=== PATIENT | male | born 1945 | race African-American/Black ===

== ENCOUNTER 2017-07-05 21:00 | Emergency (ER) | payer OTHER ==
[2017-07-05 22:07] LABS: Hematocrit 39.9 % (39.6-49.0); MCH 27.8 pg (27.0-35.0); MCV 87.6 fL (80-100); MPV 11.1 fL (7.6-11.3); RBC Red Blood Cell Count 4.56 M/uL (4.33-5.43)
[2017-07-05 22:11] LABS: Potassium 5.4 mEq/L (3.6-5.0)
[2017-07-05 22:14] LABS: Albumin 3.5 g/dL (3.2-5.5); Bilirubin Total 0.3 mg/dL (0.3-1.2); Protein, Total 7.6 g/dL (6.0-8.3)
--- NOTE | 2017-07-05 22:58 | ER ---
Nurse's Notes [facility] Name: Flex Morel Age: 71 yrs Sex: Male : 1945 Arrival Date: 07/05/2017 Time: 21:05 Bed 6 Private MD: Timur Murillo C Diagnosis: Hyperkalemia Presentation: 07/05 21:12 Presenting complaint: Patient states: I am a pt of Dr Murillo and he has been watching my la1 kidney function over the last few months, we had labs here today and he told us to come in because my potassium was very high. Transition of care: patient was not received from another setting of care. Onset of symptoms was July 05, 2017. Care prior to arrival: None. 21:12 Method Of Arrival: Wheelchair la1 21:12 Acuity: MIKAL 3 la1 Historical: - Allergies: 21:13 No Known Allergies; la1 - PMHx: 21:13 CHF; CVA; Diabetes - NIDDM; Gout; Hyperlipidemia; Hypertension; la1 - Immunization history:: Adult Immunizations up to date. - Social history:: Smoking status: Patient/guardian denies using tobacco. - Family history:: not pertinent. Screenin:18 Abuse screen: Denies threats or abuse. Denies injuries from another. Nutritional bp screening: No deficits noted. Tuberculosis screening: No symptoms or risk factors identified. Fall Risk None identified. Assessment: 21:19 General: Appears in no apparent distress. comfortable, Behavior is calm, cooperative, bp appropriate for age. Pain: Denies pain. Neuro: Level of Consciousness is awake, alert, obeys commands, Oriented to person, place, time, situation, Appropriate for age. Cardiovascular: No deficits noted. Respiratory: Airway is patent Respiratory effort is even, unlabored, Respiratory pattern is regular, symmetrical. GI: No signs and/or symptoms were reported involving the gastrointestinal system. : No signs and/or symptoms were reported regarding the genitourinary system. EENT: No deficits noted. Derm: No deficits noted. Musculoskeletal: Circulation, motion, and sensation intact. Range of motion: intact in all extremities. 23:32 Reassessment: PT D/C HOME WITH FAMILY, DX WITH HYPERKALEMIA. bp Vital Signs: 21:13 BP 136 / 81; Pulse 81; Resp 16; Temp 97.4; Pulse Ox 100% on R/A; Weight 91.63 kg; la1 Height 5 ft. 8 in. (172.72 cm); 22:00 BP 120 / 79; Pulse 73; Resp 14; Pulse Ox 99% ; bp 23:00 BP 123 / 78; Pulse 75; Resp 16; Pulse Ox 100% ; bp 21:13 Body Mass Index 30.71 (91.63 kg, 172.72 cm) la1 ED Course: 21:05 Patient arrived in ED. do 21:05 Timur Murillo MD is Private Physician. do 21:13 Triage completed. la1 21:13 Arm band placed on right wrist. la1 21:18 Vipul Monroe, RN is Primary Nurse. bp 21:18 Patient has correct armband on for positive identification. Bed in low position. Call bp light in reach. Side rails up X2. 21:32 Juan Zarco MD is Attending Physician. ma2 21:45 Inserted saline lock: 22 gauge in right forearm, using aseptic technique. Blood bp collected. 23:32 No provider procedures requiring assistance completed. IV discontinued, intact, bp bleeding controlled, No redness/swelling at site. Pressure dressing applied. Administered Medications: No medications were administered Outcome: 22:57 Discharge ordered by . ma2 23:33 Discharged to home via wheelchair, with family. bp 23:33 Condition: stable 23:33 Discharge instructions given to patient, family, Instructed on discharge instructions, follow up and referral plans. medication usage, Demonstrated understanding of instructions, follow-up care, medications, Prescriptions given X 1. 23:34 Patient left the ED. bp Signatures: Agus Chakraborty RN RN la1 Mignon Crawford Brian, RN RN bp Juan Zarco MD MD ma2
--- NOTE | 2017-07-05 22:58 | EDPHYS ---
Physician Documentation [facility] Name: Flex Morel Age: 71 yrs Sex: Male : 1945 Arrival Date: 07/05/2017 Time: 21:05 Bed 6 Private MD: Timur Tamez C ED Physician Juan Zarco HPI: 07/05 21:38 This 71 yrs old Black Male presents to ER via Wheelchair with complaints of Tested High ma2 Potassium Level. 21:38 sent from his PCP Dr. Tamez for K = 6.3 ESRD on schedule HD has no symptoms. Onset: The ma2 symptoms/episode began/occurred gradually, 1 day(s) ago. Severity of symptoms: At their worst the symptoms were severe. The patient has experienced similar episodes in the past. The patient has been recently seen by a physician:. Historical: - Allergies: 21:13 No Known Allergies; la1 - PMHx: 21:13 CHF; CVA; Diabetes - NIDDM; Gout; Hyperlipidemia; Hypertension; la1 - Immunization history:: Adult Immunizations up to date. - Social history:: Smoking status: Patient/guardian denies using tobacco. - Family history:: not pertinent. ROS: 21:38 ENT: Negative for injury, pain, and discharge, Neck: Negative for injury, pain, and ma2 swelling, Respiratory: Negative for shortness of breath, cough, wheezing, and pleuritic chest pain, Abdomen/GI: Negative for abdominal pain, nausea, diarrhea, and constipation. 21:38 All other systems are negative. Exam: 21:38 Constitutional: This is a well developed, well nourished patient who is awake, alert, ma2 and in no acute distress. Eyes: Pupils equal round and reactive to light, extra-ocular motions intact. Lids and lashes normal. Conjunctiva and sclera are non-icteric and not injected. Cornea within normal limits. Periorbital areas with no swelling, redness, or edema. ENT: Nares patent. No nasal discharge, no septal abnormalities noted. Tympanic membranes are normal and external auditory canals are clear. Oropharynx with no redness, swelling, or masses, exudates, or evidence of obstruction, uvula midline. Mucous membranes moist. Neck: Trachea midline, no thyromegaly or masses palpated, and no cervical lymphadenopathy. Supple, full range of motion without nuchal rigidity, or vertebral point tenderness. No Meningismus. Chest/axilla: Normal chest wall appearance and motion. Nontender with no deformity. No lesions are appreciated. Back: No spinal tenderness. No costovertebral tenderness. Full range of motion. Vital Signs: 21:13 BP 136 / 81; Pulse 81; Resp 16; Temp 97.4; Pulse Ox 100% on R/A; Weight 91.63 kg; la1 Height 5 ft. 8 in. (172.72 cm); 22:00 BP 120 / 79; Pulse 73; Resp 14; Pulse Ox 99% ; bp 23:00 BP 123 / 78; Pulse 75; Resp 16; Pulse Ox 100% ; bp 21:13 Body Mass Index 30.71 (91.63 kg, 172.72 cm) la1 MDM: 21:34 Patient medically screened. ma2 21:38 Differential Diagnosis elevated K, ESRD, renal failure . ma2 22:56 Data reviewed: vital signs, nurses notes, lab test result(s). Counseling: I had a ma2 detailed discussion with the patient and/or guardian regarding: the historical points, exam findings, and any diagnostic results supporting the discharge/admit diagnosis, the need for outpatient follow up. ED course: K = 5.[address] elkins who recommend to start kayexalate and d/c home and he will discuss with Dr. tamez tomorrow and call the patient, patient is stable normal VS no ekg changes no symptoms. 07/05 21:33 Order name: CMP; Complete Time: 22:31 vt2 07/05 21:33 Order name: CBC w/o diff [facility] 07/05 21:33 Order name: Lactic Dehydrogenase; Complete Time: 22:31 ma2 07/05 21:33 Order name: Lactate; Complete Time: 22:31 ma2 Administered Medications: No medications were administered Disposition: 07/05/17 22:57 Discharged to Home. Impression: Hyperkalemia. - Condition is Stable. - Discharge Instructions: Hyperkalemia, [id number]. - Prescriptions for Kayexalate Oral powder - take 20 milliliter by ORAL route once daily; 17757 milliliter. - Medication Reconciliation Form, Thank You Letter, Antibiotic Education, Prescription Opioid Use form. - Follow up: Private Physician; When: Today; Reason: Continuance of care. - Problem is new. - Symptoms have improved. Signatures: Dispatcher [employer] Agus Virk RN RN la1 Vipul Monroe RN RN bp Alzahri, Mohammad, MD MD ma2 Corrections: (The following items were deleted from the chart) 22:35 22:32 Abnormal. elisa pérez
[2017-07-05 23:46] VITALS: TEMP 97.4
[2017-07-05 23:48] VITALS: BP 123/78; O2SAT 100
--- NOTE | 2017-07-07 22:39 | EKG ---
Test Date: 2017-07-05 Test Time: 21:25:43 [employer] Manager: OMAR MEASUREMENT RESULTS: Intervals: Rate: 74 ID: [id number] QRSD: 122 QT: 398 QTc: 441 Neche: P: 65 ID: [id number] QRS: -15 T: 179 INTERPRETIVE STATEMENTS: Sinus rhythm with 1st degree AV block Nonspecific intraventricular conduction delay T wave abnormality, consider lateral ischemia Abnormal ECG Compared to ECG 06/01/2017 13:23:55 Ventricular premature complex(es) no longer present T-wave abnormality still present Possible ischemia still present Electronically Signed On 07-07-17 22:38:37 CDT by Deniz Gonzales
== END 2017-07-05 23:34 | disposition home or self-care (01) ==
LOC: ER 21:00
DX: E87.5 Hyperkalemia (principal)
CPT/HCPCS: 36415; 80053; 83605; 83615; 85027; 93005; 99283

== ENCOUNTER 2017-08-17 23:26 | Inpatient (IN) | payer OTHER ==
[2017-08-18 00:10] LABS: Absolute Lymphocytes (CBC) 1.9 K/uL (0.7-4.9); Absolute Monocytes 0.7 K/uL (0.1-1.3); Absolute Neutrophil 4.9 K/uL (1.8-8.0); Basophils % 0.2 % (0-1.3); Eosinophils % 2.3 % (0-4.4); Hematocrit 34.5 % (39.6-49.0); Lymphocytes % 24.2 % (15.3-44.8); MCH 28.1 pg (27.0-35.0); MCV 89.7 fL (80-100); MPV 9.7 fL (7.6-11.3); Monocytes % 9.4 % (3.3-12.3); RBC Red Blood Cell Count 3.85 M/uL (4.33-5.43)
[2017-08-18 00:13] LABS: Protime INR 1.34
[2017-08-18 00:20] LABS: Potassium 3.2 mEq/L (3.6-5.0)
[2017-08-18 00:26] LABS: Albumin 3.1 g/dL (3.2-5.5); Bilirubin Direct 0.2 mg/dL (0-0.2); Bilirubin Total 0.7 mg/dL (0.3-1.2); Magnesium 1.9 mg/dL (1.8-2.5)
[2017-08-18 00:30] LABS: CKMB Creatine Kinase MB 7.4 ng/ml (0.3-4.0)
[2017-08-18] MEDS ORDERED: FUROSEMIDE 40 MG/4 ML VIAL ONE ×2 (00:37→02:29)
--- NOTE | 2017-08-18 02:33 | ER ---
Nurse's Notes [facility] Name: Flex Morel Age: 71 yrs Sex: Male : 1945 Arrival Date: 08/17/2017 Time: 23:27 Bed 14 Private MD: Diagnosis: Acute on chronic combined systolic (congestive) and diastolic (congestive) heart failure Presentation: 08/17 23:39 Presenting complaint: Patient states: short of breath since yesterday morning, mb3 gradually getting worse and worse. 84% on room air, on 3 liters nasal cannula now. Transition of care: patient was not received from another setting of care. Onset of symptoms was August 16, 2017. Risk Assessment: Do you want to hurt yourself or someone else? Patient reports no desire to harm self or others. Initial Sepsis Screen: Does the patient meet any 2 criteria? No. Patient's initial sepsis screen is negative. Does the patient have a suspected source of infection? No. Patient's initial sepsis screen is negative. Care prior to arrival: None. 23:39 Method Of Arrival: Wheelchair mb3 23:39 Acuity: MIKAL 3 mb3 Triage Assessment: 23:43 General: Appears uncomfortable, ill, obese, Behavior is calm, cooperative, appropriate mb3 for age. Pain: Denies pain. Neuro: No deficits noted. Level of Consciousness is awake, alert, obeys commands, Oriented to person, place, time, situation, Appropriate for age. Cardiovascular: Heart tones present Capillary refill < 3 seconds Patient's skin is warm and dry. Respiratory: Reports shortness of breath at rest labored breathing since yesterday Airway is patent Respiratory effort is labored, Respiratory pattern is tachypnea Breath sounds are diminished bilaterally. Onset: The symptoms/episode began/occurred gradually, the patient has severe shortness of breath. GI: Abdomen is round distended, Bowel sounds hypoactive in right upper quadrant, left upper quadrant and abdomen diffusely. : No signs and/or symptoms were reported regarding the genitourinary system. Historical: - Allergies: 23:42 No Known Allergies; mb3 - PMHx: 23:42 CHF; CVA; Diabetes - NIDDM; Gout; Hyperlipidemia; Hypertension; Seizures; mb3 - Immunization history:: Adult Immunizations not up to date. - Social history:: Smoking status: Patient/guardian denies using tobacco, never smoked. - Ebola Screening: : Patient denies travel to an Ebola-affected area in the 21 days before illness onset No symptoms or risks identified at this time. Screenin:57 Abuse screen: Denies threats or abuse. Nutritional screening: No deficits noted. mb3 Tuberculosis screening: No symptoms or risk factors identified. Fall Risk None identified. Assessment: 08/18 00:05 Reassessment: see triage assessment. Cardiovascular: Reports shortness of breath, mb3 Denies chest pain, Rhythm is irregular. 01:30 Reassessment: Patient and/or family updated on plan of care and expected duration. Pain ea level reassessed. Patient is alert, oriented x 3, equal unlabored respirations, skin warm/dry/pink. 02:55 Reassessment: Patient and/or family updated on plan of care and expected duration. Pain ea level reassessed. Patient is alert, oriented x 3, equal unlabored respirations, skin warm/dry/pink. 03:15 Reassessment: Patient and/or family updated on plan of care and expected duration. Pain ea level reassessed. Patient is alert, oriented x 3, equal unlabored respirations, skin warm/dry/pink. Patient states feeling better. 04:33 Reassessment: Patient and/or family updated on plan of care and expected duration. Pain ea level reassessed. Patient is alert, oriented x 3, equal unlabored respirations, skin warm/dry/pink. Patient states feeling better. 05:00 Reassessment: Patient and/or family updated on plan of care and expected duration. Pain ea level reassessed. Patient is alert, oriented x 3, equal unlabored respirations, skin warm/dry/pink. Family at bedside. Vital Signs: 08/17 23:45 BP 138 / 89; Pulse 81; Resp 26; Temp 98.8; Pulse Ox 94% on 3 lpm NC; Weight 99.79 kg; mb3 Height 5 ft. 7 in. (170.18 cm); Pain 0/10; 08/18 00:45 BP 138 / 95; Pulse 74; Resp 24; Pulse Ox 93% ; Pain 0/10; ea 01:15 BP 151 / 78; Pulse 79; Resp 24; Pulse Ox 94% on 3 lpm NC; ea 02:30 BP 152 / 99; Pulse 77; Resp 22; Pulse Ox 94% ; Pain 0/10; ea 03:30 BP 168 / 95; Pulse 80; Resp 20; Pulse Ox 97% ; Pain 0/10; ea 04:34 BP 168 / 71; Pulse 82; Resp 20; Temp 98(O); Pulse Ox 97% on 3 lpm NC; Pain 0/10; ea 08/17 23:45 Body Mass Index 34.46 (99.79 kg, 170.18 cm) mb3 ED Course: 08/17 23:27 Patient arrived in ED. ds1 23:31 Awais Maria, EDIE is Primary Nurse. mb3 23:41 Triage completed. mb3 23:47 Elbert Mcnally, ADEEL is PHCP. pm1 23:48 Eder Wilson MD is Attending Physician. pm1 23:57 Inserted saline lock: 20 gauge in right forearm, using aseptic technique. Blood mb3 collected. 08/18 00:05 Arm band placed on right wrist. ea 00:05 Patient has correct armband on for positive identification. Placed in gown. Bed in low ea position. Call light in reach. Side rails up X2. 00:12 X-ray completed. Portable x-ray completed in exam room. Patient tolerated procedure jw2 well. 00:14 XRAY Chest (1 view) In Process Unspecified. EDMS 00:45 Freire cath inserted, using sterile technique, 18 Fr., by ny, balloon inflated, to ea gravity drainage. 02:31 Timur Murillo MD is Hospitalizing Provider. pm1 03:12 CT Chest Wo Con In Process Unspecified. EDMS 03:15 CT completed. Patient tolerated procedure well. Patient moved to CT via stretcher. Patient moved back from CT. 04:33 No provider procedures requiring assistance completed. Patient admitted, IV remains in ea place. Administered Medications: 00:40 Drug: Lasix 40 mg Route: IVP; Site: right forearm; ea 05:05 Follow up: Response: No adverse reaction; Marked relief of symptoms ea 02:41 Drug: Lasix 40 mg Route: IVP; Site: right antecubital; ea 03:00 Follow up: Response: No adverse reaction; Marked relief of symptoms ea 03:30 Drug: Lovenox 60 mg Route: Sub-Q; Site: right lower abdomen; ea 05:00 Follow up: Response: No adverse reaction ea Outcome: 02:32 Decision to Hospitalize by Provider. pm1 03:00 Instructed on the need for admit. ea 04:59 Admitted to Med/surg accompanied by tech, room 421, Report called to Sherri IRIZARRY ea 04:59 Condition: stable 05:06 Patient left the ED. ea Signatures: Dispatcher [employer] ED Chris, Yamilanthony valencia TenaZaida otero ds1 Elbert Mcnally, ADEEL METAL FURNACE OPERATOR pm1 Krystina See jw2 Josee Aldridge RN RN Awais Faye RN RN mb3 Corrections: (The following items were deleted from the chart) 08/17 23:43 23:39 Presenting complaint: Patient states: short of breath since yesterday morning, mb3 gradually getting worse and worse mb3 08/18 04:38 04:34 BP 168 / 71; Pulse 82bpm; Resp 18bpm; Pulse Ox 97% 3 lpm Nasal Cannula; Temp 98F ea Oral; Pain 0/10; ea
--- NOTE | 2017-08-18 02:33 | EDPHYS ---
Physician Documentation [facility] Name: Flex Morel Age: 71 yrs Sex: Male : 1945 Arrival Date: 08/17/2017 Time: 23:27 Bed 14 Private MD: ED Physician Eder Wilson HPI: 08/18 00:00 This 71 yrs old Black Male presents to ER via Wheelchair with complaints of Shortness pm1 Of Breath. 00:00 The patient has shortness of breath at rest. Onset: The symptoms/episode began/occurred pm1 1 week(s) ago. Duration: The symptoms are continuous, but are steadily getting better. The patient's shortness of breath is aggravated by nothing, is alleviated by nothing. Associated signs and symptoms: Pertinent negatives: chest pain, non-productive cough, dizziness, fever, nausea, vomiting. Severity of symptoms: in the emergency department the symptoms are worse Pain is currently a 0 / 10. The patient has experienced similar episodes in the past, multiple times. The patient has been recently seen by a physician: the patient's primary care provider, 3 week(s) ago, check up. Patient reports at least 10 pound weight gain in the past week. Edema present to lower extremities and abdominal area. Patient without any chest pain, just progressively worsening shortness of breath over the past week. Historical: - Allergies: 08/17 23:42 No Known Allergies; mb3 - PMHx: 23:42 CHF; CVA; Diabetes - NIDDM; Gout; Hyperlipidemia; Hypertension; Seizures; mb3 - Immunization history:: Adult Immunizations not up to date. - Social history:: Smoking status: Patient/guardian denies using tobacco, never smoked. - Ebola Screening: : Patient denies travel to an Ebola-affected area in the 21 days before illness onset No symptoms or risks identified at this time. ROS: 08/18 00:00 Constitutional: Negative for fever, chills, and weight loss, Eyes: Negative for injury, pm1 pain, redness, and discharge, ENT: Negative for injury, pain, and discharge, Neck: Negative for injury, pain, and swelling, Abdomen/GI: Negative for abdominal pain, nausea, vomiting, diarrhea, and constipation. Back: Negative for injury and pain, : Negative for injury, bleeding, discharge, and swelling, MS/Extremity: Negative for injury and deformity, Skin: Negative for injury, rash, and discoloration, Neuro: Negative for headache, weakness, numbness, tingling, and seizure. Cardiovascular: Positive for edema, orthopnea, Negative for chest pain, palpitations. Respiratory: Positive for shortness of breath, Negative for cough, sputum production, wheezing. Exam: 00:00 Constitutional: This is a well developed, well nourished patient who is awake, alert, pm1 and in no acute distress. Head/Face: Normocephalic, atraumatic. Eyes: Pupils equal round and reactive to light, extra-ocular motions intact. Lids and lashes normal. Conjunctiva and sclera are non-icteric and not injected. Cornea within normal limits. Periorbital areas with no swelling, redness, or edema. ENT: Nares patent. No nasal discharge, no septal abnormalities noted. Tympanic membranes are normal and external auditory canals are clear. Oropharynx with no redness, swelling, or masses, exudates, or evidence of obstruction, uvula midline. Mucous membranes moist. Neck: Trachea midline, no thyromegaly or masses palpated, and no cervical lymphadenopathy. Supple, full range of motion without nuchal rigidity, or vertebral point tenderness. No Meningismus. Chest/axilla: Normal chest wall appearance and motion. Nontender with no deformity. No lesions are appreciated. Cardiovascular: Regular rate and rhythm with a normal S1 and S2. No gallops, murmurs, or rubs. Normal PMI, no JVD. No pulse deficits. 00:00 Abdomen/GI: Soft, non-tender, with normal bowel sounds. No distension or tympany. No guarding or rebound. No evidence of tenderness throughout. Back: No spinal tenderness. No costovertebral tenderness. Full range of motion. Skin: Warm, dry with normal turgor. Normal color with no rashes, no lesions, and no evidence of cellulitis. MS/ Extremity: Pulses equal, no cyanosis. Neurovascular intact. Full, normal range of motion. 00:00 Respiratory: the patient does not display signs of respiratory distress, Respirations: normal, Breath sounds: decreased breath sounds, are located in both bases. 00:00 Neuro: Orientation: is normal, Motor: is normal, no acute changes, moves all fours. Vital Signs: 08/17 23:45 BP 138 / 89; Pulse 81; Resp 26; Temp 98.8; Pulse Ox 94% on 3 lpm NC; Weight 99.79 kg; mb3 Height 5 ft. 7 in. (170.18 cm); Pain 0/10; 08/18 00:45 BP 138 / 95; Pulse 74; Resp 24; Pulse Ox 93% ; Pain 0/10; ea 01:15 BP 151 / 78; Pulse 79; Resp 24; Pulse Ox 94% on 3 lpm NC; ea 02:30 BP 152 / 99; Pulse 77; Resp 22; Pulse Ox 94% ; Pain 0/10; ea 03:30 BP 168 / 95; Pulse 80; Resp 20; Pulse Ox 97% ; Pain 0/10; ea 04:34 BP 168 / 71; Pulse 82; Resp 20; Temp 98(O); Pulse Ox 97% on 3 lpm NC; Pain 0/10; ea 08/17 23:45 Body Mass Index 34.46 (99.79 kg, 170.18 cm) mb3 MDM: 08/17 23:48 Patient medically screened. pm1 08/18 02:31 Data reviewed: vital signs. Counseling: I had a detailed discussion with the patient pm1 and/or guardian regarding: the historical points, exam findings, and any diagnostic results supporting the discharge/admit diagnosis, lab results, radiology results, the need for further work-up and treatment in the hospital. 02:35 ED course: Discussed case with attending, recommends decreased dose of Lovenox. Patient pm1 with elevated troponin. 08/17 23:55 Order name: Basic Metabolic Panel; Complete Time: 00:41 pm08/17 23:55 Order name: BNP; Complete Time: 00:41 pm08/17 23:55 Order name: CBC with Diff; Complete Time: 00:41 pm08/17 23:55 Order name: Ckmb; Complete Time: 00:41 pm08/17 23:55 Order name: CPK; Complete Time: 00:41 pm08/17 23:55 Order name: LFT's; Complete Time: 00:41 pm08/17 23:55 Order name: Magnesium; Complete Time: 00:41 pm08/17 23:55 Order name: PT-INR; Complete Time: 00:41 pm08/17 23:55 Order name: Ptt, Activated; Complete Time: 00:41 pm1 08/17 23:55 Order name: Troponin (emerg Dept Use Only); Complete Time: 00:41 pm1 08/17 23:55 Order name: XRAY Chest (1 view) pm1 08/18 02:36 Order name: CT Chest Wo Con pm08/18 04:33 Order name: Urine Dipstick--Ancillary (enter results) 2 08/18 04:53 Order name: Urine Dipstick-Ancillary EDND 08/17 23:55 Order name: EKG; Complete Time: 23:56 pm08/17 23:55 Order name: Cardiac monitoring; Complete Time: 23:58 pm08/17 23:55 Order name: EKG - Nurse/Tech; Complete Time: 23:58 pm1 08/17 23:55 Order name: IV Saline Lock; Complete Time: 23:58 pm1 08/17 23:55 Order name: Labs collected and sent; Complete Time: 23:58 pm1 08/17 23:55 Order name: O2 Per Protocol; Complete Time: 23:58 pm08/17 23:55 Order name: O2 Sat Monitoring; Complete Time: 23:58 pm1 08/17 23:55 Order name: Urine Dipstick-Ancillary (obtain specimen); Complete Time: 04:32 pm08/17 23:58 Order name: Freire; Complete Time: 00:54 pm1 Administered Medications: 00:40 Drug: Lasix 40 mg Route: IVP; Site: right forearm; ea 05:05 Follow up: Response: No adverse reaction; Marked relief of symptoms ea 02:41 Drug: Lasix 40 mg Route: IVP; Site: right antecubital; ea 03:00 Follow up: Response: No adverse reaction; Marked relief of symptoms ea 03:30 Drug: Lovenox 60 mg Route: Sub-Q; Site: right lower abdomen; ea 05:00 Follow up: Response: No adverse reaction ea Disposition: 08/18/17 02:32 Hospitalization ordered by Timur Murillo for Inpatient Admission. Preliminary diagnosis is Acute on chronic combined systolic (congestive) and diastolic (congestive) heart failure. - Bed requested for Telemetry/MedSurg (Inpatient). - Status is Inpatient Admission. ea - Condition is Stable. - Problem is new. - Symptoms have improved. UTI on Admission? No Addendum: 08/20/2017 09:29 Co-signature as Attending Physician, Eder Wilson MD I agree with the assessment and c jhaveri plan of care. Signatures: Dispatcher [employer] EDEder Boswell MD MD cha Chretien, Felicia, RN RN fc Elbert Mcnally, RECREATIONAL AIDE RECREATIONAL AIDE pm1 Josee Aldridge, RN Awais Emery ea, RN RN mb3 Corrections: (The following items were deleted from the chart) 08/18 02:44 02:32 Hospitalization Ordered by A Lidia PATE for Inpatient Admission. Preliminary fc diagnosis is Acute on chronic combined systolic (congestive) and diastolic (congestive) heart failure. Bed requested for Telemetry/MedSurg (Inpatient). Status is Inpatient Admission. Condition is Stable. Problem is new. Symptoms have improved. UTI on Admission? No. pm1 05:06 02:44 08/18/2017 02:32 Hospitalization Ordered by A Lidia PATE for Inpatient Admission. ea Preliminary diagnosis is Acute on chronic combined systolic (congestive) and diastolic (congestive) heart failure. Bed requested for Telemetry/MedSurg (Inpatient). Status is Inpatient Admission. Condition is Stable. Problem is new. Symptoms have improved. UTI on Admission? No. fc
[2017-08-18] MEDS ORDERED: ENOXAPARIN 60 MG/0.6 ML SQ ONE (02:57)
[2017-08-18] MEDS ORDERED: ALBUTEROL 2.5 MG/3 ML NEB SOL NEB PRN (04:37)
[2017-08-18 04:53] LABS: Urine Blood 3+ (NEG); Urine Glucose NEGATIVE (NEG); Urine Protein 2+ (NEG); Urine Specific Gravity 1.015 (1.005-1.030)
[2017-08-18] MEDS ORDERED: PNEUMOCOCCAL VACCINE 0.5 ML IMVAC ONE (08:00)
--- NOTE | 2017-08-18 08:07 | RAD REPORT ---
EXAM DESCRIPTION: CT - Thorax Wo Con - 08/18/2017 7:10 am CLINICAL HISTORY: Chest pain, shortness of breath A preliminary written report was provided at the time of the study, and the report was reviewed prio r to final dictation. COMPARISON: Portable chest August 18, CT chest November 2015 TECHNIQUE: Axial 5 mm thick images of the chest were obtained without IV contrast. All CT scans are performed using dose optimization technique as appropriate and may include automated exposure control or mA/KV adjustment according to patient size. FINDINGS: No focal mass or consolidation of the lung parenchyma. In the inferior aspect of each uppe r lobe, the right middle lobe and both lower lobes there are prominent ground-glass alveolar opacitie s present. Patient has small to moderate bilateral pleural effusions. No lung parenchymal mass lesion s seen. There are no endobronchial focal lesions identifiable. No pleural based mass and no pneumotho rax. Patient has numerous small nonspecific mediastinal lymph nodes. These are noncalcified. Size and numb er of lymph nodes not substantially different from November 2015. Vascular assessment is limited in the absence of contrast. Cardiomegaly is present without pericardial effusion. No chest wall mass or abnormal axillary lymphadenopathy. Bony degenerative changes are present. No pathologic bone process suspected. Bilateral gynecomastia i s present similar to comparison. IMPRESSION: CHF/volume overload pattern is present mild to moderate in degree. No focal consolidation, mass or suspicious lymphadenopathy.
[2017-08-18] MEDS ORDERED: FUROSEMIDE 20 MG/ 2ML VIAL IV SCH (09:00)
[2017-08-18] MEDS ORDERED: GLUCAGON 1 MG/VIAL IM PRN (09:02)
[2017-08-18] MEDS ORDERED: D50W 25 GM/50 ML SYRINGE IV PRN (09:02)
[2017-08-18] MEDS: VITAMIN D 1000 UNIT TAB PO SCH (10:00)
[2017-08-18] MEDS: HYDRALAZINE HCL 25 MG TABLET PO SCH ×2 (10:00→21:27)
[2017-08-18] MEDS: ASPIRIN EC 81 MG TAB PO SCH (10:00)
[2017-08-18] MEDS: levETIRAcetam 500 MG TAB PO SCH ×2 (10:02→21:27)
[2017-08-18] MEDS: CARVEDILOL 12.5 MG TAB PO SCH ×2 (10:02→21:27)
[2017-08-18] MEDS: ALLOPURINOL 300 MG TAB PO SCH (10:02)
[2017-08-18] MEDS: ISOSORBIDE MONO SR 60 MG TAB PO SCH (10:02)
[2017-08-18] MEDS: APIXABAN 2.5 MG TABLET PO SCH ×2 (10:05→21:27)
--- NOTE | 2017-08-18 10:36 | RAD REPORT ---
EXAM DESCRIPTION: RAD - Chest Single View - 08/18/2017 12:13 am CLINICAL HISTORY: Chest pain, shortness of breath COMPARISON: June 01 TECHNIQUE: AP portable chest image was obtained 0010 hours . FINDINGS: Lung volumes are low. Interstitial and alveolar opacification is present worse in each blanca g base. Trachea is midline. Mild cardiomegaly and vascular engorgement noted. No pneumothorax seen. N o large pleural effusion. Small pleural effusions are still possible. No gross bony abnormality seen. No acute aortic findings suspected. IMPRESSION: CHF/volume overload pattern. Pneumonia is unlikely but not excluded.
--- NOTE | 2017-08-18 11:20 | EKG ---
Test Date: 2017-08-17 Test Time: 23:48:22 Implement Mechanic: ELYSE MEASUREMENT RESULTS: Intervals: Rate: 76 RI: 208 QRSD: 122 QT: 450 QTc: 506 [place]: P: 72 RI: 208 QRS: -1 T: 157 INTERPRETIVE STATEMENTS: Sinus rhythm with frequent premature ventricular complexes Possible Anterior infarct, age undetermined Abnormal ECG Compared to ECG 07/05/2017 21:25:43 Ventricular premature complex(es) now present Myocardial infarct finding now present First degree AV block no longer present Intraventricular conduction delay no longer present T-wave abnormality no longer present Possible ischemia no longer present Electronically Signed On 08-18-17 11:19:07 CDT by Daniel Boucher
--- NOTE | 2017-08-18 11:58 | HP ---
Date of Admission: 08/18/2017 Chief Complaint: Shortness of breath, leg swelling. History Of Present Illness: This is a 71-year-old male patient, comes into the hospital emergency ro om with complaints of shortness of breath getting worse over a period of last 2-3 days as reported by family and also having increasing leg swelling. The patient was evaluated in the emergency room. Bandar tovar was admitted to the hospital with congestive heart failure exacerbation. The patient has chronic s ystolic congestive heart failure and says he does take his medications regularly. He has had some pr oblem with gout off and on, takes allopurinol on a regular basis he says. Allergies: NO KNOWN ALLERGIES. Medications: List reviewed. Review of Systems: Cardiovascular: As mentioned above. Musculoskeletal: As mentioned above. All other systems reviewed and negative. Past Surgical History: Significant for surgery to right eye. Social History: Negative for smoking and alcohol use. Family History: Significant for coronary artery disease, diabetes, osteoarthritis, and hypertension. Past Medical History: Significant for hypertension, hyperlipidemia, gout, anemia due to chronic kidn ey disease, chronic systolic congestive heart failure, hypertension, chronic kidney disease due to di abetes mellitus, gastroesophageal reflux disease, chronic anticoagulation therapy due to stroke and a trial fibrillation, coronary artery disease, and diabetes mellitus. Physical Examination: Vital Signs: Temperature 97.2, pulse 86, respiratory rate 21, blood pressure 189/99, oxygen saturati on 93%. Height 5 feet 7 inches. Weight 215 pounds. General: Awake, alert, oriented, not in distress. HEENT: Head atraumatic, normocephalic. Conjunctivae nonerythematous. Sclerae white. Mouth, no thr ush or edema noted. Ears/Nose, no mass, lesion, discharge noted. Neck: Supple. No JVD, lymph nodes, bruit, thyromegaly noted. Lungs: Rales present in both lung garcia, not in any respiratory distress. Heart: Normal heart sounds, no murmur or gallop. Abdomen: Soft, bowel sounds normal. No guarding, rigidity, tenderness, mass, hepatosplenomegaly, dis tention, or bruit noted. Extremities: Bilateral leg edema grade 2. No calf tenderness. Skin: No rash, ulcer, cellulitis. Lymphatics: No lymph node enlargement in neck, supraclavicular, infraclavicular region. Neuro: No focal neurological deficit. Chest: Unremarkable. External Genitalia: Deferred. Rectal: Deferred. Laboratory Data: White count 7.7, hemoglobin 10.8, platelets 145. INR 1.34. Sodium 142, potassium 3.2, chloride 109, bicarb 26, BUN 71, creatinine 2.3, and glucose 188. Liver function tests unremark able. Troponin 0.06 on the first set, second set 0.05. BNP 1504. Urinalysis, 2+ protein. CAT scan of the chest without contrast showing CHF/volume overload pattern [id number] indicating no con solidation, mass, or suspicious lymphadenopathy. Chest x-ray shows changes of congestive heart failu re. Last echocardiogram March 05, 2017, ejection fraction 39%. Impression: 1.Congestive heart failure, chronic, systolic, with acute exacerbation. 2.Chronic kidney disease, stage 4. 3.Anemia due to chronic kidney disease. 4.Coronary artery disease. 5.Paroxysmal atrial fibrillation. 6.Hypertension. 7.Diabetes mellitus with kidney disease. 8.Hyperlipidemia. 9.Gout. 10.Stroke. 11.Gastroesophageal reflux disease. Plan: We will go ahead and admit the patient to hospital for further evaluation and management of th is problem. The patient is appropriate for inpatient and [facility] Consult Cardiology, get echo with Doppler tomorrow. Home medications will be continued. Monitor intake and output. The patient has a Freire catheter in place. We will probably plan to remove it, maybe tomorrow. Give Lasix 40 mg IV every 12 hours. Monitor electrolytes, replace it as it becomes necessary. Monitor fingerstick blood sugar with sliding scale insulin. Details and plan of treatmen t discussed with the patient and his , who was at bedside. KARISHMA/MODL Voice ID: [id number]
[2017-08-18] MEDS: INSULIN -REGULAR HUMAN 50 UNIT/0.5 ML ML SQ SCH ×3 (12:31→21:28)
[2017-08-18] MEDS: MAGNESIUM HYDROXIDE 8% 30 ML PO PRN (15:47)
[2017-08-18] MEDS: FUROSEMIDE 40 MG/4 ML VIAL IV SCH (17:27)
[2017-08-18] MEDS: AMITRIPTYLINE 25 MG TAB PO SCH (21:28)
[2017-08-18] MEDS: ATORVASTATIN 40 MG TAB PO SCH (21:39)
[2017-08-19 04:36] LABS: Absolute Lymphocytes (CBC) 1.5 K/uL (0.7-4.9); Absolute Neutrophil 6.1 K/uL (1.8-8.0); Basophils % 0.7 % (0-1.3); Eosinophils % 1.1 % (0-4.4); Hematocrit 33.7 % (39.6-49.0); Lymphocytes % 17.2 % (15.3-44.8); MCH 28.7 pg (27.0-35.0); MCV 89.1 fL (80-100); MPV 9.7 fL (7.6-11.3); Monocytes % 11.2 % (3.3-12.3); RBC Red Blood Cell Count 3.78 M/uL (4.33-5.43)
[2017-08-19 04:41] LABS: Potassium 3.4 mEq/L (3.6-5.0)
--- NOTE | 2017-08-19 06:11 | CON ---
Date of Consultation: 08/18/[address] Murillo's service on 08/18/2017. I saw the patient on 08/18/2017. Reason For Consultation: Congestive heart failure. History Of Present Illness: Mr. Morel is a 71-year-old black male, who is a long-term patient of mine. He has a history of chronic systolic congestive heart failure. I have not seen him in the off ice for quite sometimes, although he usually comes for regular checkups. He came in with shortness o f breath and was noted to be in congestive heart failure, was admitted for further evaluation and ashwin atment. Apparently, has had approximately 10 pounds of weight gain. Has had pedal edema, PND, ortho pnea, but no palpitations and no syncope. Long ago he had a stroke and recently had a seizure. Went to [facility] for evaluation and went up on seizure medication. He also has a history of diabetes, gou t, hypertension, and hyperlipidemia. Past Medical History: Otherwise negative. Allergies: NONE. Review of Systems: Negative. Social History: Negative. Home Medications: Are supposed to be allopurinol, amitriptyline, Eliquis, aspirin, Lipitor, Coreg, L asix, hydralazine, insulin, and Imdur. Physical Examination: Vital Signs: When I saw him, he weighed 215 pounds, blood pressure is 123/73. He was in a sinus rhy thm with PVCs. He was afebrile. Breathing rate was 16 times a minute. His glucose was 199. I's an d O's were adequate. O2 saturation was 93% on 3 L of nasal cannula. HEENT: Negative. Neck: Supple without any bruit, lymphadenopathy, JVD, or thyromegaly. Chest: Revealed some rales at both bases and some expiratory wheezing as well. Cardiac: Revealed a regular rhythm and rate with an aortic sclerosis murmur. No gallops or rubs. Abdomen: Benign. Extremities: Revealed trace edema. Diagnostic Data: His creatinine is 2.37. Hemoglobin is 10.8. His potassium was 3.4. His glucose w as 199. His troponin was 0.05. His BNP was 2805. His EKG revealed sinus rhythm with frequent PVCs. His chest x-ray revealed congestive heart failure. Impression And Plan: Acute on chronic exacerbation of systolic congestive heart failure. Last echoc ardiogram in February of 2017 showed an ejection fraction of 39%. He is on appropriate therapy inclu ding Lasix and carvedilol. He is on Eliquis for previous history of atrial fibrillation. He is not a candidate for Entresto or RYAN inhibitors because of his kidney dysfunction. We will continue prese nt regimen. Discharge him when Dr. Murillo is comfortable and I will see him in the office in the near future. We can certainly go up on the carvedilol does. His other problems including gout, depressio n, and diabetes as well as coronary artery disease seem to be stable at this point. I will check my office records to see what ischemic workup he has had in the past. I will discuss the case further w ana Murillo. MODESTO/ZULAY Voice ID: [id number] Report ID: [id number]
[2017-08-19] MEDS: INSULIN -REGULAR HUMAN 50 UNIT/0.5 ML ML SQ SCH ×4 (08:25→21:46)
[2017-08-19] MEDS: ASPIRIN EC 81 MG TAB PO SCH (08:26)
[2017-08-19] MEDS: ISOSORBIDE MONO SR 60 MG TAB PO SCH (08:26)
[2017-08-19] MEDS: CARVEDILOL 12.5 MG TAB PO SCH ×2 (08:26→21:45)
[2017-08-19] MEDS: ALLOPURINOL 300 MG TAB PO SCH (08:26)
[2017-08-19] MEDS: VITAMIN D 1000 UNIT TAB PO SCH (08:26)
[2017-08-19] MEDS: FUROSEMIDE 40 MG/4 ML VIAL IV SCH ×2 (08:28→17:00)
[2017-08-19] MEDS: APIXABAN 2.5 MG TABLET PO SCH ×2 (08:28→21:45)
[2017-08-19] MEDS: HYDRALAZINE HCL 25 MG TABLET PO SCH ×2 (08:28→21:44)
[2017-08-19] MEDS ORDERED: D50W 25 GM/50 ML SYRINGE IV PRN (09:05)
[2017-08-19] MEDS ORDERED: GLUCAGON 1 MG/VIAL IM PRN (09:05)
[2017-08-19] MEDS: levETIRAcetam 500 MG TAB PO SCH ×2 (10:54→21:45)
--- NOTE | 2017-08-19 13:35 | PN ---
Date of Progress Note: 08/19/2017 Subjective: The patient was seen this morning for a followup. No new complaints or problems were re ported by the patient. Lying in bed, not in distress. Gets short of breath. When he gets up and go es to the bathroom and comes back, he gets short of breath. Overall, his breathing is better compare d to what it was when he came into the hospital. Leg swelling is present, but better than before. Objective: Vital Signs: Reviewed. Intake and output records are reviewed. HEENT: Unremarkable. Lungs: Bilateral good equal air entry. Presence of rales noted in lower lung garcia. Heart: Sounds normal. Abdomen: Soft. Bowel sounds normal. No guarding, rigidity, tenderness or distention. Extremity: Bilateral grade 1 pedal edema. Labs: Reviewed. Impression: 1.Congestive heart failure, chronic, systolic, with acute exacerbation. 2.Paroxysmal atrial fibrillation. 3.Stroke. 4.Hypertension. 5.Diabetes mellitus. 6.Coronary artery disease. 7.Chronic kidney disease, stage IV. Plan: We will continue current medications. We will continue current IV Lasix. Remove Freire cathet er. Start the patient on Levemir 15 units subcutaneous injection at bedtime. At home, he takes anyw here between 40-50 units of Levemir insulin two times a day. Fingerstick blood sugar readings were r eviewed. We will consider to increase the dose of insulin on a day-to-day basis depending on his blo od sugar. Continue sliding scale insulin. Plan of treatment was discussed with the patient and his was at bedside. Echocardiogram will be done and we will follow up on the re desi. KARISHMA/MODL Voice ID: [id number] Report ID: [id number]
[2017-08-19] MEDS ORDERED: INSULIN -REGULAR HUMAN 50 UNIT/0.5 ML ML SQ ONE (16:17)
[2017-08-19] MEDS ORDERED: INSULIN DETEMIR 100 UNIT/1 ML INSULIN SQ SCH (21:00)
[2017-08-19] MEDS: AMITRIPTYLINE 25 MG TAB PO SCH (21:45)
[2017-08-19] MEDS: ATORVASTATIN 40 MG TAB PO SCH (21:45)
[2017-08-19] MEDS: INSULIN DETEMIR 100 UNIT/1 ML INSULIN SQ SCH (21:46)
[2017-08-19] MEDS: IPRATROPIUM BROM 0.5MG/2.5ML NEB PRN (23:45)
[2017-08-20] MEDS ORDERED: FUROSEMIDE 40 MG/4 ML VIAL ONE ×2 (00:03→00:40)
[2017-08-20] MEDS ORDERED: FUROSEMIDE 40 MG/4 ML VIAL IV ONE ×2 (00:17→00:40)
[2017-08-20] MEDS ORDERED: NITROGLYCERIN 1 GM PKT TD ONE (00:47)
[2017-08-20] MEDS: NITROGLYCERIN 1 GM PKT TD SCH ×4 (00:49→17:19)
[2017-08-20 02:22] LABS: Blood Gas Oxyhemoglobin 94.3 % (94-97); Blood O2 Saturation 96.9 % (92-98.5)
[2017-08-20] MEDS: ALBUTEROL 2.5 MG/3 ML NEB SOL NEB SCH ×4 (03:03→20:15)
[2017-08-20 05:04] LABS: Absolute Lymphocytes (CBC) 1.8 K/uL (0.7-4.9); Absolute Monocytes 1.1 K/uL (0.1-1.3); Absolute Neutrophil 6.9 K/uL (1.8-8.0); Basophils % 0.7 % (0-1.3); Eosinophils % 1.1 % (0-4.4); Hematocrit 34.8 % (39.6-49.0); Lymphocytes % 17.9 % (15.3-44.8); MCH 28.5 pg (27.0-35.0); MCV 90.6 fL (80-100); MPV 10.1 fL (7.6-11.3); Monocytes % 10.7 % (3.3-12.3); RBC Red Blood Cell Count 3.85 M/uL (4.33-5.43)
[2017-08-20 05:17] LABS: Potassium 3.9 mEq/L (3.6-5.0)
[2017-08-20] MEDS ORDERED: NITROGLYCERIN 1 GM PKT TD SCH (06:00)
[2017-08-20] MEDS: MAGNESIUM HYDROXIDE 8% 30 ML PO PRN (06:40)
[2017-08-20] MEDS ORDERED: GLUCAGON 1 MG/VIAL IM PRN (07:17)
[2017-08-20] MEDS ORDERED: D50W 25 GM/50 ML SYRINGE IV PRN (07:17)
[2017-08-20] MEDS: INSULIN -REGULAR HUMAN 50 UNIT/0.5 ML ML SQ SCH ×4 (07:30→21:25)
[2017-08-20] MEDS: INSULIN DETEMIR 100 UNIT/1 ML INSULIN SQ SCH ×2 (08:39→21:25)
[2017-08-20] MEDS: FUROSEMIDE 40 MG/4 ML VIAL IV SCH ×2 (08:39→17:18)
[2017-08-20] MEDS: VITAMIN D 1000 UNIT TAB PO SCH (09:00)
[2017-08-20] MEDS: ISOSORBIDE MONO SR 60 MG TAB PO SCH (09:00)
[2017-08-20] MEDS: levETIRAcetam 500 MG TAB PO SCH ×2 (09:00→21:24)
[2017-08-20] MEDS: HYDRALAZINE HCL 25 MG TABLET PO SCH ×2 (09:00→21:23)
[2017-08-20] MEDS: CARVEDILOL 12.5 MG TAB PO SCH ×2 (09:00→21:24)
[2017-08-20] MEDS: ASPIRIN EC 81 MG TAB PO SCH (09:00)
--- NOTE | 2017-08-20 09:08 | RAD REPORT ---
EXAM DESCRIPTION: [place] Single View08/20/2017 7:31 am CLINICAL HISTORY: Chest pain COMPARISON: Aug 18 2017 FINDINGS: The bilateral pulmonary opacities have partially resolved. The heart remains enlarged. Sm all pleural effusions are present IMPRESSION: Mild improvement in CHF
[2017-08-20] MEDS: ALLOPURINOL 300 MG TAB PO SCH (09:17)
[2017-08-20] MEDS: APIXABAN 2.5 MG TABLET PO SCH ×2 (09:17→21:24)
[2017-08-20] MEDS: ACETAMINOPHEN 500 MG TAB PO PRN (15:24)
--- NOTE | 2017-08-20 15:39 | ECHO ---
HEIGHT: 5 ft 7 in WEIGHT: 219 lb 9.6 oz DATE OF STUDY: 08/20/[address]: Elbert Mcnally NP 2-DIMENSIONAL: YES M.MODE: YES DOPPLER: YES COLOR FLOW: YES TDS: PORTABLE: DEFINITY: BUBBLE STUDY: DIAGNOSIS: CONGESTIVE HEART FAILURE CARDIAC HISTORY: CATHERIZATION: NO SURGERY: NO PROSTHETIC VALVE: NO PACEMAKER: NO MEASUREMENTS (cm) DIASTOLIC (NORMALS) SYSTOLIC (NORMALS) IVSd 1.1 (0.6-1.2) LA Diam 4.4 (1.9-4.0) LVEF 27% LVIDd 6.4 (3.5-5.7) LVIDs 5.6 (2.0-3.5) %FS 13% LVPWd 1.1 (0.6-1.2) Ao Diam 3.5 (2.0-3.7) 2 DIMENSIONAL ASSESSMENT: RIGHT ATRIUM: NORMAL LEFT ATRIUM: DILATED RIGHT VENTRICLE: NORMAL LEFT VENTRICLE: DILATED TRICUSPID VALVE: NORMAL MITRAL VALVE: NORMAL PULMONIC VALVE: NORMAL AORTIC VALVE: SCLEROSIS PERICARDIAL EFFUSION: NONE AORTIC ROOT: NORMAL LEFT VENTRICULAR WALL MOTION: SEVERE GLOBAL HYPOKINESIS. DOPPLER/COLOR FLOW: COMMENTS: SEVERE GLOBAL HYPOKINESIS. EJECTION FRACTION 25-30%. MILD TRICUSPID REGURGITATION. LEFT VENTRICLE DILATATION, LEFT ATRIAL ENLARGEMENT. AORTIC SCLEROSIS. NO STENOSIS. TECHNOLOGIST: ANNIE GAONA
[2017-08-20] MEDS: AMITRIPTYLINE 25 MG TAB PO SCH (21:23)
[2017-08-20] MEDS: ATORVASTATIN 40 MG TAB PO SCH (21:24)
--- NOTE | 2017-08-20 23:39 | PN ---
Date of Progress Note: 08/20/2017 Subjective: The patient was seen this morning for followup. He was in ICU, lying in bed, on BiPAP. His was present with him at bedside, feeling better than last night. Last night, nurse contact ed me and informed me that the patient was in respiratory distress, and the patient was started on al buterol nebulizer treatment. Lasix 80 mg IV was given. Freire catheter was replaced as patient had n ot urinated all day and was having some abdominal discomfort and he was moved to ICU. His condition then slowly started to improve and denied any other specific complaints. He is not coughing up any c olored mucus. Objective: Vital Signs: Reviewed. HEENT: Examination unremarkable. Lungs: Bilateral rales noted, scattered in both lung garcia, not in respiratory distress. Heart: Sounds normal. Abdomen: Soft. Bowel sounds normal. No guarding, rigidity, tenderness, or distention. Extremities: Bilateral trace leg edema. Laboratory Data: White count 10, hemoglobin 10.9, and platelets 150. Sodium 140, potassium 3.9, chl oride 106, bicarb 26, BUN 68, creatinine 2.49, glucose 212, and magnesium 2. Diagnostic Data: Echocardiogram shows ejection fraction 27%. Chest x-ray shows improvement in CHF p attern. Impression: 1.Congestive heart failure, chronic, systolic, with acute exacerbation. 2.Coronary artery disease. 3.Chronic kidney disease, stage IV. 4.Anemia due to chronic kidney disease. 5.Hypertension. 6.Diabetes mellitus. Plan: Fingerstick blood sugar readings reviewed. We will go ahead and continue Levemir insulin at n ighttime per order and start Levemir insulin in the morning as well per order. Continue sliding scal e insulin. We will continue IV Lasix. Leave the Freire catheter in for next day or 2 days. Monitor intake, output. Continue oxygen, BiPAP per order and I will see him tomorrow for followup. We will leave him in ICU today. I will evaluate him tomorrow to see if he is stable enough for transfer out of ICU to regular room or not. Details and plan of treatment discussed with patient and patient's wi fe who was at bedside, and the patient's daughter also called and wanted to talk to me and I did call her and discussed details with her as well. KARISHMA/MODL Voice ID: [id number] Report ID: [id number]
[2017-08-21] MEDS: ALBUTEROL 2.5 MG/3 ML NEB SOL NEB SCH ×4 (01:59→19:37)
[2017-08-21] MEDS: NITROGLYCERIN 1 GM PKT TD SCH ×4 (06:00→17:51)
[2017-08-21] MEDS: INSULIN -REGULAR HUMAN 50 UNIT/0.5 ML ML SQ SCH ×4 (07:30→21:07)
[2017-08-21] MEDS: INSULIN DETEMIR 100 UNIT/1 ML INSULIN SQ SCH ×2 (08:00→21:01)
[2017-08-21] MEDS: CARVEDILOL 12.5 MG TAB PO SCH ×2 (09:01→20:58)
[2017-08-21] MEDS: ACETAMINOPHEN 500 MG TAB PO PRN ×2 (09:01→21:08)
[2017-08-21] MEDS: levETIRAcetam 500 MG TAB PO SCH ×2 (09:01→21:08)
[2017-08-21] MEDS: ASPIRIN EC 81 MG TAB PO SCH (09:02)
[2017-08-21] MEDS: VITAMIN D 1000 UNIT TAB PO SCH (09:02)
[2017-08-21] MEDS: APIXABAN 2.5 MG TABLET PO SCH ×2 (09:03→20:59)
[2017-08-21] MEDS: ISOSORBIDE MONO SR 60 MG TAB PO SCH (09:03)
[2017-08-21] MEDS: HYDRALAZINE HCL 25 MG TABLET PO SCH ×2 (09:04→20:52)
[2017-08-21] MEDS: FUROSEMIDE 40 MG/4 ML VIAL IV SCH ×2 (09:06→17:50)
[2017-08-21] MEDS: ALLOPURINOL 300 MG TAB PO SCH (09:06)
[2017-08-21] MEDS: COLCHICINE 0.6 MG TAB PO SCH ×2 (10:05→20:53)
[2017-08-21] MEDS: MAGNESIUM HYDROXIDE 8% 30 ML PO PRN (10:39)
[2017-08-21] MEDS: AMITRIPTYLINE 25 MG TAB PO SCH (20:59)
[2017-08-21] MEDS: ATORVASTATIN 40 MG TAB PO SCH (21:06)
--- NOTE | 2017-08-21 21:13 | PN ---
Date of Progress Note: 08/21/2017 Subjective: The patient was seen this morning for followup. No new complaints or problems reported by him. Sitting in the chair. His was present with him at bedside and he was in ICU. He did not have any shortness of breath during the nighttime, but he was not comfortable in the bed last night and spend most of the night after that in the chair. This morning when I saw him, he was on nasal cannula oxygen. No nausea or vomiting. No chest pain. Objective: Vital Signs: Reviewed. Intake and output records reviewed HEENT: Unremarkable. Lungs: Bilateral good equal air entry. Not in any respiratory distress. Presence of rales noted in both lower lung garcia, better today than yesterday. Heart: Sounds normal. Abdomen: Soft, bowel sounds normal. No guarding, rigidity, tenderness, or distention. Extremities: Trace leg edema. Laboratory Data: Reviewed. Impression: 1. Congestive heart failure, chronic, systolic, with acute exacerbation. 2. Hypertension. 3. Coronary artery disease. 4. Diabetes mellitus. 5. Chronic kidney disease, stage 3 to stage 4. 6. Anemia due to chronic kidney disease. 7. Paroxysmal atrial fibrillation. Plan: We will continue current medication and I have increased dose of Lasix 40 mg IV every 8 hours instead of twice a day. Monitor intake output. Repeat blood work tomorrow morning. We will start the patient on colchicine 0.6 mg 2 times a day for his complaints of pain in his right knee likely due to gout that he has from time to time. Rest of the medications will be continued. His blood glucose this morning was in the range of 70 to 80. So, this was before breakfast and morning dose of Levemir insulin was requested to be kept on hold. We will see him tomorrow for followup. Depending on his condition, we will decide if we can move him out of ICU to regular room either later today or tomorrow. Echocardiogram findings were discussed with the patient and his . KARISHMA/MODL Voice ID: [id number] Report ID: [id number] OLIVIA
[2017-08-22] MEDS: NITROGLYCERIN 1 GM PKT TD SCH ×4 (00:53→17:35)
[2017-08-22] MEDS: FUROSEMIDE 40 MG/4 ML VIAL IV SCH ×3 (00:55→17:36)
[2017-08-22] MEDS: ALBUTEROL 2.5 MG/3 ML NEB SOL NEB SCH ×4 (02:04→20:07)
[2017-08-22] MEDS: CEFTRIAXONE/SWI 1gm 1 GM/10 ML SYR IV SCH ×2 (08:37→20:54)
[2017-08-22] MEDS: ASPIRIN EC 81 MG TAB PO SCH (08:37)
[2017-08-22] MEDS: HYDRALAZINE HCL 25 MG TABLET PO SCH ×2 (08:38→20:45)
[2017-08-22] MEDS: CARVEDILOL 12.5 MG TAB PO SCH ×2 (08:38→20:46)
[2017-08-22] MEDS: VITAMIN D 1000 UNIT TAB PO SCH (08:38)
[2017-08-22] MEDS: APIXABAN 2.5 MG TABLET PO SCH ×2 (08:39→20:46)
[2017-08-22] MEDS: ISOSORBIDE MONO SR 60 MG TAB PO SCH (08:39)
[2017-08-22] MEDS: ALLOPURINOL 300 MG TAB PO SCH (08:39)
[2017-08-22] MEDS: COLCHICINE 0.6 MG TAB PO SCH ×2 (08:39→20:45)
[2017-08-22 08:50] LABS: Absolute Monocytes 1.3 K/uL (0.1-1.3); Eosinophils % 1.9 % (0-4.4); Lymphocytes % 18.7 % (15.3-44.8); MCH 28.4 pg (27.0-35.0); MCV 90.5 fL (80-100); MPV 10.7 fL (7.6-11.3); Monocytes % 12.4 % (3.3-12.3); RBC Red Blood Cell Count 3.65 M/uL (4.33-5.43)
[2017-08-22 09:02] LABS: Potassium 4.5 mEq/L (3.6-5.0)
[2017-08-22 09:05] LABS: Bilirubin Total 0.9 mg/dL (0.3-1.2); Magnesium 2.5 mg/dL (1.8-2.5); Protein, Total 7.1 g/dL (6.0-8.3)
[2017-08-22] MEDS: INSULIN DETEMIR 100 UNIT/1 ML INSULIN SQ SCH ×2 (09:23→20:47)
[2017-08-22] MEDS: INSULIN -REGULAR HUMAN 50 UNIT/0.5 ML ML SQ SCH ×4 (09:24→20:51)
--- NOTE | 2017-08-22 09:25 | RAD REPORT ---
EXAM DESCRIPTION: RAD - Chest Pa And Lat (2 Views) - 08/22/2017 9:13 am CLINICAL HISTORY: CHF, possible pneumonia COMPARISON: August 20, August 18 chest films, CT chest August 18 TECHNIQUE: PA and lateral views of the chest were obtained. FINDINGS: The lungs are normal volume. Cardiomegaly and vascular engorgement are present. Vasculatur e is slightly improved. Interstitial and alveolar opacities are present not substantially different f rom comparison. Trachea is midline. Chest findings continue to favor CHF/ volume overload rather than pneumonia. Concurrent pneumonia cou ld be masked by the alveolar edema pattern ; however, there is no specific finding to elevate that pr obability. Trachea is midline. No pneumothorax. No acute bony finding noted. No aortic abnormality. IMPRESSION: CHF/volume overload pattern is still present not substantially different from prior day study. A lung base pneumonia could potentially be masked by the failure/ volume overload findings. However, there are no specific findings to elevate likelihood of superimposed pneumonia.
[2017-08-22] MEDS: levETIRAcetam 500 MG TAB PO SCH ×2 (09:27→20:50)
[2017-08-22] MEDS: AMITRIPTYLINE 25 MG TAB PO SCH (20:46)
[2017-08-22] MEDS: ATORVASTATIN 40 MG TAB PO SCH (20:48)
[2017-08-22] MEDS: ACETAMINOPHEN 500 MG TAB PO PRN (21:22)
--- NOTE | 2017-08-22 23:34 | PN ---
Date of Progress Note: 08/22/2017 Subjective: The patient was seen this morning for followup. He was lying in bed, not in distress. His was present with him at bedside. The patient is having lot of cough and chest congestion ty pe of feeling. No nausea or vomiting. Objective: Vital Signs: Reviewed. HEENT: Unremarkable. Lungs: Bilateral scattered rales present in all the lung garcia. Not using accessory muscles of res piration. Heart: Sounds normal. Abdomen: Soft. Bowel sounds normal. No guarding, rigidity, tenderness, or distention. Extremities : Trace leg edema. Laboratory Data: Labs reviewed. Impression: 1.Congestive heart failure, chronic, systolic, with acute exacerbation. 2.Diabetes mellitus. 3.Chronic kidney disease, stage 4. 4.Hypertension. 5.Coronary artery disease. 6.Paroxysmal atrial fibrillation. 7.Rule out pneumonia. Plan: We will go ahead and get a chest x-ray done. We will start the patient on empiric antibiotic. Continue oxygen nebulizer treatments. We will go ahead and continue current Lasix, monitor intake and output, and repeat blood work tomorrow morning. Details of plan of treatment discussed with the patient and his who was at bedside. Physical therapy was consulted to help ambulate the patient. KARISHMA/MODL Voice ID: [id number] Report ID: [id number]
[2017-08-23] MEDS: NITROGLYCERIN 1 GM PKT TD SCH ×4 (00:30→17:04)
[2017-08-23] MEDS: FUROSEMIDE 40 MG/4 ML VIAL IV SCH ×3 (01:00→16:32)
[2017-08-23] MEDS: ALBUTEROL 2.5 MG/3 ML NEB SOL NEB SCH ×4 (01:18→19:33)
[2017-08-23] MEDS: ACETAMINOPHEN 500 MG TAB PO PRN ×2 (06:02→21:32)
[2017-08-23] MEDS: INSULIN -REGULAR HUMAN 50 UNIT/0.5 ML ML SQ SCH ×4 (07:30→21:31)
[2017-08-23] MEDS: INSULIN DETEMIR 100 UNIT/1 ML INSULIN SQ SCH ×2 (08:00→21:30)
[2017-08-23] MEDS: HYDRALAZINE HCL 25 MG TABLET PO SCH ×2 (08:32→21:29)
[2017-08-23] MEDS: ISOSORBIDE MONO SR 60 MG TAB PO SCH (08:32)
[2017-08-23] MEDS: CARVEDILOL 12.5 MG TAB PO SCH ×2 (08:32→21:29)
[2017-08-23] MEDS: APIXABAN 2.5 MG TABLET PO SCH ×2 (08:32→21:30)
[2017-08-23] MEDS: ASPIRIN EC 81 MG TAB PO SCH (08:32)
[2017-08-23] MEDS: COLCHICINE 0.6 MG TAB PO SCH ×2 (08:32→21:28)
[2017-08-23] MEDS: VITAMIN D 1000 UNIT TAB PO SCH (08:32)
[2017-08-23] MEDS: levETIRAcetam 500 MG TAB PO SCH ×2 (08:32→21:29)
[2017-08-23] MEDS: ALLOPURINOL 300 MG TAB PO SCH (08:32)
[2017-08-23] MEDS: CEFTRIAXONE/SWI 1gm 1 GM/10 ML SYR IV SCH ×2 (08:37→21:30)
--- NOTE | 2017-08-23 19:17 | PN ---
Date of Progress Note: 08/23/2017 Subjective: The patient was seen this morning for followup. He was in ICU. No new complaints or pr oblems reported by patient. His was present with him at bedside. Overall, he feels better. St ill has some cough, congestion, but overall better yesterday he did ambulate with physical therapy. Objective: Vital Signs: Reviewed. HEENT: Examination unremarkable. Lungs: Bilateral good equal air entry. Presence of some rales and wheezing noted in lower lung fiel d, overall it is better today than yesterday. Heart: Sounds normal. Abdomen: Soft. Bowel sounds normal. No guarding, rigidity, tenderness, or distention. Extremities: Bilateral leg edema present. Laboratory Data: Fingerstick blood sugar readings reviewed. Yesterday's lab results reviewed today. There is no new labs today. Yesterday's chest x-ray results reviewed. Impression: 1.Congestive heart failure, chronic, systolic, with acute exacerbation. 2.Rule out pneumonia. 3.Atrial fibrillation. 4.Chronic kidney disease stage 4. 5.Anemia due to chronic kidney disease. 6.Hypertension. 7.Diabetes mellitus. Plan: We will go ahead and transfer the patient out of ICU to regular room. Remove Freire catheter a nd if the patient is not able to void, we may have to consider to reinsert Freire catheter. I talked to the patient regarding importance of taking catheter out as he refer to leave the catheter in but I informed him that since he is able to get out of bed, ambulating well, he needs to go ahead and get the catheter out to reduce chances of any infection or bleeding complication. We will go ahead and h ave Physical therapy continue to work with the patient. Continue current antibiotics, colchicine, an d current insulin as well as IV Lasix. Repeat blood work tomorrow morning. I will see him tomorrow for followup. KARISHMA/MODL Voice ID: [id number] Report ID: [id number]
[2017-08-23] MEDS: IPRATROPIUM BROM 0.5MG/2.5ML NEB PRN (19:33)
[2017-08-23] MEDS: ATORVASTATIN 40 MG TAB PO SCH (21:28)
[2017-08-23] MEDS: AMITRIPTYLINE 25 MG TAB PO SCH (21:29)
[2017-08-24] MEDS: FUROSEMIDE 40 MG/4 ML VIAL IV SCH ×3 (00:06→18:30)
[2017-08-24] MEDS: NITROGLYCERIN 1 GM PKT TD SCH ×4 (00:06→18:30)
[2017-08-24] MEDS: ALBUTEROL 2.5 MG/3 ML NEB SOL NEB SCH ×4 (01:08→19:22)
[2017-08-24 06:08] LABS: Absolute Lymphocytes (CBC) 1.6 K/uL (0.7-4.9); Absolute Monocytes 0.8 K/uL (0.1-1.3); Absolute Neutrophil 4.9 K/uL (1.8-8.0); Basophils % 0.3 % (0-1.3); Eosinophils % 5.1 % (0-4.4); Lymphocytes % 21.1 % (15.3-44.8); MCH 28.6 pg (27.0-35.0); MCV 90.5 fL (80-100); Monocytes % 10.6 % (3.3-12.3); RBC Red Blood Cell Count 3.65 M/uL (4.33-5.43)
[2017-08-24 06:20] LABS: Magnesium 2.5 mg/dL (1.8-2.5); Potassium 4.6 mEq/L (3.6-5.0)
[2017-08-24] MEDS: ACETAMINOPHEN 500 MG TAB PO PRN (07:05)
[2017-08-24] MEDS: INSULIN -REGULAR HUMAN 50 UNIT/0.5 ML ML SQ SCH ×4 (07:30→21:42)
[2017-08-24] MEDS: INSULIN DETEMIR 100 UNIT/1 ML INSULIN SQ SCH ×2 (08:58→21:43)
[2017-08-24] MEDS: ASPIRIN EC 81 MG TAB PO SCH (09:03)
[2017-08-24] MEDS: levETIRAcetam 500 MG TAB PO SCH ×2 (09:03→21:41)
[2017-08-24] MEDS: ALLOPURINOL 300 MG TAB PO SCH (09:03)
[2017-08-24] MEDS: HYDRALAZINE HCL 25 MG TABLET PO SCH ×2 (09:03→21:41)
[2017-08-24] MEDS: COLCHICINE 0.6 MG TAB PO SCH ×2 (09:03→21:41)
[2017-08-24] MEDS: ISOSORBIDE MONO SR 60 MG TAB PO SCH (09:03)
[2017-08-24] MEDS: VITAMIN D 1000 UNIT TAB PO SCH (09:03)
[2017-08-24] MEDS: APIXABAN 2.5 MG TABLET PO SCH ×2 (09:04→21:41)
[2017-08-24] MEDS: CARVEDILOL 12.5 MG TAB PO SCH ×2 (09:04→21:42)
[2017-08-24] MEDS: CEFTRIAXONE/SWI 1gm 1 GM/10 ML SYR IV SCH ×2 (09:05→21:41)
[2017-08-24] MEDS: MAGNESIUM HYDROXIDE 8% 30 ML PO PRN (10:41)
[2017-08-24] MEDS: IPRATROPIUM BROM 0.5MG/2.5ML NEB PRN (19:22)
[2017-08-24] MEDS: ATORVASTATIN 40 MG TAB PO SCH (21:42)
[2017-08-24] MEDS: AMITRIPTYLINE 25 MG TAB PO SCH (21:42)
[2017-08-25] MEDS: NITROGLYCERIN 1 GM PKT TD SCH ×4 (00:24→17:08)
[2017-08-25] MEDS: FUROSEMIDE 40 MG/4 ML VIAL IV SCH ×3 (00:25→17:08)
[2017-08-25] MEDS: ALBUTEROL 2.5 MG/3 ML NEB SOL NEB SCH ×4 (01:26→19:13)
[2017-08-25] MEDS: INSULIN -REGULAR HUMAN 50 UNIT/0.5 ML ML SQ SCH ×4 (07:30→21:07)
[2017-08-25] MEDS: INSULIN DETEMIR 100 UNIT/1 ML INSULIN SQ SCH ×2 (08:00→21:08)
[2017-08-25] MEDS: COLCHICINE 0.6 MG TAB PO SCH ×2 (09:31→21:03)
[2017-08-25] MEDS: VITAMIN D 1000 UNIT TAB PO SCH (09:31)
[2017-08-25] MEDS: HYDRALAZINE HCL 25 MG TABLET PO SCH ×2 (09:32→21:04)
[2017-08-25] MEDS: levETIRAcetam 500 MG TAB PO SCH ×2 (09:32→21:03)
[2017-08-25] MEDS: ALLOPURINOL 300 MG TAB PO SCH (09:32)
[2017-08-25] MEDS: APIXABAN 2.5 MG TABLET PO SCH ×2 (09:32→21:04)
[2017-08-25] MEDS: ASPIRIN EC 81 MG TAB PO SCH (09:32)
[2017-08-25] MEDS: CARVEDILOL 12.5 MG TAB PO SCH ×2 (09:32→21:04)
[2017-08-25] MEDS: ISOSORBIDE MONO SR 60 MG TAB PO SCH (09:33)
[2017-08-25] MEDS: CEFTRIAXONE/SWI 1gm 1 GM/10 ML SYR IV SCH ×2 (09:33→21:00)
[2017-08-25] MEDS: MAGNESIUM HYDROXIDE 8% 30 ML PO PRN (09:47)
--- NOTE | 2017-08-25 11:59 | PN ---
Date of Progress Note: 08/25/2017 Subjective: The patient was seen this morning for followup. No new complaints or problems reported by him. Sitting in chair. His was present with him. No new complaints or problems reported. Vital signs reviewed. He did not require any BiPAP use last night. He is maintaining adequate oxyge n saturation on 3 L nasal cannula oxygen. When I saw him, his oxygen saturation was around 97%. Objective: Vital Signs: Reviewed. HEENT: Unremarkable. Lungs: Bilateral good equal air entry. Presence of rales noted in lower lung garcia. Heart: Sounds normal. Abdomen: Soft, bowel sounds normal. No guarding, rigidity, tenderness, or distention. Extremities: Trace leg edema. Laboratory Data: Yesterday's labs reviewed. No new labs today. Impression: 1.Congestive heart failure, systolic, chronic, with acute exacerbation. 2.Rule out pneumonia. 3.Chronic kidney disease, stage 4. 4.Hypertension. 5.Diabetes mellitus. 6.Anemia due to chronic kidney disease. 7.Paroxysmal atrial fibrillation. Plan: We will go ahead and continue current medication and antibiotic. Repeat chest x-ray and blood work tomorrow morning. We will continue current insulin. This morning, Levemir insulin was on hold because of low blood sugar readings. Fingerstick blood sugar reading results reviewed. Yesterday, the patient ambulated well with physical therapy and today he will try to ambulate again with physical therapy if one is available. I will see him tomorrow for followup. KARISHMA/MODL Voice ID: [id number] Report ID: [id number]
[2017-08-25] MEDS: IPRATROPIUM BROM 0.5MG/2.5ML NEB PRN (19:13)
[2017-08-25] MEDS: ATORVASTATIN 40 MG TAB PO SCH (21:02)
[2017-08-25] MEDS: AMITRIPTYLINE 25 MG TAB PO SCH (21:04)
[2017-08-26] MEDS: NITROGLYCERIN 1 GM PKT TD SCH ×5 (00:31→23:47)
[2017-08-26] MEDS: FUROSEMIDE 40 MG/4 ML VIAL IV SCH ×3 (00:35→17:14)
[2017-08-26] MEDS: ALBUTEROL 2.5 MG/3 ML NEB SOL NEB SCH ×4 (02:00→20:26)
[2017-08-26] MEDS: IPRATROPIUM BROM 0.5MG/2.5ML NEB PRN (02:25)
[2017-08-26 05:58] LABS: Absolute Lymphocytes (CBC) 1.7 K/uL (0.7-4.9); Absolute Monocytes 0.9 K/uL (0.1-1.3); Absolute Neutrophil 3.2 K/uL (1.8-8.0); Basophils % 0.2 % (0-1.3); Eosinophils % 6.9 % (0-4.4); Hematocrit 32.3 % (39.6-49.0); Lymphocytes % 27.3 % (15.3-44.8); MCH 28.1 pg (27.0-35.0); MPV 10.2 fL (7.6-11.3); RBC Red Blood Cell Count 3.59 M/uL (4.33-5.43)
[2017-08-26 06:26] LABS: Magnesium 2.6 mg/dL (1.8-2.5); Potassium 4.7 mEq/L (3.6-5.0)
[2017-08-26] MEDS: INSULIN -REGULAR HUMAN 50 UNIT/0.5 ML ML SQ SCH ×4 (07:30→21:39)
--- NOTE | 2017-08-26 07:54 | PN ---
Date of Progress Note: 08/24/2017 Subjective: The patient was seen this morning for followup. His was present with him at bedside. He was out of ICU in regular room. Denied any complaints. No PND or orthopnea. He did use some BiPAP just for short time last night. After that he did not use it for rest of the night. Objective: Vital Signs: Reviewed. HEENT: Examination unremarkable. Lungs: Bilateral good equal air entry. Clear to auscultation except presence of some rales in the lower lung garcia and this is significantly better than before. Heart: Sounds normal. Abdomen: Soft, bowel sounds normal. No guarding, rigidity, tenderness, or distention. Extremities: Trace leg edema. Laboratory Data: White count 7.8, hemoglobin 10.4, and platelets 171. Sodium 142, potassium 4.6, chloride 107, bicarb 29, BUN 81, creatinine 2.53, glucose 139, and magnesium 2.5. Impression: 1. Congestive heart failure, chronic, systolic, with acute exacerbation. 2. Chronic kidney disease, stage 4. 3. Anemia due to chronic kidney disease. 4. Hypertension. 5. Paroxysmal atrial fibrillation. 6. Diabetes mellitus. 7. Rule out pneumonia. Plan: We will go ahead and continue current medications, which includes IV Lasix, antibiotic for possible pneumonia, insulin and current antihypertensive medication. Monitor intake and output weight. Ambulation was encouraged with help of Physical Therapy. We will see him tomorrow for followup. We will place patient on 1000 cc per day fluid restriction. KARISHMA/MODL Voice ID: [id number] Report ID: [id number] MTDDeb
--- NOTE | 2017-08-26 09:17 | RAD REPORT ---
EXAM DESCRIPTION: RAD - Chest Pa And Lat (2 Views) - 08/26/2017 9:10 am CLINICAL HISTORY: CHF and possible pneumonia COMPARISON: August 22, August 20 TECHNIQUE: PA and lateral views of the chest were obtained. FINDINGS: The lungs are slightly underinflated. Interstitial and alveolar opacification are present but have shown improvement from August 22. Heart size has decreased slightly. Vasculature is also de creased in prominence. Trachea is midline. Patient has baseline chronic interstitial lung disease. Swati ng markings are more pronounced on the left. No pneumothorax or large pleural effusion. Small posteri or gutter pleural effusions are likely present but no evidence for enlargement. No acute bony finding noted. No aortic abnormality. IMPRESSION: CHF/volume overload pattern is present but improved from June 22. Lung base findings continue to favor failure or volume overload rather than pneumonia. There are no p rogressive findings.
[2017-08-26] MEDS: ISOSORBIDE MONO SR 60 MG TAB PO SCH (10:00)
[2017-08-26] MEDS: INSULIN DETEMIR 100 UNIT/1 ML INSULIN SQ SCH ×2 (10:01→21:40)
[2017-08-26] MEDS: APIXABAN 2.5 MG TABLET PO SCH ×2 (10:03→21:39)
[2017-08-26] MEDS: COLCHICINE 0.6 MG TAB PO SCH ×2 (10:03→21:38)
[2017-08-26] MEDS: CARVEDILOL 12.5 MG TAB PO SCH ×2 (10:03→21:38)
[2017-08-26] MEDS: VITAMIN D 1000 UNIT TAB PO SCH (10:03)
[2017-08-26] MEDS: levETIRAcetam 500 MG TAB PO SCH ×2 (10:03→21:38)
[2017-08-26] MEDS: ALLOPURINOL 300 MG TAB PO SCH (10:04)
[2017-08-26] MEDS: ASPIRIN EC 81 MG TAB PO SCH (10:04)
[2017-08-26] MEDS: HYDRALAZINE HCL 25 MG TABLET PO SCH ×2 (10:04→21:38)
[2017-08-26] MEDS: CEFTRIAXONE/SWI 1gm 1 GM/10 ML SYR IV SCH ×2 (10:08→21:46)
[2017-08-26] MEDS: ATORVASTATIN 40 MG TAB PO SCH (21:38)
[2017-08-26] MEDS: AMITRIPTYLINE 25 MG TAB PO SCH (21:38)
--- NOTE | 2017-08-27 00:27 | PN ---
Date of Progress Note: 08/26/2017 Subjective: The patient was seen this morning for followup. No new complaints, problems reported by him except his oxygen that he was getting 3 L/minute, respiratory therapist increased it to 5 L/tori te sometime early this morning, and nursing staff did not know for what reason. Nursing staff was ad vised to go ahead and start working with respiratory therapist to bring oxygen delivery to try to wea n off, or at least try to get down to 2 to 3 L/minute if possible. The patient denies any new compla ints. Objective: Vital Signs: Reviewed. HEENT: Unremarkable. Lungs: Clear to auscultation. Heart: Sounds normal. Abdomen: Soft, bowel sounds normal. No guarding, rigidity, tenderness, distention. Extremities: Bilateral leg edema grade 1. Lungs: Bilateral rales present in lower two-third of bot h lungs. The patient not using any accessory muscles of respiration. Laboratory Data: Chest x-ray was pending this morning when I saw him. White count 6.2, hemoglobin 1 0.1, platelets 190. Sodium 140, potassium 4.7, chloride 104, bicarb 30, BUN 76, creatinine 2.43, glu cose 137, magnesium 2.6. Impression: 1.Congestive heart failure, chronic, systolic, with acute exacerbation. 2.Chronic kidney disease stage 4. 3.Anemia due to chronic kidney disease. 4.Paroxysmal atrial fibrillation. 5.Hypertension. 6.Diabetes mellitus. 7.Rule out pneumonia. Plan: We will continue current medications including antibiotics ceftriaxone. Physical Therapy to samantha degroot to work with the patient. We will increase dose of Lasix from 40 mg every 8 hours to 80 mg 2 times a day. Monitor intake, output. I will see him tomorrow for followup. KARISHMA/MODL Voice ID: [id number] Report ID: [id number]
[2017-08-27] MEDS: ALBUTEROL 2.5 MG/3 ML NEB SOL NEB SCH ×4 (01:23→19:27)
[2017-08-27 04:46] LABS: Magnesium 2.5 mg/dL (1.8-2.5); Potassium 4.7 mEq/L (3.6-5.0)
[2017-08-27] MEDS: NITROGLYCERIN 1 GM PKT TD SCH ×4 (05:55→23:28)
[2017-08-27] MEDS: INSULIN -REGULAR HUMAN 50 UNIT/0.5 ML ML SQ SCH ×4 (07:30→21:08)
[2017-08-27] MEDS: INSULIN DETEMIR 100 UNIT/1 ML INSULIN SQ SCH ×2 (08:00→21:08)
[2017-08-27] MEDS: ISOSORBIDE MONO SR 60 MG TAB PO SCH (09:32)
[2017-08-27] MEDS: ALLOPURINOL 300 MG TAB PO SCH (09:32)
[2017-08-27] MEDS: HYDRALAZINE HCL 25 MG TABLET PO SCH ×2 (09:32→21:07)
[2017-08-27] MEDS: ASPIRIN EC 81 MG TAB PO SCH (09:32)
[2017-08-27] MEDS: VITAMIN D 1000 UNIT TAB PO SCH (09:32)
[2017-08-27] MEDS: levETIRAcetam 500 MG TAB PO SCH ×2 (09:32→21:07)
[2017-08-27] MEDS: COLCHICINE 0.6 MG TAB PO SCH ×2 (09:33→21:07)
[2017-08-27] MEDS: APIXABAN 2.5 MG TABLET PO SCH ×2 (09:33→21:07)
[2017-08-27] MEDS: CARVEDILOL 12.5 MG TAB PO SCH ×2 (09:33→21:06)
[2017-08-27] MEDS: FUROSEMIDE 40 MG/4 ML VIAL IV SCH ×2 (09:34→17:37)
[2017-08-27 11:35] VITALS: BMI 33.3
[2017-08-27] MEDS: AMITRIPTYLINE 25 MG TAB PO SCH (21:07)
[2017-08-27] MEDS: ATORVASTATIN 40 MG TAB PO SCH (21:07)
--- NOTE | 2017-08-28 00:10 | PN ---
Date of Progress Note: 08/27/2017 Subjective: The patient was seen this morning for followup. No new complaints or problems reported. He did not use any BiPAP last night, ambulated 2 or 3 times yesterday and did not have any shortnes s of breath during nighttime. Objective: Vital Signs: Reviewed. HEENT: Examination unremarkable. Lungs: Bilateral good equal air entry. Presence of rales noted in lower lung garcia, overall better than yesterday. Heart: Sounds normal. Abdomen: Soft, bowel sounds normal. No guarding, rigidity, tenderness, or distention. Extremities: Leg edema unchanged from yesterday. Laboratory Data: Sodium 141, potassium 4.7, chloride 105, bicarb 29, BUN 78, creatinine 2.50, glucos e 141, and magnesium 2.5. Diagnostic Data: Chest x-ray from yesterday shows improvement in congestive heart failure pattern, n o evidence of pneumonia. Impression: 1.Congestive heart failure, chronic, systolic, with acute exacerbation. 2.Chronic kidney disease, stage 4. 3.Anemia due to chronic kidney disease. 4.Paroxysmal atrial fibrillation. 5.Hypertension. 6.Diabetes mellitus. Plan: We will go ahead and continue current Lasix. Discontinue ceftriaxone. We will continue other current medications including insulin and ambulation was encouraged. We will monitor blood work. I will see him tomorrow for followup. Possible discharge to go home sometime during later part of this week, provided the patient continues to show improvement. KARISHMA/MODL Voice ID: [id number] Report ID: [id number]
[2017-08-28] MEDS: ALBUTEROL 2.5 MG/3 ML NEB SOL NEB SCH ×4 (01:38→19:21)
[2017-08-28] MEDS: NITROGLYCERIN 1 GM PKT TD SCH ×4 (05:48→23:51)
[2017-08-28] MEDS: INSULIN -REGULAR HUMAN 50 UNIT/0.5 ML ML SQ SCH ×4 (07:30→21:34)
[2017-08-28] MEDS: INSULIN DETEMIR 100 UNIT/1 ML INSULIN SQ SCH ×2 (08:30→21:35)
[2017-08-28] MEDS: FUROSEMIDE 40 MG/4 ML VIAL IV SCH ×2 (09:25→16:59)
[2017-08-28] MEDS: HYDRALAZINE HCL 25 MG TABLET PO SCH ×2 (09:26→21:36)
[2017-08-28] MEDS: CARVEDILOL 12.5 MG TAB PO SCH ×2 (09:26→21:35)
[2017-08-28] MEDS: ALLOPURINOL 300 MG TAB PO SCH (09:26)
[2017-08-28] MEDS: VITAMIN D 1000 UNIT TAB PO SCH (09:26)
[2017-08-28] MEDS: COLCHICINE 0.6 MG TAB PO SCH ×2 (09:26→21:35)
[2017-08-28] MEDS: ISOSORBIDE MONO SR 60 MG TAB PO SCH (09:26)
[2017-08-28] MEDS: levETIRAcetam 500 MG TAB PO SCH ×2 (09:27→21:36)
[2017-08-28] MEDS: ASPIRIN EC 81 MG TAB PO SCH (09:27)
[2017-08-28] MEDS: APIXABAN 2.5 MG TABLET PO SCH ×2 (09:27→21:36)
--- NOTE | 2017-08-28 19:26 | PN ---
Date of Progress Note: 08/28/2017 Subjective: The patient was seen this morning for followup. Lying in bed, not in distress. He ambu lates very well, has not used BiPAP in last few days. Still on oxygen between 2-3 L/minute per nasal cannula. No nausea or vomiting. Overall he feels better. His intake output records reviewed. [facility] records reviewed, and he has lost a good amount of weight with diuretic therapy. Objective: Vital Signs: Reviewed. HEENT: Unremarkable. Lungs: Clear to auscultation except rales noted in lower lung garcia, overall much better than befor e. Not in respiratory distress. Heart: Heart sounds normal. Abdomen: Soft. Bowel sounds normal. No guarding, rigidity, tenderness, or distention. Extremities: Trace leg edema. Impression: 1.Congestive heart failure, chronic, systolic, with acute exacerbation. 2.Hypertension. 3.Diabetes mellitus. 4.Paroxysmal atrial fibrillation. 5.Chronic kidney disease, stage 4. 6.Anemia due to chronic disease. Plan: We will continue current medication Lasix. Repeat blood work and chest x-ray tomorrow. We wi ll get the respiratory therapist to evaluate to see if the patient needs home oxygen on basis of room air oxygen saturation and if he needs home oxygen, we will need to make arrangements for that. Poss ible discharge to go home on Saturday, which is day after tomorrow. Details and plan of treatment discussed with the patient and his . KARISHMA/MODL Voice ID: [id number] Report ID: [id number]
[2017-08-28] MEDS: AMITRIPTYLINE 25 MG TAB PO SCH (21:35)
[2017-08-28] MEDS: ATORVASTATIN 40 MG TAB PO SCH (21:36)
[2017-08-29] MEDS: ALBUTEROL 2.5 MG/3 ML NEB SOL NEB SCH ×4 (01:58→19:05)
[2017-08-29 04:24] LABS: Absolute Lymphocytes (CBC) 1.8 K/uL (0.7-4.9); Absolute Monocytes 0.9 K/uL (0.1-1.3); Absolute Neutrophil 4.2 K/uL (1.8-8.0); Basophils % 1.3 % (0-1.3); Eosinophils % 5.1 % (0-4.4); Hematocrit 32.4 % (39.6-49.0); Lymphocytes % 24.6 % (15.3-44.8); MCH 28.6 pg (27.0-35.0); MCV 89.1 fL (80-100); MPV 9.9 fL (7.6-11.3); Monocytes % 12.4 % (3.3-12.3); RBC Red Blood Cell Count 3.64 M/uL (4.33-5.43)
[2017-08-29 04:56] LABS: Magnesium 2.2 mg/dL (1.8-2.5); Potassium 4.7 mEq/L (3.6-5.0)
[2017-08-29] MEDS: NITROGLYCERIN 1 GM PKT TD SCH ×3 (05:49→17:31)
[2017-08-29] MEDS: INSULIN -REGULAR HUMAN 50 UNIT/0.5 ML ML SQ SCH ×4 (07:30→21:00)
[2017-08-29] MEDS: INSULIN DETEMIR 100 UNIT/1 ML INSULIN SQ SCH ×2 (08:17→21:41)
[2017-08-29] MEDS: FUROSEMIDE 40 MG/4 ML VIAL IV SCH ×2 (09:20→17:31)
[2017-08-29] MEDS: ALLOPURINOL 300 MG TAB PO SCH (09:21)
[2017-08-29] MEDS: ISOSORBIDE MONO SR 60 MG TAB PO SCH (09:21)
[2017-08-29] MEDS: HYDRALAZINE HCL 25 MG TABLET PO SCH ×2 (09:21→21:43)
[2017-08-29] MEDS: levETIRAcetam 500 MG TAB PO SCH ×2 (09:21→21:43)
[2017-08-29] MEDS: VITAMIN D 1000 UNIT TAB PO SCH (09:21)
[2017-08-29] MEDS: ASPIRIN EC 81 MG TAB PO SCH (09:21)
[2017-08-29] MEDS: COLCHICINE 0.6 MG TAB PO SCH ×2 (09:21→21:41)
[2017-08-29] MEDS: CARVEDILOL 12.5 MG TAB PO SCH ×2 (09:21→21:41)
[2017-08-29] MEDS: APIXABAN 2.5 MG TABLET PO SCH ×2 (09:22→21:43)
--- NOTE | 2017-08-29 09:54 | RAD REPORT ---
EXAM DESCRIPTION: RAD - Chest Pa And Lat (2 Views) - 08/29/2017 9:07 am CLINICAL HISTORY: CHF follow-up, shortness of breath COMPARISON: August 26 TECHNIQUE: PA and lateral views of the chest were obtained. FINDINGS: The lungs are normal volume. Interstitial and alveolar opacification in the lower right iliana ng field has minimally improved. Left base opacification shows more significant improvement. Trachea is midline. Upper lobe vasculature is mildly prominent but not substantially different. Heart size is prominent but stable. Heart size is normal and central vasculature is within normal limits. No pl eural effusion or pneumothorax seen. No acute bony finding noted. No aortic abnormality. IMPRESSION: Partial clearing, left greater than right, of bilateral interstitial and alveolar lung b ase opacification. Heart size remains prominent. Overall interstitial pattern remains prominent.
[2017-08-29] MEDS: IPRATROPIUM BROM 0.5MG/2.5ML NEB PRN (19:06)
[2017-08-29] MEDS: ATORVASTATIN 40 MG TAB PO SCH (21:42)
[2017-08-29] MEDS: AMITRIPTYLINE 25 MG TAB PO SCH (21:43)
[2017-08-30] MEDS: NITROGLYCERIN 1 GM PKT TD SCH ×3 (00:04→11:59)
[2017-08-30] MEDS: ALBUTEROL 2.5 MG/3 ML NEB SOL NEB SCH ×3 (01:05→14:01)
[2017-08-30] MEDS: IPRATROPIUM BROM 0.5MG/2.5ML NEB PRN (01:05)
[2017-08-30] MEDS: INSULIN -REGULAR HUMAN 50 UNIT/0.5 ML ML SQ SCH ×2 (07:30→11:58)
[2017-08-30] MEDS: INSULIN DETEMIR 100 UNIT/1 ML INSULIN SQ SCH (09:44)
[2017-08-30] MEDS: APIXABAN 2.5 MG TABLET PO SCH (09:45)
[2017-08-30] MEDS: ASPIRIN EC 81 MG TAB PO SCH (09:45)
[2017-08-30] MEDS: VITAMIN D 1000 UNIT TAB PO SCH (09:45)
[2017-08-30] MEDS: ALLOPURINOL 300 MG TAB PO SCH (09:45)
[2017-08-30] MEDS: COLCHICINE 0.6 MG TAB PO SCH (09:45)
[2017-08-30] MEDS: HYDRALAZINE HCL 25 MG TABLET PO SCH (09:46)
[2017-08-30] MEDS: levETIRAcetam 500 MG TAB PO SCH (09:46)
[2017-08-30] MEDS: CARVEDILOL 12.5 MG TAB PO SCH (09:46)
[2017-08-30] MEDS: ISOSORBIDE MONO SR 60 MG TAB PO SCH (09:47)
[2017-08-30] MEDS: FUROSEMIDE 40 MG/4 ML VIAL IV SCH (09:47)
[2017-08-30 12:00] VITALS: BP 116/61
[2017-08-30 13:29] VITALS: TEMP 97.1
[2017-08-30 14:03] VITALS: O2SAT 96
--- NOTE | 2017-09-01 16:15 | PN ---
Date of Progress Note: 08/29/2017 Subjective: The patient was seen in the morning for followup. No new complaints or problems reporte d. His was present with him at bedside. Denies any shortness of breath during nighttime. No c hest pain. Ambulating well. Objective: Vital Signs: Reviewed. HEENT: Unremarkable. Lungs: Clear to auscultation, except very minimum basal rales, overall much better than before. Not in respiratory distress. Heart: Sounds normal. Abdomen: Soft. Bowel sounds normal. No guarding, rigidity, tenderness, or distention. Extremities: Trace leg edema. Laboratory Data: White count 7.4, hemoglobin 10.4, platelets 239. Fingerstick blood sugar readings reviewed. Sodium 138, potassium 4.7, chloride 103, bicarb 29, BUN 72, creatinine 2.39, glucose 181. Impression: 1.Congestive heart failure, chronic, systolic, with acute exacerbation. 2.Hypertension. 3.Diabetes mellitus. 4.Paroxysmal atrial fibrillation. 5.Chronic kidney disease, stage 4. 6.Anemia due to chronic kidney disease. Plan: We will go ahead and continue current medications. We will continue Lasix. Ambulation was en couraged. Chest x-ray done today results reviewed and our plan is to discharge him to go home tomorr ow. We are making arrangements for home oxygen, and details and plan of treatment discussed with the vanda ent and the patient's . KARISHMA/MODL Voice ID: [id number] Report ID: [id number]
--- NOTE | 2017-09-01 16:30 | DS ---
Date of Discharge: 08/30/2017 Disposition: Discharged to go home. Physical Examination: HEENT: Unremarkable. Lungs: Clear to auscultation. Heart: Sounds normal. Abdomen: Soft. Bowel sounds normal. No guarding, rigidity, tenderness, or distention. Extremities: No leg edema. Discharge Medications: 1.Continue all prior home medications, except increase dose of furosemide 40 mg, the patient will ta ke 2 tablets by mouth 2 times a day. 2.Colchicine 0.6 mg 1 tablet by mouth 2 times a day as needed for gout. Follow up at my office in 2 weeks. Hospital Course: A 71-year-old male patient, who was admitted to the hospital with congestive heart failure. Please see dictated H and P for more information. After the patient came into the emergenc y room with shortness of breath and leg swelling, he was evaluated and admitted to the hospital with acute exacerbation of chronic systolic congestive heart failure problem. The patient initially was g iven IV Lasix 40 mg every 12 hours. Intake and output records monitored daily, weight was monitored. He was on the medical floor initially and his respiratory status deteriorated, so we did require hi m to transfer him to ICU. He was on BiPAP for a while after he was transferred out of ICU. IV Lasix dose was increased to 80 mg twice a day. Empiric antibiotics were started using Rocephin worrying a bout possibility of pneumonia and eventually we did rule out pneumonia possibility and at that time R ocephin was discontinued after few days of therapy. Serial chest x-ray was done to help monitor the congestive heart failure improvement, wait started going down and the patient's echocardiogram showed low ejection fraction of 27%. Cardiology consultation was obtained from Dr. Boucher. [employer]ovoltaic Installation Technician apy was consulted. The patient had some joint pain due to gout flare up that he has from time-to-benson e and he had similar problem during this hospitalization, and the patient was started on colchicine a nd he tolerated that very well. His joint pain improved. The patient has hypoxia on room air and he did qualify for home oxygen and once arrangements completed, he was discharged to go home with home oxygen. The patient's also requested for the patient to get wheelchair, but I was told that the patient did not qualify for a wheelchair as per Social Service, who communicated with her. The vanda ent's overall prognosis is poor. Final Diagnoses: 1.Congestive heart failure, chronic, systolic, with acute exacerbation. 2.Chronic kidney disease, stage 4. 3.Anemia due to chronic kidney disease. 4.Coronary artery disease. 5.Paroxysmal atrial fibrillation. 6.Hypertension. 7.Diabetes mellitus with kidney disease. 8.Hyperlipidemia. 9.Gout. 10.Stroke. 11.Gastroesophageal reflux disease. KARISHMA/MODL Voice ID: [id number] Report ID: [id number]
== END 2017-08-30 16:53 | disposition home or self-care (01) | DRG 291 ==
LOC: ER 23:26 → 4TH 08-18 04:18 → 3RD-ICU 08-20 01:00 → 4TH 08-23 17:15
PROVIDERS: ADMIT Internal Medicine; ATTEND Internal Medicine
PROC: 0T9B70Z Drainage of Bladder with Drainage Device, Via Natural or Artificial Opening (ICD-10-PCS; 2017-08-17)
PROC: 5A09357 Assistance with Respiratory Ventilation, Less than 24 Consecutive Hours, Continuous Positive Airway Pressure (ICD-10-PCS; principal; 2017-08-20)
DX: I13.0 Hypertensive heart and chronic kidney disease with heart failure and stage 1 through stage 4 chronic kidney disease, or unspecified chronic kidney disease (principal); I50.23 Acute on chronic systolic (congestive) heart failure; N18.4 Chronic kidney disease, stage 4 (severe); E11.22 Type 2 diabetes mellitus with diabetic chronic kidney disease; D63.1 Anemia in chronic kidney disease; I25.10 Atherosclerotic heart disease of native coronary artery without angina pectoris; I48.0 Paroxysmal atrial fibrillation; E78.5 Hyperlipidemia, unspecified; M10.9 Gout, unspecified; K21.9 Gastro-esophageal reflux disease without esophagitis; Z86.73 Personal history of transient ischemic attack (TIA), and cerebral infarction without residual deficits; Z28.21 Immunization not carried out because of patient refusal
CPT/HCPCS: 36415; 51702; 71045; 71046; 71250; 80048; 80053; 80076; 81003; 82550; 82553; 82805; 82962; 83735; 83880; 84484; 85025; 85610; 85730; 93005; 93306; 94640; 94660; 94760; 96372; 97163; 99285; J0696; J1650; J1940

== ENCOUNTER 2020-07-17 12:00 | Inpatient (IN) | payer OTHER ==
[2020-07-17] MEDS ORDERED: FUROSEMIDE 20 MG/ 2ML VIAL ONE (15:03)
[2020-07-17] MEDS ORDERED: ONDANSETRON 4 MG/2 ML VIAL ONE (15:04)
[2020-07-17] MEDS ORDERED: MORPHINE 2 MG/ML SYR ONE ×2 (15:04→18:16)
[2020-07-17] MEDS ORDERED: LEVALBUTEROL 1.25 MG/3 ML NEB ONE (15:48)
--- NOTE | 2020-07-17 15:59 | RAD REPORT ---
EXAM DESCRIPTION: Rico Single View07/17/2020 3:02 pm CLINICAL HISTORY: Shortness of breath COMPARISON: Two to technical issues the prior exams not for comparison FINDINGS: Mild bilateral pulmonary opacities. The heart is moderately enlarged. IMPRESSION: These findings probably indicate CHF
--- NOTE | 2020-07-17 17:57 | RAD REPORT ---
EXAM DESCRIPTION: USExtrem Venous W Compress Bil07/17/2020 5:43 pm CLINICAL HISTORY: Leg swelling COMPARISON: none FINDINGS: The common femoral, superficial femoral, popliteal and posterior tibial veins bilaterally are compressible and demonstrate augmentation. Doppler demonstrates good flow. IMPRESSION: No evidence of deep venous thrombosis involving either lower extremity.
--- NOTE | 2020-07-17 18:05 | RAD REPORT ---
EXAM DESCRIPTION: US - Lower Extremity Arterial Bilat - 07/17/2020 5:43 pm CLINICAL HISTORY: Leg swelling COMPARISON: None FINDINGS: The left common femoral arterial waveform is biphasic The left superficial femoral, left popliteal and left posterior tibial arterial waveforms are biphasi c. Left dorsalis pedis arterial waveform is monophasic The right common femoral, right superficial femoral and right popliteal arterial waveforms are bipha sic. The right dorsalis pedis arterial waveform is biphasic. The right posterior tibial arterial waveform is monophasic. IMPRESSION: No high-grade proximal/mid arterial lower extremity stenosis. No occlusion. Moderate disease involving distal arteries of the lower extremity
[2020-07-17 18:06] LABS: Absolute Lymphocytes (CBC) 8.2 K/uL (0.7-4.9); Basophils % 0.6 % (0-1.3); Hematocrit 41.3 % (39.6-49.0); Lymphocytes % 58.7 % (15.3-44.8); MPV 10.4 fL (7.6-11.3); RBC Red Blood Cell Count 4.51 M/uL (4.33-5.43)
[2020-07-17 18:14] LABS: Protime INR 1.27
[2020-07-17 18:44] LABS: Albumin 3.1 g/dL (3.4-5.0); Bilirubin Direct 0.2 mg/dL (0-0.2); Bilirubin Total 0.6 mg/dL (0.2-1.0); Magnesium 2.3 mg/dL (1.8-2.4); Protein, Total 7.9 g/dL (6.4-8.2); Troponin (Emerg Dept Use Only) 0.05 ng/mL (0.0-0.045)
[2020-07-17 18:45] LABS: Potassium 6.1 mmol/L (3.5-5.1)
[2020-07-17 19:28] LABS: Arterial Blood Carboxyhemoglob 1.5 % (0-1.5); Blood Gas Oxyhemoglobin 86.2 % (94-97); Blood O2 Saturation 88.4 % (92-98.5)
[2020-07-17] MEDS ORDERED: ALBUTEROL 2.5 MG/3 ML NEB SOL ONE ×2 (19:41→20:17)
[2020-07-17] MEDS ORDERED: MORPHINE 4 MG/ML SYR ONE ×2 (19:41→21:05)
[2020-07-17] MEDS ORDERED: INSULIN -REGULAR HUMAN 50 UNIT/0.5 ML ML ONE (19:42)
[2020-07-17] MEDS ORDERED: SOD POLYSTYREN SUL 15 GM/60 ML UCUP ONE (19:43)
[2020-07-17] MEDS ORDERED: D50W 25 GM/50 ML SYRINGE IV ONE (19:44)
--- NOTE | 2020-07-17 20:12 | ER ---
Nurse's Notes [facility] Name: Flex Morel Age: 74 yrs Sex: Male : 1945 Arrival Date: 07/17/2020 Time: 12:08 Bed 20 Private MD: Timur Murillo C Diagnosis: Hyperkalemia;Acute on chronic combined systolic (congestive) and diastolic (congestive) heart failure;Cellulitis of right lower limb Presentation: 07/17 12:18 Chief complaint: Patient states: Wound to RLE for 3 weeks, more painful for 2 weeks. ll1 Foul odor per . States L leg is slightly starting to get swollen and painful also. Abrasion noted to anterior chin area. No known fever. SOB for a few days. Coronavirus screen: Client denies travel out of the [place] in the last 14 days. At this time, the client does not indicate any symptoms associated with coronavirus-19. Ebola Screen: Patient denies travel to an Ebola-affected area in the 21 days before illness onset. Initial Sepsis Screen: Does the patient meet any 2 criteria? No. Patient's initial sepsis screen is negative. Does the patient have a suspected source of infection? Yes: Skin breakdown/wound. Risk Assessment: Do you want to hurt yourself or someone else? Patient reports no desire to harm self or others. Onset of symptoms was June 26, 2020. 12:18 Method Of Arrival: Wheelchair ll1 12:18 Acuity: MIKAL 3 ll1 Historical: - Allergies: 12:22 No Known Allergies; ll1 - PMHx: 12:22 CHF; CVA; Diabetes - NIDDM; Gout; Hyperlipidemia; Hypertension; Seizures; ll1 - PSHx: 12:22 None; ll1 - Immunization history:: Client reports receiving the 2nd dose of the Covid vaccine, Flu vaccine is not up to date. - Social history:: Smoking status: Patient denies any tobacco usage or history of. Screenin:30 Abuse screen: Denies threats or abuse. Nutritional screening: No deficits noted. kg Tuberculosis screening: No symptoms or risk factors identified. Fall Risk IV access (20 points). Ambulatory Aid- Crutches/Cane/Walker (15 pts). Gait- Weak (10 pts.). Assessment: 15:20 General: Appears in no apparent distress. Behavior is calm, cooperative, appropriate kg for age, quiet. Pain: Complains of pain in right leg and left leg Pain currently is 9 out of 10 on a pain scale. at worst was 10 out of 10 on a pain scale. level that patient reports is acceptable is 5 out of 10 on a pain scale. Quality of pain is described as aching, throbbing, Pain began gradually. Neuro: No deficits noted. Cardiovascular: Heart tones S1 S2 Generalized edema, BUE +3 Edema, BLE +3 Edema. Rhythm is regular. Respiratory: Airway is patent Respiratory effort is even, unlabored, Breath sounds are diminished bilaterally. 18:26 GI: No deficits noted. : Swelling noted on penis on scrotum. EENT: No deficits noted. kg Derm: Decubitus located on right Large open ulcer to right outer lombardi 5 cm x 5 cm. It has yellow slough with odor and drainage. Smaller ulcer bellow it 2 cm x 2cm with red beefy color no discharge noted to that ulcer. approximately 2.6 cm to 7.5 cm has macerated edges bed has granulation present bed has fibrin present is draining moderate amount malodorous, purulent. Musculoskeletal: RLE Weeping on lombardi. 19:50 General: Appears in no apparent distress. comfortable, Behavior is calm, cooperative. sf Pain: Complains of pain in right leg. Neuro: No deficits noted. Level of Consciousness is awake, alert, Oriented to person, place, time, situation. Cardiovascular: No deficits noted. Patient's skin is warm and dry. Edema is 2+ to waist, pubic area, left upper thigh, left lower thigh, left knee, left midcalf, left ankle, right upper thigh, right lower thigh, right knee, right midcalf and right ankle Rhythm is sinus rhythm. Respiratory: No deficits noted. Airway is patent Respiratory effort is even, unlabored, Respiratory pattern is regular, symmetrical. GI: Abdomen is round obese, Abd is non tender X 4 quads. : Swelling noted on penis on scrotum Reports incontinence, Denies burning with urination, urinary frequency, urgency. EENT: No deficits noted. No signs and/or symptoms were reported regarding the EENT system. Derm: Wound noted Decubitus located on right leg approximately 2.6 cm to 7.5 cm has macerated edges bed has granulation present bed has fibrin present is draining moderate amount malodorous, purulent. Musculoskeletal: No deficits noted. No signs and/or symptoms reported regarding the musculoskeletal system. Vital Signs: 12:18 BP 152 / 65; Pulse 77; Resp 17; Temp 97.3; Pulse Ox 96% ; Weight 90.72 kg; Height 5 ft. ll1 7 in. (170.18 cm); Pain 9/10; 15:00 BP 185 / 93; Pulse 79; Resp 20; Pulse Ox 97% on R/A; kg 16:00 BP 152 / 88; Pulse 80; Resp 18; Pulse Ox 96% on R/A; kg 17:00 BP 172 / 96; Pulse 81; Resp 20; Pulse Ox 95% on R/A; kg 18:00 BP 167 / 84; Pulse 78; Resp 18; Pulse Ox 96% ; kg 20:00 BP 151 / 74; Pulse 79; Resp 18; Pulse Ox 96% ; sf 12:18 Body Mass Index 31.32 (90.72 kg, 170.18 cm) ll1 ED Course: 12:08 Patient arrived in ED. mr 12:08 Timur Murillo MD is Private Physician. mr 12:21 Triage completed. ll1 12:22 Arm band placed on. ll1 14:20 Horacio Tello PA is PHCP. jmm 14:20 Hung Sosa MD is Attending Physician. jmm 14:41 Ania Freed is Primary Nurse. kg 15:02 XRAY Chest (1 view) In Process Unspecified. EDMS 15:15 Inserted saline lock: 20 gauge in right forearm, using aseptic technique. kg 15:37 Basic Metabolic Panel Sent. kg 15:37 CBC with Diff Sent. kg 17:44 US Extremity Venous W Compression Michael In Process Unspecified. EDMS 17:44 US LE Arterial Bilateral In Process Unspecified. EDMS 17:45 Inserted saline lock: 22 gauge in left hand, using aseptic technique. kg 18:14 Blood Culture Adult (2) Sent. kg 18:14 Lactate Sent. kg 19:55 Report given to Tres IRIZARRY. kg 20:10 ABG Sent. sf 20:11 Timur Murillo MD is Hospitalizing Provider. jmm 20:35 Patient has correct armband on for positive identification. Placed in gown. Bed in low sf position. Call light in reach. Side rails up X2. lead generation specialist on. Pulse ox on. NIBP on. Door closed. Noise minimized. Visitors limited. Lights dimmed. Warm blanket given. Verbal reassurance given. Repositioned patient. Cleaned of incontinence. Linen changed. 20:35 No provider procedures requiring assistance completed. Patient admitted, IV remains in sf place. Administered Medications: 15:26 Drug: Lasix (furosemide) 20 mg Route: IVP; Site: right forearm; kg 16:32 Follow up: Urine output 300 ml; Response: No adverse reaction kg 15:26 Drug: morphine 2 mg Route: IVP; Site: right forearm; kg 16:33 Follow up: Response: No adverse reaction; Pain is decreased kg 15:26 Drug: Zofran (Ondansetron) 4 mg Route: IVP; Site: right forearm; kg 16:33 Follow up: Response: No adverse reaction kg 15:37 Drug: Xopenex (levalbuterol) (3) 1.25 mg Route: Inhalation; kg 16:31 Follow up: Response: No adverse reaction kg 18:00 Drug: morphine 2 mg Route: IVP; Site: right forearm; kg 20:10 Follow up: Response: No adverse reaction sf 19:40 Drug: Albuterol 2.5 mg Route: Inhalation; kg 19:40 Drug: Insulin Regular Human 10 units {Co-Signature: ss (Ysabel Hylton RN).} Route: IVP; kg Site: right forearm; 20:10 Follow up: Response: No adverse reaction sf 19:40 Drug: morphine 4 mg Route: IVP; Site: right forearm; kg 20:10 Follow up: Response: No adverse reaction sf 19:40 Drug: D50W 50 ml Route: IVP; Site: right forearm; kg 20:11 Follow up: Response: No adverse reaction sf 19:40 Drug: Kayexalate (polystyrene) 60 grams Route: PO; kg 20:11 Follow up: Response: No adverse reaction sf 20:09 Drug: Albuterol 2.5 mg Route: Inhalation; sf 20:42 Follow up: Response: No adverse reaction sf 20:09 Drug: Albuterol 2.5 mg Route: Inhalation; sf 20:09 Drug: Zosyn (piperacillin-tazobactam) 2.25 grams Route: IVPB; Infused Over: 60 mins; sf Site: right forearm; 20:35 Follow up: Response: No adverse reaction; IV Status: Completed infusion; IV Intake: sf 100ml 20:49 Drug: morphine 4 mg Route: IVP; Site: right forearm; sf 20:54 Follow up: Response: No adverse reaction sf Intake: 20:35 IV: 100ml; Total: 100ml. sf Output: 16:32 Urine: 300ml; Total: 300ml. kg Outcome: 20:12 Decision to Hospitalize by Provider. [facility] 20:36 Condition: stable 20:36 Instructed on the need for admit. 21:00 Admitted to Tele accompanied by tech, via stretcher, room 230, Report called to tran Estrada RN 21:46 Patient left the ED. sf Signatures: Dispatcher [employer] EDMS Horacio Tello PA PA jmm Rivera, Mary mr Gaurav Dillard, RN RN ll1 Franky Vogel RN RN sf Ania Freed kg Ysabel Hylton RN ss Corrections: (The following items were deleted from the chart) 19:47 17:40 Kayexalate (polystyrene) 60 grams PO kg kg
--- NOTE | 2020-07-17 20:12 | EDPHYS ---
Physician Documentation [facility] Name: Flex Morel Age: 74 yrs Sex: Male : 1945 Arrival Date: 07/17/2020 Time: 12:08 Bed 20 Private MD: Timur Murillo C ED Physician Hung Sosa HPI: 07/17 14:26 This 74 yrs old Black Male presents to ER via Wheelchair with complaints of Wound jmm Infection, Breathing Difficulty. 14:26 The patient has shortness of breath at rest. Onset: The symptoms/episode began/occurred jmm gradually, 3 day(s) ago. Duration: The symptoms are continuous, and are steadily getting worse. The patient's shortness of breath is aggravated by nothing, is alleviated by nothing. Associated signs and symptoms: Pertinent negatives: fever. The patient has experienced similar episodes in the past. This is a 74 year old male with a history of DM, HLP, that presents to the ED with complaints of shortness of breath over the past 3 days. Patient states first noticing a wound to the right lower leg 3 weeks ago. patient complaints of increased pain over the past few days along with swelling to both legs. . Historical: - Allergies: 12:22 No Known Allergies; ll1 - PMHx: 12:22 CHF; CVA; Diabetes - NIDDM; Gout; Hyperlipidemia; Hypertension; Seizures; ll1 - PSHx: 12:22 None; ll1 - Immunization history:: Client reports receiving the 2nd dose of the Covid vaccine, Flu vaccine is not up to date. - Social history:: Smoking status: Patient denies any tobacco usage or history of. ROS: 14:26 Constitutional: Negative for fever, chills, and weight loss, Cardiovascular: Negative jmm for chest pain, palpitations, and edema. 14:26 Respiratory: Positive for shortness of breath. 14:26 All other systems are negative. Exam: 15:56 Constitutional: This is a well developed, well nourished patient who is awake, alert, jmm and in no acute distress. Head/Face: atraumatic. Eyes: EOMI, no conjunctival erythema appreciated ENT: Moist Mucus Membranes Neck: Trachea midline, Supple Chest/axilla: Normal chest wall appearance and motion. Cardiovascular: Regular rate and rhythm. No edema appreciated 15:56 Back: Normal ROM 15:56 Respiratory: mild respiratory distress is noted, Respirations: normal, Breath sounds: rales, are scattered. 15:56 Skin: a large ulcer is noted to the right lower leg with surrounding erythema. 15:56 Neuro: Orientation: is normal, Mentation: is normal, Memory: is normal. 15:56 Psych: Behavior/mood is pleasant, cooperative. Vital Signs: 12:18 BP 152 / 65; Pulse 77; Resp 17; Temp 97.3; Pulse Ox 96% ; Weight 90.72 kg; Height 5 ft. ll1 7 in. (170.18 cm); Pain 9/10; 15:00 BP 185 / 93; Pulse 79; Resp 20; Pulse Ox 97% on R/A; kg 16:00 BP 152 / 88; Pulse 80; Resp 18; Pulse Ox 96% on R/A; kg 17:00 BP 172 / 96; Pulse 81; Resp 20; Pulse Ox 95% on R/A; kg 18:00 BP 167 / 84; Pulse 78; Resp 18; Pulse Ox 96% ; kg 20:00 BP 151 / 74; Pulse 79; Resp 18; Pulse Ox 96% ; sf 12:18 Body Mass Index 31.32 (90.72 kg, 170.18 cm) ll1 MDM: 14:26 Patient medically screened. [facility] 20:09 Data reviewed: vital signs, nurses notes. Counseling: I had a detailed discussion with [facility] the patient and/or guardian regarding: the historical points, exam findings, and any diagnostic results supporting the discharge/admit diagnosis, lab results, radiology results, the need for further work-up and treatment in the hospital. ED course: I discussed the patient with Dr. Murillo whom accepted the patient for admission. . 07/17 14:28 Order name: Basic Metabolic Panel [facility] 07/17 14:28 Order name: CBC with Diff [facility] 07/17 14:28 Order name: LFT's; Complete Time: 18:46 [facility] 07/17 14:28 Order name: Magnesium; Complete Time: 18:46 [facility] 07/17 14:28 Order name: NT PRO-BNP; Complete Time: 18:46 [facility] 07/17 14:28 Order name: PT-INR; Complete Time: 18:49 [facility] 07/17 14:28 Order name: Troponin (emerg Dept Use Only); Complete Time: 18:46 [facility] 07/17 14:29 Order name: Basic Metabolic Panel; Complete Time: 18:46 [facility] 07/17 14:29 Order name: CBC with Automated Diff; Complete Time: 21:44 [facility] 07/17 16:16 Order name: Blood Culture Adult (2) [facility] 07/17 16:17 Order name: Lactate; Complete Time: 18:46 [facility] 07/17 14:28 Order name: XRAY Chest (1 view); Complete Time: 16:05 [facility] 07/17 14:28 Order name: US Extremity Venous W Compression Michael; Complete Time: 18:00 [facility] 07/17 16:17 Order name: Procalcitonin; Complete Time: 18:49 [facility] 07/17 16:30 Order name: US LE Arterial Bilateral; Complete Time: 18:12 [facility] 07/17 18:14 Order name: SARS-COV-2 RT PCR; Complete Time: 18:15 [facility] 07/17 18:50 Order name: ABG [facility] 07/17 18:50 Order name: ABG Arterial Blood Gas; Complete Time: 20:08 [facility] 07/17 20:23 Order name: Troponin I [facility] 07/17 21:41 Order name: Manual Differential; Complete Time: 21:44 [facility] 07/17 14:28 Order name: EKG; Complete Time: 14:29 [facility] 07/17 14:28 Order name: Cardiac monitoring; Complete Time: 14:41 [facility] 07/17 14:28 Order name: EKG - Nurse/Tech; Complete Time: 15:37 [facility] 07/17 14:28 Order name: IV Saline Lock; Complete Time: 15:27 [facility] 07/17 14:28 Order name: Labs collected and sent; Complete Time: 15:27 [facility] 07/17 14:28 Order name: O2 Per Protocol; Complete Time: 14:42 [facility] 07/17 14:28 Order name: O2 Sat Monitoring; Complete Time: 14:42 [facility] 07/17 15:54 Order name: Labs - recollect needed: specimens hemolyzed; Complete Time: 18:15 07/17 20:23 Order name: Consistent Carb (ADA) 1800 Christ EDMS Administered Medications: 15:26 Drug: Lasix (furosemide) 20 mg Route: IVP; Site: right forearm; kg 16:32 Follow up: Urine output 300 ml; Response: No adverse reaction kg 15:26 Drug: morphine 2 mg Route: IVP; Site: right forearm; kg 16:33 Follow up: Response: No adverse reaction; Pain is decreased kg 15:26 Drug: Zofran (Ondansetron) 4 mg Route: IVP; Site: right forearm; kg 16:33 Follow up: Response: No adverse reaction kg 15:37 Drug: Xopenex (levalbuterol) (3) 1.25 mg Route: Inhalation; kg 16:31 Follow up: Response: No adverse reaction kg 18:00 Drug: morphine 2 mg Route: IVP; Site: right forearm; kg 20:10 Follow up: Response: No adverse reaction sf 19:40 Drug: Albuterol 2.5 mg Route: Inhalation; kg 19:40 Drug: Insulin Regular Human 10 units {Co-Signature: ss (Ysabel Hylton RN).} Route: IVP; kg Site: right forearm; 20:10 Follow up: Response: No adverse reaction sf 19:40 Drug: morphine 4 mg Route: IVP; Site: right forearm; kg 20:10 Follow up: Response: No adverse reaction sf 19:40 Drug: D50W 50 ml Route: IVP; Site: right forearm; kg 20:11 Follow up: Response: No adverse reaction sf 19:40 Drug: Kayexalate (polystyrene) 60 grams Route: PO; kg 20:11 Follow up: Response: No adverse reaction sf 20:09 Drug: Albuterol 2.5 mg Route: Inhalation; sf 20:42 Follow up: Response: No adverse reaction sf 20:09 Drug: Albuterol 2.5 mg Route: Inhalation; sf 20:09 Drug: Zosyn (piperacillin-tazobactam) 2.25 grams Route: IVPB; Infused Over: 60 mins; sf Site: right forearm; 20:35 Follow up: Response: No adverse reaction; IV Status: Completed infusion; IV Intake: sf 100ml 20:49 Drug: morphine 4 mg Route: IVP; Site: right forearm; sf 20:54 Follow up: Response: No adverse reaction sf Disposition: 07/17/20 20:12 Hospitalization ordered by Timur Murillo for Inpatient Admission. Preliminary diagnosis are Hyperkalemia, Acute on chronic combined systolic (congestive) and diastolic (congestive) heart failure, Cellulitis of right lower limb. - Bed requested for Telemetry/MedSurg (Inpatient). - Status is Inpatient Admission. sf - Condition is Stable. - Problem is new. - Symptoms have improved. Addendum: 07/20/2020 17:32 Co-signature as Attending Physician, Hung alvarado Signatures: Dispatcher [employer] EDIN Hung Sosa MD MD pkl Mickail, Joel, PA PA [facility] Bree Ferreira RN RN bb Ysabel Hylton RN RN ss Gaurav Dillard RN RN ll1 Franky Vogel RN RN sf Ania Freed kg, RN ss Corrections: (The following items were deleted from the chart) 07/17 16:32 16:17 LACTATE+C.LAB.BRZ ordered. [facility] EDIN 16:32 16:17 Procalcitonin+C.LAB.BRZ ordered. [facility] EDIN 16:38 14:29 CORONAVIRUS+MR.LAB.BRZ ordered. [facility] EDIN 20:20 20:12 Hospitalization Ordered by A Lidia PATE for Inpatient Admission. Preliminary bb diagnosis is Hyperkalemia; Acute on chronic combined systolic (congestive) and diastolic (congestive) heart failure; Cellulitis of right lower limb. Bed requested for Telemetry/MedSurg (Inpatient). Status is Inpatient Admission. Condition is Stable. Problem is new. Symptoms have improved. [facility] 21:46 20:20 07/17/2020 20:12 Hospitalization Ordered by A Lidia PATE for Inpatient Admission. sf Preliminary diagnosis is Hyperkalemia; Acute on chronic combined systolic (congestive) and diastolic (congestive) heart failure; Cellulitis of right lower limb. Bed requested for Telemetry/MedSurg (Inpatient). Status is Inpatient Admission. Condition is Stable. Problem is new. Symptoms have improved. bb
[2020-07-17] MEDS ORDERED: PIPER/TAZO/NS 2.25gm 2.25 GM/50 ML BAG ONE (20:17)
[2020-07-17] MEDS ORDERED: ONDANSETRON 4 MG/2 ML VIAL IV PRN (20:18)
[2020-07-17] MEDS ORDERED: IPRATROPIUM BROM 0.5MG/2.5ML NEB PRN (20:18)
[2020-07-17] MEDS ORDERED: ALBUTEROL 2.5 MG/3 ML NEB SOL NEB PRN (20:18)
[2020-07-17] MEDS ORDERED: ACETAMINOPHEN 500 MG TAB PO PRN (20:18)
[2020-07-17] MEDS ORDERED: MORPHINE 4 MG/ML SYR IV PRN (20:18)
[2020-07-17 21:37] LABS: Anisocytosis 1+; Blood Morphology Comment NOTED (NOT SEEN); Platelet Estimate DECR; Poikilocytosis 1+
[2020-07-17 21:39] LABS: Ovalocytes SLIGHT; Teardrop Cell FEW
[2020-07-17 21:40] LABS: Burr Cells FEW
[2020-07-17] MEDS: FUROSEMIDE 40 MG/4 ML VIAL IV SCH (22:46)
[2020-07-18] MEDS: PIPER TAZO 2.25 GM in NA CHLORIDE 0.9% 50 ML IV SCH ×3 (00:51→18:15)
[2020-07-18] MEDS ORDERED: NA CHLORIDE 0.9% 100 ML ONE (00:58)
[2020-07-18] MEDS ORDERED: PIPERACIL/TAZO 2.25 GM VIAL IV ONE (00:58)
[2020-07-18] MEDS ORDERED: PIPER/TAZO/NS 2.25gm 2.25 GM/50 ML BAG IVPB SCH (01:00)
[2020-07-18] MEDS: FUROSEMIDE 40 MG/4 ML VIAL IV SCH ×3 (05:00→21:41)
[2020-07-18 06:07] LABS: Absolute Lymphocytes (CBC) 7.2 K/uL (0.7-4.9); Hematocrit 37.7 % (39.6-49.0); Lymphocytes % 54.8 % (15.3-44.8); MPV 10.7 fL (7.6-11.3); RBC Red Blood Cell Count 4.19 M/uL (4.33-5.43)
[2020-07-18] MEDS ORDERED: GLUCAGON 1 MG/VIAL IM PRN ×2 (07:26)
[2020-07-18] MEDS ORDERED: D50W 25 GM/50 ML SYRINGE IV PRN ×2 (07:26)
[2020-07-18] MEDS: INSULIN -REGULAR HUMAN 50 UNIT/0.5 ML ML SQ SCH ×4 (07:30→21:42)
[2020-07-18] MEDS: INSULIN GLARGINE 100 UNITS/ML SQ SCH ×2 (08:00→21:41)
[2020-07-18 08:25] VITALS: BMI 31.3
[2020-07-18] MEDS ORDERED: FUROSEMIDE 20 MG/ 2ML VIAL IV SCH (09:00)
[2020-07-18] MEDS: ASPIRIN EC 81 MG TAB PO SCH (09:12)
[2020-07-18] MEDS: ISOSORBIDE MONO SR 60 MG TAB PO SCH (09:12)
[2020-07-18] MEDS: HYDRALAZINE HCL 25 MG TABLET PO SCH ×2 (09:12→21:41)
[2020-07-18] MEDS: levETIRAcetam 500 MG TAB PO SCH ×2 (09:12→21:40)
[2020-07-18] MEDS: carvediloL 12.5 MG TAB PO SCH ×2 (09:12→21:40)
[2020-07-18] MEDS: APIXABAN 2.5 MG TABLET PO SCH ×2 (09:12→22:12)
[2020-07-18] MEDS: allopurinoL 300 MG TAB PO SCH (09:12)
[2020-07-18] MEDS ORDERED: PNEUMOCOCCAL VACCINE 0.5 ML IMVAC ONE (10:00)
[2020-07-18] MEDS: COLLAGENASE 30 GM OINTMENT TOP SCH (10:46)
--- NOTE | 2020-07-18 10:48 | EKG ---
Test Date: 2020-07-17 Test Time: 15:38:30 City Controller: IMELDA MEASUREMENT RESULTS: Intervals: Rate: 79 KS: 248 QRSD: 118 QT: 424 QTc: 486 [place]: P: 82 KS: 248 QRS: -6 T: 144 INTERPRETIVE STATEMENTS: Sinus rhythm with 1st degree AV block with premature atrial complexes Low voltage QRS Cannot rule out Anterior infarct, age undetermined Abnormal ECG Compared to ECG 08/17/2017 23:48:22 Atrial premature complex(es) now present First degree AV block now present Low QRS voltage now present Ventricular premature complex(es) no longer present Myocardial infarct finding still present Electronically Signed On 07-18-20 10:46:44 CDT by Daniel Boucher
--- NOTE | 2020-07-18 11:34 | CON ---
Date of Consultation: 07/18/2020 Reason For Consultation: Bilateral lower extremity wounds. History Of Present Illness: This is a 74-year-old gentleman, who presented to the emergency room yes terday with shortness of breath and infected wounds in the lower extremity. He states that his wound s have been present for about 3 weeks. It may have started after he bumped it, but then does not rec all the exact details. He has had no fever or chills. No purulent discharge. Initially, he thought the wounds were healing up, but however, they have gotten worse and there is increasing pain and swe lling recently and that is why he came to the emergency room. He denies any fever or chills. No sor e throat, runny nose, cough, headaches, or dizziness. No chest pain. Review of Systems: Otherwise unremarkable. Past Medical History: CHF, stroke, diabetes type 2, gout, hyperlipidemia, hypertension, seizures. Past Surgical History: Negative. Allergies: NO ALLERGIES. Social History: He does not smoke. Does not drink alcohol at this time. Family History: Noncontributory. Physical Examination: Vital Signs: His vitals are stable. He is afebrile. General: He is awake, alert, and oriented x3. Head and Neck: No masses. Chest: Clear. Heart: S1, S2. Abdomen: Soft. Extremities: Bilateral lower extremity edema with some warmth and redness, right greater than left. Open wound anterior left leg approximately 2 cm in diameter with fibrin. No purulence, tenderness. On the right lateral leg; there are 2 wounds, 1 is approximately 6 x 8 cm with necrotic fibrin prese nt on top and 1 that is approximately 3 cm in diameter with necrotic fibrin present with surrounding erythema and edema, warmth. Diminished dorsalis pedis and posterior tibial pulses. Laboratory Data: Doppler study shows moderate disease involving distal arteries of the lower extremi ty, no occlusion, no high-grade proximal to mid arterial lower extremity stenosis. Extremity venous study shows no evidence of DVT disease. He is acidotic. BUN is 82, creatinine is 2.79. INR is 1.27 . Hemoglobin this morning is 11.7, hematocrit is 37.7, his white count is 13.2 with a left shift. P latelets are 121. Assessment: A 74-year-old gentleman with multiple medical problems, congestive heart failure, diabet es with infected wound, bilateral lower extremity cellulitis. Recommendations: The patient is going to be seen by Cardiology and get an echo. When he is cleared from then, the patient will need surgical debridement of the wounds and then we will proceed accordin gly at that time. Plan of care discussed in detail with the patient and family and Dr. Murillo. CHRIS/ZULAY Voice ID: [id number] Report ID: [id number]
--- NOTE | 2020-07-18 15:25 | CON ---
Date of Consultation: 07/18/2020 Reason For Consultation: Possible peripheral arterial disease, the patient presenting with gangrene to the right foot. History Of Present Illness: This is a 74-year-old male with a history of congestive heart failure, d iabetes, dyslipidemia, hypertension, seizure disorder, comes to the emergency room with infected righ t foot wound. The patient follows with Dr. Boucher and has a stress test scheduled for next week. D enies having any chest pain. Minimal shortness of breath is present, mainly with activity. Past Medical History: As outlined above in the HPI. Medications: Refer to reconciliation sheet for detailed list. Allergies: NO KNOWN DRUG ALLERGIES. Social History: Does not smoke or drink. Does not use any drugs. Family History: No premature coronary artery disease or cancer. Review of Systems: All systems reviewed were negative except for mentioned in the HPI. Physical Examination: Vital Signs: Temperature is 97.3, pulse 76, breathing at 16, blood pressure 145/69, saturating 94%. General: Pleasant elderly male, in no distress. Head and Neck: Pupils are equal, reactive to light. Intact eye movements. No JVD. No cervical lym phadenopathy. Neck: Supple. Thyroid is not enlarged. Lungs: Clear to auscultation bilaterally. No rhonchi, rales, or crackles. No accessory muscle use. Heart: Irregular. No extra sounds. Abdomen: Soft, nontender. Bowel sounds positive. No organomegaly. No masses or hernia. No rigidi ty or rebound. Extremities: No clubbing or cyanosis. Decreased pulses. There is infected right foot with gangrene smell. Neurologic: Alert, awake, oriented x3. No acute focal deficits appreciated. Lymph Nodes: No cervical or axillary lymphadenopathy. Investigations: Hemoglobin A1c is 11.7. Creatinine is 2.79. Troponin is 0.05. NT-proBNP is 10,506 . Arterial Doppler of lower extremity showed no high-grade proximal mid stenosis. There is moderate disease involving distal arteries of the lower extremities. Assessment And Recommendations: 1.Gangrene of the right foot. Will require surgical debridement. Arterial ultrasound did not sugge st high-grade stenosis. There is moderate disease in the below the knee on the right and both lower extremities. The patient could potentially benefit from peripheral angiogram to further clarify the vasculature of the lower extremity and to proceed with surgical debridement as planned. The patient is at least a moderate cardiac risk; however, we would not delay surgery because of the significant i nfection involving his right foot that threatens his condition at the present time. 2.Congestive heart failure. Please obtain echocardiogram to further evaluate. 3.Advanced kidney disease. Nephrology is on board. /ZULAY Voice ID: [id number] Report ID: [id number]
--- NOTE | 2020-07-18 19:19 | P.CNS ---
Date of Consult: 07/18/20 Reason for Consult: ANGEL/ CKD Requesting Physician: Chito Murillo Chief Complaint: Dyspnea History of Present Illness: 74 yo BM CKD, DM presented to the ER with 3 days of moderate, progressive dyspnea complicated by a worsening wound of the RLE. Denies NSAIDs. Reports Tylenol for pain. Reports a slow stream with nocturia X3. States that he empties his bladder completely. 14:26 This 74 yrs old Black Male presents to ER via Wheelchair with complaints of Wound jmm Infection, Breathing Difficulty. 14:26 The patient has shortness of breath at rest. Onset: The symptoms/episode began/occurred jmm gradually, 3 day(s) ago. Duration: The symptoms are continuous, and are steadily getting worse. The patient's shortness of breath is aggravated by nothing, is alleviated by nothing. Associated signs and symptoms: Pertinent negatives: fever. The patient has experienced similar episodes in the past. This is a 74 year old male with a history of DM, HLP, that presents to the ED with complaints of shortness of breath over the past 3 days. Patient states first noticing a wound to the right lower leg 3 weeks ago. patient complaints of increased pain over the past few days along with swelling to both legs. Allergies No Known Allergies Allergy (Verified 08/18/17 05:10) Home medications list reviewed: Yes Home Medications: Aspirin [Adult Low Dose Aspirin EC] 81 mg PO DAILY 09/24/15 Cholecalciferol (Vitamin D3) [Vitamin D3] 1,000 unit PO DAILY 09/24/15 Isosorbide Mononitrate [Isosorbide Mononitrate ER] 60 mg PO DAILY 09/24/15 carvediloL [Coreg*] 12.5 mg PO BID 09/24/15 Insulin Detemir [Levemir Flextouch] 40 units SQ BID 12/17/15 Allopurinol 1 tab PO DAILY 03/06/17 Atorvastatin Calcium [Lipitor] 80 mg PO BEDTIME 03/06/17 Hydralazine [Apresoline*] 1 tab PO BID 03/06/17 Amitriptyline HCl 25 mg PO BEDTIME 08/18/17 Apixaban [Eliquis *] 2.5 mg PO BID 08/18/17 levETIRAcetam [Levetiracetam] 500 mg PO Q12H 08/18/17 Furosemide 2 tab PO BID #120 tablet 08/30/17 - Past Medical/Surgical History Diabetic: Yes -: HTN -: DM -: CHF -: Hyperkalemia -: Hyperlipidemia -: Gout -: heart cath - Family History Mother Medical History: Heart disease, Cancer Father Medical History: Heart disease Notes: CHF - Social History Smoking Status: Never smoker Alcohol use: No CD- Drugs: No Caffeine use: Yes Place of Residence: Home Review of Systems 10-point ROS is otherwise unremarkable General: Weakness, Malaise Respiratory: SOB with Excertion Cardiovascular: Edema Musculoskeletal: Leg Pain Neurological: Weakness Physical Examination Temp Pulse Resp BP Pulse Ox 97.5 F 70 16 160/95 H 94 07/18/20 16:00 07/18/20 16:00 07/18/20 16:00 07/18/20 16:00 07/18/20 16:00 General: In no apparent distress, Oriented x3, Cooperative HEENT: Atraumatic Neck: Supple Respiratory: Diminished Cardiovascular: Regular rate/rhythm, No rubs, Edema Gastrointestinal: Soft and benign, Distended Musculoskeletal: No clubbing, No contractures Integumentary: No cyanosis, Skin breakdown, Diabetic ulcer Neurological: Normal speech Laboratory Data (last 24 hrs) 07/17/20 17:35: WBC 14.00 H, Hgb 12.6 L, Hct 41.3, Plt Count 126 L Imagings Data: EXAM DESCRIPTION: Rico Single View07/17/2020 3:02 pm CLINICAL HISTORY: Shortness of breath COMPARISON: Two to technical issues the prior exams not for comparison FINDINGS: Mild bilateral pulmonary opacities. The heart is moderately enlarged. IMPRESSION: These findings probably indicate CHF EXAM DESCRIPTION: US - Lower Extremity Arterial Bilat - 07/17/2020 5:43 pm CLINICAL HISTORY: Leg swelling COMPARISON: None FINDINGS: The left common femoral arterial waveform is biphasic The left superficial femoral, left popliteal and left posterior tibial arterial waveforms are biphasic. Left dorsalis pedis arterial waveform is monophasic The right common femoral, right superficial femoral and right popliteal arterial waveforms are biphasic. The right dorsalis pedis arterial waveform is biphasic. The right posterior tibial arterial waveform is monophasic. IMPRESSION: No high-grade proximal/mid arterial lower extremity stenosis. No occlusion. Moderate disease involving distal arteries of the lower extremity Conclusions/Impression: A/P: Continue the current POC and Medications other than the changes listed. AM Labs PRN. Recommend daily weight. Please see the orders for complete details. ANGEL likely CRS CKD IV with proteinuria -No NSAIDs Hyperkalemia -Continue Lasix Acidosis -Start oral bicarb Hypercalcemia -Start Vitamin D HTN with CKD/ CHF -Continue Coreg and Hydralazine Diastolic CHF, A/C -2g Na diet -Continue IV Lasix DM II with CKD and Hyperglycemia DM II with PAD/ DM angiopathy DM II with RLE ulcer -Continue Lantus and RISS -Continue Zosyn -Wound care as ordered Anemia in chronic illness -Monitor H&H Gout -Continue allopurinol Thank you kindly for the consultation.
[2020-07-18] MEDS ORDERED: METOLAZONE 5 MG TABLET PO ONE (19:35)
[2020-07-18 21:25] LABS: Urine Appearance CLEAR (Clear); Urine Bilirubin NEGATIVE (Negative); Urine Blood TRACE (Negative); Urine Color YELLOW (Yellow); Urine Glucose NEGATIVE (Negative); Urine Protein 2+ (Negative); Urine Urobilinogen 0.2 mg/dL (0.2-1.0)
[2020-07-18 21:32] LABS: Urine Protein/Creatinine Ratio 4.22 ratio (<0.15)
[2020-07-18] MEDS: ATORVASTATIN 80 MG TAB PO SCH (21:39)
[2020-07-18] MEDS: TAMSULOSIN 0.4 MG SR CAP PO SCH (21:40)
[2020-07-18 21:41] LABS: Urine Bacteria NONE SEEN /HPF (NONE SEEN)
[2020-07-18] MEDS: DOCUSATE NA 100 MG CAP PO SCH (21:41)
[2020-07-19] MEDS: PIPER TAZO 2.25 GM in NA CHLORIDE 0.9% 50 ML IV SCH ×3 (01:39→16:13)
--- NOTE | 2020-07-19 02:40 | HP ---
Date of Admission: 07/18/2020 Chief Complaint: Shortness of breath. History Of Present Illness: This is a 74-year-old male patient with multiple comorbidities including congestive heart failure, diabetes, chronic kidney disease, hypertension, coronary artery disease, came into emergency room yesterday with complaints of shortness of breath that started last week and increasingly getting worse. The patient's contacted me last night and informed that the patient was having nasal congestion and he was having some dry cough. No fever. At that time, she denied any shortness of breath or chest pain. No abdominal pain. She was advised to go ahead and start using Flonase nasal spray and use Mucinex 600 mg 2 times a day as needed. The patient has appointment scheduled for this week at the office, but meanwhile yesterday, he started to have shortness of breath, so he came into emergency room. After he was evaluated in the ER, he was admitted to the hospital with congestive heart failure problem. The patient also has a wound, which is chronic wound on the right leg, and he has not seek any medical attention for that. When I saw him this morning, he has significant anasarca and his face and entire body has significant swelling. He was not in any respiratory distress when I saw him. was present with him at bedside. Allergies: NO KNOWN ALLERGIES. Review of Systems: Cardiovascular: As mentioned above. Dermatology: As mentioned above. All other systems reviewed and negative. Medications: Allopurinol 300 mg daily, Eliquis 2.5 mg 2 times a day, aspirin 81 mg daily, atorvastatin 80 mg daily, carvedilol 12.5 mg 2 times a day, colchicine 0.6 mg 2 times a day as needed for gout, furosemide 80 mg 2 times a day, Levemir insulin 50 units 2 times a day, NovoLog insulin for sliding scale, isosorbide mononitrate 60 mg daily, levetiracetam 500 mg 2 times a day, hydralazine 25 mg 2 times a day. Past Medical History: Significant for seizure disorder, allergic rhinitis, type 2 diabetes mellitus with chronic kidney disease, chronic kidney disease stage 4, gastroesophageal reflux disease, benign prostatic hypertrophy, gout anemia due to chronic kidney disease, hypertension, mixed hyperlipidemia, chronic systolic congestive heart failure, coronary artery disease. Past Surgical History: Right eye surgery. Family History: Father had diabetes. Mother with hypertension and arthritis. Brother had coronary artery disease. Social History: Negative for smoking or alcohol use. Physical Examination: Vital Signs: Temperature 97.9, pulse 76, respiratory rate 16, blood pressure 166/85, oxygen saturation 91%. Height 5 feet 7 inches, weight 200 pounds. General: The patient has swelling of his entire body involving his face, trunk, and all the 4 extremities and abdominal wall. HEENT: Head atraumatic, normocephalic. Conjunctivae nonerythematous. Sclerae white. Mouth, no thrush or edema noted. Ears/Nose, no mass, lesion, discharge noted. Neck: Supple. No JVD, lymph nodes, bruit, thyromegaly noted. Lungs: Bilateral good equal air entry. Not using any accessory muscles of respiration. Presence of rales noted in both lung garcia. Heart: Normal heart sounds. No murmur or gallop. Abdomen: Soft. Bowel sounds normal. No guarding, rigidity, tenderness, mass, hepatosplenomegaly, distention, or bruit noted. Extremities: Bilateral grade 2 to grade 3 pedal edema extending all the way up to upper thigh. Skin: Right lower lateral leg has 2 wounds, 1 is approximately 5 cm x 5 cm, other 1 is smaller 2 x 2 cm. There is no active discharge or bleeding. No tenderness in surrounding area. No redness. Lymphatics: No lymph node enlargement in neck, supraclavicular, infraclavicular region. Neuro: No focal neurological deficit. Chest: Unremarkable. External Genitalia: Deferred. Rectal: Deferred. Laboratory Data: Yesterday, white count 14, hemoglobin 12.6, platelets 126. Today, white count 13.2, hemoglobin 11.7, platelets 121. INR 1.27. Blood gas showed pH 7.25, pCO2 34.9, pO2 60.6, saturation 88% on 21% FiO2. Yesterday, sodium 144, potassium 6.1, chloride 121, bicarb 17, BUN 84, creatinine 2.70, glucose 169. Liver function tests unremarkable. ProBNP 10,506. Procalcitonin 0.09. This morning, ProBNP 11,627, sodium 145, potassium 5, chloride 119, bicarb 14, BUN 82, creatinine 2.79, glucose 221. COVID-19 test negative. Venous Doppler of both lower extremity negative for DVT. Chest x-ray shows changes of congestive heart failure. An arterial Doppler shows evidence of peripheral vascular disease involving distal part of both lower extremities. Impression: 1. Congestive heart failure, chronic, systolic, with acute exacerbation. 2. Hyperkalemia. 3. Chronic kidney disease stage 4. 4. Diabetes mellitus, type 2, uncontrolled. 5. Hypertension. 6. Hyperlipidemia. 7. Coronary artery disease. 8. Anemia due to chronic kidney disease. 9. Thrombocytopenia. 10. Seizure disorder. 11. Right leg wound. Plan: Admit the patient to hospital for further evaluation and management of this problem. The patient is appropriate for inpatient and is expected to spend 2 midnights in the hospital. The patient is not compliant with appointments and blood work. He has not gone for blood work as suggested in a long time and last time when he had his blood work done, his hemoglobin A1c was 11.2 and this was last year, and he was advised to see rcp, Dr. Mosqueda, but he has not done that either. He has gained weight lately and we will go ahead and diurese him with Lasix 40 mg IV every 8 hours. Monitor intake, output, daily weight. Monitor electrolytes and renal function. Continue home medications per order. Diabetes will be managed with sliding scale insulin and long-acting insulin Lantus, which will be given at a smaller dose with close monitoring of blood sugar. We will get hemoglobin A1c. Consult Cardiology. Get echo with Doppler. Consult biodiesel processing technician and also consult general surgeon, Dr. Recinos, and he will plan to do debridement as per my discussion with him one-to-one once his medical status is little more stable with congestive heart failure. Empiric antibiotic, Zosyn was started, which we will continue. Details and plan of treatment discussed with the patient and the patient's this morning. KARISHMA/MODL Voice ID: [id number] MTDDeb
[2020-07-19] MEDS: FUROSEMIDE 40 MG/4 ML VIAL IV SCH ×3 (04:46→21:20)
[2020-07-19 05:31] LABS: Phosphorus 4.8 mg/dL (2.5-4.9); Uric Acid 3.2 mg/dL (3.5-7.2)
[2020-07-19 05:36] LABS: Potassium 5.9 mmol/L (3.5-5.1)
[2020-07-19] MEDS ORDERED: SOD POLYSTYREN SUL 15 GM/60 ML UCUP PO ONE ×2 (07:04→19:51)
[2020-07-19] MEDS: INSULIN -REGULAR HUMAN 50 UNIT/0.5 ML ML SQ SCH ×4 (07:30→21:22)
[2020-07-19] MEDS: INSULIN GLARGINE 100 UNITS/ML SQ SCH ×2 (08:00→21:22)
[2020-07-19] MEDS: DOCUSATE NA 100 MG CAP PO SCH ×2 (08:35→21:21)
[2020-07-19] MEDS: SODIUM BICARB 325 MG TAB PO SCH ×3 (08:35→16:12)
[2020-07-19] MEDS: CALCITROL 0.25 MCG CAP PO SCH (08:35)
[2020-07-19] MEDS: HYDRALAZINE HCL 25 MG TABLET PO SCH ×2 (08:36→21:21)
[2020-07-19] MEDS: VITAMIN D 5,000 UNIT CAP PO SCH (08:36)
[2020-07-19] MEDS: levETIRAcetam 500 MG TAB PO SCH ×2 (08:36→21:21)
[2020-07-19] MEDS: allopurinoL 300 MG TAB PO SCH (08:36)
[2020-07-19] MEDS: ASPIRIN EC 81 MG TAB PO SCH (08:36)
[2020-07-19] MEDS: ISOSORBIDE MONO SR 60 MG TAB PO SCH (08:36)
[2020-07-19] MEDS: carvediloL 12.5 MG TAB PO SCH ×2 (08:37→21:21)
[2020-07-19] MEDS: COLLAGENASE 30 GM OINTMENT TOP SCH (08:38)
--- NOTE | 2020-07-19 09:13 | ECHO ---
HEIGHT: 5 ft 7 in WEIGHT: 225 lb 0 oz DATE OF STUDY: 07/18/[address]: Chito Murillo MD 2-DIMENSIONAL: YES M.MODE: YES DOPPLER: YES COLOR FLOW: YES TDS: NO PORTABLE: NO DEFINITY: NO BUBBLE STUDY: NO DIAGNOSIS: CONGESTIVE HEART FAILURE CARDIAC HISTORY: CATHERIZATION: NO SURGERY: NO PROSTHETIC VALVE: NO PACEMAKER: NO MEASUREMENTS (cm) DIASTOLIC (NORMALS) SYSTOLIC (NORMALS) IVSd 1.1 (0.6-1.2) LA Diam 3.9 (1.9-4.0) LVEF 29% LVIDd 5.7 (3.5-5.7) LVIDs 4.9 (2.0-3.5) %FS 14% LVPWd 1.2 (0.6-1.2) Ao Diam 2.9 (2.0-3.7) 2 DIMENSIONAL ASSESSMENT: RIGHT ATRIUM: NORMAL LEFT ATRIUM: NORMAL RIGHT VENTRICLE: NORMAL LEFT VENTRICLE: DEPRESSED TRICUSPID VALVE: MITRAL VALVE: PULMONIC VALVE: NORMAL AORTIC VALVE: CALCIFIED PERICARDIAL EFFUSION: NONE AORTIC ROOT: NORMAL LEFT VENTRICULAR WALL MOTION: SEVERE GLOBAL HYPOKINESIS. DOPPLER/COLOR FLOW: SEE BELOW. COMMENTS: SEVERELY DEPRESSED LEFT VENTRICULAR EJECTION FRACTION 25-30%. SEVERE GLOBAL HYPOKINESIS. MILD MITRAL AND TRICUSPID REGURGITATION. TECHNOLOGIST: Arsalan HARTMAN
[2020-07-19] MEDS ORDERED: ALBUTEROL 2.5 MG/3 ML NEB SOL NEB ONE (10:11)
[2020-07-19] MEDS ORDERED: D50W 25 GM/50 ML SYRINGE IV ONE (10:13)
[2020-07-19] MEDS ORDERED: INSULIN -REGULAR HUMAN 50 UNIT/0.5 ML ML IV ONE (10:14)
[2020-07-19] MEDS ORDERED: D50W 25 GM/50 ML SYRINGE IV PRN (10:14)
[2020-07-19] MEDS ORDERED: GLUCAGON 1 MG/VIAL IM PRN (10:14)
--- NOTE | 2020-07-19 16:56 | PN ---
Date of Progress Note: 07/19/2020 Subjective: The patient is awake, alert. No complaints. Objective: Vital Signs: Stable, afebrile. Extremities: Examination of the wounds reveals fibrin present and some necrosis in the fibrin. No e vidence of gangrene. No significant change from yesterday. Decreased erythema and warmth, however. Assessment: Infected wounds, bilateral lower extremities with cellulitis, and peripheral vascular di sease, congestive heart failure, diabetes, and hypertension. Recommendations: I discussed the case with Dr. Murillo. We will proceed with debridement tomorrow and try to do it under MAC anesthesia with local with IV sedation. We will hold Eliquis today. The vanda ent and understand risks, benefits and alternatives, and agreed. /MODL Voice ID: [id number] Report ID: [id number]
[2020-07-19] MEDS ORDERED: D50W 25 GM/50 ML VIAL IV PRN (19:00)
--- NOTE | 2020-07-19 19:41 | P.PN ---
Date of Service: 07/19/20 Vital Signs Temp Pulse Resp BP Pulse Ox 97.2 F 73 17 153/73 H 94 07/19/20 16:00 07/19/20 16:00 07/19/20 16:00 07/19/20 16:00 07/19/20 16:00 Medications Acetaminophen (Acetaminophen 500 Mg Tab) 500 mg PO Q6H PRN PRN Reason: Pain scale 2-4 (Mild) Last Admin: 07/18/20 21:58 Dose: 500 mg Documented by: Albuterol Sulfate (Albuterol 2.5 Mg/3 Ml Neb Monica) 2.5 mg NEB Q4H PRN PRN Reason: WHEEZING Allopurinol (Allopurinol 300 Mg Tab) 300 mg PO DAILY [facility] Last Admin: 07/19/20 08:36 Dose: 300 mg Documented by: Apixaban (Apixaban 2.5 Mg Tablet) 2.5 mg PO BID [facility] Last Admin: 07/18/20 22:12 Dose: 2.5 mg Documented by: Aspirin (Aspirin Ec 81 Mg Tab) 81 mg PO DAILY [facility] Last Admin: 07/19/20 08:36 Dose: 81 mg Documented by: Atorvastatin Calcium (Atorvastatin 80 Mg Tab) 80 mg PO BEDTIME [facility] Last Admin: 07/18/20 21:39 Dose: 80 mg Documented by: Calcitriol (Calcitrol 0.25 Mcg Cap) 0.5 mcg PO DAILY [facility] Last Admin: 07/19/20 08:35 Dose: 0.5 mcg Documented by: Carvedilol (Carvedilol 12.5 Mg Tab) 12.5 mg PO BID [facility] Last Admin: 07/19/20 08:37 Dose: 12.5 mg Documented by: Cholecalciferol (Vitamin D 5,000 Unit Cap) 5,000 unit PO DAILY [facility] Last Admin: 07/19/20 08:36 Dose: 5,000 unit Documented by: Collagenase (Collagenase 30 Gm Ointment) 0 appl TOP DAILY [facility] Last Admin: 07/19/20 08:38 Dose: 1 olivier Documented by: Dextrose (D50w 25 Gm/50 Ml Vial) 12.5 gm IV PRN PRN; Protocol PRN Reason: HYPOGLYCEMIA Docusate Sodium (Docusate Na 100 Mg Cap) 100 mg PO BID [facility] Last Admin: 07/19/20 08:35 Dose: 100 mg Documented by: Furosemide (Furosemide 40 Mg/4 Ml Vial) 40 mg IV Q8H [facility] Last Admin: 07/19/20 13:30 Dose: 40 mg Documented by: Glucagon (Glucagon 1 Mg/Vial) 1 mg IM 1X PRN; Protocol PRN Reason: HYPOGLYCEMIA Hydralazine HCl (Hydralazine Hcl 25 Mg Tablet) 25 mg PO BID [facility] Last Admin: 07/19/20 08:36 Dose: 25 mg Documented by: Piperacillin Sod/Tazobactam (Sod 2.25 gm/ Sodium Chloride) 50 mls @ 100 mls/hr IV Q8HR [facility]; Protocol Last Admin: 07/19/20 16:13 Dose: 50 mls Documented by: Insulin Glargine (Insulin Glargine 100 Units/Ml) 10 units SQ BEDTIME [facility] Last Admin: 07/18/20 21:41 Dose: 10 units Documented by: Insulin Glargine (Insulin Glargine 100 Units/Ml) 10 units SQ DAILY WITH BREAKFAST [facility] Last Admin: 07/19/20 08:00 Dose: Not Given Documented by: Insulin Human Regular (Insulin -Regular Human 50 Unit/0.5 Ml Ml) 0 unit SQ ACHS [facility]; Protocol Last Admin: 07/19/20 16:12 Dose: 3 unit Documented by: Ipratropium [place] (Ipratropium Brom 0.5mg/2.5ml) 0.5 mg NEB Q4H PRN PRN Reason: WHEEZING Isosorbide Mononitrate (Isosorbide [place] Sr 60 Mg Tab) 60 mg PO DAILY [facility] Last Admin: 07/19/20 08:36 Dose: 60 mg Documented by: Levetiracetam (Levetiracetam 500 Mg Tab) 500 mg PO BID [facility] Last Admin: 07/19/20 08:36 Dose: 500 mg Documented by: Morphine Sulfate (Morphine 4 Mg/Ml Syr) 4 mg IV Q4H PRN PRN Reason: Pain scale 8-10 (Severe) Last Admin: 07/19/20 08:35 Dose: 4 mg Documented by: Ondansetron HCl (Ondansetron 4 Mg/2 Ml Vial) 4 mg IV Q4H PRN PRN Reason: NAUSEA / VOMITING Last Admin: 07/17/20 22:44 Dose: 4 mg Documented by: Sodium Bicarbonate (Sodium Bicarb 325 Mg Tab) 650 mg PO TIDWM [facility] Last Admin: 07/19/20 16:12 Dose: 650 mg Documented by: Sodium Chloride (Flush Normal Saline 10 Ml) 10 ml IV BID [facility] Last Admin: 07/19/20 09:00 Dose: 10 ml Documented by: Tamsulosin HCl (Tamsulosin 0.4 Mg Sr Cap) 0.4 mg PO BEDTIME [facility] Last Admin: 07/18/20 21:40 Dose: 0.4 mg Documented by: Microbiology Results 07/17/20 17:50 Blood - Blood Aerobic Blood Culture - Preliminary No growth in 24 hours. 07/17/20 17:50 Blood - Blood Anaerobic Blood Culture - Preliminary No growth in 24 hours. 07/17/20 17:35 Blood - Blood Aerobic Blood Culture - Preliminary No growth in 24 hours. 07/17/20 17:35 Blood - Blood Anaerobic Blood Culture - Preliminary No growth in 24 hours. Assessment/ Plan: Nephrology No acute cardiac or pulmonary complaints. No CP or SOB. +PAULA No acute events overnight. Vitals, medications, blood work and imaging reviewed in the chart. General: In no apparent distress, Oriented x3, Cooperative HEENT: Atraumatic Neck: Supple Respiratory: Diminished Cardiovascular: Regular rate/rhythm, No rubs, Edema Gastrointestinal: Soft and benign, Distended Musculoskeletal: No clubbing, No contractures Integumentary: No cyanosis, Skin breakdown, RLE diabetic ulcer Neurological: Normal speech Laboratory Data (last 24 hrs) 07/17/20 17:35: WBC 14.00 H, Hgb 12.6 L, Hct 41.3, Plt Count 126 L Imagings Data: EXAM DESCRIPTION: Ruizt Single View07/17/2020 3:02 pm CLINICAL HISTORY: Shortness of breath COMPARISON: Two to technical issues the prior exams not for comparison FINDINGS: Mild bilateral pulmonary opacities. The heart is moderately enlarged. IMPRESSION: These findings probably indicate CHF EXAM DESCRIPTION: US - Lower Extremity Arterial Bilat - 07/17/2020 5:43 pm CLINICAL HISTORY: Leg swelling COMPARISON: None FINDINGS: The left common femoral arterial waveform is biphasic The left superficial femoral, left popliteal and left posterior tibial arterial waveforms are biphasic. Left dorsalis pedis arterial waveform is monophasic The right common femoral, right superficial femoral and right popliteal arterial waveforms are biphasic. The right dorsalis pedis arterial waveform is biphasic. The right posterior tibial arterial waveform is monophasic. IMPRESSION: No high-grade proximal/mid arterial lower extremity stenosis. No occlusion. Moderate disease involving distal arteries of the lower extremity Conclusions/Impression: A/P: Continue the current POC and Medications other than the changes listed. AM Labs PRN. Recommend daily weight. Please see the orders for complete details. ANGEL likely CRS CKD IV with proteinuria -No NSAIDs -Continue Lasix Hyperkalemia -Continue Lasix -Agree with kayexalate; give a second dose in the evening. -Low potassium diet Acidosis -Continue oral bicarb Hypocalcemia -Continue Vitamin D HTN with CKD/ CHF -Continue Coreg and Hydralazine Diastolic CHF, A/C -2g Na diet -Continue IV Lasix -Give another dose of metolazone DM II with CKD and Hyperglycemia DM II with PAD/ DM angiopathy DM II with RLE ulcer -Continue Lantus and RISS -Continue Zosyn -Wound care as ordered Anemia in chronic illness -Monitor H&H Gout -Continue allopurinol Suspected BPH with LUTS -Continue Flomax
[2020-07-19] MEDS ORDERED: METOLAZONE 5 MG TABLET PO SCH (20:00)
--- NOTE | 2020-07-19 20:38 | PN ---
Date of Progress Note: 07/19/2020 Subjective: The patient was seen this morning for followup. No new complaints or problems reported by the patient. Denies any shortness of breath at nighttime. Overall, his swelling from the face jhaveri s improved. Objective: Vital Signs: Reviewed. HEENT: Unremarkable. Lungs: Bilateral good equal entry. Presence of some rales noted in lower lung field. Not in any re spiratory distress. Heart: Sounds normal. Abdomen: Soft. Bowel sounds normal. No guarding, rigidity, tenderness, or distention. Extremities: Leg edema present, but better than yesterday. Foot examination, there is no evidence o f any gangrene on his feet or no evidence of pain. Right leg wound remains unchanged from yesterday. Laboratory Data: Sodium 146, potassium 5.9, chloride 123, bicarb 19, BUN 80, creatinine 2.92, glucos e 114. Impression: 1.Congestive heart failure, chronic, systolic, acute exacerbation. 2.Chronic kidney disease, stage 4. 3.Hyperkalemia. 4.Metabolic acidosis secondary to chronic kidney disease. 5.Hypertension. 6.Type 2 diabetes mellitus, uncontrolled. 7.Peripheral vascular disease. Plan: We will go ahead and continue to follow up with career center advisor, continue current antibiotics, co ntinue to follow with Dr. Recinos and details were discussed with Dr. Recinos. He will plan to do debrid ement tomorrow for the right leg wound. Dr. Torres has noted in his consultation that the patient jhavrei s gangrene of the foot and I have examined the patient yesterday and today, and the patient does not have any gangrene, and Dr. Recinos also has examined the patient and he also agrees with my assessment. The patient has peripheral vascular disease, but it is distal and not amenable to any intervention and there is no need for any angiogram considering his severe chronic kidney disease problem. Doing any angiogram will definitely result in renal failure requiring hemodialysis. His echocardiogram has shown very low ejection fraction 29% and we will continue current medications and other medical hadley gemсергей. His Eliquis will be on hold today until after the procedure for wound debridement gets done tomorrow and we will restart Eliquis tomorrow evening. KARISHMA/MODL Voice ID: [id number] Report ID: [id number]
[2020-07-19] MEDS: ATORVASTATIN 80 MG TAB PO SCH (21:21)
[2020-07-19] MEDS: TAMSULOSIN 0.4 MG SR CAP PO SCH (21:21)
[2020-07-19] MEDS ORDERED: FUROSEMIDE 40 MG/4 ML VIAL IV ONE (23:30)
[2020-07-20] MEDS: PIPER TAZO 2.25 GM in NA CHLORIDE 0.9% 50 ML IV SCH ×3 (00:25→18:29)
--- NOTE | 2020-07-20 02:33 | PN ---
Date of Progress Note: 07/19/2020 Subjective: The patient was admitted with anasarca, hypertension, and hyperkalemia with acute kidney injury on chronic kidney disease. The patient was started on aggressive diuresis. The patient still complains of pain in the leg. Physical Examination: Vital Signs: Blood pressure 168/87, pulse of 81, afebrile. The patient had good urine output of 1100, but is still positive of 260. CHEST: Decreased entry at bilateral base. Heart: S1-S2, regular. Abdomen: Soft. Nontender. Extremities: +2 edema. Dressing on both legs. Neurologic: Alert. No focality. Laboratory Data: WBC 13.2, H and H 11.7/37.7. Sodium 146, potassium 5.1, bicarb 19, chloride 123, BUN 80, creatinine 2.9, GFR 26. Uric acid 3.2, calcium 8.4, phosphorus 4.8, magnesium of 2. Current Medications: The patient on include, the patient received Kayexalate in the morning, Zosyn, aspirin, breathing treatment, Eliquis, carvedilol 12.5. Hydralazine 25 b.i.d., isosorbide, Tylenol, Keppra. Sodium bicarb 650 t.i.d. Assessment And Plan: 1. Acute kidney injury on advanced chronic kidney disease, slightly above his base line, possible secondary to the cardiorenal. We will try to establish better volume control. I am going to go ahead and increase his Lasix to 80 mg and we will follow up with that. We will keep monitoring the patient's I's and O's. 2. Hypertension, not controlled. We will go ahead and increase hydralazine to 50 t.i.d. and we will monitor the patient. 3. Anasarca secondary to cardiorenal. TSH within normal range. 4. Nephrotic range proteinuria. We are going to go ahead and increase diuresis and we will monitor the patient closely. 5. Hyperkalemia status post treatment. Time spent discussing with the patient, examining the patient, [id number] with the patient, placing orders, discussing the case with our steam box operator including nursing, discussing the case with the other subspecialty including Cardiology and hospitalist 35 minutes. JEYSON Voice ID: [id number] Report ID: [id number] MTDD
[2020-07-20 06:16] LABS: Albumin 2.6 g/dL (3.4-5.0); Magnesium 1.8 mg/dL (1.8-2.4); Phosphorus 4.6 mg/dL (2.5-4.9); Potassium 5.4 mmol/L (3.5-5.1); Uric Acid 3.3 mg/dL (3.5-7.2)
[2020-07-20] MEDS ORDERED: SOD POLYSTYREN SUL 15 GM/60 ML UCUP PO ONE ×2 (06:45→19:00)
[2020-07-20] MEDS: INSULIN -REGULAR HUMAN 50 UNIT/0.5 ML ML SQ SCH ×4 (07:30→21:49)
[2020-07-20] MEDS: INSULIN GLARGINE 100 UNITS/ML SQ SCH ×2 (08:00→21:50)
[2020-07-20] MEDS: FUROSEMIDE 40 MG/4 ML VIAL IV SCH ×2 (08:35→18:38)
[2020-07-20] MEDS: levETIRAcetam 500 MG TAB PO SCH ×2 (08:35→20:40)
[2020-07-20] MEDS: COLLAGENASE 30 GM OINTMENT TOP SCH (09:00)
[2020-07-20] MEDS ORDERED: NA CHLORIDE 0.9% 500 ML ONE (09:15)
[2020-07-20] MEDS ORDERED: COLLAGENASE 30 GM OINTMENT TOP ONE (11:19)
[2020-07-20] MEDS ORDERED: LIDOCAINE 2% MPF 5 ML VIAL ONE (11:28)
[2020-07-20] MEDS ORDERED: propofoL 200 MG/20 ML VIAL IV ONE (11:28)
--- NOTE | 2020-07-20 11:37 | P.OP ---
Radiation Physicist: NONE,NONE Preoperative diagnosis: Infected wounds BLE Postoperative diagnosis: same Primary procedure: Debridement L leg wound 2x1 cm to sq Secondary procedure: Deridement R leg wound 6x8 cm to sq Other procedure(s): Debridement R leg wound 2x2 cm to sq Anesthesia: MAC Estimated blood loss: min Specimen: Infected tissue, C&S Findings: as above Complications: None Transferred to: Recovery Room Condition: Good
[2020-07-20] MEDS: MORPHINE 4 MG/ML SYR ONE ×2 (11:57→12:10)
--- NOTE | 2020-07-20 12:15 | PN ---
Date of Progress Note: 07/20/2020 Subjective: The patient was admitted with anasarca, wound in the leg, altered mental status. The patient was started on aggressive diuresis with Lasix and metolazone. His kidney function is stable, marginal decline, but acceptable to achieve better volume control. The patient to undergo debridement of his leg wound today by Dr. Recinos. Physical Examination: Vital Signs: Blood pressure 142/97, pulse of 78, afebrile. The patient had good urine output of 1100, negative of 200. Chest: Clear to auscultation. The patient is on room air. Heart: S1, S2. Regular. Abdomen: Soft, nontender. Extremities: +1 edema. Dressing on both legs. Laboratory Data: WBC 13.2, H and H 11.7/37.7. Sodium 145, potassium 5.4, bicarb 21, BUN 80, creatinine 2.9, GFR 26, uric acid 3.3, calcium 8.3, phosphorus 4.6, magnesium 1.8. BNP 9160, trending down. TSH 3.1. Current Medications: The patient on include; 1. Aspirin. 2. Zosyn. 3. Flomax. 4. Carvedilol 12.5. 5. Hydralazine 25 b.i.d. 6. Isosorbide. 7. Keppra. 8. Lasix 80 t.i.d. 9. Metolazone 10 mg daily. 10. Sodium bicarb 650 t.i.d. Assessment And Plan: 1. Acute kidney injury on chronic kidney disease, marginal, decline in the kidney function. I will accept it in favor of establishing better volume control for the patient. 2. Cardiorenal syndrome. Continue diuresis. 3. Hypertension. We will utilize blood pressure for more diuresis. We will continue. 4. Anasarca secondary to cardiorenal. Responding very well to current diuresis. We will monitor the patient. The patient lost 7 pounds from yesterday. Hypothyroidism has been ruled out. The patient has been nephrotic, which is chronic, mostly secondary to his diabetes. 5. Hyperkalemia, status post treatment. Currently, trending down. We will continue to monitor. No need for further treatment today. 6. Acidosis secondary to renal failure. Continue oral bicarb. Given the presence of hyperkalemia to rule out RTA, I am going to go ahead and send for urine electrolytes for the patient and we will follow up. 7. Wound infection. Continue current antibiotic. Time spent discussing with the patient, examining the patient, [id number] with the patient, placing orders, discussing the case with our support team assoc including nursing, discussing the case with the other subspecialty including Cardiology and hospitalist 35 minutes. JEYSON Voice ID: [id number] Report ID: [id number] OLIVIA
[2020-07-20] MEDS ORDERED: HYDROMORPHONE HCL 1 MG/ML INJ ONE (12:56)
[2020-07-20] MEDS ORDERED: LABETALOL 20 MG/4ML SYRINGE IV ONE (12:56)
--- NOTE | 2020-07-20 13:36 | OP ---
Date of Procedure: 07/19/2020 Surgeon: Tono Recinos MD Office Machine Installer: None. Preoperative Diagnosis: Infected wound of bilateral lower extremities. Postoperative Diagnosis: Infected wound of bilateral lower extremities. Procedures: 1.Debridement of left leg wound 2 x 1 cm to subcutaneous tissue. 2.Debridement of right lateral leg wound 6 x 8 cm to subcutaneous tissues. 3.Debridement of right lateral leg wound 2 x 2 cm to subcutaneous tissue. Estimated Blood Loss: Minimal. Specimens: Infected tissue for culture and sensitivity. Finding: As above. Anesthesia: MAC. Complications: None. Disposition: The patient tolerated the procedure in stable condition and taken to Recovery in good g eneral condition. Procedure In Detail: The patient was brought to the OR and placed in supine position. MAC anesthesi a was begun. The patient was prepped and draped in the usual sterile fashion. Then, sharp dissectio n utilizing scissors, curette and cautery as needed were used to debride the all 3 wounds on the left anterior leg. There was a 2 x 1 cm wound with hard fibrin, which was debrided down through the subc utaneous tissues. Bleeding was controlled with cautery. On the right superior lateral leg, there wa s 6 x 8 cm wound with large amount of necrotic fibrin, which was debrided sharply with the scissors. Bleeding was controlled with cautery. Then, a curette was used to debride the fibrinous exudate as well and cultures were sent, and then below that was a 2 x 2 cm wound that was debrided to the subcut aneous tissue with curette and scissors. Wound was irrigated. Bleeding was controlled with cautery. Collagenase dressing applied on all 3 wounds. Sterile dressing was applied. The patient was awake aiden and taken to Recovery in good general condition. /MODL Voice ID: [id number] Report ID: [id number]
[2020-07-20] MEDS: carvediloL 12.5 MG TAB PO SCH ×2 (14:01→20:41)
[2020-07-20] MEDS: ISOSORBIDE MONO SR 60 MG TAB PO SCH (14:01)
[2020-07-20] MEDS: allopurinoL 300 MG TAB PO SCH (14:03)
[2020-07-20] MEDS: VITAMIN D 5,000 UNIT CAP PO SCH (14:03)
[2020-07-20] MEDS: SODIUM BICARB 325 MG TAB PO SCH ×3 (14:03→18:39)
[2020-07-20] MEDS: ASPIRIN EC 81 MG TAB PO SCH (14:04)
[2020-07-20] MEDS: DOCUSATE NA 100 MG CAP PO SCH ×2 (14:04→20:40)
[2020-07-20] MEDS: HYDRALAZINE HCL 25 MG TABLET PO SCH ×2 (14:04→20:41)
[2020-07-20] MEDS: CALCITROL 0.25 MCG CAP PO SCH (14:06)
[2020-07-20] MEDS ORDERED: METOLAZONE 5 MG TABLET PO SCH (18:00)
[2020-07-20] MEDS: TAMSULOSIN 0.4 MG SR CAP PO SCH (20:40)
[2020-07-20] MEDS: ATORVASTATIN 80 MG TAB PO SCH (20:40)
[2020-07-20] MEDS: APIXABAN 2.5 MG TABLET PO SCH (21:50)
--- NOTE | 2020-07-20 22:21 | P.PN ---
Date of Service: 07/20/20 Vital Signs Temp Pulse Resp BP Pulse Ox 97.0 F 81 20 159/84 H 94 07/20/20 16:00 07/20/20 20:41 07/20/20 16:00 07/20/20 20:41 07/20/20 16:00 Medications Acetaminophen (Acetaminophen 500 Mg Tab) 500 mg PO Q6H PRN PRN Reason: Pain scale 2-4 (Mild) Last Admin: 07/18/20 21:58 Dose: 500 mg Documented by: Albuterol Sulfate (Albuterol 2.5 Mg/3 Ml Neb Monica) 2.5 mg NEB Q4H PRN PRN Reason: WHEEZING Allopurinol (Allopurinol 300 Mg Tab) 300 mg PO DAILY [facility] Last Admin: 07/20/20 14:03 Dose: 300 mg Documented by: Apixaban (Apixaban 2.5 Mg Tablet) 2.5 mg PO BID [facility] Last Admin: 07/20/20 21:50 Dose: 2.5 mg Documented by: Aspirin (Aspirin Ec 81 Mg Tab) 81 mg PO DAILY [facility] Last Admin: 07/20/20 14:04 Dose: 81 mg Documented by: Atorvastatin Calcium (Atorvastatin 80 Mg Tab) 80 mg PO BEDTIME [facility] Last Admin: 07/20/20 20:40 Dose: 80 mg Documented by: Calcitriol (Calcitrol 0.25 Mcg Cap) 0.5 mcg PO DAILY [facility] Last Admin: 07/20/20 14:06 Dose: 0.5 mcg Documented by: Carvedilol (Carvedilol 12.5 Mg Tab) 12.5 mg PO BID [facility] Last Admin: 07/20/20 20:41 Dose: 12.5 mg Documented by: Cholecalciferol (Vitamin D 5,000 Unit Cap) 5,000 unit PO DAILY [facility] Last Admin: 07/20/20 14:03 Dose: 5,000 unit Documented by: Collagenase (Collagenase 30 Gm Ointment) 0 appl TOP DAILY [facility] Last Admin: 07/20/20 09:00 Dose: Not Given Documented by: Dextrose (D50w 25 Gm/50 Ml Vial) 12.5 gm IV PRN PRN; Protocol PRN Reason: HYPOGLYCEMIA Docusate Sodium (Docusate Na 100 Mg Cap) 100 mg PO BID [facility] Last Admin: 07/20/20 20:40 Dose: 100 mg Documented by: Furosemide (Furosemide 40 Mg/4 Ml Vial) 80 mg IV Q8HR [facility] Last Admin: 07/20/20 18:38 Dose: 80 mg Documented by: Glucagon (Glucagon 1 Mg/Vial) 1 mg IM 1X PRN; Protocol PRN Reason: HYPOGLYCEMIA Hydralazine HCl (Hydralazine Hcl 25 Mg Tablet) 25 mg PO BID [facility] Last Admin: 07/20/20 20:41 Dose: 25 mg Documented by: Piperacillin Sod/Tazobactam (Sod 2.25 gm/ Sodium Chloride) 50 mls @ 100 mls/hr IV Q8HR [facility]; Protocol Last Admin: 07/20/20 18:29 Dose: 50 mls Documented by: Insulin Glargine (Insulin Glargine 100 Units/Ml) 10 units SQ BEDTIME [facility] Last Admin: 07/20/20 21:50 Dose: 10 units Documented by: Insulin Glargine (Insulin Glargine 100 Units/Ml) 10 units SQ DAILY WITH BREAKFAST [facility] Last Admin: 07/20/20 08:00 Dose: Not Given Documented by: Insulin Human Regular (Insulin -Regular Human 50 Unit/0.5 Ml Ml) 0 unit SQ ACHS [facility]; Protocol Last Admin: 07/20/20 21:49 Dose: 9 unit Documented by: Ipratropium [place] (Ipratropium Brom 0.5mg/2.5ml) 0.5 mg NEB Q4H PRN PRN Reason: WHEEZING Isosorbide Mononitrate (Isosorbide [place] Sr 60 Mg Tab) 60 mg PO DAILY [facility] Last Admin: 07/20/20 14:01 Dose: 60 mg Documented by: Levetiracetam (Levetiracetam 500 Mg Tab) 500 mg PO BID [facility] Last Admin: 07/20/20 20:40 Dose: 500 mg Documented by: Morphine Sulfate (Morphine 4 Mg/Ml Syr) 4 mg IV Q4H PRN PRN Reason: Pain scale 8-10 (Severe) Last Admin: 07/19/20 08:35 Dose: 4 mg Documented by: Ondansetron HCl (Ondansetron 4 Mg/2 Ml Vial) 4 mg IV Q4H PRN PRN Reason: NAUSEA / VOMITING Last Admin: 07/17/20 22:44 Dose: 4 mg Documented by: Sodium Bicarbonate (Sodium Bicarb 325 Mg Tab) 650 mg PO TIDWM [facility] Last Admin: 07/20/20 18:39 Dose: 650 mg Documented by: Sodium Chloride (Flush Normal Saline 10 Ml) 10 ml IV BID [facility] Last Admin: 07/20/20 20:42 Dose: 10 ml Documented by: Tamsulosin HCl (Tamsulosin 0.4 Mg Sr Cap) 0.4 mg PO BEDTIME [facility] Last Admin: 07/20/20 20:40 Dose: 0.4 mg Documented by: Microbiology Results 07/17/20 17:50 Blood - Blood Aerobic Blood Culture - Preliminary No growth in 24 hours. 07/17/20 17:50 Blood - Blood Anaerobic Blood Culture - Preliminary No growth in 24 hours. 07/17/20 17:35 Blood - Blood Aerobic Blood Culture - Preliminary No growth in 24 hours. 07/17/20 17:35 Blood - Blood Anaerobic Blood Culture - Preliminary No growth in 24 hours. Assessment/ Plan: Nephrology No acute cardiac or pulmonary complaints. No CP or SOB. +PAULA Feeling better with good urine output. Debridement earlier today. No acute events overnight. Vitals, medications, blood work and imaging reviewed in the chart. General: In no apparent distress, Oriented x3, Cooperative HEENT: Atraumatic Neck: Supple Respiratory: Diminished Cardiovascular: Regular rate/rhythm, No rubs, Edema Gastrointestinal: Soft and benign, Distended Musculoskeletal: No clubbing, No contractures Integumentary: No cyanosis, Skin breakdown, RLE diabetic ulcer Neurological: Normal speech Laboratory Data (last 24 hrs) 07/17/20 17:35: WBC 14.00 H, Hgb 12.6 L, Hct 41.3, Plt Count 126 L Imagings Data: EXAM DESCRIPTION: [place] Single View07/17/2020 3:02 pm CLINICAL HISTORY: Shortness of breath COMPARISON: Two to technical issues the prior exams not for comparison FINDINGS: Mild bilateral pulmonary opacities. The heart is moderately enlarged. IMPRESSION: These findings probably indicate CHF EXAM DESCRIPTION: US - Lower Extremity Arterial Bilat - 07/17/2020 5:43 pm CLINICAL HISTORY: Leg swelling COMPARISON: None FINDINGS: The left common femoral arterial waveform is biphasic The left superficial femoral, left popliteal and left posterior tibial arterial waveforms are biphasic. Left dorsalis pedis arterial waveform is monophasic The right common femoral, right superficial femoral and right popliteal arterial waveforms are biphasic. The right dorsalis pedis arterial waveform is biphasic. The right posterior tibial arterial waveform is monophasic. IMPRESSION: No high-grade proximal/mid arterial lower extremity stenosis. No occlusion. Moderate disease involving distal arteries of the lower extremity Conclusions/Impression: A/P: Continue the current POC and Medications other than the changes listed. AM Labs PRN. Recommend daily weight. Please see the orders for complete details. ANGEL likely CRS CKD IV with proteinuria -No NSAIDs -Continue Lasix Hyperkalemia -Continue Lasix -Continue kayexalate as ordered -Low potassium diet Acidosis -Continue oral bicarb Hypocalcemia -Continue Vitamin D HTN with CKD/ CHF -Continue Hydralazine -Increase Coreg 25mg BID Diastolic CHF, A/C -2g Na diet -Continue IV Lasix -Give another dose of metolazone today DM II with CKD and Hyperglycemia DM II with PAD/ DM angiopathy DM II with RLE ulcer -Continue Lantus and RISS -Continue Zosyn -Wound care as ordered -Follow up with surgery Anemia in chronic illness -Monitor H&H Gout -Continue allopurinol Suspected BPH with LUTS -Increase Flomax BID Case reviewed with Dr. Murillo yesterday evening. Dr. Murillo advised me to continue my care of the patient. Today, the patient and the family requested that I continue to take care of Mr. Morel during the hospital admission.
--- NOTE | 2020-07-20 22:32 | PN ---
Date of Progress Note: 07/20/2020 Subjective: The patient was seen this morning for followup. No new complaints or problems reported by him. Lying in bed, not in distress. Denies any shortness of breath overnight. He is diuresing very well with his diuretic therapy. Objective: Vital Signs: Reviewed. HEENT: Unremarkable. Lungs: Clear to auscultation except diminished air entry in the lung bases. Not using any accessory muscles of respiration. Heart: Sounds normal. Abdomen: Soft. Bowel sounds normal. No guarding, rigidity, tenderness, or distention. Extremities: Bilateral leg edema present, but better than before. Laboratory Data: Sodium 145, potassium 5.4, chloride 117, bicarb 21, BUN 80, creatinine 2.95, glucose 218. ProBNP 9161. Impression: 1. Congestive heart failure, chronic, systolic, with acute exacerbation. 2. Hyperkalemia. 3. Chronic kidney disease stage 4. 4. Hypertension. 5. Type 2 diabetes mellitus, uncontrolled. 6. Right leg wound. 7. Paroxysmal atrial fibrillation. 8. Chronic anticoagulation therapy. Plan: The patient will have right leg wound debridement today by Dr. Recinos. His Eliquis is on hold for this procedure and as of this evening, we will restart Eliquis after the procedure. We will continue current diuretic therapy. Potassium is elevated. It is somewhat better today than yesterday. He did receive 1 dose of Kayexalate yesterday and we will give another dose this morning. We will continue to follow with county historian. Monitor intake, output, daily weight, and we will monitor electrolytes and renal function tomorrow. I will see him tomorrow for followup. The patient was made aware of his echocardiogram findings. KARISHMA/MODL Voice ID: [id number] Report ID: [id number] OLIVIA
[2020-07-21] MEDS: PIPER TAZO 2.25 GM in NA CHLORIDE 0.9% 50 ML IV SCH ×2 (01:10→09:39)
[2020-07-21] MEDS: FUROSEMIDE 40 MG/4 ML VIAL IV SCH ×2 (01:11→09:32)
[2020-07-21 05:04] LABS: Absolute Lymphocytes (CBC) 6.8 K/uL (0.7-4.9); Basophils % 0.3 % (0-1.3); Hematocrit 33.6 % (39.6-49.0); Lymphocytes % 55.2 % (15.3-44.8); MPV 10.7 fL (7.6-11.3); RBC Red Blood Cell Count 3.79 M/uL (4.33-5.43)
[2020-07-21 05:21] LABS: Magnesium 1.7 mg/dL (1.8-2.4); Potassium 4.3 mmol/L (3.5-5.1)
[2020-07-21 05:28] LABS: Urine Appearance CLEAR (Clear); Urine Bilirubin NEGATIVE (Negative); Urine Blood NEGATIVE (Negative); Urine Color YELLOW (Yellow); Urine Glucose NEGATIVE (Negative); Urine Protein 1+ (Negative); Urine Urobilinogen 0.2 mg/dL (0.2-1.0)
[2020-07-21 05:34] LABS: Urine Microscopic Reflex ORDER UMIC
[2020-07-21 06:07] LABS: Urine Bacteria <20 /HPF (NONE SEEN); Urine RBC NONE SEEN /HPF (NONE SEEN)
[2020-07-21 07:21] LABS: Urine Protein/Creatinine Ratio 2.71 ratio (<0.15)
[2020-07-21] MEDS: INSULIN -REGULAR HUMAN 50 UNIT/0.5 ML ML SQ SCH ×2 (07:30→12:34)
--- NOTE | 2020-07-21 08:05 | P.PN ---
Subjective Date of Service: 07/21/20 Chief Complaint: Dyspnea Subjective: No new changes Physical Examination - Vital Signs Temperature: 97.8 F Blood Pressure: 136/88 Pulse: 88 Respirations: 18 Pulse Ox (%): 94 - Physical Exam General: In no apparent distress HEENT: Atraumatic, Normocephalic Neck: Supple Respiratory: Crackles/rales Cardiovascular: No rubs, No murmurs Gastrointestinal: Soft and benign, Non-distended Assessment And Plan - Plan 1. Acute kidney injury on chronic kidney disease. ANGEL improving. Monitor renal panel. 2. Cardiorenal syndrome. Continue diuretics. May switch lasix to po bid dosing. 3. Hypertension. BP ok. Cont current regimen. 4. Anasarca secondary to cardiorenal. Hypothyroidism has been ruled out. The patient has been nephrotic, which is chronic, mostly secondary to his diabetes. Continue diuretics. 5. Hypernatremia. Advised on increasing po fluid intake. 6. HypoMg. Mild. Monitor. 7. Acidosis. Cont oral bicarb. 8. L leg wound infection. Mngt per other services.
[2020-07-21 08:18] LABS: Blood Morphology Comment NOTED (NOT SEEN); Platelet Estimate DECR
[2020-07-21 08:19] LABS: Poikilocytosis SLIGHT
[2020-07-21] MEDS ORDERED: carvediloL 25 MG TAB PO SCH (09:00)
[2020-07-21] MEDS ORDERED: TAMSULOSIN 0.4 MG SR CAP PO SCH (09:00)
[2020-07-21] MEDS: INSULIN GLARGINE 100 UNITS/ML SQ SCH (09:28)
[2020-07-21] MEDS: HYDRALAZINE HCL 25 MG TABLET PO SCH (09:29)
[2020-07-21] MEDS: SODIUM BICARB 325 MG TAB PO SCH ×2 (09:29→12:34)
[2020-07-21] MEDS: DOCUSATE NA 100 MG CAP PO SCH (09:30)
[2020-07-21] MEDS: ASPIRIN EC 81 MG TAB PO SCH (09:30)
[2020-07-21] MEDS: ISOSORBIDE MONO SR 60 MG TAB PO SCH (09:31)
[2020-07-21] MEDS: APIXABAN 2.5 MG TABLET PO SCH (09:31)
[2020-07-21] MEDS: levETIRAcetam 500 MG TAB PO SCH (09:32)
[2020-07-21] MEDS: VITAMIN D 5,000 UNIT CAP PO SCH (09:33)
[2020-07-21] MEDS: allopurinoL 300 MG TAB PO SCH (09:33)
[2020-07-21] MEDS: CALCITROL 0.25 MCG CAP PO SCH (09:33)
[2020-07-21] MEDS: COLLAGENASE 30 GM OINTMENT TOP SCH (10:30)
[2020-07-21 11:03] VITALS: O2SAT 93
[2020-07-21 20:10] VITALS: BP 136/88; TEMP 97.8
--- NOTE | 2020-07-21 21:08 | P.PN ---
Date of Service: 07/21/20 Vital Signs Temp Pulse Resp BP Pulse Ox 97.8 F 88 18 136/88 94 07/21/20 20:10 07/21/20 20:10 07/21/20 20:10 07/21/20 20:10 07/21/20 20:10 Microbiology Results 07/17/20 17:50 Blood - Blood Aerobic Blood Culture - Preliminary No growth in 24 hours. 07/17/20 17:50 Blood - Blood Anaerobic Blood Culture - Preliminary No growth in 24 hours. 07/17/20 17:35 Blood - Blood Aerobic Blood Culture - Preliminary No growth in 24 hours. 07/17/20 17:35 Blood - Blood Anaerobic Blood Culture - Preliminary No growth in 24 hours. Assessment/ Plan: Nephrology No acute cardiac or pulmonary complaints. No CP or SOB. +PAULA Feeling better No acute events overnight. Vitals, medications, blood work and imaging reviewed in the chart. General: In no apparent distress, Oriented x3, Cooperative HEENT: Atraumatic Neck: Supple Respiratory: Diminished Cardiovascular: Regular rate/rhythm, No rubs, Edema Gastrointestinal: Soft and benign, Distended Musculoskeletal: No clubbing, No contractures Integumentary: No cyanosis, Skin breakdown, RLE diabetic ulcer Neurological: Normal speech Laboratory Data (last 24 hrs) 07/17/20 17:35: WBC 14.00 H, Hgb 12.6 L, Hct 41.3, Plt Count 126 L Imagings Data: EXAM DESCRIPTION: [place] Single View07/17/2020 3:02 pm CLINICAL HISTORY: Shortness of breath COMPARISON: Two to technical issues the prior exams not for comparison FINDINGS: Mild bilateral pulmonary opacities. The heart is moderately enlarged. IMPRESSION: These findings probably indicate CHF EXAM DESCRIPTION: US - Lower Extremity Arterial Bilat - 07/17/2020 5:43 pm CLINICAL HISTORY: Leg swelling COMPARISON: None FINDINGS: The left common femoral arterial waveform is biphasic The left superficial femoral, left popliteal and left posterior tibial arterial waveforms are biphasic. Left dorsalis pedis arterial waveform is monophasic The right common femoral, right superficial femoral and right popliteal arterial waveforms are biphasic. The right dorsalis pedis arterial waveform is biphasic. The right posterior tibial arterial waveform is monophasic. IMPRESSION: No high-grade proximal/mid arterial lower extremity stenosis. No occlusion. Moderate disease involving distal arteries of the lower extremity Conclusions/Impression: A/P: Continue the current POC and Medications other than the changes listed. AM Labs PRN. Recommend daily weight. Please see the orders for complete details. ANGEL likely CRS CKD IV with proteinuria -No NSAIDs -Continue Lasix Hyperkalemia -Continue Lasix -Continue kayexalate as ordered -Low potassium diet Acidosis -Continue oral bicarb Hypocalcemia -Continue Vitamin D HTN with CKD/ CHF -Continue Hydralazine -Continue Coreg 25mg BID Diastolic CHF, A/C -2g Na diet -Continue IV Lasix -Continue intermittent metolazone DM II with CKD and Hyperglycemia DM II with PAD/ DM angiopathy DM II with RLE ulcer -Continue Lantus and RISS -Continue Zosyn -Wound care as ordered -Follow up with surgery Anemia in chronic illness -Monitor H&H Gout -Continue allopurinol Suspected BPH with LUTS -Continue Flomax BID Case reviewed with Dr. Murillo this morning. Plan for discharge today.
--- NOTE | 2020-07-21 23:54 | DS ---
Date of Discharge: 07/21/2020 Disposition: Discharged to go home. Physical Examination: HEENT: Unremarkable. Lungs: Clear to auscultation. Heart: Sounds normal. Abdomen: Soft. Bowel sounds normal. No guarding, rigidity, tenderness, or distention. Extremities: Grade 1 pedal edema. Discharge Medications And Instructions: 1.Continue all prior home medication except following changes: a.Stop carvedilol 12.5 mg dose. b.Start carvedilol 25 mg, take 1 tablet by mouth 2 times a day. c.Start metolazone 5 mg, take 1 tablet by mouth once a week on Saturday and take it 30 minutes before your morning dose of furosemide. d.Start Augmentin 500 mg 2 times a day with food for 1 week. e.Prescription for all those new medications was sent to [facility] from our office. 2.Follow up at my office next week on 07/26/2020 at 10 a.m. and bring all you medication bottles to the office at the time of appointment. 3.Follow up with Dr. Boucher and Dr. Carrera week after next. 4.[facility] Recinos next week and call [facility] for appoi ntment. 5.Daily dressing changes to leg as per instruction from Dr. Recinos. Labs Done During This Hospitalization: When he first came in, white count was 14, hemoglobin 12.6, p latelets 126. This morning, white count 12.3, hemoglobin 10.6, platelets 117. Last chemistry today, sodium 146, potassium 4.3, chloride 115, bicarb 24, BUN 80, creatinine 2.68, glucose 163, magnesium 1.7. Last proBNP yesterday was 9161. When he first came in, sodium 144, potassium 6.1, chloride 121 , bicarb 17, BUN 84, creatinine 2.70, glucose 169. Hemoglobin A1c 11.7. His proBNP was 10,506. Ech ocardiogram from 07/18/2020 has shown ejection fraction of 29% and mild mitral and tricuspid regurgit ation. Final Diagnoses: 1.Congestive heart failure, chronic, systolic, with acute exacerbation. 2.Paroxysmal ventricular tachycardia. 3.Hyperkalemia. 4.Hypomagnesemia. 5.Chronic kidney disease stage 4. 6.Diabetes mellitus, type 2, uncontrolled. 7.Hypertension. 8.Hyperlipidemia. 9.Coronary artery disease. 10.Anemia due to chronic kidney disease. 11.Thrombocytopenia. 12.Seizure disorder. 13.Peripheral vascular disease. 14.Right leg wound. 15.Metabolic acidosis. Hospital Course: A 74-year-old pleasant male patient, admitted to the hospital with shortness of mika ath problem. Please see dictated H and P for more information. The patient has right leg wound and shortness of breath. After he came into emergency room, he was evaluated, admitted to the hospital. He was seen in consultation by pharmaceutical detailer, general surgeon, and braille and talking books clerk. The patient has beatriz y significant chronic kidney disease. Initially, he had hyperkalemia. He also had some metabolic ac idosis. His metabolic acidosis was corrected. He did receive some sodium bicarbonate tablet as orde red by braille and talking books clerk and braille and talking books clerk did not recommend continuation of this treatment upon discharge. I did talk to braille and talking books clerk, Dr. Carrera, today prior to discharge and he has not advised to continu e sodium bicarbonate tablet upon discharge. I also communicated with pharmaceutical detailer this morning rosamaria hendricks the patient had nonsustained ventricular tachycardia. Hemodynamically, he was stable, asymptomati c, and this was recorded this morning and once I was notified, I did communicate with Dr. Boucher and right now while in the hospital and he also has suggested that the patient should be able to go home today without any concerns and he will follow up with the patient on an outpatient diseas e and he will communicate with the patient and family regarding defibrillator placement. Because of his hyperkalemia, he is not a candidate for medications like spironolactone or Entresto. He was give n IV diuretic therapy with Lasix and he did receive dose of metolazone during this hospitalization. We monitored his intake, output, and daily weight, and I am concerned that his daily weight recording s were not accurate, but symptomatically he has improved significantly and clinically he has improved also. Dr. Recinos performed debridement of his right leg wound yesterday. All the details and plan o f treatment were discussed with the patient this morning and the patient's who was in the room a t that time, she was sleeping, but when I was there visiting patient, she woke up and acknowledge as I was talking to her about the instructions and subsequently nurse contacted me this afternoon and in formed me that the patient's said that she did not get any instructions from me and that is why she did not want to leave the hospital, and I did communicate with the nursing staff to inform about my discussion with the patient and the patient's this morning and when nurse went back into the room and discussed with the patient's , she did inform her that yes she acknowledge my discussion with her this morning. I also called the patient's daughter this evening and discussed all these de tails including the patient's severely low ejection fraction, ventricular tachycardia problem, import ance of the patient seeing pharmaceutical detailer as suggested as he may need defibrillator placement, and impo rtance of the patient to follow up with braille and talking books clerk, my office, Dr. Recinos [facility], and to see cheesemaker as suggested during this hospital stay as well as on outpatient basis, which apparently the patient has not done so. Importance of all these care that he needs on ongoing basis was explained to the patient's daughter. The patient's overall prognosis is poor. Discharge m edications and instructions were explained to the patient's daughter this evening on the phone as aric marx ACA/ZULAY Voice ID: [id number] Report ID: [id number]
--- NOTE | 2020-07-23 10:24 | PN ---
Date of Progress Note: 07/19/2020 The patient was admitted to Dr. Murillo for cellulitis. I am seeing the patient in followup on 07/20/19. Dr. Torres had seen the patient the day before. Echocardiogram which was ordered showed an ejec tion fraction of 25% to 30% with mitral regurgitation, tricuspid regurgitation. His creatinine is 2. 92. The patient has had an arterial Doppler showing diffuse peripheral arterial disease below the kn ee. There is definitely no need for intervention at this point. Certainly, he is not a candidate fo r angiography with his creatinine the way he is. Debridement of his wound is being planned. The kath e was discussed with Dr. Murillo. Mr. Morel is a patient of mine. I think we should strongly consid er a biventricular pacemaker and/or defibrillator on him in the near future. I will deal with that a s an outpatient. He can go home whenever Dr. Murillo is comfortable with him. From a cardiac standpoin t, he is actually feeling pretty well. MODESTO/ZULAY Voice ID: [id number] Report ID: [id number]
== END 2020-07-21 14:12 | disposition home health service (06) | DRG 570 ==
LOC: ER 12:00 → ERHOLD 20:23 → 2ND 21:17
PROVIDERS: ADMIT Internal Medicine; ATTEND Internal Medicine
PROC: 0JBP0ZZ Excision of Left Lower Leg Subcutaneous Tissue and Fascia, Open Approach (ICD-10-PCS; principal; 2020-07-19)
PROC: 0JBN0ZZ Excision of Right Lower Leg Subcutaneous Tissue and Fascia, Open Approach (ICD-10-PCS; 2020-07-19)
DX: L03.116 Cellulitis of left lower limb (principal); I50.23 Acute on chronic systolic (congestive) heart failure; I13.0 Hypertensive heart and chronic kidney disease with heart failure and stage 1 through stage 4 chronic kidney disease, or unspecified chronic kidney disease; N18.4 Chronic kidney disease, stage 4 (severe); E11.52 Type 2 diabetes mellitus with diabetic peripheral angiopathy with gangrene; I96 Gangrene, not elsewhere classified; N17.9 Acute kidney failure, unspecified; E87.2 Acidosis; I47.2 Ventricular tachycardia; L03.115 Cellulitis of right lower limb; E11.22 Type 2 diabetes mellitus with diabetic chronic kidney disease; E11.65 Type 2 diabetes mellitus with hyperglycemia; E11.621 Type 2 diabetes mellitus with foot ulcer; L97.519 Non-pressure chronic ulcer of other part of right foot with unspecified severity; E78.5 Hyperlipidemia, unspecified; D63.8 Anemia in other chronic diseases classified elsewhere; E83.52 Hypercalcemia; E87.5 Hyperkalemia; M10.9 Gout, unspecified; E83.51 Hypocalcemia; Z79.82 Long term (current) use of aspirin; Z79.4 Long term (current) use of insulin; Z86.73 Personal history of transient ischemic attack (TIA), and cerebral infarction without residual deficits; Z79.01 Long term (current) use of anticoagulants; Z79.899 Other long term (current) drug therapy; Z20.822 Contact with and (suspected) exposure to COVID-19; I25.10 Atherosclerotic heart disease of native coronary artery without angina pectoris; K21.9 Gastro-esophageal reflux disease without esophagitis; D63.1 Anemia in chronic kidney disease; D69.6 Thrombocytopenia, unspecified; G40.909 Epilepsy, unspecified, not intractable, without status epilepticus; Z91.19 Patient's noncompliance with other medical treatment and regimen; I48.0 Paroxysmal atrial fibrillation
CPT/HCPCS: 36415; 71045; 80048; 80069; 80076; 81001; 81003; 81015; 82550; 82570; 82805; 82947; 83036; 83605; 83735; 83880; 84100; 84132; 84145; 84156; 84300; 84443; 84484; 84550; 85025; 85610; 87040; 87070; 87077; 87176; 87186; 87205; 88304; 93005; 93306; 93925; 93970; 94640; 96365; 96375; 97110; 97112; 97116; 97161; 97530; 99285; J1170; J1815; J1940; J2270; J2405; J2543; J2704; J3590; J7040; U0003

== ENCOUNTER 2020-10-22 15:01 | Emergency (ER) | payer OTHER ==
[2020-10-22] MEDS ORDERED: FUROSEMIDE 40 MG/4 ML VIAL ONE (17:32)
--- NOTE | 2020-10-22 17:53 | RAD REPORT ---
EXAM DESCRIPTION: RAD - Chest Single View - 10/22/2020 5:31 pm CLINICAL HISTORY: SOB COMPARISON: Chest Single View dated 07/17/2020; Chest Pa And Lat (2 Views) dated 08/29/2017; Chest Pa A nd Lat (2 Views) dated 08/26/2017; Chest Pa And Lat (2 Views) dated 08/22/2017 FINDINGS: Bilateral hazy airspace disease. Likely enlargement of the main pulmonary arteries. Cardio megaly. Small left pleural effusion. Suspect a layering right pleural effusion is present as well. IMPRESSION: Pulmonary edema.
[2020-10-22 18:18] LABS: Absolute Lymphocytes (CBC) 6.9 K/uL (0.7-4.9); Basophils % 1.1 % (0-1.3); Hematocrit 36.4 % (39.6-49.0); Lymphocytes % 60.9 % (15.3-44.8); MPV 10.3 fL (7.6-11.3); RBC Red Blood Cell Count 4.02 M/uL (4.33-5.43)
[2020-10-22 18:19] LABS: Protime INR 1.19
--- NOTE | 2020-10-22 18:26 | RAD REPORT ---
EXAM DESCRIPTION: US - Extrem Venous W Compress Michael - 10/22/2020 6:05 pm CLINICAL HISTORY: Leg swelling COMPARISON: None. TECHNIQUE: Real-time sonographic evaluation of the bilateral lower extremity deep venous systems was performed. FINDINGS: Normal compressibility, flow augmentation, phasic flow and spontaneous flow is identified in both the left and right lower extremity deep venous systems. No intraluminal filling defects seen. IMPRESSION: No DVT in either lower extremity.
[2020-10-22 18:35] LABS: Albumin 3.3 g/dL (3.4-5.0); Bilirubin Direct 0.2 mg/dL (0-0.2); Bilirubin Total 0.4 mg/dL (0.2-1.0); Magnesium 2.2 mg/dL (1.8-2.4); Potassium 5.3 mmol/L (3.5-5.1); Protein, Total 7.6 g/dL (6.4-8.2); Troponin (Emerg Dept Use Only) 0.04 ng/mL (0.0-0.045)
[2020-10-22 19:57] LABS: Anisocytosis 1+; Blood Morphology Comment NOTED (NOT SEEN); Platelet Estimate DECR; Polychromasia SLIGHT; Smudge Cells P
--- NOTE | 2020-10-22 20:12 | ER ---
Nurse's Notes [facility] Name: Flex Morel Age: 74 yrs Sex: Male : 1945 Arrival Date: 10/22/2020 Time: 15:04 Bed 25 Private MD: Timur Murillo C Diagnosis: Hyperkalemia;Acute on chronic combined systolic (congestive) and diastolic (congestive) heart failure Presentation: 10/22 15:46 Chief complaint: Spouse and/or significant other states: we think he has dementia and iw we've been having tests done, he's supposed to have an MRI and EEG, but right now he has a lot of fluid and he's not taking his medication and isn't eating , he's also having a lot pain in his groin. Coronavirus screen: At this time, the client does not indicate any symptoms associated with coronavirus-19. Ebola Screen: Patient negative for fever greater than or equal to 101.5 degrees Fahrenheit, and additional compatible Ebola Virus Disease symptoms Patient denies exposure to infectious person. Patient denies travel to an Ebola-affected area in the 21 days before illness onset. No symptoms or risks identified at this time. Initial Sepsis Screen: Does the patient meet any 2 criteria? No. Patient's initial sepsis screen is negative. Does the patient have a suspected source of infection? No. Patient's initial sepsis screen is negative. Risk Assessment: Do you want to hurt yourself or someone else? Patient reports no desire to harm self or others. Onset of symptoms was October 15, 2020. 15:46 Method Of Arrival: Wheelchair iw 15:46 Acuity: MIKAL 3 iw Historical: - Allergies: 15:48 No Known Allergies; iw - PMHx: 15:48 CHF; CVA; Diabetes - NIDDM; Gout; Hyperlipidemia; Hypertension; Seizures; iw - Immunization history:: Client reports receiving the 2nd dose of the Covid vaccine. - Social history:: Smoking status: Patient denies any tobacco usage or history of. Screenin:02 Abuse screen: Denies threats or abuse. Denies injuries from another. Nutritional zb screening: No deficits noted. Tuberculosis screening: No symptoms or risk factors identified. Fall Risk Fall in past 12 months (25 points). Secondary diagnosis (15 points) dementia, impaired mobility, IV access (20 points). Ambulatory Aid- Crutches/Cane/Walker (15 pts). Gait- Weak (10 pts.). Mental Status- Oriented to own ability (0 pts). Total Lafleur Fall Scale indicates High Risk Score (45 or more points). Fall prevention measures have been instituted. Side Rails Up X 2 Placed Close to Nursing Station Frequent Obs/Assessments Occuring Family Present and informed to notify staff if the need to leave the bedside As available patient and family educated on Fall Prevention Program and Strategies. Assessment: 17:03 General: Appears in no apparent distress. uncomfortable, Behavior is quiet. Pain: zb Unable to use pain scale. non-verbal at this time. states patient is in pain. Neuro: Level of Consciousness is awake, alert, obeys commands, Oriented to n/a . Hand Thermal Cutter are. Cardiovascular: Patient's skin is warm and dry. Cardiovascular: Edema pitting to waist, left lower thigh, left midcalf, left ankle, left foot, right lower thigh, right midcalf, right ankle and right foot. Respiratory: Airway is patent Respiratory effort is even, unlabored, Respiratory pattern is regular, symmetrical, Breath sounds with wheezes the patient has mild shortness of breath. GI: Derm: Skin is intact, is healthy with good turgor. Musculoskeletal: Range of motion: intact in all extremities, Swelling present in right leg and left leg. 17:30 Cardiovascular: Rhythm is atrial fibrillation. zb 18:30 Reassessment: Patient appears in no apparent distress at this time. Patient and/or zb family updated on plan of care and expected duration. Pain level reassessed. Patient is alert, oriented x 3, equal unlabored respirations, skin warm/dry/pink. 19:30 Reassessment: Patient appears in no apparent distress at this time. Patient and/or zb family updated on plan of care and expected duration. Pain level reassessed. Patient is alert, oriented x 3, equal unlabored respirations, skin warm/dry/pink. 20:30 Reassessment: Patient appears in no apparent distress at this time. Patient and/or zb family updated on plan of care and expected duration. Pain level reassessed. Patient is alert, oriented x 3, equal unlabored respirations, skin warm/dry/pink. 21:00 Reassessment: patient stated that he wanted to go AMA notified ECP. Patient also stated zb he needed some pain medication. Medication ordered and given. Vital Signs: 15:46 BP 121 / 74; Pulse 66; Resp 16; Temp 97.7(TE); Pulse Ox 99% on R/A; iw 17:06 BP 152 / 92; Pulse 73; Resp 18; Pulse Ox 99% on R/A; zb 18:30 BP 148 / 93; Pulse 64; Resp 19; Pulse Ox 97% on R/A; zb 20:30 BP 155 / 94; Pulse 70; Resp 16; Pulse Ox 99% on R/A; zb ED Course: 15:04 Patient arrived in ED. mr 15:04 Timur Murillo MD is Private Physician. mr 15:48 Triage completed. iw 15:49 Arm band placed on. iw 16:33 Horacio Tello PA is PHCP. jmm 16:33 James Abdalla MD is Attending Physician. m 16:37 Susannah Willams, EDIE is Primary Nurse. zb 17:06 No provider procedures requiring assistance completed. Inserted saline lock: 20 gauge zb in left hand, using aseptic technique. Blood collected. 17:07 Patient has correct armband on for positive identification. Fall risk band placed. zb Placed in gown. Bed in low position. Call light in reach. personnel monitor on. Pulse ox on. NIBP on. Door closed. Noise minimized. 17:30 XRAY Chest (1 view) In Process Unspecified. EDMS 18:05 US Extremity Venous W Compression Michael In Process Unspecified. EDMS 18:43 Basic Metabolic Panel Sent. sv 20:11 Timur Murillo MD is Referral Physician. m Administered Medications: 17:21 Drug: Lasix (furosemide) 40 mg Route: IVP; Site: left hand; zb 18:44 Follow up: Response: No adverse reaction; Marked relief of symptoms zb 21:06 Drug: [place] (HYDROcodone-acetaminophen) (7.5 mg-325 mg) 1 tabs {Note: RASS +0.} Route: zb PO; 21:07 Follow up: Response: No adverse reaction; Marked relief of symptoms zb 21:07 Drug: Kayexalate (polystyrene) 60 grams Route: PO; zb 21:07 Follow up: Response: No adverse reaction zb Output: 18:44 Urine: 350ml (Voided); Total: 350ml. zb Outcome: 21:00 AMA AMA form signed zb 21:00 Condition: stable 21:00 Discharge instructions given to patient. 21:06 Patient left the ED. mw2 Signatures: Dispatcher [employer] Marysol Bone RN RN sv Mickail, Joel, PA PA [facility] Hernandez, Dilia mr Jessica Marshall RN RN Faustina Horton mw2 Susannah Willams RN RN zb Corrections: (The following items were deleted from the chart) 15:50 15:46 Pulse 66bpm; Resp 16bpm; Pulse Ox 99% RA; Temp 97.7F Temporal; iw iw 23:27 17:30 Cardiovascular: Rhythm is regular zb zb
--- NOTE | 2020-10-22 20:12 | EDPHYS ---
Physician Documentation [facility] Name: Flex Morel Age: 74 yrs Sex: Male : 1945 Arrival Date: 10/22/2020 Time: 15:04 Bed 25 Private MD: Timur Murillo C ED Physician James Abdalla HPI: 10/22 16:57 This 74 yrs old Black Male presents to ER via Wheelchair with complaints of Leg jmm Swelling, Shortness Of Breath. 16:57 The patient has shortness of breath at rest. Onset: The symptoms/episode began/occurred jmm gradually. Duration: The symptoms are continuous. The patient's shortness of breath is aggravated by nothing, is alleviated by nothing. This is a 74 year old male with a history of cva, gout, hyperlipidemia the presents to the ED with family complaints of dementia, shortness of breath, leg swelling, generalized swelling. states that the patient was advised by Dr. Murillo to go to the hospital approximately 1 week ago.. Historical: - Allergies: 15:48 No Known Allergies; iw - PMHx: 15:48 CHF; CVA; Diabetes - NIDDM; Gout; Hyperlipidemia; Hypertension; Seizures; iw - Immunization history:: Client reports receiving the 2nd dose of the Covid vaccine. - Social history:: Smoking status: Patient denies any tobacco usage or history of. ROS: 16:57 MS/extremity: Positive for swelling. jmm 16:57 Unable to obtain ROS due to baseline dementia. Exam: 16:57 Head/Face: atraumatic. Eyes: EOMI, no conjunctival erythema appreciated ENT: Moist jmm Mucus Membranes Neck: Trachea midline, Supple Chest/axilla: Normal chest wall appearance and motion. Cardiovascular: Regular rate and rhythm. No edema appreciated Respiratory: Normal respirations, no respiratory distress appreciated Abdomen/GI: Non distended, soft Back: Normal ROM Skin: General appearance color normal 16:57 Constitutional: The patient appears in no acute distress, alert, awake. 16:57 Musculoskeletal/extremity: swelling noted bilaterally, compartments are soft, NVI. 16:57 Skin: Appearance: Color: normal in color. 16:57 Neuro: Motor: is normal. 16:57 Psych: Behavior/mood is pleasant, cooperative. Vital Signs: 15:46 BP 121 / 74; Pulse 66; Resp 16; Temp 97.7(TE); Pulse Ox 99% on R/A; iw 17:06 BP 152 / 92; Pulse 73; Resp 18; Pulse Ox 99% on R/A; zb 18:30 BP 148 / 93; Pulse 64; Resp 19; Pulse Ox 97% on R/A; zb 20:30 BP 155 / 94; Pulse 70; Resp 16; Pulse Ox 99% on R/A; zb MDM: 16:50 Patient medically screened. [facility] 20:09 Data reviewed: vital signs, nurses notes. Counseling: I had a detailed discussion with [facility] the patient and/or guardian regarding: the historical points, exam findings, and any diagnostic results supporting the discharge/admit diagnosis, lab results, radiology results, the need for further work-up and treatment in the hospital. ED course: The patient with Dr. Murillo whom accepted the patient for admission and recommends a cardiology nephrology consult.. 10/22 16:33 Order name: Basic Metabolic Panel [facility] 10/22 16:33 Order name: CBC with Diff; Complete Time: 20:00 [facility] 10/22 16:33 Order name: LFT's; Complete Time: 18:48 [facility] 10/22 16:33 Order name: Magnesium; Complete Time: 18:48 [facility] 10/22 16:33 Order name: NT PRO-BNP; Complete Time: 18:48 [facility] 10/22 16:33 Order name: PT-INR; Complete Time: 18:30 [facility] 10/22 16:33 Order name: Troponin (emerg Dept Use Only); Complete Time: 18:48 [facility] 10/22 16:33 Order name: XRAY Chest (1 view); Complete Time: 17:55 [facility] 10/22 16:34 Order name: Basic Metabolic Panel; Complete Time: 18:48 [facility] 10/22 16:57 Order name: US Extremity Venous W Compression Michael; Complete Time: 18:30 [facility] 10/22 19:57 Order name: Manual Differential; Complete Time: 20:00 [facility] 10/22 16:33 Order name: EKG; Complete Time: 16:34 [facility] 10/22 16:33 Order name: Cardiac monitoring; Complete Time: 18:45 [facility] 10/22 16:33 Order name: EKG - Nurse/Tech; Complete Time: 18:45 [facility] 10/22 16:33 Order name: IV Saline Lock; Complete Time: 17:02 [facility] 10/22 16:33 Order name: Labs collected and sent; Complete Time: 17:02 [facility] 10/22 16:33 Order name: O2 Per Protocol; Complete Time: 17:00 [facility] 10/22 16:33 Order name: O2 Sat Monitoring; Complete Time: 17:00 [facility] Administered Medications: 17:21 Drug: Lasix (furosemide) 40 mg Route: IVP; Site: left hand; zb 18:44 Follow up: Response: No adverse reaction; Marked relief of symptoms zb 21:06 Drug: [place] (HYDROcodone-acetaminophen) (7.5 mg-325 mg) 1 tabs {Note: RASS +0.} Route: zb PO; 21:07 Follow up: Response: No adverse reaction; Marked relief of symptoms zb 21:07 Drug: Kayexalate (polystyrene) 60 grams Route: PO; zb 21:07 Follow up: Response: No adverse reaction zb Disposition: 10/23 07:00 Co-signature as Attending Physician, James Abdalla MD. rn Disposition Summary: 10/22/20 20:11 Left Against Medical Advice Location: Home jmm Problem: an acute exacerbation jmm Symptoms: are unchanged jmm Condition: Stable jmm Diagnosis - Hyperkalemia jmm - Acute on chronic combined systolic (congestive) and diastolic (congestive) heart jmm failure Followup: [facility] - With: Timur Murillo MD - When: 2 - 3 days - Reason: Recheck today's complaints, Continuance of care, Re-evaluation by your physician Signatures: Dispatcher [employer] EDMS Horacio Tello PA PA jmm Williams, Irene, RN RN iw Nieto, Roman, MD MD rn Brown, Zipporah, RN RN zgino Corrections: (The following items were deleted from the chart) 10/22 20:40 18:46 CORONAVIRUS+MR.LAB.BRZ ordered. EDMS EDMS
[2020-10-22 21:14] VITALS: TEMP 97.7
[2020-10-22 21:17] VITALS: BP 148/93; O2SAT 97
== END 2020-10-22 21:06 | disposition left against medical advice (07) ==
LOC: ER 15:01
DX: I50.43 Acute on chronic combined systolic (congestive) and diastolic (congestive) heart failure (principal); E87.5 Hyperkalemia; I10 Essential (primary) hypertension; F03.90 Unspecified dementia, unspecified severity, without behavioral disturbance, psychotic disturbance, mood disturbance, and anxiety; Z86.73 Personal history of transient ischemic attack (TIA), and cerebral infarction without residual deficits; Z20.822 Contact with and (suspected) exposure to COVID-19
CPT/HCPCS: 93005; 85025; 80048; 36415; 83735; 85610; 80076; 84484; 83880; 71045; 93970; 96374; 99284; U0003; J1940

== ENCOUNTER 2020-11-08 09:46 | Inpatient (IN) | payer OTHER ==
--- NOTE | 2020-11-08 10:21 | RAD REPORT ---
EXAM DESCRIPTION: CT - Head Brain Wo Cont - 11/08/2020 10:15 am CLINICAL HISTORY: Confused;Mental status change Headache, drowsiness COMPARISON: Ct Stroke Brain Wo Cont dated 06/01/2017; Head Brain Wo Cont dated 09/05/2016 TECHNIQUE: All CT scans are performed using dose optimization technique as appropriate and may inclu de automated exposure control or mA/KV adjustment according to patient size. FINDINGS: No intracranial hemorrhage, hydrocephalus or extra-axial fluid collection.Mild brain atrop hy is present.Gliosis is noted in the distribution of the left posterior cerebral artery compatible w ith old/remote infarction. The paranasal sinuses and mastoids are clear. The calvarium is intact. IMPRESSION: No acute intracranial abnormality. 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
[2020-11-08 10:33] LABS: Absolute Lymphocytes (CBC) 6.4 K/uL (0.7-4.9); Basophils % 1.1 % (0-1.3); Hematocrit 30.3 % (39.6-49.0); Lymphocytes % 56.2 % (15.3-44.8); MPV 9.4 fL (7.6-11.3); RBC Red Blood Cell Count 3.33 M/uL (4.33-5.43)
--- NOTE | 2020-11-08 10:33 | RAD REPORT ---
EXAM DESCRIPTION: RAD - Chest Single View - 11/08/2020 10:22 am CLINICAL HISTORY: DYSPNEA Chest pain. COMPARISON: Chest Single View dated 10/22/2020; Chest Single View dated 07/17/2020; Chest Pa And Lat ( 2 Views) dated 08/29/2017; Chest Pa And Lat (2 Views) dated 08/26/2017 FINDINGS: Portable technique limits examination quality. Bilateral pulmonary opacities are present probably representing pulmonary edema. The heart is moderat stephane enlarged in size. Trace pleural effusions suspected. IMPRESSION: Mild to moderate CHF versus volume overload pattern.
[2020-11-08 10:34] LABS: Protime INR 1.38
[2020-11-08 10:58] LABS: Albumin 2.8 g/dL (3.4-5.0); Bilirubin Direct 0.2 mg/dL (0-0.2); Bilirubin Total 0.6 mg/dL (0.2-1.0); Protein, Total 6.9 g/dL (6.4-8.2); Troponin (Emerg Dept Use Only) 0.03 ng/mL (0.0-0.045)
[2020-11-08 10:59] LABS: Potassium 5.7 mmol/L (3.5-5.1)
[2020-11-08 11:28] LABS: Blood Morphology Comment NOT SEEN (NOT SEEN); White Blood Cell Scan OK (OK)
[2020-11-08 11:29] LABS: Platelet Estimate DECR
[2020-11-08 12:13] LABS: Arterial Blood Carboxyhemoglob 2.1 % (0-1.5); Blood Gas Oxyhemoglobin 90.8 % (94-97); Blood O2 Saturation 93.7 % (92-98.5)
--- NOTE | 2020-11-08 12:30 | EDPHYS ---
Physician Documentation [facility] Name: Flex Morel Age: 74 yrs Sex: Male : 1945 Arrival Date: 11/08/2020 Time: 09:55 Bed 10 Private MD: ED Physician Cindy Baptiste HPI: 11/08 11:00 This 74 yrs old Black Male presents to ER via EMS with complaints of Altered mental jr8 status. 11:00 The patient presents with decreased mental status, decreased responsiveness. Onset: The jr8 symptoms/episode began/occurred acutely, today. Possible causes: unknown. Associated signs and symptoms: The patient has no apparent associated signs or symptoms. Current symptoms: In the emergency department the patient's symptoms are unchanged from the initial presentation. Patient's baseline: Neuro: alert and fully oriented, Motor: left-sided weakness, Ambulation: walks with assist only, Speech: normal. It is unknown whether or not the patient has had similar symptoms in the past. The patient has not recently seen a physician. of patient stated that last known normal was last night prior to going to bed. Stated that patient normally can converse well and without any confusion. Does have previous left-sided weakness from stroke and is hearing impaired. Stated that when they woke up this morning she went to talk to him and noticed that he was very sleepy and would not respond appropriately patient upon arrival was alert to person only. Historical: - PMHx: 10:09 CHF; CVA; Hyperlipidemia; Seizures; Diabetes - NIDDM; Gout; Hypertension; tr6 - Immunization history:: Adult Immunizations unknown, Vaccine Information Sheet provided. - Social history:: Smoking status: unknown. ROS: 11:00 Unable to obtain ROS due to altered mental status. jr8 Exam: 11:00 Eyes: Pupils equal round and reactive to light, extra-ocular motions intact. Lids and jr8 lashes normal. Conjunctiva and sclera are non-icteric and not injected. Cornea within normal limits. Periorbital areas with no swelling, redness, or edema. ENT: Nares patent. No nasal discharge, no septal abnormalities noted. Oropharynx with no redness, swelling, or masses, exudates, or evidence of obstruction, uvula midline. Mucous membranes moist. Neck: Trachea midline, no thyromegaly or masses palpated, and no cervical lymphadenopathy. Supple, full range of motion without nuchal rigidity, or vertebral point tenderness. No Meningismus. Cardiovascular: Regular rate and rhythm with a normal S1 and S2. No gallops, murmurs, or rubs. Normal PMI, no JVD. No pulse deficits. Respiratory: Lungs have equal breath sounds bilaterally, clear to auscultation and percussion. No rales, rhonchi or wheezes noted. No increased work of breathing, no retractions or nasal flaring. Abdomen/GI: Soft, non-tender, with normal bowel sounds. No distension or tympany. No guarding or rebound. No evidence of tenderness throughout. Skin: Warm, dry with normal turgor. Normal color with no rashes, no lesions, and no evidence of cellulitis. MS/ Extremity: Pulses equal, no cyanosis. Neurovascular intact. Full, normal range of motion. 11:00 Neuro: Orientation: to person, Mentation: able to follow commands, slow to respond, confused, Memory: immediate memory is intact, remote memory is impaired, recent memory is impaired, Cranial nerves: CN I not tested, CN II- XII are normal as tested, extraocular movements are intact, Facial palsy and sensory deficits are absent. Speech is clear and appropriate. Tongue strength is normal, Cerebellar function: normal finger to nose testing, Motor: moves all fours, Sensation: no obvious gross deficits, seizure activity, is not displayed by the patient. Vital Signs: 10:07 BP 150 / 118; Pulse 71; Resp 18; Temp 98.4(O); Pulse Ox 98% on R/A; tr6 13:57 BP 151 / 82; Pulse 68; Resp 18; Pulse Ox 100% on R/A; ld1 NIH Stroke Scale Scores: 11:00 NIHSS Score: 2 jr8 Francisco J Coma Score: 11:00 Eye Response: to voice(3). Verbal Response: confused(4). Motor Response: obeys jr8 commands(6). Total: 13. MDM: 10:05 Patient medically screened. jr8 12:24 Data reviewed: vital signs, nurses notes, lab test result(s), EKG, radiologic studies, jr8 CT scan, plain films. Data interpreted: Pulse oximetry: on room air is 98 %. Interpretation: normal. Counseling: I had a detailed discussion with the patient and/or guardian regarding: the historical points, exam findings, and any diagnostic results supporting the discharge/admit diagnosis, lab results, radiology results, the need for further work-up and treatment in the hospital. 13:42 ED course: Patient with mild improvement of mental status. Now alert to person and 8 place along with event. Cannot remember what happened earlier today. Seizure is likely but unknown at this time. Discussed this with family and that we need to fine-tune his electrolytes along with his renal function and congestive heart failure. We will still admit to Dr. Murillo at this time. Family good with this.. 11/08 10:05 Order name: Basic Metabolic Panel; Complete Time: 11:06 [facility] 11/08 10:05 Order name: CBC with Diff; Complete Time: 12:12 [facility] 11/08 10:05 Order name: LFT's; Complete Time: 11: [facility] 11/08 10:05 Order name: Magnesium; Complete Time: 11:06 [facility] 11/08 10:05 Order name: NT PRO-BNP; Complete Time: 11: [facility] 11/08 10:05 Order name: PT-INR; Complete Time: 11:06 [facility] 11/08 10:05 Order name: Troponin (emerg Dept Use Only); Complete Time: 11:06 [facility] 11/08 10:05 Order name: Urine Microscopic Only [facility] 11/08 10:35 Order name: CBC Smear Scan; Complete Time: 12:12 [facility] 11/08 10:37 Order name: Glucose, Ancillary Testing; Complete Time: 10:39 [facility] 11/08 10:40 Order name: UDS; Complete Time: 14:36 [facility] 11/08 10:40 Order name: Blood Culture Adult (2) 11/08 10:40 Order name: Procal; Complete Time: 12:25 8 11/08 10:40 Order name: ABG; Complete Time: 13:34 8 11/08 12:43 Order name: SARS-COV-2 RT PCR; Complete Time: 12:43 [facility] 11/08 14:04 Order name: Urine Dipstick-Ancillary; Complete Time: 14:29 EDMS 11/09 03:50 Order name: CBC with Automated Diff; Complete Time: 06:10 EDMS 11/09 04:14 Order name: Basic Metabolic Panel; Complete Time: 06:10 EDMS 11/09 08:24 Order name: Glucose, Ancillary Testing; Complete Time: 08:51 EDMS 11/09 13:27 Order name: Glucose, Ancillary Testing; Complete Time: 13:39 EDMS 11/09 17:11 Order name: Glucose, Ancillary Testing; Complete Time: 17:16 EDMS 11/09 21:06 Order name: Gram Stain--Anaerobic Bottle EDMS 11/09 21:24 Order name: Glucose, Ancillary Testing EDMS 11/10 04:46 Order name: CBC with Automated Diff EDMS 11/10 05:12 Order name: Comprehensive Metabolic Panel EDMS 11/10 05:12 Order name: Uric Acid EDMS 11/10 05:12 Order name: Phosphorus EDMS 11/10 05:12 Order name: NT PRO-BNP EDMS 11/10 05:12 Order name: Magnesium EDMS 11/08 10:05 Order name: XRAY Chest (1 view); Complete Time: 10:39 [facility] 11/08 10:05 Order name: EKG; Complete Time: 10:06 [facility] 11/08 10:05 Order name: Cardiac monitoring; Complete Time: 10:15 [facility] 11/08 10:05 Order name: EKG - Nurse/Tech; Complete Time: 10:15 [facility] 11/08 10:05 Order name: IV Saline Lock; Complete Time: 10:15 [facility] 11/08 10:05 Order name: Labs collected and sent; Complete Time: 10:15 [facility] 11/08 10:05 Order name: O2 Per Protocol; Complete Time: 10:15 [facility] 11/08 10:05 Order name: O2 Sat Monitoring; Complete Time: 10:15 [facility] 11/08 10:05 Order name: CT Head Brain wo Cont; Complete Time: 10:39 [facility] 11/08 10:05 Order name: Glucose Level; Complete Time: 10:26 [facility] 11/08 10:05 Order name: Urine Dipstick-Ancillary (obtain specimen); Complete Time: 14:01 [facility] 11/08 13:48 Order name: CONS Physician Consult EDMS 11/10 08:20 Order name: Glucose, Ancillary Testing EDMS 11/10 11:29 Order name: Glucose, Ancillary Testing EDMS 11/10 16:30 Order name: Glucose, Ancillary Testing EDMS 11/10 20:59 Order name: Glucose, Ancillary Testing EDMS Administered Medications: 13:00 Drug: Albuterol 2.5 mg Route: Inhalation; ld1 13:49 Drug: Lasix (furosemide) 60 mg Route: IVP; Site: left forearm; ld1 13:56 Follow up: Response: No adverse reaction ld1 13:49 Drug: Albuterol 2.5 mg Route: Inhalation; ld1 13:55 Drug: Rocephin (cefTRIAXone) 1 grams Route: IV; Rate: calculated rate; Site: right ld1 forearm; 13:57 Follow up: Response: No adverse reaction ld1 14:01 Drug: Albuterol 2.5 mg Route: Inhalation; ld1 16:18 Follow up: Response: No adverse reaction ld1 16:18 Drug: Kayexalate (polystyrene) 45 grams Route: PO; ld1 16:18 Follow up: Response: No adverse reaction ld1 Disposition: 11/11 07:32 Co-signature as Attending Physician, Cindy Baptiste I agree with the assessment and plan sp3 of care. Disposition Summary: 11/08/20 12:29 Hospitalization Ordered Hospitalization Status: Inpatient Admission jr8 Provider: Timur Murillo Condition: Stable jr8 Problem: new jr8 Symptoms: are unchanged jr8 Bed/Room Type: Standard 8 Location: Telemetry/MedSurg (Inpatient)(11/10/20 21:14) cg Room Assignment: [facility](11/10/20 21:14) cg Diagnosis - Acute on chronic combined systolic (congestive) and diastolic (congestive) heart jr8 failure - Acute kidney failure, unspecified jr8 - Altered mental status, unspecified jr8 Forms: - Medication Reconciliation Form jr8 - SBAR form jr8 NIH Stroke Scale - NIH Stroke Score Date: 11/08/2020 Time: 11:00 Total Score = 2 1a. Level of Consciousness (LOC) - 0(Alert) 1b. Level of Consciousness (LOC) (Month \T\ Age) - 2(Neither) 1c. LOC Commands (Open \T\ Closes Eyes/Relationship Assoc) - 0(Both) 2. Best Gaze (Lateral Gaze Paresis) - 0(Normal) 3. Visual Field Loss - 0(No visual loss) 4. Facial Palsy - 0(Normal) 5a. Left Arm: Motor (10-second hold) - 0(No drift) 5b. Right Arm: Motor (10-second hold) - 0(No drift) 6a. Left Leg: Motor (5-second hold - always test supine) - 0(No drift) 6b. Right Leg: Motor (5-second hold - always test supine) - 0(No drift) 7. Limb Ataxia (finger/nose \T\ heel/lombardi - test with eyes open) - 0(Absent) 8. Sensory Loss (pinprick arms/legs/face) - 0(Normal) 9. Best Language: Aphasia (description/naming/reading) - 0(No aphasia) 10. Dysarthria (speech clarity - read or repeat words) - 0(Normal) 11. Extinction and Inattention (visual/tactile/auditory/spatial/personal) - 0(No abnormality) Initials: stephanie Signatures: Dispatcher [employer] EDMS Mar Calle Josh, PA PA jr8 Yanely Comer, RN RN cg Isabel Link RN RN ld1 Mary Mueller RN RN tr6 Cindy Baptiste sp3 Corrections: (The following items were deleted from the chart) 11/08 11:40 11:15 CORONAVIRUS+MR.LAB.BRZ ordered. EDMS EDMS 13:55 10:05 Straight Cath ordered. jr8 ld1 15:03 12:29 Telemetry/MedSurg (Inpatient) [facility] bd 15:03 12:29 jr8 bd 11/10 21:14 11/08 15:[address] [facility] ER HOLD bd cg 11/10 21:14 11/08 15:03 ERHOLD- [facility]
--- NOTE | 2020-11-08 12:30 | ER ---
Nurse's Notes [facility] Name: Flex Morel Age: 74 yrs Sex: Male : 1945 Arrival Date: 11/08/2020 Time: 09:55 Bed 10 Private MD: Diagnosis: Acute on chronic combined systolic (congestive) and diastolic (congestive) heart failure;Acute kidney failure, unspecified;Altered mental status, unspecified Presentation: 11/08 10:07 Chief complaint: EMS states: last known normal last night bedtime. this morning pt was tr6 staring off with left sided weakness and nonverbal. on arrival pt can move all extremities but does have weakness on left side. Coronavirus screen: At this time, unable to obtain information related to travel outside the [place] Ebola Screen: No symptoms or risks identified at this time. Initial Sepsis Screen: Does the patient meet any 2 criteria? Altered Mental Status. No. Patient's initial sepsis screen is negative. Does the patient have a suspected source of infection? No. Patient's initial sepsis screen is negative. Risk Assessment: Do you want to hurt yourself or someone else? Unable to obtain. Onset of symptoms is unknown. 10:07 Method Of Arrival: EMS: [facility] tr6 10:07 Acuity: MIKAL 2 tr6 Triage Assessment: 10:09 General: Appears in no apparent distress. comfortable, Behavior is calm, cooperative. tr6 Pain: Unable to use pain scale. EENT: No deficits noted. Neuro: Level of Consciousness is awake, Oriented to person, unsure if pt is unable to answer questions or if pt is unable to hear questions. questions written down on paper and asked to pt, but pt still does not answer. Cardiovascular: Rhythm is regular. Respiratory: Respiratory effort is even, unlabored. GI: Abdomen is round distended, obese. :. Derm: No deficits noted. Musculoskeletal: Range of motion: limited in left arm and left leg. Historical: - PMHx: 10:09 CHF; CVA; Hyperlipidemia; Seizures; Diabetes - NIDDM; Gout; Hypertension; tr6 - Immunization history:: Adult Immunizations unknown, Vaccine Information Sheet provided. - Social history:: Smoking status: unknown. Screenin:59 Abuse screen: Denies threats or abuse. Denies injuries from another. Nutritional ld1 screening: No deficits noted. Tuberculosis screening: No symptoms or risk factors identified. Fall Risk Ambulatory Aid- Crutches/Cane/Walker (15 pts). Gait- Impaired (20 pts.). Mental Status- Overestimates/Forgets Limitations (15 pts.). Total Lafleur Fall Scale indicates High Risk Score (45 or more points). Assessment: 10:17 Reassessment: see triage assessment. tr6 13:57 Reassessment: Patient appears in no apparent distress at this time. No changes from ld1 previously documented assessment. Pt displaying agitation and confusion, yelling "I don't want to be here.". Vital Signs: 10:07 BP 150 / 118; Pulse 71; Resp 18; Temp 98.4(O); Pulse Ox 98% on R/A; tr6 13:57 BP 151 / 82; Pulse 68; Resp 18; Pulse Ox 100% on R/A; ld1 Francisco J Coma Score: 11:00 Eye Response: to voice(3). Verbal Response: confused(4). Motor Response: obeys jr commands(6). Total: 13. NIH Stroke Scale Scores: 11:00 NIHSS Score: 2 jr ED Course: 09:55 Patient arrived in ED. bd 10:00 pt daughter...[phone]. sv 10:05 Andrew Lazo PA is PHCP. jr8 10:05 Cindy Baptiste is Attending Physician. jr8 10:07 Mary Mueller, EDIE is Primary Nurse. tr6 10:09 Triage completed. tr6 10:13 Arm band placed on right wrist. tr6 10:14 CT Head Brain wo Cont In Process Unspecified. EDMS 10:22 XRAY Chest (1 view) In Process Unspecified. EDMS 12:28 Timur Murillo MD is Hospitalizing Provider. jr8 13:59 Patient has correct armband on for positive identification. Placed in gown. Bed in low ld1 position. Call light in reach. Side rails up X2. telemetry monitor on. Pulse ox on. NIBP on. Door closed. Noise minimized. Warm blanket given. 13:59 No provider procedures requiring assistance completed. Inserted saline lock: 20 gauge ld1 in right forearm, using aseptic technique. Blood collected. 14:01 Urine Microscopic Only Sent. ld1 16:10 Isabel Link, EDIE is Primary Nurse. ld1 Administered Medications: 13:00 Drug: Albuterol 2.5 mg Route: Inhalation; ld1 13:49 Drug: Lasix (furosemide) 60 mg Route: IVP; Site: left forearm; ld1 13:56 Follow up: Response: No adverse reaction ld1 13:49 Drug: Albuterol 2.5 mg Route: Inhalation; ld1 13:55 Drug: Rocephin (cefTRIAXone) 1 grams Route: IV; Rate: calculated rate; Site: right ld1 forearm; 13:57 Follow up: Response: No adverse reaction ld1 14:01 Drug: Albuterol 2.5 mg Route: Inhalation; ld1 16:18 Follow up: Response: No adverse reaction ld1 16:18 Drug: Kayexalate (polystyrene) 45 grams Route: PO; ld1 16:18 Follow up: Response: No adverse reaction ld1 Outcome: 12:29 Decision to Hospitalize by Provider. jr8 11/10 23:01 Patient left the ED. NIH Stroke Scale - NIH Stroke Score Date: 11/08/2020 Time: 11:00 Total Score = 2 1a. Level of Consciousness (LOC) - 0(Alert) 1b. Level of Consciousness (LOC) (Month \\T\\ Age) - 2(Neither) 1c. LOC Commands (Open \\T\\ Closes Eyes/Gray Tender) - 0(Both) 2. Best Gaze (Lateral Gaze Paresis) - 0(Normal) 3. Visual Field Loss - 0(No visual loss) 4. Facial Palsy - 0(Normal) 5a. Left Arm: Motor (10-second hold) - 0(No drift) 5b. Right Arm: Motor (10-second hold) - 0(No drift) 6a. Left Leg: Motor (5-second hold - always test supine) - 0(No drift) 6b. Right Leg: Motor (5-second hold - always test supine) - 0(No drift) 7. Limb Ataxia (finger/nose \\T\\ heel/lombardi - test with eyes open) - 0(Absent) 8. Sensory Loss (pinprick arms/legs/face) - 0(Normal) 9. Best Language: Aphasia (description/naming/reading) - 0(No aphasia) 10. Dysarthria (speech clarity - read or repeat words) - 0(Normal) 11. Extinction and Inattention (visual/tactile/auditory/spatial/personal) - 0(No abnormality) Initials: jr8 Signatures: Dispatcher [employer] Mar Rolon Stephanie, RN RN Jatinder Soto RN RN Andrew Lagunas PA PA jr8 Isabel Link RN RN ld1 Mary Mueller RN RN tr6 Corrections: (The following items were deleted from the chart) 09:12 11/08 10:00 pt daughter...[phone]. ivania rasmussen
[2020-11-08 14:04] LABS: Urine Blood Negative (Negative); Urine Glucose Negative (Negative); Urine Protein 2+ (Negative); Urine pH 5.5 (5.0-7.0)
[2020-11-08] MEDS ORDERED: FUROSEMIDE 40 MG/4 ML VIAL ONE (14:05)
[2020-11-08] MEDS ORDERED: ALBUTEROL 2.5 MG/3 ML NEB SOL ONE (14:05)
[2020-11-08] MEDS ORDERED: FUROSEMIDE 20 MG/ 2ML VIAL ONE ×2 (14:05→17:14)
[2020-11-08] MEDS ORDERED: SOD POLYSTYREN SUL 15 GM/60 ML UCUP ONE (14:14)
[2020-11-08] MEDS ORDERED: CEFTRIAXONE/SWI 1gm 1 GM/10 ML SYR ONE (14:14)
[2020-11-08 14:30] LABS: Barbiturates NEGATIVE (NEGATIVE); Benzodiazepines NEGATIVE (NEGATIVE); Cocaine NEGATIVE (NEGATIVE); METHAMPHETAM NEGATIVE (NEGATIVE); Methadone NEGATIVE (NEGATIVE); Opiates NEGATIVE (NEGATIVE); Phencyclidine NEGATIVE (NEGATIVE); THC Cannibis NEGATIVE (NEGATIVE)
[2020-11-08] MEDS ORDERED: ONDANSETRON 4 MG/2 ML VIAL IV PRN (15:08)
[2020-11-08] MEDS ORDERED: ACETAMINOPHEN 500 MG TAB PO PRN (15:08)
[2020-11-08] MEDS ORDERED: ALBUTEROL 2.5 MG/3 ML NEB SOL NEB PRN (15:08)
[2020-11-08] MEDS: FUROSEMIDE 40 MG/4 ML VIAL IV SCH (16:53)
[2020-11-08] MEDS ORDERED: LORazepam 2 MG/ML VIAL ONE (17:58)
[2020-11-08] MEDS: LORAZEPAM 0.5 MG TABLET PO PRN (19:06)
[2020-11-08] MEDS ORDERED: D50W 25 GM/50 ML SYRINGE IV PRN (22:48)
[2020-11-08] MEDS ORDERED: GLUCAGON 1 MG/VIAL IM PRN (22:48)
[2020-11-09 03:48] LABS: Absolute Lymphocytes (CBC) 6.5 K/uL (0.7-4.9); Basophils % 0.5 % (0-1.3); Hematocrit 32.2 % (39.6-49.0); MPV 9.4 fL (7.6-11.3); RBC Red Blood Cell Count 3.49 M/uL (4.33-5.43)
[2020-11-09 03:50] LABS: Lymphocytes % 57.1 % (15.3-44.8)
[2020-11-09 04:13] LABS: Potassium 5.5 mmol/L (3.5-5.1)
[2020-11-09] MEDS: LORAZEPAM 0.5 MG TABLET PO PRN ×2 (04:58→17:13)
[2020-11-09] MEDS ORDERED: LORAZEPAM 0.5 MG TABLET ONE (05:01)
[2020-11-09] MEDS ORDERED: carvediloL 6.25 MG TAB ONE ×2 (09:43→21:40)
[2020-11-09] MEDS ORDERED: HYDRALAZINE HCL 10 MG TABLET ONE ×2 (09:43→21:40)
[2020-11-09] MEDS ORDERED: ASPIRIN EC 81 MG TAB PO ONE (09:44)
[2020-11-09] MEDS ORDERED: FUROSEMIDE 40 MG/4 ML VIAL ONE (09:44)
[2020-11-09] MEDS ORDERED: INSULIN -REGULAR HUMAN 50 UNIT/0.5 ML ML ONE ×3 (09:46→21:41)
[2020-11-09] MEDS: ISOSORBIDE MONO SR 60 MG TAB PO SCH (10:00)
[2020-11-09] MEDS: carvediloL 6.25 MG TAB PO SCH ×2 (10:00→21:20)
[2020-11-09] MEDS: HYDRALAZINE HCL 10 MG TABLET PO SCH ×2 (10:00→21:20)
[2020-11-09] MEDS: allopurinoL 300 MG TAB PO SCH (10:00)
[2020-11-09] MEDS: INSULIN -REGULAR HUMAN 50 UNIT/0.5 ML ML SQ SCH ×4 (10:00→21:20)
[2020-11-09] MEDS: FUROSEMIDE 40 MG/4 ML VIAL IV SCH ×2 (10:00→17:00)
[2020-11-09] MEDS: ASPIRIN EC 81 MG TAB PO SCH (10:00)
[2020-11-09 13:07] VITALS: BMI 31.8
--- NOTE | 2020-11-09 14:52 | HP ---
Date of Admission: 11/08/2020 Chief Complaint: Altered mental status. History Of Present Illness: This is a 74-year-old male patient, lives at home with multiple comorbid ities, was brought into emergency room with altered mental status. The patient is undergoing outpati ent evaluation with Dr. Metzger. This evaluation is for possible underlying dementia problem. In a ny case, he is extremely sleepy and in altered mental status, so he was brought into the emergency ro om. DICTATION ENDS HERE. KARISHMA/ZULAY Voice ID: [id number]
--- NOTE | 2020-11-09 14:57 | HP ---
Date of Admission: 11/08/2020 Addendum: Review of Systems: CANDY DECORATOR: As mentioned above. All other systems reviewed and negative. Medications: List reviewed. Allergies: NO KNOWN ALLERGIES. Past Medical History: Significant for seizure disorder, allergic rhinitis, hypertension, mixed hyper lipidemia, diabetes mellitus, coronary artery disease, chronic systolic congestive heart failure, gas troesophageal reflux disease, chronic kidney disease, benign prostatic hypertrophy, gout, anemia due to chronic kidney disease. Past Surgical History: Significant for eye surgery. Family History: Father had diabetes. Mother had arthritis and hypertension. Brother, coronary karlene ry disease. Social History: Negative for smoking, alcohol use. Physical Examination: Vital Signs: Temperature 98.4, pulse 65, respiratory rate 18, blood pressure 121/89, oxygen saturati on 99%. Height 6 feet, weight 230 pounds. General: Awake, alert, oriented, not in distress. HEENT: Head atraumatic, normocephalic. Conjunctivae nonerythematous. Sclerae white. Mouth, no thr ush or edema noted. Ears/Nose, no mass, lesion, discharge noted. Neck: Supple. No JVD, lymph nodes, bruit, thyromegaly noted. Lungs: Diminished air entry in lower lung garcia with some scattered rales. Not in any respiratory distress. Heart: Normal heart sounds, no murmur or gallop. Abdomen: Soft, bowel sounds normal. No guarding, rigidity, tenderness, mass, hepatosplenomegaly, dis tention, or bruit noted. Extremities: Bilateral grade 1 pedal edema and the patient has dressing present over both lower extr emities extending from knee all the way down to his foot. Skin: No rash, ulcer, cellulitis. Lymphatics: No lymph node enlargement in neck, supraclavicular, infraclavicular region. Neuro: No focal neurological deficit. Chest: Unremarkable. External Genitalia: Deferred. Rectal: Deferred. CANDY DECORATOR: The patient is awake, alert, not in any distress. Unable to answer questions with any details. Laboratory Data: CAT scan of the head negative for any acute changes, shows evidence of old left cer ebral infarct. Chest x-ray shows [id number] versus volume overload pattern. Urinalysis; 2+ pr otein, otherwise negative. COVID-19 test negative. Urine toxicology screen negative. Procalcitonin 0.15. Troponin 0.03. Sodium 142, potassium 5.7, chloride 116, bicarb 22, BUN 121, creatinine 2.97, glucose 286. ProBNP 17,090. White count 11.3, hemoglobin 9.5, platelets 147. Blood gas; pH 7.35, pCO2 36, pO2 71.2, oxygen saturation 93% on room air. Impression: 1.Congestive heart failure, chronic, systolic, with acute exacerbation. 2.Altered mental status. 3.Metabolic encephalopathy. 4.Chronic kidney disease, stage 4. 5.Hyperkalemia. 6.Anemia due to chronic kidney disease. 7.Hypertension. 8.Hyperlipidemia. 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 10.Uncontrolled diabetes. 11.Coronary artery disease. 12.Seizure disorder. 13.Gout. Plan: Admit the patient to hospital for further evaluation and management of this problem. The vanda ent is appropriate for inpatient and is expected to spend 2 midnights in hospital. We will continue his home medications per order. We will consult generator worker. I will also consult ticket agent. Th e patient's BUN is higher than his baseline. His baseline BUN was around 80-90 on last blood work. Creatinine has remained more or less same. I am afraid that the patient has metabolic encephalopathy on top of maybe some underlying dementia that he may have. Chances are likely that in near future h e may end up requiring hemodialysis support for his kidney failure problem. Home medications will be continued per order and I will see him tomorrow for followup. We may need to consider wound care chantelle funk and make decision regarding consultation with one of our general surgeon for that. Overall, prognosis is poor with multiple comorbidities. KARISHMA/MODL Voice ID: [id number]
--- NOTE | 2020-11-09 16:30 | EKG ---
Test Date: 2020-11-08 Test Time: 10:04:13 Trolley Operator: TTR MEASUREMENT RESULTS: Intervals: Rate: 72 PA: QRSD: 122 QT: 448 QTc: 490 Bernard: P: PA: QRS: 82 T: -51 INTERPRETIVE STATEMENTS: Undetermined rhythm Cannot rule out Anterior infarct, age undetermined Abnormal ECG Compared to ECG 10/22/2020 18:41:29 Atrial fibrillation no longer present Right-axis deviation no longer present Myocardial infarct finding still present Electronically Signed On 11-09-20 16:24:29 CDT by Daniel Boucher
[2020-11-09] MEDS ORDERED: FUROSEMIDE 20 MG/ 2ML VIAL ONE (17:31)
[2020-11-09] MEDS ORDERED: LORazepam 2 MG/ML VIAL ONE (17:31)
--- NOTE | 2020-11-09 22:59 | P.CNS ---
Date of Consult: 11/09/20 Reason for Consult: ANGEL/ CKD Requesting Physician: Chito Murillo Chief Complaint: AMS History of Present Illness: 74 yo BM CKD, CHF presented to the ER with AMS for less than 24 hours. Limited HPI/ ROS due to AMS. 11:00 This 74 yrs old Black Male presents to ER via EMS with complaints of Altered mental jr8 status. 11:00 The patient presents with decreased mental status, decreased responsiveness. Onset: The jr8 symptoms/episode began/occurred acutely, today. Possible causes: unknown. Associated signs and symptoms: The patient has no apparent associated signs or symptoms. Current symptoms: In the emergency department the patient's symptoms are unchanged from the initial presentation. Patient's baseline: Neuro: alert and fully oriented, Motor: left-sided weakness, Ambulation: walks with assist only, Speech: normal. It is unknown whether or not the patient has had similar symptoms in the past. The patient has not recently seen a physician. of patient stated that last known normal was last night prior to going to bed. Stated that patient normally can converse well and without any confusion. Does have previous left-sided weakness from stroke and is hearing impaired. Stated that when they woke up this morning she went to talk to him and noticed that he was very sleepy and would not respond appropriately patient upon arrival was alert to person only. Allergies No Known Allergies Allergy (Verified 08/18/17 05:10) Home medications list reviewed: Yes Home Medications: carvediloL [Coreg*] 12.5 mg PO BID 09/24/15 Allopurinol 1 tab PO DAILY 03/06/17 Atorvastatin Calcium [Lipitor] 80 mg PO BEDTIME 03/06/17 Hydralazine [Apresoline*] 1 tab PO BID 03/06/17 Amitriptyline HCl 25 mg PO BEDTIME 08/18/17 Apixaban [Eliquis *] 2.5 mg PO BID 08/18/17 levETIRAcetam [Levetiracetam] 500 mg PO BID 08/18/17 Codeine/APAP [Tylenol #3*] 1 tab PO Q6H PRN 11/08/20 Divalproex Sodium [Depakote ER] 250 mg PO DAILY 11/08/20 Furosemide 80 mg PO BID 11/08/20 LORazepam [Lorazepam] 1 tab PO BID PRN 11/08/20 - Past Medical/Surgical History Diabetic: Yes -: HTN -: DM -: CHF -: Hyperkalemia -: Hyperlipidemia -: Gout -: CVA -: thrombocytopenia -: heart cath - Family History Mother Medical History: Heart disease, Cancer Father Medical History: Heart disease Notes: CHF - Social History Smoking Status: Never smoker Alcohol use: No CD- Drugs: No Caffeine use: Yes Review of Systems is unable to be obtained (AMS) Physical Examination Temp Pulse Resp BP Pulse Ox 98.3 F 76 16 149/91 H 96 11/09/20 19:41 11/09/20 21:20 11/09/20 19:41 11/09/20 21:20 11/09/20 19:41 General: In no apparent distress, Delirious HEENT: Atraumatic Neck: Supple Respiratory: Diminished Cardiovascular: Regular rate/rhythm, Edema Gastrointestinal: Soft and benign, Non-distended Musculoskeletal: No clubbing, No contractures Integumentary: No rashes, No cyanosis Neurological: Abnormal affect Blood work reviewed in the chart. Imagings Data: EXAM DESCRIPTION: CT - Head Brain Wo Cont - 11/08/2020 10:15 am CLINICAL HISTORY: Confused;Mental status change Headache, drowsiness COMPARISON: Ct Stroke Brain Wo Cont dated 06/01/2017; Head Brain Wo Cont dated 09/05/2016 TECHNIQUE: All CT scans are performed using dose optimization technique as appropriate and may include automated exposure control or mA/KV adjustment according to patient size. FINDINGS: No intracranial hemorrhage, hydrocephalus or extra-axial fluid collection.Mild brain atrophy is present.Gliosis is noted in the distribution of the left posterior cerebral artery compatible with old/remote infarction. The paranasal sinuses and mastoids are clear. The calvarium is intact. IMPRESSION: No acute intracranial abnormality. 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 EXAM DESCRIPTION: RAD - Chest Single View - 11/08/2020 10:22 am CLINICAL HISTORY: DYSPNEA Chest pain. COMPARISON: Chest Single View dated 10/22/2020; Chest Single View dated 07/17/2020; Chest Pa And Lat (2 Views) dated 08/29/2017; Chest Pa And Lat (2 Views) dated 08/26/2017 FINDINGS: Portable technique limits examination quality. Bilateral pulmonary opacities are present probably representing pulmonary edema. The heart is moderately enlarged in size. Trace pleural effusions suspected. IMPRESSION: Mild to moderate CHF versus volume overload pattern. LEFT VENTRICULAR WALL MOTION: SEVERE GLOBAL HYPOKINESIS. DOPPLER/COLOR FLOW: SEE BELOW. COMMENTS: SEVERELY DEPRESSED LEFT VENTRICULAR EJECTION FRACTION 25-30%. SEVERE GLOBAL HYPOKINESIS. MILD MITRAL AND TRICUSPID REGURGITATION. Conclusions/Impression: ANGEL may be CRS CKD IV with proteinuria -No NSAIDs -Continue IV Lasix -Check HBV panel Hyperkalemia -Continue Lasix HTN with CKD/ CHF -Continue Coreg Systolic CHF, A/C -Low sodium diet -Continue IV Lasix DM II with CKD -No sugar diet -Consider RISS Moderate malnutrition -Encourage nutrition Anemia in chronic illness -Monitor H&H Toxic metabolic encephalopathy -Continue Lasix Case reviewed with the ER provider. Greater than 30min patient care.
[2020-11-09] MEDS ORDERED: METOLAZONE 5 MG TABLET PO ONE (23:15)
[2020-11-10] MEDS ORDERED: METOLAZONE 5 MG TABLET ONE (00:09)
[2020-11-10 04:44] LABS: Absolute Lymphocytes (CBC) 6.1 K/uL (0.7-4.9); MPV 9.1 fL (7.6-11.3); RBC Red Blood Cell Count 3.52 M/uL (4.33-5.43)
[2020-11-10 04:45] LABS: Lymphocytes % 52.9 % (15.3-44.8)
[2020-11-10 04:53] LABS: Albumin 2.9 g/dL (3.4-5.0); Bilirubin Total 0.5 mg/dL (0.2-1.0); Phosphorus 3.8 mg/dL (2.5-4.9); Potassium 5.4 mmol/L (3.5-5.1); Protein, Total 7.2 g/dL (6.4-8.2); Uric Acid 4.1 mg/dL (3.5-7.2)
[2020-11-10] MEDS: LORAZEPAM 0.5 MG TABLET PO PRN (06:24)
[2020-11-10] MEDS ORDERED: LORAZEPAM 0.5 MG TABLET ONE (06:29)
[2020-11-10] MEDS: LORazepam 2 MG/ML VIAL IV PRN ×2 (07:15→17:19)
[2020-11-10] MEDS ORDERED: LORazepam 2 MG/ML VIAL ONE ×2 (07:24→17:33)
[2020-11-10] MEDS: INSULIN -REGULAR HUMAN 50 UNIT/0.5 ML ML SQ SCH ×4 (07:30→23:28)
[2020-11-10] MEDS: HYDRALAZINE HCL 10 MG TABLET PO SCH ×2 (09:00→23:26)
[2020-11-10] MEDS: ISOSORBIDE MONO SR 60 MG TAB PO SCH (09:00)
[2020-11-10] MEDS: allopurinoL 300 MG TAB PO SCH (09:00)
[2020-11-10] MEDS ORDERED: SOD POLYSTYREN SUL 15 GM/60 ML UCUP PO ONE (09:00)
[2020-11-10] MEDS: ASPIRIN EC 81 MG TAB PO SCH (09:00)
[2020-11-10] MEDS: FUROSEMIDE 40 MG/4 ML VIAL IV SCH ×2 (09:00→16:46)
[2020-11-10] MEDS: levETIRAcetam 500 MG TAB PO SCH ×2 (09:00→23:27)
[2020-11-10] MEDS: carvediloL 6.25 MG TAB PO SCH ×2 (09:00→23:27)
[2020-11-10] MEDS ORDERED: INSULIN -REGULAR HUMAN 50 UNIT/0.5 ML ML ONE ×2 (09:29→11:52)
[2020-11-10] MEDS ORDERED: METOLAZONE 5 MG TABLET PO ONE ×3 (09:53→20:45)
[2020-11-10] MEDS ORDERED: ASPIRIN EC 81 MG TAB PO ONE (10:00)
[2020-11-10] MEDS ORDERED: carvediloL 6.25 MG TAB ONE (10:00)
[2020-11-10] MEDS ORDERED: HYDRALAZINE HCL 10 MG TABLET ONE (10:00)
[2020-11-10] MEDS ORDERED: SOD POLYSTYREN SUL 15 GM/60 ML UCUP ONE (10:01)
[2020-11-10] MEDS ORDERED: levETIRAcetam 500 MG TAB ONE (10:01)
[2020-11-10] MEDS ORDERED: SILVER SULFADIAZINE 1% 25 GM TOP ONE (11:51)
--- NOTE | 2020-11-10 11:55 | CON ---
Date of Consultation: 11/10/2020 Reason For Consultation: Bilateral lower extremity wounds. History Of Present Illness: The patient is a 74-year-old gentleman, who was admitted to the emergenc y room with altered mental status. Workup is in progress. He has multiple comorbidities. He was un dergoing an outpatient evaluation by Dr. Metzger and he was [facility] bilateral partial thickness lower extremity wounds and also lymphedema. I was asked to evaluate th e patient and manage the wounds. The patient is awake, confused. No sore throat, runny nose, cough, headaches, or dizziness. No chest pain. No fever or chills. Review of Systems: Otherwise unremarkable. Past Medical History: Significant for seizure disorder, hypertension, hyperlipidemia, diabetes type 2, coronary artery disease, congestive heart failure, GERD, chronic kidney disease, BPH, anemia. Past Surgical History: Eye surgery. Allergies: NO ALLERGIES. Social History: The patient does not smoke or drink. Family History: Strong for diabetes, arthritis, hypertension, and coronary artery disease. Physical Examination: Vital Signs: Stable. He is afebrile. General: He is awake, alert, confused. Head and Neck: No masses. Chest: Clear. Heart: S1 and S2. Abdomen: Soft. Extremities: He does have lymphedema present. He has 2 wounds on the left leg and 2 on the right. Both have almost completely healed. There is pinpoint opening where there is slight drainage, but th ere is new epithelialization in both areas. The wounds themselves are measured in the [facility] at the last visit and there was partial thickness. On the right anterior leg, there were 2.4 x 3 x 0.1 cm. On the right posterior leg, there were 3.4 x 8 x 0.1 cm and on the left anterior, ther e were 9.1 x 10.3 x 0.1 cm and the left medial lower leg was 1.9 x 2.5 and 0.1 cm. Now, all those ar eas are essentially the same; however, there is new epithelialization and there is almost 99% bridgin g, very few small . Laboratory Data: Reviewed. He has slight leukocytosis, but there is no left shift. INR is 1.38. C hemistry reviewed. He has chronic kidney disease. Assessment: A 74-year-old gentleman with multiple medical problems, bilateral lower extremity wounds with lymphedema. Recommendations: As far as his medical issues, he is being worked up by the medical team and Neurolo gy team. As far as the wounds are concerned, I would recommend continue Silvadene with gauze, Kerlix and Jerry. The patient can follow up with me in the [facility] upon discharge in 1-2 weeks. CHRIS/ZULAY Voice ID: [id number] Report ID: [id number]
[2020-11-10] MEDS ORDERED: FUROSEMIDE 40 MG/4 ML VIAL ONE (17:12)
--- NOTE | 2020-11-10 20:44 | P.PN ---
Date of Service: 11/10/20 Vital Signs Temp Pulse Resp BP Pulse Ox 97.9 F 76 22 H 141/97 H 94 11/10/20 19:00 11/10/20 19:00 11/10/20 19:00 11/10/20 19:00 11/10/20 19:00 Medications Acetaminophen (Acetaminophen 500 Mg Tab) 500 mg PO Q6H PRN PRN Reason: Pain scale 2-4 (Mild) Albuterol Sulfate (Albuterol 2.5 Mg/3 Ml Neb Monica) 2.5 mg NEB [id number] PRN PRN Reason: SHORTNESS OF BREATH Allopurinol (Allopurinol 300 Mg Tab) 300 mg PO DAILY [facility] Last Admin: 11/10/20 09:00 Dose: 300 mg Documented by: Aspirin (Aspirin Ec 81 Mg Tab) 81 mg PO DAILY [facility] Last Admin: 11/10/20 09:00 Dose: 81 mg Documented by: Carvedilol (Carvedilol 6.25 Mg Tab) 6.25 mg PO BID [facility] Last Admin: 11/10/20 09:00 Dose: 6.25 mg Documented by: Dextrose (D50w 25 Gm/50 Ml Syringe) 12.5 gm IV PRN PRN; Protocol PRN Reason: HYPOGLYCEMIA Divalproex Sodium (Divalproex Dr 250 Mg Tab) 250 mg PO BID [facility] Furosemide (Furosemide 40 Mg/4 Ml Vial) 40 mg IV BIDL [facility] Last Admin: 11/10/20 16:46 Dose: 40 mg Documented by: Glucagon (Glucagon 1 Mg/Vial) 1 mg IM 1X PRN; Protocol PRN Reason: HYPOGLYCEMIA Hydralazine HCl (Hydralazine Hcl 10 Mg Tablet) 10 mg PO BID [facility] Last Admin: 11/10/20 09:00 Dose: 10 mg Documented by: Insulin Human Regular (Insulin -Regular Human 50 Unit/0.5 Ml Ml) 0 unit SQ ACHS [facility]; Protocol Last Admin: 11/10/20 16:20 Dose: 5 unit Documented by: Isosorbide Mononitrate (Isosorbide [place] Sr 60 Mg Tab) 60 mg PO DAILY [facility] Last Admin: 11/10/20 09:00 Dose: 60 mg Documented by: Levetiracetam (Levetiracetam 500 Mg Tab) 500 mg PO BID [facility] Last Admin: 11/10/20 09:00 Dose: 500 mg Documented by: Lorazepam (Lorazepam 2 Mg/Ml Vial) 0.5 mg IV Q6H PRN PRN Reason: AGITATION Last Admin: 11/10/20 17:19 Dose: 0.5 mg Documented by: Ondansetron HCl (Ondansetron 4 Mg/2 Ml Vial) 4 mg IV Q4H PRN PRN Reason: NAUSEA / VOMITING Quetiapine Fumarate (Quetiapine 25 Mg Tab) 25 mg PO BEDTIME MARIA E Sodium Chloride (Flush Normal Saline 10 Ml) 10 ml IV BID MARIA E Last Admin: 11/10/20 09:00 Dose: 10 ml Documented by: Microbiology Results 11/08/20 11:00 Blood - Blood Aerobic Blood Culture - Preliminary No growth in 24 hours. 11/08/20 11:00 Blood - Blood Anaerobic Blood Culture - Preliminary 11/08/20 11:00 Blood - Blood Gram Stain - Preliminary 11/08/20 11:15 Blood - Blood Aerobic Blood Culture - Preliminary No growth in 24 hours. 11/08/20 11:15 Blood - Blood Anaerobic Blood Culture - Preliminary No growth in 24 hours. Assessment/ Plan: Nephrology Progress Note Limited IH/ROS due to AMS No chest pain or dyspnea No acute events overnight Vitals, medications blood work and imaging reviewed in the chart General: In no apparent distress, Delirious HEENT: Atraumatic Neck: Supple Respiratory: Diminished Cardiovascular: Regular rate/rhythm, Edema Gastrointestinal: Soft and benign, Non-distended Musculoskeletal: No clubbing, No contractures Integumentary: No rashes, No cyanosis Neurological: Abnormal affect Blood work reviewed in the chart. Imagings Data: EXAM DESCRIPTION: CT - Head Brain Wo Cont - 11/08/2020 10:15 am CLINICAL HISTORY: Confused;Mental status change Headache, drowsiness COMPARISON: Ct Stroke Brain Wo Cont dated 06/01/2017; Head Brain Wo Cont dated 09/05/2016 TECHNIQUE: All CT scans are performed using dose optimization technique as appropriate and may include automated exposure control or mA/KV adjustment according to patient size. FINDINGS: No intracranial hemorrhage, hydrocephalus or extra-axial fluid collection.Mild brain atrophy is present.Gliosis is noted in the distribution of the left posterior cerebral artery compatible with old/remote infarction. The paranasal sinuses and mastoids are clear. The calvarium is intact. IMPRESSION: No acute intracranial abnormality. 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 EXAM DESCRIPTION: RAD - Chest Single View - 11/08/2020 10:22 am CLINICAL HISTORY: DYSPNEA Chest pain. COMPARISON: Chest Single View dated 10/22/2020; Chest Single View dated 07/17/2020; Chest Pa And Lat (2 Views) dated 08/29/2017; Chest Pa And Lat (2 Views) dated 08/26/2017 FINDINGS: Portable technique limits examination quality. Bilateral pulmonary opacities are present probably representing pulmonary edema. The heart is moderately enlarged in size. Trace pleural effusions suspected. IMPRESSION: Mild to moderate CHF versus volume overload pattern. LEFT VENTRICULAR WALL MOTION: SEVERE GLOBAL HYPOKINESIS. DOPPLER/COLOR FLOW: SEE BELOW. COMMENTS: SEVERELY DEPRESSED LEFT VENTRICULAR EJECTION FRACTION 25-30%. SEVERE GLOBAL HYPOKINESIS. MILD MITRAL AND TRICUSPID REGURGITATION. Conclusions/Impression: ANGEL may be CRS CKD IV with proteinuria -No NSAIDs -Continue IV Lasix -HBV panel pending Hyperkalemia -Continue Lasix HTN with CKD/ CHF -Continue Coreg Systolic CHF, A/C -Low sodium diet -Continue IV Lasix -Metolozone X1 DM II with CKD -No sugar diet -Consider RISS Moderate malnutrition -Encourage nutrition Anemia in chronic illness -Monitor H&H Toxic metabolic encephalopathy -Continue Lasix -May need to consider dialysis if uremic encephalopathy Case reviewed with the nurse Greater than 30min patient care.
[2020-11-10] MEDS: DIVALPROEX DR 250 MG TAB PO SCH (21:00)
[2020-11-10] MEDS: QUETIAPINE 25 MG TAB PO SCH (23:28)
[2020-11-11 06:13] LABS: Potassium 4.8 mmol/L (3.5-5.1)
--- NOTE | 2020-11-11 06:26 | PN ---
Date of Progress Note: 11/09/2020 Subjective: The patient was seen for followup in the morning. No new complaints or problems reporte d by him. Lying in bed, not in any distress. Objective: Vital Signs: Reviewed. HEENT: Examination unremarkable. Lungs: Bilateral good equal air entry with minimal basal rales. No t in any respiratory distress. Heart: Sounds normal. Abdomen: Soft, bowel sounds normal. No guarding, rigidity, tenderness, distention. Extremities: Bilateral leg dressing present with some bilateral edema of the thigh noted, unchanged from yesterday. Laboratory Data: White count 11.4, hemoglobin 10, platelets 142. Sodium 143, potassium 5.5, chlorid e 117, bicarb 22, BUN 112, creatinine 2.85, glucose 271. Impression: 1.Congestive heart failure, chronic, systolic, with acute exacerbation. 2.Hyperkalemia. 3.Acute kidney injury. 4.Chronic kidney disease stage 4. 5.Diabetes mellitus. 6.Hypertension. 7.Hyperkalemia. 8.Anemia, due to chronic kidney disease. Plan: We will go ahead and continue to follow with belting inspector. Kayexalate was ordered for hyperka lemia treatment. We will continue current diabetes management and antihypertensive medications. We will continue Lasix and we will follow up with neurologist, Dr. Metzger who was consulted. I will see him tomorrow for followup. We will monitor his electrolytes and renal function. KARISHMA/MODL Voice ID: [id number] Report ID: [id number]
--- NOTE | 2020-11-11 06:35 | PN ---
Date of Progress Note: 11/10/2020 Subjective: The patient was seen this morning for followup. No new complaints or problems reported by the patient except he was noted to be confused. Nurse told me that he got very agitated when she was in the room with him and he threw his glass of water on nurse. After I saw him, the patient anila me extremely agitated requiring some medication to help to calm him down for his agitation. When I s aw him, he was lying in bed, not in distress. Objective: HEENT: Examination unremarkable. Lungs: Bilateral good equal shallow air entry. Not usi ng accessory muscles of respiration. Heart: Sounds normal. Abdomen: Soft, bowel sounds normal. No guarding, rigidity, tenderness, or distention. Extremities: Bilateral edema of thigh, grade 1, unchanged. Dressing present in bilateral lower legs [id number]. Laboratory Data: Sodium 145, potassium 5.4, chloride 117, bicarb 23, BUN 103, creatinine 2.47, gluco se 249. Liver function tests unremarkable. ProBNP 19,408. White count 11.5, hemoglobin 10.1, plate lets 162. Impression: 1.Acute kidney injury. 2.Chronic kidney disease stage 4. 3.Diabetes mellitus, uncontrolled. 4.Hypertension. 5.Hyperkalemia. 6.Anemia due to chronic kidney disease. 7.Congestive heart failure, chronic, systolic, with acute exacerbation. 8.Dementia. Plan: Patient is having increasing memory problem, confusion as reported by the patient's for l ast few months and lately, it has gotten worse. He has seen Dr. Metzger once on outpatient basis an d he has started workup on him and we have requested consultation from Dr. Metzger while he is in [facility] as well. I did call and discuss all the details with the patient's this morning. Be cause of his agitation, I did order some Ativan and we will start him on Seroquel. We will see how guy responds to that. We will continue to follow with manager gift. Other concern is that the patient may require hemodialysis in near future and obviously that decision will depend on manager gift. I am not sure how family will be able to take care of him at home, given his current condition and the patient's also has same concerns and we did briefly discuss about possibility of fpc pl acement. Obviously as time goes on, we will assist family if any such arrangements need to be made. KARISHMA/MODL Voice ID: [id number] Report ID: [id number]
[2020-11-11] MEDS: INSULIN -REGULAR HUMAN 50 UNIT/0.5 ML ML SQ SCH ×4 (08:06→21:00)
[2020-11-11] MEDS: FUROSEMIDE 40 MG/4 ML VIAL IV SCH ×2 (08:07→16:56)
[2020-11-11] MEDS: carvediloL 6.25 MG TAB PO SCH ×2 (08:08→21:00)
[2020-11-11] MEDS: HYDRALAZINE HCL 10 MG TABLET PO SCH ×2 (08:08→21:00)
[2020-11-11] MEDS: ASPIRIN EC 81 MG TAB PO SCH (08:08)
[2020-11-11] MEDS: APIXABAN 2.5 MG TABLET PO SCH ×2 (08:08→21:00)
[2020-11-11] MEDS: ISOSORBIDE MONO SR 60 MG TAB PO SCH (08:08)
[2020-11-11] MEDS: levETIRAcetam 500 MG TAB PO SCH ×2 (08:08→21:00)
[2020-11-11] MEDS: allopurinoL 300 MG TAB PO SCH (08:09)
[2020-11-11] MEDS: DIVALPROEX DR 250 MG TAB PO SCH ×2 (10:45→21:00)
--- NOTE | 2020-11-11 14:35 | CON ---
Consultation called because of altered mental status. History Of Present Illness: Mr. Morel is a 74-year-old patient whom I have just seen in clinic fo r dementia. At the time of his visit, which was on September 21, he was accompanied by his and son . Memory loss began about 2 years prior to that visit with difficulty recalling words, soft conversa tions, directions, personal items and familiar people. His also noted that he would hide "hide stuff in the house." He would accuse folks around him of stealing things. And she thought at 1 poin t he was about to hit her. In terms of risk factors for dementia, he does have a stroke in the left brain with residual right-sided weakness and has a sister with dementia. The patient's direct reason for admission on November 08 at the hospital was, he was found staring off unresponsively with more le ft-sided weakness and could not answer appropriately. At [facility], his evaluation include d a head CT scan which identified gliosis in the left posterior cerebral artery distribution consiste nt with the remote infarct. There was also brain atrophy. Prior to him coming into the hospital, he did have a brain MRI on November 03 that was part of a workup for dementia. That study identified r emote left frontal and occipital lobe infarcts which were multiple on the left and they were advanced plus he was also found to have advanced severe cerebral atrophy due to small vessel ischemic disease . This was involving entire brain. At the time of his visit in my office, he was unable to complete a mini-mental status test. His clock draw test score was 2/4. He was scheduled for an outpatient E EG, but did not complete this study and is now hospitalized. I saw him yesterday and today while in the emergency room, the patient's son was in the room with him and at times he appeared not to answer and at other times seemed appropriate and responsive. Today, he is much more alert, interactive, an d responds appropriately and on yesterday, he did begin Depakote 250 mg twice daily. Blood work revealed a chronically, but mildly elevated white blood cell count around 11.3 to 11.5 ove r the last 3 weeks. His neutrophil count has remained low throughout. Hemoglobin has been stable. His arterial blood gas showed a low pO2 of 71.2, and chemistries showed chronic renal insufficiency a nd looking back since 2018, his creatinine has run between 2.5 and 2.9. He otherwise has elevated gl ucose with A1c of 9.8, slightly elevated sodium currently. His urine toxicity was negative. There was an attempt made to evaluate him, but the therapist was not able to actually assess the vanda ent at that time and he will re-attempt an evaluation. Past Medical History: As noted including hypertension, prior stroke, reported history of seizures, n oninsulin dependent diabetes mellitus, hypertension, dyslipidemia. Social History: No alcohol, tobacco, or IV drug use. Family History: Positive for dementia in sister. Allergies: NO KNOWN DRUG ALLERGIES. Current Medications: Depakote 250 mg twice daily, aspirin 81 mg daily, Coreg 6.25 mg twice daily, La six 40 mg twice daily, Imdur 600 mg daily, Keppra 500 mg twice daily. Review of Systems: As noted, he has progressive memory loss, difficulty with focusing, concentration, recall for recent events and staring unresponsively. Otherwise, no obvious fevers or chills, myalgias, arthralgias, ra sh, headache or weight change. Physical Examination: Vital Signs: Blood pressure 142/86, pulse 73, respiratory rate of 18, temperature 97.3, oxygen satur ation 97%. General: Mr. Morel is resting in bed. He is eating lunch. He is in no acute distress. HEENT: He appears normocephalic, atraumatic. Sclerae anicteric. Oropharynx is pink and moist. Neck: Supple. Chest: Clear. Heart: Regular. EXTREMITIES: Show no edema, cyanosis. NEUROLOGIC: He is alert and oriented to person. He does have poor vision and poor hearing, but with loud voice. He is able to comprehend well. He again does have poor vision, so his cranial nerve 1 has significant decrease and his hearing is also decreased. Otherwise, his cranial nerves are intact . Motor examination, he has some residual weakness in the right upper and lower extremity compared t o the left side. Mild decreased light touch, temperature in right upper and lower extremity compared to left side. Reflexes are more brisk on the right upper and lower extremity compared to the left, 2 on the right and 1 on the left. He does have a stocking-glove loss, light touch, temperature. Installer Helper rdination is slow, but intact in upper and lower extremities. He will be ambulated with the physical therapist. Assessment: 1.Mr. 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 He possibly had a seizure despite Keppra and he is now on Depakote along with the Keppra that should be continued as adjunct therapy. 2.He does appear to have the low-grade elevated white blood cell count for at least 3 weeks. No amaury ar source for an infection. His chest x-ray on did show a pulmonary edema pattern, but no pneum onia. He is not currently on antibiotics. Plan: 1.Aspirin is indicated. He is also on Eliquis 2.5 twice daily. Continue with Keppra 500 mg twice d aily. Continue with Depakote 250 mg twice daily. 2.The patient should be evaluated by physical therapy to determine if he is a candidate for home hea lth versus inpatient rehabilitation. 3.This will be discussed with Dr. Murillo. JUAN/ZULAY Voice ID: [id number] Report ID: [id number]
[2020-11-11] MEDS: QUETIAPINE 25 MG TAB PO SCH (21:00)
--- NOTE | 2020-11-11 21:18 | P.PN ---
Date of Service: 11/11/20 Vital Signs Temp Pulse Resp BP Pulse Ox 97.0 F 65 18 126/59 L 98 11/11/20 16:03 11/11/20 16:56 11/11/20 16:03 11/11/20 16:56 11/11/20 16:03 Medications Acetaminophen (Acetaminophen 500 Mg Tab) 500 mg PO Q6H PRN PRN Reason: Pain scale 2-4 (Mild) Albuterol Sulfate (Albuterol 2.5 Mg/3 Ml Neb Monica) 2.5 mg NEB [id number] PRN PRN Reason: SHORTNESS OF BREATH Allopurinol (Allopurinol 300 Mg Tab) 300 mg PO DAILY [facility] Last Admin: 11/11/20 08:09 Dose: 300 mg Documented by: Apixaban (Apixaban 2.5 Mg Tablet) 2.5 mg PO BID [facility] Last Admin: 11/11/20 08:08 Dose: 2.5 mg Documented by: Aspirin (Aspirin Ec 81 Mg Tab) 81 mg PO DAILY [facility] Last Admin: 11/11/20 08:08 Dose: 81 mg Documented by: Carvedilol (Carvedilol 6.25 Mg Tab) 6.25 mg PO BID [facility] Last Admin: 11/11/20 08:08 Dose: 6.25 mg Documented by: Dextrose (D50w 25 Gm/50 Ml Syringe) 12.5 gm IV PRN PRN; Protocol PRN Reason: HYPOGLYCEMIA Divalproex Sodium (Divalproex Dr 250 Mg Tab) 250 mg PO BID [facility] Last Admin: 11/11/20 10:45 Dose: 250 mg Documented by: Furosemide (Furosemide 40 Mg/4 Ml Vial) 40 mg IV BIDL [facility] Last Admin: 11/11/20 16:56 Dose: 40 mg Documented by: Glucagon (Glucagon 1 Mg/Vial) 1 mg IM 1X PRN; Protocol PRN Reason: HYPOGLYCEMIA Hydralazine HCl (Hydralazine Hcl 10 Mg Tablet) 10 mg PO BID [facility] Last Admin: 11/11/20 08:08 Dose: 10 mg Documented by: Insulin Human Regular (Insulin -Regular Human 50 Unit/0.5 Ml Ml) 0 unit SQ ACHS [facility]; Protocol Last Admin: 11/11/20 16:57 Dose: 7 unit Documented by: Isosorbide Mononitrate (Isosorbide [place] Sr 60 Mg Tab) 30 mg PO BID [facility] Levetiracetam (Levetiracetam 500 Mg Tab) 500 mg PO BID [facility] Last Admin: 11/11/20 08:08 Dose: 500 mg Documented by: Lorazepam (Lorazepam 2 Mg/Ml Vial) 0.5 mg IV Q6H PRN PRN Reason: AGITATION Last Admin: 11/10/20 17:19 Dose: 0.5 mg Documented by: Ondansetron HCl (Ondansetron 4 Mg/2 Ml Vial) 4 mg IV Q4H PRN PRN Reason: NAUSEA / VOMITING Quetiapine Fumarate (Quetiapine 25 Mg Tab) 25 mg PO BEDTIME [facility] Last Admin: 11/10/20 23:28 Dose: 25 mg Documented by: Sodium Chloride (Flush Normal Saline 10 Ml) 10 ml IV BID [facility] Last Admin: 11/11/20 08:09 Dose: 10 ml Documented by: Microbiology Results 11/08/20 11:00 Blood - Blood Aerobic Blood Culture - Preliminary No growth in 24 hours. 11/08/20 11:00 Blood - Blood Anaerobic Blood Culture - Preliminary 11/08/20 11:00 Blood - Blood Gram Stain - Final 11/08/20 11:15 Blood - Blood Aerobic Blood Culture - Preliminary No growth in 24 hours. 11/08/20 11:15 Blood - Blood Anaerobic Blood Culture - Preliminary No growth in 24 hours. Assessment/ Plan: Nephrology Progress Note Limited IH/ROS due to AMS No chest pain or dyspnea No acute events overnight Vitals, medications blood work and imaging reviewed in the chart General: In no apparent distress HEENT: Atraumatic Neck: Supple Respiratory: CTA Cardiovascular: Regular rate/rhythm, Edema Gastrointestinal: Soft and benign, Non-distended Musculoskeletal: No clubbing, No contractures Integumentary: No rashes, No cyanosis Neurological: Awake Blood work reviewed in the chart. Imagings Data: EXAM DESCRIPTION: CT - Head Brain Wo Cont - 11/08/2020 10:15 am CLINICAL HISTORY: Confused;Mental status change Headache, drowsiness COMPARISON: Ct Stroke Brain Wo Cont dated 06/01/2017; Head Brain Wo Cont dated 09/05/2016 TECHNIQUE: All CT scans are performed using dose optimization technique as appropriate and may include automated exposure control or mA/KV adjustment according to patient size. FINDINGS: No intracranial hemorrhage, hydrocephalus or extra-axial fluid collection.Mild brain atrophy is present.Gliosis is noted in the distribution of the left posterior cerebral artery compatible with old/remote infarction. The paranasal sinuses and mastoids are clear. The calvarium is intact. IMPRESSION: No acute intracranial abnormality. 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 EXAM DESCRIPTION: RAD - Chest Single View - 11/08/2020 10:22 am CLINICAL HISTORY: DYSPNEA Chest pain. COMPARISON: Chest Single View dated 10/22/2020; Chest Single View dated 07/17/2020; Chest Pa And Lat (2 Views) dated 08/29/2017; Chest Pa And Lat (2 Views) dated 08/26/2017 FINDINGS: Portable technique limits examination quality. Bilateral pulmonary opacities are present probably representing pulmonary edema. The heart is moderately enlarged in size. Trace pleural effusions suspected. IMPRESSION: Mild to moderate CHF versus volume overload pattern. LEFT VENTRICULAR WALL MOTION: SEVERE GLOBAL HYPOKINESIS. DOPPLER/COLOR FLOW: SEE BELOW. COMMENTS: SEVERELY DEPRESSED LEFT VENTRICULAR EJECTION FRACTION 25-30%. SEVERE GLOBAL HYPOKINESIS. MILD MITRAL AND TRICUSPID REGURGITATION. Conclusions/Impression: ANGEL may be CRS CKD IV with proteinuria -No NSAIDs -Continue IV Lasix -HBV panel pending Hyperkalemia -Continue Lasix HTN with CKD/ CHF -Continue Coreg -Change Imdur 30mg BID Systolic CHF, A/C -Low sodium diet -Continue IV Lasix -Metolozone prn DM II with CKD -No sugar diet -Consider RISS Moderate malnutrition -Encourage nutrition Anemia in chronic illness -Monitor H&H -Check iron studies Toxic metabolic encephalopathy -Continue Lasix -May need to consider dialysis if uremic encephalopathy Case reviewed with the nurse
--- NOTE | 2020-11-11 22:47 | PN ---
Date of Progress Note: 11/11/2020 Subjective: The patient was seen for followup this morning. He was lying in bed not in any distress . As per my discussion with the nursing staff, he did sleep very well last night. Objective: Vital Signs: Reviewed. HEENT: Examination unremarkable. Lungs: Bilateral good equal entry. Clear to auscultation. Heart: Sounds normal. Abdomen: Soft, bowel sounds normal. No guarding, rigidity, tenderness, or distention. Extremities: Bilateral leg edema unchanged involving thigh. Dressing present over both lower extrem ity. Laboratory Data: Labs sodium 146, potassium 4.8, chloride 118, bicarb 22, BUN 97, creatinine 2.51, g lucose 212. Hemoglobin A1c 9.8. Blood culture remains negative except one bottle shows skin contami nant. Impression: 1.Partial complex seizure. 2.Vascular dementia. 3.Chronic kidney disease, stage 4. 4.Coronary artery disease. 5.Congestive heart failure, chronic, systolic. 6.Acute kidney injury, improved. 7.Anemia due to chronic kidney disease. 8.Hypertension. 9.Diabetes mellitus. 10.Diabetes mellitus, uncontrolled. Plan: We will go ahead and continue current medication. We will continue to follow with nephrologis t and neurologist. Details were discussed with Dr. Metzger who has informed me that the patient has vascular dementia and he believes that the patient had episode of partial complex seizure during thi s hospital admission and he is recommending for the patient to slowly wean off Keppra and he has star fantasma the patient on Depakote. We will continue his other current medications. Continue to follow [facility] and renal function is almost back to his baseline. He did receive first dose of Seroq uel last night, responded well and we will continue that at bedtime. I did call the patient's daught er per request and details were discussed with her. Yesterday, details were discussed with the patie nt's and the patient's daughter, wanted to make sure that she is the spokesperson for the family as per decision made by family. So, we will continue to communicate with the patient's daughter and give her update. I did discuss with her regarding discharge planning. Possible discharge to go [facility] over the weekend. If he does not need or does not qualify for rehab, and Dr. Metzger is going to look into it. Family does not want him to go to snf. He had home health and home physical therapy prior to this admission and we will continue that upon discharge. Dr. Recinos evaluated him an d he informed me that his bilateral leg wound has almost completely healed and upon discharge, he wou ld like for patient to [facility] after next. I have communicat ed all this information to the patient's daughter and informed her that upon discharge, they should h ave followup with Dr. Metzger as well as Dr. Recinos a week after next at the [facility]. KARISHMA/MODL Voice ID: [id number] Report ID: [id number]
[2020-11-12] MEDS: INSULIN -REGULAR HUMAN 50 UNIT/0.5 ML ML SQ SCH ×4 (07:30→21:00)
[2020-11-12 08:43] LABS: Albumin 2.6 g/dL (3.4-5.0); Bilirubin Total 0.4 mg/dL (0.2-1.0); Ferritin 71.3 ng/mL (26-388); Folic Acid, (Folate) 9.3 ng/mL (3.1-17.5); Potassium 4.8 mmol/L (3.5-5.1); Protein, Total 6.6 g/dL (6.4-8.2); Uric Acid 4.2 mg/dL (3.5-7.2)
[2020-11-12] MEDS: ASPIRIN EC 81 MG TAB PO SCH (09:00)
[2020-11-12] MEDS: allopurinoL 300 MG TAB PO SCH (09:00)
[2020-11-12] MEDS: COENZYME Q10- 200 MG CAP PO SCH (09:00)
[2020-11-12] MEDS: ISOSORBIDE MONO SR 60 MG TAB PO SCH ×2 (09:00→21:02)
[2020-11-12] MEDS ORDERED: ISOSORBIDE MONO SR 60 MG TAB PO SCH (09:00)
[2020-11-12] MEDS: carvediloL 6.25 MG TAB PO SCH ×2 (09:00→21:02)
[2020-11-12] MEDS: FUROSEMIDE 40 MG/4 ML VIAL IV SCH ×2 (09:00→17:13)
[2020-11-12] MEDS: DIVALPROEX DR 250 MG TAB PO SCH ×2 (09:00→21:00)
[2020-11-12] MEDS: levETIRAcetam 500 MG TAB PO SCH ×2 (09:00→21:01)
[2020-11-12] MEDS: APIXABAN 2.5 MG TABLET PO SCH ×2 (09:00→21:02)
[2020-11-12] MEDS: HYDRALAZINE HCL 10 MG TABLET PO SCH ×2 (09:00→21:01)
[2020-11-12] MEDS ORDERED: METOLAZONE 5 MG TABLET PO ONE (19:06)
[2020-11-12] MEDS: QUETIAPINE 25 MG TAB PO SCH (21:02)
--- NOTE | 2020-11-12 21:52 | PN ---
Date of Progress Note: 11/12/2020 Subjective: The patient was seen this morning for followup. No new complaints or problems reported by the patient. Lying in bed, not in distress. Objective: Vital Signs: Reviewed. HEENT: Unremarkable. Lungs: Clear to auscultation. Heart: Sounds normal. Abdomen: Soft. Bowel sounds normal. No guarding, rigidity, tenderness, or distention. Extremities: Bilateral leg edema present, appears little more today compared to yesterday. Laboratory Data: Sodium 146, potassium 4.8, chloride 117, bicarb 23, BUN 97, creatinine 2.48, glucos e 184. ProBNP 16,744. Impression: 1.Congestive heart failure, chronic, systolic, with acute exacerbation. 2.Coronary artery disease. 3.Generalized weakness. 4.Debility. 5.Vascular dementia. 6.Anemia due to chronic kidney disease. 7.Hypertension. 8.Type 2 diabetes mellitus, uncontrolled. 9.Diabetes mellitus with chronic kidney disease. Plan: We will go ahead and continue current medications. Continue current diuretic therapy. I did discuss details with Dr. Metzger and he has suggested for the patient to continue current dose of De pakote and he has suggested to reduce dose of Keppra. He was taking 500 mg 2 times a day at home [place] or to this admission, so he has advised us to lower the dose of Keppra down to 250 mg 2 times a day, and he has asked for the patient to see him at his office in about 2 weeks after discharge and at arya t time, he will give further instruction about how to increase dose of Depakote and wean off Keppra. I have also communicated details with Dr. Carrera and he has informed me that the patient will need to start hemodialysis in near future and if family agrees, then he would like to go ahead and get sta rted on dialysis during this admission and he was going to reach out to the patient's family to discu ss this and find out what they are going to decide about the dialysis. I called the patient's daught er this evening and all these details were discussed with her regarding my discussion with Dr. William virk as well as Dr. Metzger, and she informed me that Dr. Carrera did try to contact her, but she was n ot able to answer as she was sleeping, so I have advised her that she needs to go ahead and contact D r. Aglieco to have this discussion and make a decision because if the decision is made by family to s tart dialysis, then obviously we will have Dr. Carrera start making that arrangements. If not, then we need to start thinking about discharge planning as the patient is not able to go to inpatient reha b because he is not a candidate for 3 hours of physical therapy on a day-to-day basis, so family will have to get home health and home physical therapy upon discharge. Family does not want him to go to [facility]. He had home health services prior to this admission, so we can restart home health se rvices upon discharge. Daughter was made aware that depending on their decision if they decide not t o do hemodialysis, then discharge can happen as early as tomorrow. KARISHMA/MODL Voice ID: [id number] Report ID: [id number]
--- NOTE | 2020-11-12 22:13 | P.PN ---
Date of Service: 11/12/20 Vital Signs Temp Pulse Resp BP Pulse Ox 98.8 F 78 22 H 157/100 H 98 11/12/20 20:00 11/12/20 21:02 11/12/20 20:00 11/12/20 21:02 11/12/20 20:00 Medications Acetaminophen (Acetaminophen 500 Mg Tab) 500 mg PO Q6H PRN PRN Reason: Pain scale 2-4 (Mild) Albuterol Sulfate (Albuterol 2.5 Mg/3 Ml Neb Monica) 2.5 mg NEB [id number] PRN PRN Reason: SHORTNESS OF BREATH Allopurinol (Allopurinol 300 Mg Tab) 300 mg PO DAILY [facility] Last Admin: 11/12/20 09:00 Dose: Not Given Documented by: Apixaban (Apixaban 2.5 Mg Tablet) 2.5 mg PO BID [facility] Last Admin: 11/12/20 21:02 Dose: 2.5 mg Documented by: Aspirin (Aspirin Ec 81 Mg Tab) 81 mg PO DAILY [facility] Last Admin: 11/12/20 09:00 Dose: Not Given Documented by: Carvedilol (Carvedilol 6.25 Mg Tab) 6.25 mg PO BID [facility] Last Admin: 11/12/20 21:02 Dose: 6.25 mg Documented by: Coenzyme Q10 (Coenzyme Q10- 200 Mg Cap) 200 mg PO DAILY [facility] Last Admin: 11/12/20 09:00 Dose: Not Given Documented by: Dextrose (D50w 25 Gm/50 Ml Syringe) 12.5 gm IV PRN PRN; Protocol PRN Reason: HYPOGLYCEMIA Divalproex Sodium (Divalproex Dr 250 Mg Tab) 250 mg PO BID [facility] Last Admin: 11/12/20 21:00 Dose: 250 mg Documented by: Furosemide (Furosemide 40 Mg/4 Ml Vial) 40 mg IV BIDL [facility] Last Admin: 11/12/20 17:13 Dose: 40 mg Documented by: Glucagon (Glucagon 1 Mg/Vial) 1 mg IM 1X PRN; Protocol PRN Reason: HYPOGLYCEMIA Hydralazine HCl (Hydralazine Hcl 10 Mg Tablet) 10 mg PO BID [facility] Last Admin: 11/12/20 21:01 Dose: 10 mg Documented by: Insulin Human Regular (Insulin -Regular Human 50 Unit/0.5 Ml Ml) 0 unit SQ ACHS [facility]; Protocol Last Admin: 11/12/20 21:00 Dose: Not Given Documented by: Isosorbide Mononitrate (Isosorbide [place] Sr 60 Mg Tab) 30 mg PO BID [facility] Last Admin: 11/12/20 21:02 Dose: 30 mg Documented by: Levetiracetam (Levetiracetam 500 Mg Tab) 250 mg PO BID [facility] Last Admin: 11/12/20 21:01 Dose: 250 mg Documented by: Lorazepam (Lorazepam 2 Mg/Ml Vial) 0.5 mg IV Q6H PRN PRN Reason: AGITATION Last Admin: 11/10/20 17:19 Dose: 0.5 mg Documented by: Ondansetron HCl (Ondansetron 4 Mg/2 Ml Vial) 4 mg IV Q4H PRN PRN Reason: NAUSEA / VOMITING Quetiapine Fumarate (Quetiapine 25 Mg Tab) 25 mg PO BEDTIME [facility] Last Admin: 11/12/20 21:02 Dose: 25 mg Documented by: Sodium Chloride (Flush Normal Saline 10 Ml) 10 ml IV BID [facility] Last Admin: 11/12/20 21:08 Dose: 10 ml Documented by: Microbiology Results 11/08/20 11:00 Blood - Blood Aerobic Blood Culture - Preliminary No growth in 24 hours. 11/08/20 11:00 Blood - Blood Anaerobic Blood Culture - Preliminary 11/08/20 11:00 Blood - Blood Gram Stain - Final 11/08/20 11:15 Blood - Blood Aerobic Blood Culture - Preliminary No growth in 24 hours. 11/08/20 11:15 Blood - Blood Anaerobic Blood Culture - Preliminary No growth in 24 hours. Assessment/ Plan: Nephrology Progress Note The patient is unable to provide an adequate interval history but appears to be improving. The reports that he is frustrated and wants to go home. No chest pain or dyspnea No acute events overnight Vitals, medications blood work and imaging reviewed in the chart General: In no apparent distress HEENT: Atraumatic Neck: Supple Respiratory: CTA Cardiovascular: Regular rate/rhythm, Edema Gastrointestinal: Soft and benign, Non-distended Musculoskeletal: No clubbing, No contractures Integumentary: No rashes, No cyanosis Neurological: Awake Blood work reviewed in the chart. Imagings Data: EXAM DESCRIPTION: CT - Head Brain Wo Cont - 11/08/2020 10:15 am CLINICAL HISTORY: Confused;Mental status change Headache, drowsiness COMPARISON: Ct Stroke Brain Wo Cont dated 06/01/2017; Head Brain Wo Cont dated 09/05/2016 TECHNIQUE: All CT scans are performed using dose optimization technique as appropriate and may include automated exposure control or mA/KV adjustment according to patient size. FINDINGS: No intracranial hemorrhage, hydrocephalus or extra-axial fluid collection.Mild brain atrophy is present.Gliosis is noted in the distribution of the left posterior cerebral artery compatible with old/remote infarction. The paranasal sinuses and mastoids are clear. The calvarium is intact. IMPRESSION: No acute intracranial abnormality. 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 EXAM DESCRIPTION: RAD - Chest Single View - 11/08/2020 10:22 am CLINICAL HISTORY: DYSPNEA Chest pain. COMPARISON: Chest Single View dated 10/22/2020; Chest Single View dated 07/17/2020; Chest Pa And Lat (2 Views) dated 08/29/2017; Chest Pa And Lat (2 Views) dated 08/26/2017 FINDINGS: Portable technique limits examination quality. Bilateral pulmonary opacities are present probably representing pulmonary edema. The heart is moderately enlarged in size. Trace pleural effusions suspected. IMPRESSION: Mild to moderate CHF versus volume overload pattern. LEFT VENTRICULAR WALL MOTION: SEVERE GLOBAL HYPOKINESIS. DOPPLER/COLOR FLOW: SEE BELOW. COMMENTS: SEVERELY DEPRESSED LEFT VENTRICULAR EJECTION FRACTION 25-30%. SEVERE GLOBAL HYPOKINESIS. MILD MITRAL AND TRICUSPID REGURGITATION. Conclusions/Impression: ANGEL may be CRS CKD IV with proteinuria -No NSAIDs -Continue IV Lasix -HBV panel pending Hyperkalemia -Continue Lasix HTN with CKD/ CHF -Continue Coreg -Continue Imdur 30mg BID Systolic CHF, A/C -Low sodium diet -Continue IV Lasix -Metolozone prn DM II with CKD -No sugar diet -Consider RISS Moderate malnutrition -Encourage nutrition Anemia in chronic illness Iron deficiency -Monitor H&H -Consider IV iron supplementation Toxic metabolic encephalopathy -Continue Lasix -Consider dialysis for possible uremic encephalopathy Case reviewed with the Dr. Murillo. I recommend the patient start dialysis at this time due to persistent uremia and uncontrolled CHF. His daughter understands that he will benefit from starting dialysis now and will talk to both her father and mother about starting dialysis. She states that her father usually sits or sleeps in his chair all the time and always has difficulty with his breathing. The only wants to start dialysis if it is absolutely necessary. I was unable to have a constructive conversation with the patient regarding dialysis. We will need the patient to agree to three times a week dialysis for the treatment to be beneficial. If the patient does not agree to start dialysis, then he should be discharged home with optimal medical management.
[2020-11-13 05:59] LABS: Potassium 4.7 mmol/L (3.5-5.1)
[2020-11-13] MEDS: INSULIN -REGULAR HUMAN 50 UNIT/0.5 ML ML SQ SCH ×2 (07:30→12:54)
[2020-11-13] MEDS: allopurinoL 300 MG TAB PO SCH (09:00)
[2020-11-13] MEDS ORDERED: METOLAZONE 5 MG TABLET PO SCH (09:00)
[2020-11-13] MEDS: COENZYME Q10- 200 MG CAP PO SCH (09:31)
[2020-11-13] MEDS: DIVALPROEX DR 250 MG TAB PO SCH (09:32)
[2020-11-13] MEDS: carvediloL 6.25 MG TAB PO SCH (09:32)
[2020-11-13] MEDS: HYDRALAZINE HCL 10 MG TABLET PO SCH (09:32)
[2020-11-13] MEDS: ASPIRIN EC 81 MG TAB PO SCH (09:34)
[2020-11-13] MEDS: APIXABAN 2.5 MG TABLET PO SCH (09:34)
[2020-11-13] MEDS: levETIRAcetam 500 MG TAB PO SCH (09:34)
[2020-11-13] MEDS: FUROSEMIDE 40 MG/4 ML VIAL IV SCH (09:35)
[2020-11-13] MEDS: ISOSORBIDE MONO SR 60 MG TAB PO SCH (09:35)
--- NOTE | 2020-11-13 12:48 | PN ---
Date of Progress Note: 11/13/2020 Subjective: The patient is awake, alert. No complaints. Objective: Vital Signs: Stable. Afebrile. Extremities: Examination of wounds on both lower extremity revealed no significant change from the i nitial admission appearance. There is some granulation tissue with some bleeding on the right leg mo re than the left. There is new epithelialization on both wounds and there is no significant change i n size. Assessment: Bilateral lower extremity wounds with lymphedema. Recommendations: Continue wound care as ordered. Compression elevation and follow up in the wound h [facility] upon discharge. /MODL Voice ID: [id number] Report ID: [id number]
[2020-11-13 12:53] VITALS: BP 122/78; TEMP 97.4
[2020-11-13 14:17] VITALS: O2SAT 97
[2020-11-13] MEDS ORDERED: METOLAZONE 5 MG TABLET PO ONE (16:00)
--- NOTE | 2020-11-15 03:09 | DS ---
Date of Discharge: 11/13/2020 Disposition: Discharged to go home. Discharge Medications And Instructions: 1.Follow up at my office on 11/17/2020 at 10 a.m. 2.Follow up with Dr. Carrera in 2 weeks. [address] Rec[facility] a week after next. 4.Follow up with Dr. Metzger in 2 weeks. Take medications as below and this will be our new updated list of medication, please keep in mind th at doses of some of the medications have changed and following list will be a new list of medication and all of the medications refill was sent to [facility] from office today. 1.Carvedilol 6.25 mg 1 tablet by mouth 2 times a day. 2.Depakote 250 mg 1 tablet by mouth 2 times a day. 3.Levetiracetam 250 mg take 1 tablet by mouth 2 times a day. 4.Metolazone 5 mg take 1 tablet by mouth daily. 5.Furosemide 80 mg take 1 tablet by mouth daily. 6.Seroquel 25 mg take 1 tablet by mouth daily at bedtime. 7.Hydralazine 10 mg take 1 tablet by mouth 2 times a day. 8.Allopurinol 300 mg take 1 tablet by mouth daily. 9.Eliquis 2.5 mg take 1 tablet by mouth 2 times a day. 10.Atorvastatin 80 mg take 1 tablet by mouth daily at bedtime. 11.Isosorbide mononitrate 60 mg take 1 tablet by mouth daily. 12.Levemir insulin take 10 units subcutaneous injection 2 times a day. 13.Aspirin 81 mg take 1 tablet by mouth daily. 14.Do not take NovoLog insulin. Laboratory Data: Last chemistry done today; sodium 145, potassium 4.7, chloride 115, bicarb 25, BUN 92, creatinine 2.16, glucose 173. His initial sodium 142, potassium 5.7, chloride 116, bicarb 22, BU N 121, creatinine 2.97, glucose 286. ProBNP upon admission was 17,090. Hemoglobin A1c is 9.8, which is better than the previous reading, which I believe was around 11. Last CBC on 11/10/2020, white c ount 11.5, hemoglobin 10.1, platelets 163. Hospital Course: Mr. Morel is a 74-year-old pleasant male patient admitted to the hospital. He w as brought into the emergency room. Please see dictated H and P for more information. The patient w as evaluated in the ER, was admitted to the hospital with acute exacerbation of chronic systolic lanre estive heart failure, altered mental status. He also had metabolic encephalopathy. He had acute kid javad injury on top of his chronic kidney disease. Dr. Carrera was consulted from Nephrology Service a nd Dr. Recinos was consulted from General Surgery. The patient has chronic bilateral anterior leg woun d and Dr. Recinos manages that on outpatient basis and informed me that both of his leg wounds appear s ignificantly better. He would like to follow up on patient one more time at [facility] in about 2 weeks after patient gets discharged and hopefully he can release patient after that depending on his condition. He has advised to continue current daily wound care dressing changes. Dr. William virk started patient on metolazone 10 mg daily in the hospital and received Lasix 40 mg IV twice a day. Overall, his condition, in terms of his acute kidney injury problem, improved. Congestive heart deandre lure problem got stabilize. He has not had any shortness of breath. He is not very active as per my discussion with the patient's . He mostly sits in the chair at home. The patient's also i nformed me today on the day of discharge when I started talking to her regarding medications, I found out from the patient's that the patient is not compliant with his medication, he refuses to bert e medication lot of times and probably on an average about 50% of the time he does not take his medic ations that include insulin and all other medications. With that in mind, upon discharge, we will re duce dose of insulin considering how his fingerstick blood sugar readings has been in the hospital. Dr. Metzger was also consulted from Neurology Service and he informed me that the patient has a vasc ular dementia and he believe that the patient had partial complex seizures and he has suggested for p atient to start Depakote 250 mg twice a day and reduce levetiracetam from 500 mg 2 times a day down t o 250 mg 2 times a day. He would like to see patient for followup in 2 weeks and at that time he riley l make further dose adjustment. His plan is to wean off levetiracetam and increase dose of Depakote as time goes on. All these details were discussed with the patient's family, that is patient's and daughter, as well. Today on day of discharge, I tried to contact daughter, she was not available , so details were discussed with as well, but all these details were discussed with the patient' s daughter over period of last [address] Carrera has recommended hemodialysis to be starte d and if family agrees, then he could start hemodialysis during this admission, but family did not wa nt to start any hemodialysis at this point and as per my discussion with the patient's daughter and t he patient's both that family would like to think about it when he comes home and then they will make a final decision and they were advised to make sure to have follow up at my office as well as Deb Carrera's office with new medications that we are starting. We will have to monitor his blood wor k as well closely. The patient has shown noncompliance over period of time. The patient has home he [facility] care services and nurse was advised to contact the patient's home health agency to resume home [facility] care and home physical therapy upon discharge. The patient had high potassium level, which was corrected during this hospitalization. We also recommended for patient to go to senior living and elvis cohen does not want to do that either. They would like for patient to come back home and they will pr ovide care at home. Final Diagnoses: 1.Congestive heart failure, chronic, systolic, with acute exacerbation. 2.Altered mental status. 3.Metabolic encephalopathy. 4.Hyperkalemia. 5.Anemia due to chronic kidney disease. 6.Hypertension. 7.Hyperlipidemia. 8.Chronic kidney disease stage 4. 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 10.Uncontrolled diabetes. 11.Coronary artery disease. 12.Partial complex seizure. 13.Gout. 14.Generalized weakness. KARISHMA/MODL Voice ID: [id number] Report ID: [id number]
[2020-11-15 03:32] LABS: HBsAG Nonreactive (Nonreactive)
== END 2020-11-13 16:20 | disposition home health service (06) | DRG 291 ==
LOC: ER 09:46 → ERHOLD 13:46 → 2ND 11-10 21:24
PROVIDERS: ADMIT Internal Medicine; ATTEND Internal Medicine
DX: I13.0 Hypertensive heart and chronic kidney disease with heart failure and stage 1 through stage 4 chronic kidney disease, or unspecified chronic kidney disease (principal); I50.23 Acute on chronic systolic (congestive) heart failure; G92 Toxic encephalopathy; N18.4 Chronic kidney disease, stage 4 (severe); N17.9 Acute kidney failure, unspecified; G40.209 Localization-related (focal) (partial) symptomatic epilepsy and epileptic syndromes with complex partial seizures, not intractable, without status epilepticus; E46 Unspecified protein-calorie malnutrition; I69.351 Hemiplegia and hemiparesis following cerebral infarction affecting right dominant side; E11.22 Type 2 diabetes mellitus with diabetic chronic kidney disease; E11.65 Type 2 diabetes mellitus with hyperglycemia; E87.5 Hyperkalemia; D63.1 Anemia in chronic kidney disease; E78.5 Hyperlipidemia, unspecified; I25.10 Atherosclerotic heart disease of native coronary artery without angina pectoris; M10.9 Gout, unspecified; F01.50 Vascular dementia, unspecified severity, without behavioral disturbance, psychotic disturbance, mood disturbance, and anxiety; Z91.14 Patient's other noncompliance with medication regimen; Z68.31 Body mass index [BMI] 31.0-31.9, adult; R53.81 Other malaise; I89.0 Lymphedema, not elsewhere classified; S80.922A Unspecified superficial injury of left lower leg, initial encounter; S80.921A Unspecified superficial injury of right lower leg, initial encounter; Z20.822 Contact with and (suspected) exposure to COVID-19
CPT/HCPCS: 36415; 70450; 71045; 80048; 80053; 80076; 80307; 81003; 82607; 82728; 82746; 82805; 82947; 83036; 83540; 83735; 83880; 84100; 84145; 84466; 84484; 84550; 85025; 85610; 86317; 86704; 87040; 87205; 87340; 93005; 97116; 97161; 99285; J0696; J1940; U0003

== ENCOUNTER 2021-01-04 05:31 | Inpatient (IN) | payer OTHER ==
[2021-01-04 06:03] LABS: Absolute Lymphocytes (CBC) 17.5 K/uL (0.7-4.9); Basophils % 0.6 % (0-1.3); Hematocrit 52.4 % (39.6-49.0); Lymphocytes % 77.4 % (15.3-44.8); MPV 9.7 fL (7.6-11.3); RBC Red Blood Cell Count 5.89 M/uL (4.33-5.43)
[2021-01-04 06:08] LABS: Protime INR 1.2
[2021-01-04] MEDS ORDERED: D5 0.45 NS 1,000 ML IV ONE (06:17)
[2021-01-04] MEDS ORDERED: NA CHLORIDE 0.9% 500 ML ONE (06:17)
[2021-01-04 06:18] LABS: Bilirubin Direct 0.2 mg/dL (0-0.2); Bilirubin Total 0.4 mg/dL (0.2-1.0); Magnesium 2.2 mg/dL (1.8-2.4); Potassium 4.9 mmol/L (3.5-5.1); Protein, Total 8.8 g/dL (6.4-8.2); Troponin (Emerg Dept Use Only) 0.05 ng/mL (0.0-0.045)
[2021-01-04] MEDS ORDERED: GENTAMICIN SULF 80 MG/2ML INJ ONE (06:18)
[2021-01-04] MEDS ORDERED: AMPICILLIN SODIUM 500 MG VIAL ONE (06:19)
[2021-01-04 06:35] LABS: Urine Blood Negative (Negative); Urine Glucose Negative (Negative); Urine Protein 2+ (Negative); Urine Specific Gravity 1.025 (1.005-1.030); Urine pH 5.5 (5.0-7.0)
[2021-01-04] MEDS ORDERED: NA CHLORIDE 0.9% 2,000 ML ONE (06:42)
[2021-01-04 06:54] LABS: Blood Morphology Comment NOT SEEN (NOT SEEN); Platelet Estimate ADEQ
[2021-01-04] MEDS ORDERED: PIPERACIL/TAZO 3.375 GM VIAL IV ONE ×2 (07:06→23:18)
--- NOTE | 2021-01-04 07:51 | ER ---
Nurse's Notes [facility] Name: Flex Morel Age: 75 yrs Sex: Male : 1945 Arrival Date: 01/04/2021 Time: 05:36 Bed 4 Private MD: Diagnosis: Non ST elevation TN;Elevated white blood cell count;Altered mental status, unspecified;Hypoglycemia, unspecified;Unspecified combined systolic (congestive) and diastolic (congestive) heart failure;Acute kidney failure, unspecified-on chronic;Pleural condition, unspecified-bilateral Presentation: 01/04 05:47 Chief complaint: EMS states: pt was found unresponsive at home BGL was 15 on their bb arrival they were unable to obtain IV access and gave Glucagon 1 mg IM BGL was 25 afterwards. Coronavirus screen: unable to determine. Ebola Screen: No symptoms or risks identified at this time. Initial Sepsis Screen: Does the patient meet any 2 criteria? No. Patient's initial sepsis screen is negative. Does the patient have a suspected source of infection? No. Patient's initial sepsis screen is negative. Risk Assessment: Do you want to hurt yourself or someone else? Patient reports no desire to harm self or others. Onset of symptoms is unknown. 05:47 Method Of Arrival: EMS: [facility] bb 05:47 Acuity: MIKAL 1 bb Triage Assessment: 06:36 General: Appears in no apparent distress. Behavior is calm, cooperative. General: sj1 Appears unkempt. Pain: Denies pain. EENT: No deficits noted. Neuro: Level of Consciousness is alert, confused. Cardiovascular: No deficits noted. Respiratory: No deficits noted. GI: No deficits noted. : No deficits noted. Urine is malodorous urine - clothing soiled. Derm: Skin sacral wound. Musculoskeletal: No deficits noted. Historical: - Allergies: 05:50 No Known Allergies; bb - Home Meds: 05:50 amitriptyline 10 mg Oral tab 1 tab daily [Active]; aspirin 81 mg Oral TbEC 1 tab once bb daily [Active]; carvedilol 25 mg Oral tab 1 tab 2 times per day [Active]; Fish Oil 1,000 mg Oral cap daily [Active]; furosemide 40 mg Oral tab as needed [Active]; Humalog Pen Sub-Q [Active]; isosorbide mononitrate 60 mg Oral Tb24 1 tab once daily [Active]; Levemir 100 unit/mL subcutaneous soln [Active]; montelukast 10 mg Oral tab 1 tab once daily [Active]; omeprazole 40 mg Oral cpDR 1 cap 2 times per day [Active]; Uloric 40 mg Oral tab 1 tab once daily [Active]; Vitamin D Oral 1000 unit daily [Active]; - PMHx: 05:50 CHF; CVA; Diabetes - NIDDM; Gout; Hyperlipidemia; Hypertension; Seizures; bb - Immunization history:: Adult Immunizations unknown, . - Social history:: Smoking status: unknown. Screenin:34 Abuse screen: Denies threats or abuse. Denies injuries from another. Nutritional sj1 screening: No deficits noted. Tuberculosis screening: No symptoms or risk factors identified. Fall Risk Gait- Impaired (20 pts.). Assessment: 07:05 General: Behavior is calm, quiet. Neuro: Level of Consciousness is confused, lethargic. ap3 07:05 Cardiovascular: Patient's skin is warm and dry. Respiratory: Airway is patent ap3 Respiratory effort is even, unlabored, Respiratory pattern is regular, symmetrical. 08:13 Reassessment: patient responds to verbal stimuli. . ap3 08:45 Reassessment: FSBS=88. D10 started at 40ml/hr. ap3 10:01 Reassessment: No changes from previously documented assessment. Patient and/or family ap3 updated on plan of care and expected duration. Pain level reassessed. Patient is alert, oriented x 3, equal unlabored respirations, skin warm/dry/pink. 10:22 Reassessment: FABS=73 one amp of D50 administered. ap3 11:05 Reassessment: FSBS 175, D10 lowered to 10ml/hr. ap3 11:22 Reassessment: FSBS 133. D10 fluids changed to 30ml/hr. ap3 13:59 Reassessment: FSBS 157- Changed D10 rate to 20 ml/hr. ap3 15:30 Reassessment: FSBS 214, D10 fluids changed to 10ml/hr. ap3 17:05 Reassessment: family left patients bedside. ap3 Vital Signs: 05:47 BP 134 / 91; Pulse 76; Resp 16 S; Pulse Ox 94% on R/A; Weight 81.65 kg (R); Height 6 bb ft. 0 in. (182.88 cm) (R); 07:27 BP 124 / 75; Pulse 59; Temp 97.5; ap3 09:00 BP 128 / 78; Pulse 56; Resp 11; ap3 09:11 Pulse Ox 100% ; ap3 10:01 BP 129 / 78; Pulse 58; Resp 16; Pulse Ox 100% on R/A; ap3 10:23 BP 131 / 86; Pulse 58; Resp 15; Pulse Ox 100% on R/A; ap3 11:06 BP 149 / 86; Pulse 62; Resp 11; Pulse Ox 100% on R/A; ap3 15:30 BP 145 / 79; Pulse 68; Resp 13; Pulse Ox 100% on R/A; ap3 05:47 Body Mass Index 24.41 (81.65 kg, 182.88 cm) bb ED Course: 05:36 Patient arrived in ED. bb 05:44 Eder Wilson MD is Attending Physician. [facility] 05:44 Inserted saline lock: 20 gauge in right antecubital area, using aseptic technique. bb Blood collected. 05:50 Triage completed. bb 05:50 Arm band placed on Patient placed in an exam room, on a stretcher, on manager monitoring, bb on pulse oximetry. 06:04 CT Head Brain wo Cont In Process Unspecified. EDMS 06:34 Patient has correct armband on for positive identification. Placed in gown. Bed in low sj1 position. Call light in reach. Side rails up X 1. Door closed. Noise minimized. Visitors limited. Lights dimmed. Warm blanket given. Pillow given. 06:34 No provider procedures requiring assistance completed. sj1 07:07 CT Stone Protocol In Process Unspecified. EDMS 07:08 IV discontinued, Pressure dressing applied, infiltrated IV. Heat packs applied. Charge sj1 RN called for US guided. 07:09 Freire cath inserted, using sterile technique, 16 Fr., by ED staff, balloon inflated, to sj1 gravity drainage, urine specimen collected. 07:15 Patient moved back from [address]. ap3 07:38 Nancy Bob, EDIE is Primary Nurse. ap3 07:38 Inserted saline lock: 18 gauge in left EJ, using aseptic technique. ,using aseptic ss technique. Insertion by Dr. Wilson Blood collected. 07:44 XRAY Chest (1 view) In Process Unspecified. EDMS 07:47 Chito Murillo MD is Hospitalizing Provider. iram 08:12 ED physician to see patient. ap3 10:23 Consulted physician to see patient. ap3 Administered Medications: 08:20 Discontinued: D5-1/2 NS 1000 ml IV at 125 mg/hr continuous iram 08:20 Discontinued: NS 0.9% 1000 ml IV at 1 bolus Per protocol; 1000 mL bolus iram 05:45 Drug: D50W 50 ml Route: IVP; Site: right antecubital; bb 06:09 CANCELLED (Duplicate Order): NS 0.9% 500 ml IV at bolus once iram 06:34 Drug: D5-1/2 NS 1000 ml Route: IV; Rate: 125 mg/hr; Site: right antecubital; sj1 07:56 Follow up: IV Status: Completed infusion; IV Intake: 100ml ap3 06:34 Drug: NS 0.9% 1000 ml Route: IV; Rate: 1 bolus; Site: right antecubital; sj1 07:56 Follow up: IV Status: Completed infusion; IV Intake: 200ml ap3 09:00 Follow up: IV Status: Order to discontinue infusion ap3 09:00 Follow up: IV Status: Order to discontinue infusion ap3 06:40 Not Given (Duplicate Order): NS 0.9% 1000 ml IV at 1 bolus Per protocol; 1000 mL bolus iram 07:56 Drug: Zosyn (piperacillin-tazobactam) 3.375 grams Route: IVPB; Infused Over: 60 mins; ap3 Site: left jugular; 17:06 Follow up: IV Status: Completed infusion ap3 10:22 Drug: D50W 50 ml Route: IVP; Site: left jugular; ap3 17:06 Follow up: Response: No adverse reaction; Blood sugar is elevated ap3 Intake: 07:56 IV: 200ml; Total: 200ml. ap3 07:56 IV: 100ml; Total: 300ml. ap3 Outcome: 07:50 Decision to Hospitalize by Provider. iram 01/05 00:08 Patient left the ED. cw2 Signatures: Dispatcher [employer] [facility] Eder Wilson MD MD cha Ballard, Brenda, RN RN bb Ysabel Hylton RN RN ss Prokisch, Amanda, RN RN ap3 Moshe Marshall RN RN cw2 Clau Currie, RN RN sj1
--- NOTE | 2021-01-04 07:51 | EDPHYS ---
Physician Documentation [facility] Name: Flex Morel Age: 75 yrs Sex: Male : 1945 Arrival Date: 01/04/2021 Time: 05:36 Bed 4 Private MD: ED Physician Eder Wilson HPI: 01/04 07:13 This 75 yrs old Black Male presents to ER via EMS with complaints of ams, low glucose. iram 07:13 hypoglycemic, ems less than 15. The patient presents with confusion, decreased mental iram status, decreased responsiveness. Onset: The symptoms/episode began/occurred just prior to arrival. Possible causes: CVA or TIA, head injury, low blood sugar, the patient uses insulin, sepsis. Associated signs and symptoms: Pertinent positives: confusion. Onset: The symptoms/episode began/occurred last night. Current symptoms: In the emergency department the patient's symptoms have improved, moderately. Patient's baseline: Neuro: alert but confused, Motor: no deficits, Ambulation: unable to walk, is bedridden, Speech: slow, The patient has a previous history of CVA, advanced dementia. Severity of symptoms: At their worst the symptoms were moderate in the emergency department the symptoms have improved moderately. The patient has experienced similar episodes in the past, several times. Historical: - Allergies: 05:50 No Known Allergies; bb - Home Meds: 05:50 amitriptyline 10 mg Oral tab 1 tab daily [Active]; aspirin 81 mg Oral TbEC 1 tab once bb daily [Active]; carvedilol 25 mg Oral tab 1 tab 2 times per day [Active]; Fish Oil 1,000 mg Oral cap daily [Active]; furosemide 40 mg Oral tab as needed [Active]; Humalog Pen Sub-Q [Active]; isosorbide mononitrate 60 mg Oral Tb24 1 tab once daily [Active]; Levemir 100 unit/mL subcutaneous soln [Active]; montelukast 10 mg Oral tab 1 tab once daily [Active]; omeprazole 40 mg Oral cpDR 1 cap 2 times per day [Active]; Uloric 40 mg Oral tab 1 tab once daily [Active]; Vitamin D Oral 1000 unit daily [Active]; - PMHx: 05:50 CHF; CVA; Diabetes - NIDDM; Gout; Hyperlipidemia; Hypertension; Seizures; bb - Immunization history:: Adult Immunizations unknown, . - Social history:: Smoking status: unknown. ROS: 07:40 Constitutional: Positive for malaise, poor PO intake. iram 07:40 Neuro: Positive for altered mental status, weakness. Exam: 07:40 Constitutional: This is a well developed, well nourished patient who is awake, alert, iram and in no acute distress. Head/Face: Normocephalic, atraumatic. Eyes: Pupils equal round and reactive to light, extra-ocular motions intact. Lids and lashes normal. Conjunctiva and sclera are non-icteric and not injected. Cornea within normal limits. Periorbital areas with no swelling, redness, or edema. ENT: Nares patent. No nasal discharge, no septal abnormalities noted. Tympanic membranes are normal and external auditory canals are clear. Oropharynx with no redness, swelling, or masses, exudates, or evidence of obstruction, uvula midline. Mucous membranes moist. Neck: Trachea midline, no thyromegaly or masses palpated, and no cervical lymphadenopathy. Supple, full range of motion without nuchal rigidity, or vertebral point tenderness. No Meningismus. Chest/axilla: Normal chest wall appearance and motion. Nontender with no deformity. No lesions are appreciated. Cardiovascular: Regular rate and rhythm with a normal S1 and S2. No gallops, murmurs, or rubs. Normal PMI, no JVD. No pulse deficits. Respiratory: Lungs have equal breath sounds bilaterally, clear to auscultation and percussion. No rales, rhonchi or wheezes noted. No increased work of breathing, no retractions or nasal flaring. Abdomen/GI: Soft, non-tender, with normal bowel sounds. No distension or tympany. No guarding or rebound. No evidence of tenderness throughout. Back: No spinal tenderness. No costovertebral tenderness. Full range of motion. Male : Normal genitalia with no discharge or lesions. Skin: Warm, dry with normal turgor. Normal color with no rashes, no lesions, and no evidence of cellulitis. MS/ Extremity: Pulses equal, no cyanosis. Neurovascular intact. Full, normal range of motion. Psych: Awake, alert, with orientation to person, place and time. Behavior, mood, and affect are within normal limits. 07:40 Neuro: Orientation: unable to test, profoundly hypoglycemic. Vital Signs: 05:47 BP 134 / 91; Pulse 76; Resp 16 S; Pulse Ox 94% on R/A; Weight 81.65 kg (R); Height 6 bb ft. 0 in. (182.88 cm) (R); 07:27 BP 124 / 75; Pulse 59; Temp 97.5; ap3 09:00 BP 128 / 78; Pulse 56; Resp 11; ap3 09:11 Pulse Ox 100% ; ap3 10:01 BP 129 / 78; Pulse 58; Resp 16; Pulse Ox 100% on R/A; ap3 10:23 BP 131 / 86; Pulse 58; Resp 15; Pulse Ox 100% on R/A; ap3 11:06 BP 149 / 86; Pulse 62; Resp 11; Pulse Ox 100% on R/A; ap3 15:30 BP 145 / 79; Pulse 68; Resp 13; Pulse Ox 100% on R/A; ap3 05:47 Body Mass Index 24.41 (81.65 kg, 182.88 cm) bb MDM: 05:44 Patient medically screened. iram 07:44 Differential Diagnosis altered mental status, sepsis. Differential Diagnosis: CVA, iram electrolyte abnormality, hypoglycemia, intracranial bleed, pneumonia, seizure, TIA, UTI, volume depletion. Data reviewed: vital signs, nurses notes, EMS record, lab test result(s), EKG, radiologic studies, CT scan, plain films. Data interpreted: nuclear monitoring technician: rate is 59 beats/min, rhythm is normal sinus rhythm, Pulse oximetry: on room air is 94 %. Test interpretation: by ED physician or midlevel provider: ECG, plain radiologic studies. Counseling: I had a detailed discussion with the patient and/or guardian regarding: the historical points, exam findings, and any diagnostic results supporting the discharge/admit diagnosis, lab results, radiology results, the need for further work-up and treatment in the hospital. 01/04 05:45 Order name: Basic Metabolic Panel; Complete Time: 06:38 iram 01/04 05:45 Order name: CBC with Diff; Complete Time: 07:46 iram 01/04 05:45 Order name: LFT's; Complete Time: 06:38 iram 01/04 05:45 Order name: Magnesium; Complete Time: 06:38 iram 01/04 05:45 Order name: NT PRO-BNP; Complete Time: 06:38 [facility] 01/04 05:45 Order name: PT-INR; Complete Time: 06:38 [facility] 01/04 05:45 Order name: Troponin (emerg Dept Use Only); Complete Time: 06:38 [facility] 01/04 06:05 Order name: AMMONIA; Complete Time: 08:17 [facility] 01/04 06:09 Order name: Procalcitonin [facility] 01/04 06:09 Order name: Lactate; Complete Time: 08:17 [facility] 01/04 06:23 Order name: Glucose, Ancillary Testing [facility] 01/04 06:35 Order name: Urine Dipstick-Ancillary; Complete Time: 06:38 [facility] 01/04 06:39 Order name: CK [facility] 01/04 06:39 Order name: Ckmb [facility] 01/04 06:52 Order name: Manual Differential; Complete Time: 07:46 [facility] 01/04 07:27 Order name: COVID-19 (Coronavirus) Document "Date of Onset" if Symptomatic: pt being ap3 admitted, need COVID swab for admission. No symptoms for symptom dates 01/04 08:19 Order name: Glucose, Ancillary Testing [facility] 01/04 08:49 Order name: Glucose, Ancillary Testing [facility] 01/04 09:33 Order name: Glucose, Ancillary Testing [facility] 01/04 09:39 Order name: SARS-COV-2 RT PCR [facility] 01/04 10:03 Order name: Glucose, Ancillary Testing [facility] 01/04 11:07 Order name: Glucose, Ancillary Testing [facility] 01/04 11:09 Order name: Glucose, Ancillary Testing [facility] 01/04 11:55 Order name: Glucose, Ancillary Testing [facility] 01/04 12:25 Order name: Glucose, Ancillary Testing [facility] 01/04 12:27 Order name: Glucose, Ancillary Testing [facility] 01/04 13:05 Order name: Glucose, Ancillary Testing [facility] 01/04 13:40 Order name: Glucose, Ancillary Testing [facility] 01/04 14:08 Order name: Glucose, Ancillary Testing [facility] 01/04 14:45 Order name: Glucose, Ancillary Testing [facility] 01/04 05:45 Order name: XRAY Chest (1 view) [facility] 01/04 05:45 Order name: EKG; Complete Time: 05:45 [facility] 01/04 05:45 Order name: Cardiac monitoring; Complete Time: 06:34 [facility] 01/04 05:45 Order name: EKG - Nurse/Tech; Complete Time: 06:34 [facility] 01/04 05:45 Order name: IV Saline Lock; Complete Time: 05:47 [facility] 01/04 05:45 Order name: Labs collected and sent; Complete Time: 06:34 [facility] 01/04 05:45 Order name: O2 Per Protocol; Complete Time: 06:34 [facility] 01/04 05:45 Order name: O2 Sat Monitoring; Complete Time: 06:34 [facility] 01/04 05:45 Order name: Urine Dipstick-Ancillary (obtain specimen); Complete Time: 06:34 [facility] 01/04 05:47 Order name: CT Head Brain wo Cont [facility] 01/04 06:39 Order name: CT Stone Protocol; Complete Time: 08:17 [facility] 01/04 08:00 Order name: CONS Physician Consult [facility] 01/04 08:19 Order name: Misc. Order: D10W AT 40 CC/HR; Complete Time: 09:00 [facility] 01/04 15:27 Order name: Troponin I [facility] 01/04 15:34 Order name: Glucose, Ancillary Testing [facility] 01/04 16:33 Order name: Glucose, Ancillary Testing [facility] 01/04 17:26 Order name: Glucose, Ancillary Testing [facility] 01/04 18:17 Order name: Glucose, Ancillary Testing [facility] 01/04 21:09 Order name: Glucose, Ancillary Testing [facility] Administered Medications: 08:20 Discontinued: D5-1/2 NS 1000 ml IV at 125 mg/hr continuous iram 08:20 Discontinued: NS 0.9% 1000 ml IV at 1 bolus Per protocol; 1000 mL bolus iram 05:45 Drug: D50W 50 ml Route: IVP; Site: right antecubital; bb 06:09 CANCELLED (Duplicate Order): NS 0.9% 500 ml IV at bolus once iram 06:34 Drug: D5-1/2 NS 1000 ml Route: IV; Rate: 125 mg/hr; Site: right antecubital; sj1 07:56 Follow up: IV Status: Completed infusion; IV Intake: 100ml ap3 06:34 Drug: NS 0.9% 1000 ml Route: IV; Rate: 1 bolus; Site: right antecubital; sj1 07:56 Follow up: IV Status: Completed infusion; IV Intake: 200ml ap3 09:00 Follow up: IV Status: Order to discontinue infusion ap3 09:00 Follow up: IV Status: Order to discontinue infusion ap3 06:40 Not Given (Duplicate Order): NS 0.9% 1000 ml IV at 1 bolus Per protocol; 1000 mL bolus iram 07:56 Drug: Zosyn (piperacillin-tazobactam) 3.375 grams Route: IVPB; Infused Over: 60 mins; ap3 Site: left jugular; 17:06 Follow up: IV Status: Completed infusion ap3 10:22 Drug: D50W 50 ml Route: IVP; Site: left jugular; ap3 17:06 Follow up: Response: No adverse reaction; Blood sugar is elevated ap3 Disposition Summary: 01/04/21 07:50 Hospitalization Ordered Hospitalization Status: Inpatient Admission iram Provider: Chito Murillo cha Condition: Serious iram Problem: new iram Symptoms: have improved iram Bed/Room Type: Standard iram Location: Telemetry/MedSurg (Inpatient)(01/04/21 23:28) rd1 Room Assignment: 426(01/04/21 23:28) rd1 Diagnosis - Non ST elevation NH iram - Elevated white blood cell count iram - Altered mental status, unspecified iram - Hypoglycemia, unspecified iram - Unspecified combined systolic (congestive) and diastolic (congestive) heart failure iram - Acute kidney failure, unspecified - on chronic iram - Pleural condition, unspecified - bilateral iram Discharge Instructions: - Discharge Summary Sheet ss Forms: - Medication Reconciliation Form iram - SBAR form ss Signatures: Dispatcher [employer] Eder Merritt MD MD cha Ballard, Brenda, RN RN bb Smirch, Shelby, RN RN ss Nancy Bob RN RN ap3 Sonia Olguin RN RN rd1 Clau Currie, RN RN sj1 Corrections: (The following items were deleted from the chart) 06:09 05:51 NS 0.9% 500 ml IV at bolus once ordered. iram iram 11: 07:50 Telemetry/MedSurg (Inpatient) iram ss 11: 07:50 iram ss 23:28 11:06 [facility] ER HOLD ss rd1 23:28 11:06 ERHOLD- ss rd1
[2021-01-04] MEDS ORDERED: D50W 25 GM/50 ML SYRINGE IV ONE (07:58)
[2021-01-04] MEDS ORDERED: D50W 50 ML IV ONE (07:59)
[2021-01-04] MEDS ORDERED: NA CHLORIDE 0.9% 250 ML ONE (08:06)
--- NOTE | 2021-01-04 08:13 | RAD REPORT ---
[facility] 7:07 am CLINICAL HISTORY: arf;Abd pain COMPARISON: No comparisons TECHNIQUE: CT of the abdomen and pelvis was performed. All CT scans are performed using dose optimization technique as appropriate and may include automated exposure control or mA/KV adjustment according to patient size. FINDINGS: Lower chest: Small bilateral effusions. Gynecomastia. Cardiomegaly. Small pericardial effu heriberto. Coronary artery calcifications. Small hiatal hernia. Liver: No acute abnormality or suspicious lesions. Biliary: No biliary ductal dilatation. Stomach: No significant focal abnormality. Duodenum: No significant focal abnormality. Pancreas: No significant abnormality. Spleen: No significant abnormality. Adrenal: No suspicious lesions. Kidney/ureter: No hydronephrosis. No renal calculi. Retroperitoneum: No retroperitoneal adenopathy. Vascular: No aneurysm. Atherosclerosis. Bowel: Irregular thickening at the ascending colon. No bowel obstruction identified.. Peritoneum: No ascites or free air. Bladder: Gas within the bladder may be from recent instrumentation. Reproductive: Prostatomegaly. Bones: No acute fracture. Other: Body wall edema. IMPRESSION: 1. No hydronephrosis to explain renal failure. Note is made of moderate prostatomegaly. A Freire catheter is present within the bladder. Correlate for urinary retention. 2. Irregular thickening of the ascending colon. Recommend nonemergent colonoscopy for further evaluat ion. 3. Anasarca.
--- NOTE | 2021-01-04 08:42 | RAD REPORT ---
EXAM DESCRIPTION: RAD - Chest Single View - 01/04/2021 7:44 am CLINICAL HISTORY: COUGH COMPARISON: Chest Single View dated 11/08/2020; Chest Single View dated 10/22/2020; Chest Single View dated 07/17/2020; Chest Pa And Lat (2 Views) dated 08/29/2017; Stone Protocol dated 01/04/2021 FINDINGS: Lines: None. Lungs: Similar prominence of the pulmonary interstitium. Left lung base is partially obscured due to a combination of atelectasis and poor penetration . Pleural: Small left pleural effusion. Cardiac: Cardiomegaly Bones: No acute fractures. Other: IMPRESSION: Pulmonary vascular congestion and small left pleural effusion. A small right pleural eff usion is also present though not evident on this chest radiograph. Reference same-day CT of the abdom en and pelvis .
[2021-01-04] MEDS ORDERED: DEXTROSE 10%-WATER 500 ML IV ONE (09:00)
[2021-01-04 09:14] LABS: CKMB Creatine Kinase MB 3.2 ng/mL (1.0-3.6)
[2021-01-04] MEDS: FUROSEMIDE 40 MG/4 ML VIAL IV SCH ×2 (10:43→16:19)
[2021-01-04] MEDS ORDERED: ONDANSETRON 4 MG/2 ML VIAL IV PRN (10:43)
[2021-01-04] MEDS ORDERED: ALBUTEROL 2.5 MG/3 ML NEB SOL NEB PRN (10:43)
[2021-01-04] MEDS ORDERED: ACETAMINOPHEN 325 MG TABLET PO PRN (10:43)
[2021-01-04] MEDS ORDERED: D5W 1,000 ML IV SCH (10:43)
[2021-01-04] MEDS ORDERED: IPRATROPIUM BROM 0.5MG/2.5ML NEB PRN (10:43)
--- NOTE | 2021-01-04 12:02 | RAD REPORT ---
EXAM DESCRIPTION: CT - Head Brain Wo Cont - 01/04/2021 6:24 am ADDENDUM #1 Findings were discussed by phone with Dr. Wilson at 6:21 AM 01/04/2021. Electronically signed by: Mar Logan MD 01/04/2021 6:21 AM CDT End of Addendum EXAM: CT Head Without Intravenous Contrast CLINICAL HISTORY: CONFUSED TECHNIQUE: Axial computed tomography images of the head/brain without intravenous contrast. Sagitt al and coronal reformatted images were created and reviewed. This CT exam was performed using one o r more of the following dose reduction techniques: automated exposure control, adjustment of the mA and/or kV according to patient size, and/or use of iterative reconstruction technique. COMPARISON: 11/08/2020 FINDINGS: Limitations: None. Brain: There is age related cortical atrophy and periventricular white matter hypodensity most c onsistent with chronic small ischemic change. No acute infarct, hemorrhage or mass. Stable left o ccipital encephalomalacia. Midline shift: None. Ventricles: No abnormality noted. Bones/joints: No acute fracture or osseous destruction. Soft tissues: Visualized portions appear normal. Vasculature: No acute abnormality noted. Sinuses: There is mild chronic left maxillary sinus thickening. Mastoid air cells: No mastoid effusion. Orbits: Visualized portions appear normal. IMPRESSION: No acute change in the brain. Electronically signed by: Mar Logan MD 01/04/2021 6:17 AM CDT ADDENDUM #1 Findings were discussed by phone with Dr. Wilson at 6:21 AM 01/04/2021. Electronically signed by: Mar Logan MD 01/04/2021 6:21 AM CDT End of Addendum ADDENDUM #1 Findings were discussed by phone with Dr. Wilson at 6:21 AM 01/04/2021. Electronically signed by: Mar Logan MD 01/04/2021 6:21 AM CDT End of Addendum EXAM: CT Head Without Intravenous Contrast CLINICAL HISTORY: CONFUSED TECHNIQUE: Axial computed tomography images of the head/brain without intravenous contrast. Sagitt al and coronal reformatted images were created and reviewed. This CT exam was performed using one o r more of the following dose reduction techniques: automated exposure control, adjustment of the mA and/or kV according to patient size, and/or use of iterative reconstruction technique. COMPARISON: 11/08/2020 FINDINGS: Limitations: None. Brain: There is age related cortical atrophy and periventricular white matter hypodensity most c onsistent with chronic small ischemic change. No acute infarct, hemorrhage or mass. Stable left o ccipital encephalomalacia. Midline shift: None. Ventricles: No abnormality noted. Bones/joints: No acute fracture or osseous destruction. Soft tissues: Visualized portions appear normal. Vasculature: No acute abnormality noted. Sinuses: There is mild chronic left maxillary sinus thickening. Mastoid air cells: No mastoid effusion. Orbits: Visualized portions appear normal. IMPRESSION: No acute change in the brain. Electronically signed by: Mar Logan MD 01/04/2021 6:17 AM CDT Due to temporary technical issues with the PACS/Fluency reporting system, reports are being signed by the in house radiologist without review as a courtesy to ensure prompt reporting. The interpreting r adiologist is fully responsible for the content of the report.
[2021-01-04] MEDS ORDERED: FUROSEMIDE 40 MG/4 ML VIAL ONE (12:07)
--- NOTE | 2021-01-04 16:36 | EKG ---
Test Date: 2021-01-04 Test Time: 06:15:22 Freight Agent: STAN MEASUREMENT RESULTS: Intervals: Rate: 62 VA: 264 QRSD: 124 QT: 480 QTc: 487 [place]: P: 60 VA: 264 QRS: -32 T: 241 INTERPRETIVE STATEMENTS: Sinus rhythm with 1st degree AV block with occasional premature ventricular complexes Left axis deviation Nonspecific intraventricular conduction delay ST & T wave abnormality, consider lateral ischemia Abnormal ECG Compared to ECG 01/04/2021 06:14:32 First degree AV block now present Intraventricular conduction delay now present ST (T wave) deviation now present Uncertain supraventricular rhythm no longer present Myocardial infarct finding no longer present T-wave abnormality no longer present Possible ischemia still present Electronically Signed On 01-04-21 16:35:31 CDT by Daniel Boucher
[2021-01-04 16:55] VITALS: BMI 24.4
[2021-01-04] MEDS ORDERED: PIPER TAZO 2.25 GM in NA CHLORIDE 0.9% 50 ML IV SCH (17:00)
--- NOTE | 2021-01-04 20:20 | HP ---
Date of Admission: 01/04/2021 Chief Complaint: Unresponsiveness. History Of Present Illness: This is a 75-year-old male patient with multiple comorbidities, who lives at home with his family, was brought into emergency room with unresponsiveness and his blood sugar at home was 15 as reported by the patient's daughter. He was brought into ER with severe hypoglycemia and after further evaluation, he was admitted to the hospital. Since his presentation to the emergency room with treatment, his hypoglycemia problem has resolved and his mental status is back to his normal self. When I saw him in emergency room, his and daughter both were present at bedside. Allergies: NO KNOWN ALLERGIES. Medications: Allopurinol 300 mg daily, aspirin 81 mg daily, Eliquis 2.5 mg 2 times a day, atorvastatin 80 mg daily at bedtime, carvedilol 6.25 mg 2 times a day, colchicine 0.6 mg 2 times a day as needed for gout, Depakote 250 mg 2 times a day, Keppra 250 mg 2 times a day, furosemide 80 mg daily, metolazone 5 mg daily, hydralazine 10 mg 2 times a day. Levemir insulin he was supposed to take 10 units 2 times a day, but instead of that is giving him 30 units daily. Isosorbide mononitrate 60 mg daily, Seroquel 25 mg at bedtime. Review of Systems: REGISTERED SALES ASSISTANT: Altered mental status as mentioned above. Dermatology: The patient has chronic wound on his leg. All other systems reviewed and negative. Past Medical History: Significant for seizure disorder, allergic rhinitis, type 2 diabetes mellitus, hypertension, mixed hyperlipidemia, coronary artery disease, chronic systolic congestive heart failure, gastroesophageal reflux disease, chronic kidney disease, benign prostatic hypertrophy, gout, anemia due to chronic kidney disease, and hyperkalemia. Past Surgical History: Eye surgery. Family History: Father had diabetes. Mother had hypertension and arthritis. Brother had coronary artery disease. Social History: Negative for smoking and alcohol use. Physical Examination: Vital Signs: Temperature 97.4, pulse 62, respiratory rate 12, blood pressure 141/85, oxygen saturation 100% on room air, height 6 feet, weight 179 pounds. General: The patient is lying in bed, not in distress, not oriented, but speaks clearly from time to time. HEENT: Head atraumatic, normocephalic. Conjunctivae nonerythematous. Sclerae white. Mouth, no thrush or edema noted. Ears/Nose, no mass, lesion, discharge noted. Neck: Supple. No JVD, lymph nodes, bruit, thyromegaly noted. Lungs: Bilateral good equal air entry. Clear to auscultation. No rhonchi. No rales. Heart: Normal heart sounds, no murmur or gallop. Abdomen: Soft, bowel sounds normal. No guarding, rigidity, tenderness, mass, hepatosplenomegaly, distention, or bruit noted. Extremities: No leg edema. No calf tenderness. Skin: Both lower extremities have dressing present. Lymphatics: No lymph node enlargement in neck, supraclavicular, infraclavicular region. Neuro: No focal neurological deficit. Chest: Unremarkable. External Genitalia: Deferred. Rectal: Deferred. Laboratory Data: White count 22.6, hemoglobin 16.3, platelets 144. Sodium 143, potassium 4.9, chloride 110, bicarb 27, BUN 110, creatinine 2.68, glucose 30. Liver function tests normal. Lactic acid 1, procalcitonin 0.49. Troponin 0.05. Urinalysis, 2+ protein, otherwise negative. COVID-19 test negative. Chest x- ray, small pleural effusion. CAT scan of the abdomen and pelvis shows enlarge prostate, thickening of the ascending colon, small pleural effusion, small pericardial effusion. CAT scan of the head was negative for any acute intracranial changes. EKG; normal sinus rhythm, first-degree AV block, occasional premature ventricular contractions. Impression: 1. Severe hypoglycemia. 2. Leukocytosis. 3. Rule out sepsis. 4. Chronic kidney disease, stage 4. 5. Pleural effusion. 6. Pericardial effusion. 7. Hypertension. 8. Mixed hyperlipidemia. 9. Type 2 diabetes mellitus. 10. Chronic systolic congestive heart failure. 11. Coronary artery disease. 12. Gastroesophageal reflux disease. 13. Benign prostatic hypertrophy. 14. Gout. 15. Seizure disorder. 16. Vascular dementia. 17. Anemia of chronic kidney disease. Plan: The patient will be admitted to the hospital for further evaluation and management of this problem. The patient is appropriate for inpatient and is expected to spend 2 midnights in the hospital. We will continue his home medications per order. We will not give any insulin at this point. After I was contacted this morning, we started him on IV fluids D10W with fingerstick blood sugar check every 30 minutes and we titrated his D10W IV fluid depending on the blood sugar, for blood sugar less than 140 mL/hour, for blood sugar 101 to 150 at 30 mL/hour, for blood sugar 151 to 200 at 20 mL /hour and for blood sugar more than 200 at 10 cc/hour, for blood sugar less than 80 give 1 amp of D50 IV. So far throughout the day, the patient has received only 1 amp of D50. Lately, his blood sugar has been high and actually last sugar was more than 200 when I saw him some. We will continue to reduce frequency of D10W and in fact, when I saw patient, I told nurse that if 2 blood sugar readings are more than 150, then to discontinue D10W drip and we will continue to monitor his blood sugar check, but we will reduce frequency depending on his blood sugar readings. Empiric antibiotic Zosyn was started, we will continue that. Follow up on culture results. Nephrology consultation was obtained. Dr. Carrera came by to see patient. So far, the patient's family has not decided to start any hemodialysis today. The family informed me that Dr. Carrera told them that hemodialysis may improve his confusion to certain extent and family was asking me what do I think and my opinion is that I really do not think that it will make any meaningful or significant change in his mental status. He has declined over long period of time that started before renal function started to deteriorate. His mental function had started to decline with his vascular dementia, so overall any dialysis support will not change any big picture in my opinion and both and daughter understand and they also tend to believe that. So far, they have decided not to do any dialysis, but if they change their mind, obviously they will let us know. We also communicated regarding advance directives including CPR, defibrillation, ventilator support, and considering the patient's overall condition, they decided not to do any heroic measures in the event of cardiopulmonary arrest and at the time to keep the patient comfortable and let the God and nature take its course, so DNR order will be written in the chart. I will see him tomorrow for followup. KARISHMA/MODL Voice ID: [id number] OLIVIA
--- NOTE | 2021-01-04 20:45 | P.CNS ---
Date of Consult: 01/04/21 Reason for Consult: ANGEL/ CKD Requesting Physician: Chito Murillo Chief Complaint: AMS History of Present Illness: 75 yo BM CKD, CHF presented to the ER with AMS in the setting of hypoglycemia. Limited HPI/ ROS due to AMS. Case reviewed with the family at the bedside. 07:13 This 75 yrs old Black Male presents to ER via EMS with complaints of ams, low glucose. iram 07:13 hypoglycemic, ems less than 15. The patient presents with confusion, decreased mental iram status, decreased responsiveness. Onset: The symptoms/episode began/occurred just prior to arrival. Possible causes: CVA or TIA, head injury, low blood sugar, the patient uses insulin, sepsis. Associated signs and symptoms: Pertinent positives: confusion. Onset: The symptoms/episode began/occurred last night. Current symptoms: In the emergency department the patient's symptoms have improved, moderately. Patient's baseline: Neuro: alert but confused, Motor: no deficits, Ambulation: unable to walk, is bedridden, Speech: slow, The patient has a previous history of CVA, advanced dementia. Severity of symptoms: At their worst the symptoms were moderate in the emergency department the symptoms have improved moderately. The patient has experienced similar episodes in the past, several times. Allergies No Known Allergies Allergy (Verified 08/18/17 05:10) Home medications list reviewed: Yes Home Medications: carvediloL [Coreg*] 12.5 mg PO BID 09/24/15 Allopurinol 1 tab PO DAILY 03/06/17 Atorvastatin Calcium [Lipitor] 80 mg PO BEDTIME 03/06/17 Hydralazine [Apresoline*] 1 tab PO BID 03/06/17 Amitriptyline HCl 25 mg PO BEDTIME 08/18/17 Apixaban [Eliquis *] 2.5 mg PO BID 08/18/17 levETIRAcetam [Levetiracetam] 500 mg PO BID 08/18/17 Codeine/APAP [Tylenol #3*] 1 tab PO Q6H PRN 11/08/20 Divalproex Sodium [Depakote ER] 250 mg PO DAILY 11/08/20 Furosemide 80 mg PO BID 11/08/20 LORazepam [Lorazepam] 1 tab PO BID PRN 11/08/20 Colchicine 01/04/21 Collagenase [Santyl Ointment*] 01/04/21 LORazepam [Lorazepam] 0.5 mg PO 01/04/21 Silver Sulfadiazine 25 gm TP 01/04/21 - Past Medical/Surgical History Diabetic: Yes -: HTN -: DM -: CHF -: Hyperkalemia -: Hyperlipidemia -: Gout -: CVA -: thrombocytopenia -: heart cath - Family History Mother Medical History: Heart disease, Cancer Father Medical History: Heart disease Notes: CHF - Social History Smoking Status: Never smoker Alcohol use: No CD- Drugs: No Caffeine use: No Place of Residence: Home Review of Systems is unable to be obtained Physical Examination Temp Pulse Resp BP Pulse Ox 97.4 F 62 14 153/81 H 100 01/04/21 18:02 01/04/21 18:02 01/04/21 18:02 01/04/21 18:02 01/04/21 18:02 General: Delirious HEENT: Atraumatic Neck: Supple, No LAD Respiratory: Clear to auscultation bilaterally Cardiovascular: No edema, Regular rate/rhythm Gastrointestinal: Soft and benign, Non-distended Musculoskeletal: No clubbing, No contractures Integumentary: No rashes, No cyanosis Neurological: Abnormal affect Laboratory Data (last 24 hrs) 01/04/21 05:45: PT 13.8 H, INR 1.20 01/04/21 05:45: WBC 22.60 H*, Hgb 16.3, Hct 52.4 H, Plt Count 144 L 01/04/21 05:45: Sodium 143, Potassium 4.9, BUN 110 H, Creatinine 2.68 H, Glucose 30 L*, Magnesium 2.2, Total Bilirubin 0.4, AST 22, ALT 22, Alkaline Phosphatase 148 H Imagings Data: EXAM DESCRIPTION: [facility] Protocol - 01/04/2021 7:07 am CLINICAL HISTORY: arf;Abd pain COMPARISON: No comparisons TECHNIQUE: CT of the abdomen and pelvis was performed. All CT scans are performed using dose optimization technique as appropriate and may include automated exposure control or mA/KV adjustment according to patient size. FINDINGS: Lower chest: Small bilateral effusions. Gynecomastia. Cardiomegaly. Small pericardial effusion. Coronary artery calcifications. Small hiatal hernia. Liver: No acute abnormality or suspicious lesions. Biliary: No biliary ductal dilatation. Stomach: No significant focal abnormality. Duodenum: No significant focal abnormality. Pancreas: No significant abnormality. Spleen: No significant abnormality. Adrenal: No suspicious lesions. Kidney/ureter: No hydronephrosis. No renal calculi. Retroperitoneum: No retroperitoneal adenopathy. Vascular: No aneurysm. Atherosclerosis. Bowel: Irregular thickening at the ascending colon. No bowel obstruction identified.. Peritoneum: No ascites or free air. Bladder: Gas within the bladder may be from recent instrumentation. Reproductive: Prostatomegaly. Bones: No acute fracture. Other: Body wall edema. IMPRESSION: 1. No hydronephrosis to explain renal failure. Note is made of moderate prostatomegaly. A Escobar catheter is present within the bladder. Correlate for urinary retention. 2. Irregular thickening of the ascending colon. Recommend nonemergent colonoscopy for further evaluation. 3. Anasarca. EXAM DESCRIPTION: RAD - Chest Single View - 01/04/2021 7:44 am CLINICAL HISTORY: COUGH COMPARISON: Chest Single View dated 11/08/2020; Chest Single View dated 10/22/2020; Chest Single View dated 07/17/2020; Chest Pa And Lat (2 Views) dated 08/29/2017; Stone Protocol dated 01/04/2021 FINDINGS: Lines: None. Lungs: Similar prominence of the pulmonary interstitium. Left lung base is partially obscured due to a combination of atelectasis and poor penetration . Pleural: Small left pleural effusion. Cardiac: Cardiomegaly Bones: No acute fractures. Other: IMPRESSION: Pulmonary vascular congestion and small left pleural effusion. A small right pleural effusion is also present though not evident on this chest radiograph. Reference same-day CT of the abdomen and pelvis . Conclusions/Impression: ANGEL may be due to hypovolemia CKD IV with proteinuria -No NSAIDs -Hold diuretics at this time and restart as indicated -Check HBV panel HTN with CKD/ CHF -Continue Coreg Diastolic CHF, chronic -Continue Coreg DM II with CKD complicated by hypoglycemia -Hold Insulin -IV Dextrose as needed Mild Polycythemia -Hold diuretics Gout -Continue Allopurinol BPH with LUTS -Continue escobar Toxic metabolic encephalopathy -Correct hypoglycemia I agree with the family's decision to make the patient a DNR. Thank you kindly for the consultation.
[2021-01-04] MEDS: APIXABAN 2.5 MG TABLET PO SCH (21:00)
[2021-01-04] MEDS: DIVALPROEX DR 250 MG TAB PO SCH (21:00)
[2021-01-04] MEDS: HYDRALAZINE HCL 10 MG TABLET PO SCH (21:00)
[2021-01-04] MEDS: ATORVASTATIN 80 MG TAB PO SCH (21:00)
[2021-01-04] MEDS: levETIRAcetam 500 MG TAB PO SCH (21:00)
[2021-01-04] MEDS: carvediloL 6.25 MG TAB PO SCH (21:00)
[2021-01-04] MEDS: PIPER TAZO 3.375 GM in NA CHLORIDE 0.9% 100 ML IV SCH (21:00)
[2021-01-04] MEDS ORDERED: INSULIN GLARGINE 100 UNITS/ML SQ ONE ×2 (21:00→22:59)
[2021-01-04] MEDS ORDERED: D50W 25 GM/50 ML SYRINGE IV PRN (21:38)
[2021-01-04] MEDS ORDERED: HYDRALAZINE HCL 10 MG TABLET ONE (22:59)
[2021-01-04] MEDS ORDERED: carvediloL 6.25 MG TAB ONE (22:59)
[2021-01-04] MEDS ORDERED: ATORVASTATIN 20 MG TAB ONE (22:59)
[2021-01-04] MEDS ORDERED: levETIRAcetam 500 MG TAB ONE (23:00)
[2021-01-04] MEDS ORDERED: APIXABAN 5 MG TABLET ONE (23:00)
[2021-01-04] MEDS ORDERED: DIVALPROEX DR 250 MG TAB PO ONE (23:00)
[2021-01-04] MEDS ORDERED: NA CHLORIDE 0.9% 100 ML ONE (23:19)
[2021-01-05] MEDS: QUETIAPINE 25 MG TAB PO SCH ×2 (00:34→20:06)
[2021-01-05] MEDS ORDERED: D50W 25 GM/50 ML SYRINGE IV PRN (05:08)
[2021-01-05] MEDS ORDERED: GLUCAGON 1 MG/VIAL IM PRN (05:08)
[2021-01-05 06:13] LABS: Hematocrit 46.1 % (39.6-49.0); Lymphocytes % 66.4 % (15.3-44.8); MPV 9.4 fL (7.6-11.3); RBC Red Blood Cell Count 5.22 M/uL (4.33-5.43)
[2021-01-05 06:23] LABS: Magnesium 2.2 mg/dL (1.8-2.4); Potassium 4.8 mmol/L (3.5-5.1)
[2021-01-05 08:00] LABS: Blood Morphology Comment NOT SEEN (NOT SEEN); Platelet Estimate DECR
[2021-01-05] MEDS: PIPER TAZO 3.375 GM in NA CHLORIDE 0.9% 100 ML IV SCH ×2 (08:50→20:07)
[2021-01-05] MEDS: levETIRAcetam 500 MG TAB PO SCH ×2 (08:52→20:07)
[2021-01-05] MEDS: HYDRALAZINE HCL 10 MG TABLET PO SCH ×2 (08:52→20:06)
[2021-01-05] MEDS: APIXABAN 2.5 MG TABLET PO SCH ×2 (08:52→20:06)
[2021-01-05] MEDS: carvediloL 6.25 MG TAB PO SCH ×2 (08:52→20:06)
[2021-01-05] MEDS: allopurinoL 300 MG TAB PO SCH (08:52)
[2021-01-05] MEDS: INSULIN GLARGINE 100 UNITS/ML SQ SCH (08:53)
[2021-01-05] MEDS: ASPIRIN EC 81 MG TAB PO SCH (08:53)
[2021-01-05] MEDS ORDERED: METOLAZONE 5 MG TABLET PO SCH (09:00)
[2021-01-05] MEDS ORDERED: METOLAZONE 2.5 MG TABLET PO SCH (09:00)
[2021-01-05] MEDS: DIVALPROEX DR 250 MG TAB PO SCH ×2 (10:20→20:09)
[2021-01-05] MEDS: ISOSORBIDE MONO SR 60 MG TAB PO SCH (10:20)
--- NOTE | 2021-01-05 14:43 | CON ---
Date of Consultation: 01/05/2021 Reason For Consultation: Left leg wound and leukocytosis. History Of Present Illness: The patient is a 75-year-old gentleman, who [facility] and he came to the ER with unresponsiveness and change in ment al status, and he was found to have a low sugar and was treated appropriately and was admitted. Furt her workup was started and he was found to have leukocytosis and the etiology was unclear at this benson e. So, I was asked to evaluate the wound as there is a possible source for the leukocytosis. The pa harman is awake, confused, eating breakfast, in no distress. No sore throat, runny nose, cough, heada ches, or dizziness. No chest pain. No fever or chills. Review of Systems: Otherwise unremarkable. Past Medical History: Significant for seizure disorder, type 2 diabetes, hypertension, hyperlipidemi a, coronary artery disease, systolic congestive heart failure, GERD, BPH. Past Surgical History: Eye surgery. Allergies: NONE. Social History: The patient does not smoke or drink alcohol. Family History: Significant for diabetes, hypertension, and coronary artery disease. Physical Examination: Vital Signs: Stable. He is afebrile. General: He is awake, alert, confused. Head and Neck: No masses. Chest: Clear. Heart: S1, S2. Abdomen: Soft. Extremity: Neurovascularly intact. Diminished dorsalis pedis and posterior tibial pulses. There ar e no open wounds. On the right leg, the patient had a Coban dressing on. He does have a wound on th e left anterior leg approximately 3 x 1 cm, but it is scabbed over. There is no surrounding erythema , warmth or edema, and there is no fluctuance. It appears to be a dry scab. Laboratory Data: Reviewed. His white count on admission was 22,600, today is 19,600. He does not h ave a left shift. His lymphocytes are elevated. Platelets are 99. Chemistry reviewed. Sugar was l ow when he was admitted, but currently it is 171. His hemoglobin A1c is 10.9. He is COVID negative. Chest x-ray reviewed and he does have some effusion. His urinalysis shows 2+ protein, otherwise ne gative. Assessment: A 75-year-old gentleman with multiple medical problems with leukocytosis and left leg wo und. I do not believe that the wound is related to his leukocytosis. I think he needs to be on anti biotics and workup continues. Nephrology has been consulted. The lung could possibly be the source. Urine does not appear to be even though he does have a large prostate and then the catheter in plac e, but at this time with regard to the wound, there is no need for any acute surgical intervention. I will order foam dressing with Kerlix and Jerry and the patient can follow up with me in the [facility] upon discharge. I discussed the case with Dr. Murillo. CHRIS/ZULAY Voice ID: [id number] Report ID: [id number]
[2021-01-05] MEDS: ATORVASTATIN 80 MG TAB PO SCH (20:09)
[2021-01-05] MEDS ORDERED: INSULIN GLARGINE 100 UNITS/ML SQ ONE (21:00)
--- NOTE | 2021-01-05 21:43 | P.PN ---
Date of Service: 01/05/21 Vital Signs Temp Pulse Resp BP Pulse Ox 97.2 F 73 19 127/63 97 01/05/21 20:00 01/05/21 20:06 01/05/21 20:00 01/05/21 20:06 01/05/21 20:00 Medications Acetaminophen (Acetaminophen 325 Mg Tablet) 650 mg PO Q6H PRN PRN Reason: TEMP > 101' F Albuterol Sulfate (Albuterol 2.5 Mg/3 Ml Neb Monica) 2.5 mg NEB Q4H PRN PRN Reason: WHEEZING Allopurinol (Allopurinol 300 Mg Tab) 300 mg PO DAILY [facility] Last Admin: 01/05/21 08:52 Dose: 300 mg Documented by: Apixaban (Apixaban 2.5 Mg Tablet) 2.5 mg PO BID [facility] Last Admin: 01/05/21 20:06 Dose: 2.5 mg Documented by: Aspirin (Aspirin Ec 81 Mg Tab) 81 mg PO DAILY [facility] Last Admin: 01/05/21 08:53 Dose: 81 mg Documented by: Atorvastatin Calcium (Atorvastatin 80 Mg Tab) 80 mg PO BEDTIME [facility] Last Admin: 01/05/21 20:09 Dose: 80 mg Documented by: Carvedilol (Carvedilol 6.25 Mg Tab) 6.25 mg PO BID [facility] Last Admin: 01/05/21 20:06 Dose: 6.25 mg Documented by: Dextrose (D50w 25 Gm/50 Ml Syringe) 12.5 gm IV PRN PRN; Protocol PRN Reason: HYPOGLYCEMIA Divalproex Sodium (Divalproex Dr 250 Mg Tab) 250 mg PO BID [facility] Last Admin: 01/05/21 20:09 Dose: 250 mg Documented by: Glucagon (Glucagon 1 Mg/Vial) 1 mg IM 1X PRN; Protocol PRN Reason: HYPOGLYCEMIA Hydralazine HCl (Hydralazine Hcl 10 Mg Tablet) 10 mg PO BID [facility] Last Admin: 01/05/21 20:06 Dose: 10 mg Documented by: Piperacillin Sod/Tazobactam (Sod 3.375 gm/ Sodium Chloride) 100 mls @ 25 mls/hr IV Q12HR MARIA E; Protocol Last Admin: 01/05/21 20:07 Dose: 100 mls Documented by: Insulin Glargine (Insulin Glargine 100 Units/Ml) 10 units SQ DAILY WITH BREAKFAST [facility] Last Admin: 01/05/21 08:53 Dose: 10 units Documented by: Ipratropium [place] (Ipratropium Brom 0.5mg/2.5ml) 0.5 mg NEB Q4H PRN PRN Reason: WHEEZING Isosorbide Mononitrate (Isosorbide [place] Sr 60 Mg Tab) 60 mg PO DAILY [facility] Last Admin: 01/05/21 10:20 Dose: 60 mg Documented by: Levetiracetam (Levetiracetam 500 Mg Tab) 250 mg PO BID [facility] Last Admin: 01/05/21 20:07 Dose: 250 mg Documented by: Ondansetron HCl (Ondansetron 4 Mg/2 Ml Vial) 4 mg IV Q6H PRN PRN Reason: NAUSEA / VOMITING Quetiapine Fumarate (Quetiapine 25 Mg Tab) 25 mg PO BEDTIME [facility] Last Admin: 01/05/21 20:06 Dose: 25 mg Documented by: Sodium Chloride (Flush Normal Saline 10 Ml) 10 ml IV BID [facility] Last Admin: 01/05/21 20:07 Dose: 10 ml Documented by: Assessment/ Plan: Nephrology Progress Note Limited IH/ ROS due to AMS. AMS improved today. No chest pain or dyspnea No acute events overnight Vitals, medications blood work and imaging reviewed in the chart General: Delirious HEENT: Atraumatic Neck: Supple, No LAD Respiratory: Clear to auscultation bilaterally Cardiovascular: No edema, Regular rate/rhythm Gastrointestinal: Soft and benign, Non-distended Musculoskeletal: No clubbing, No contractures Integumentary: No rashes, No cyanosis Neurological: Abnormal affect Laboratory Data (last 24 hrs) 01/04/21 05:45: PT 13.8 H, INR 1.20 01/04/21 05:45: WBC 22.60 H*, Hgb 16.3, Hct 52.4 H, Plt Count 144 L 01/04/21 05:45: Sodium 143, Potassium 4.9, BUN 110 H, Creatinine 2.68 H, Glucose 30 L*, Magnesium 2.2, Total Bilirubin 0.4, AST 22, ALT 22, Alkaline Phosphatase 148 H Imagings Data: EXAM DESCRIPTION: [facility] Protocol - 01/04/2021 7:07 am CLINICAL HISTORY: arf;Abd pain COMPARISON: No comparisons TECHNIQUE: CT of the abdomen and pelvis was performed. All CT scans are performed using dose optimization technique as appropriate and may include automated exposure control or mA/KV adjustment according to patient size. FINDINGS: Lower chest: Small bilateral effusions. Gynecomastia. Cardiomegaly. Small pericardial effusion. Coronary artery calcifications. Small hiatal hernia. Liver: No acute abnormality or suspicious lesions. Biliary: No biliary ductal dilatation. Stomach: No significant focal abnormality. Duodenum: No significant focal abnormality. Pancreas: No significant abnormality. Spleen: No significant abnormality. Adrenal: No suspicious lesions. Kidney/ureter: No hydronephrosis. No renal calculi. Retroperitoneum: No retroperitoneal adenopathy. Vascular: No aneurysm. Atherosclerosis. Bowel: Irregular thickening at the ascending colon. No bowel obstruction identified.. Peritoneum: No ascites or free air. Bladder: Gas within the bladder may be from recent instrumentation. Reproductive: Prostatomegaly. Bones: No acute fracture. Other: Body wall edema. IMPRESSION: 1. No hydronephrosis to explain renal failure. Note is made of moderate prostatomegaly. A Freire catheter is present within the bladder. Corre late for urinary retention. 2. Irregular thickening of the ascending colon. Recommend nonemergent colonoscopy for further evaluation. 3. Anasarca. EXAM DESCRIPTION: RAD - Chest Single View - 01/04/2021 7:44 am CLINICAL HISTORY: COUGH COMPARISON: Chest Single View dated 11/08/2020; Chest Single View dated 10/22/2020; Chest Single View dated 07/17/2020; Chest Pa And Lat (2 Views) dated 08/29/2017; Stone Protocol dated 01/04/2021 FINDINGS: Lines: None. Lungs: Similar prominence of the pulmonary interstitium. Left lung base is partially obscured due to a combination of atelectasis and poor penetration . Pleural: Small left pleural effusion. Cardiac: Cardiomegaly Bones: No acute fractures. Other: IMPRESSION: Pulmonary vascular congestion and small left pleural effusion. A small right pleural effusion is also present though not evident on this chest radiograph. Reference same-day CT of the abdomen and pelvis . Conclusions/Impression: ANGEL may be due to hypovolemia CKD IV with proteinuria -No NSAIDs -Hold diuretics at this time and restart as indicated -Check HBV panel HTN with CKD/ CHF -Continue Coreg Diastolic CHF, chronic -Continue Coreg DM II with CKD complicated by hypoglycemia -Restart insulin Mild Polycythemia -Hold diuretics Gout -Continue Allopurinol BPH with LUTS -Freire removed this morning -Start Flomax BID Toxic metabolic encephalopathy Uremic encephalopathy -Continue supportive care
[2021-01-05] MEDS ORDERED: TAMSULOSIN 0.4 MG SR CAP PO SCH (22:00)
--- NOTE | 2021-01-06 01:30 | PN ---
Date of Progress Note: 01/05/2021 Subjective: The patient was seen this morning for followup, lying in bed, not in distress. No new c omplaints or problems reported. Objective: Vital Signs: Reviewed. HEENT: Unremarkable. Lungs: Clear to auscultation. Cardiovascular: Heart sounds normal. Abdomen: Soft. Bowel sounds normal. No guarding, rigidity, tenderness, or distention. Extremities: No leg edema. Laboratory Data: White count 19.6, hemoglobin 14.4, platelets 90. Sodium 138, potassium 4.8, chlori de 107, bicarb 25, BUN 109, creatinine 2.64, glucose 195. Impression: 1.Hypoglycemia, resolved. 2.Type 2 diabetes mellitus. 3.Chronic kidney disease stage 4. 4.Hypertension. 5.Chronic systolic congestive heart failure. 6.Leukocytosis. Plan: We will go ahead and continue current medication. As of this morning, we started him on Lantu s 10 units subcutaneous injection daily. Fingerstick blood sugar readings reviewed, done throughout the day today, and his blood sugar is around 190-200 range. Home medications will be continued. We will continue current empiric antibiotic which is Zosyn. General surgeon Dr. Recinos was consulted. Bandar tovar evaluated the patient's both leg wounds and informed me that his leg wounds are healed. What he jhaveri s is a small area of scab, but no evidence of any infection from the leg. At this point, we do not h ave any exact reason or etiology for his leukocytosis, but empiric antibiotic Zosyn will be continued and I will follow up on blood work tomorrow morning. Depending on his blood work tomorrow, we will decide if we can possibly discharge him to go home tomorrow or not. I did try to contact the patient's 2 different times today and was not able to contact her and I w ill try 1 more time tonight. KARISHMA/MODL Voice ID: [id number] Report ID: [id number]
[2021-01-06 05:59] LABS: Basophils % 0.7 % (0-1.3); Hematocrit 39.4 % (39.6-49.0); Lymphocytes % 72.1 % (15.3-44.8); MPV 10.2 fL (7.6-11.3); RBC Red Blood Cell Count 4.45 M/uL (4.33-5.43)
[2021-01-06 06:19] LABS: Phosphorus 3.8 mg/dL (2.5-4.9); Uric Acid 3.3 mg/dL (3.5-7.2)
[2021-01-06 06:20] LABS: Potassium 4.7 mmol/L (3.5-5.1)
[2021-01-06] MEDS: INSULIN GLARGINE 100 UNITS/ML SQ SCH (08:00)
[2021-01-06] MEDS: DIVALPROEX DR 250 MG TAB PO SCH (09:00)
[2021-01-06] MEDS: HYDRALAZINE HCL 10 MG TABLET PO SCH (09:00)
[2021-01-06] MEDS: APIXABAN 2.5 MG TABLET PO SCH (09:00)
[2021-01-06] MEDS: ASPIRIN EC 81 MG TAB PO SCH (09:00)
[2021-01-06] MEDS: allopurinoL 300 MG TAB PO SCH (09:00)
[2021-01-06] MEDS: levETIRAcetam 500 MG TAB PO SCH (09:00)
[2021-01-06] MEDS: carvediloL 6.25 MG TAB PO SCH (09:00)
[2021-01-06] MEDS: ISOSORBIDE MONO SR 60 MG TAB PO SCH (09:00)
[2021-01-06 09:31] VITALS: O2SAT 99
--- NOTE | 2021-01-06 11:03 | RAD REPORT ---
[facility]12 [facility] CLINICAL HISTORY: Shortness of breath COMPARISON: January 04, 2021 FINDINGS: Bilateral pulmonary opacities have resolved. The heart remains enlarged. Small pleural effusions are present
[2021-01-06] MEDS: PIPER TAZO 3.375 GM in NA CHLORIDE 0.9% 100 ML IV SCH (11:12)
[2021-01-06 12:00] VITALS: BP 146/84; TEMP 96.7
--- NOTE | 2021-01-06 20:47 | P.PN ---
Date of Service: 01/06/21 Vital Signs Temp Pulse Resp BP Pulse Ox 96.7 F L 70 17 146/84 H 99 01/06/21 13:14 01/06/21 13:14 01/06/21 13:14 01/06/21 13:14 01/06/21 13:14 Assessment/ Plan: Nephrology Progress Note Limited IH/ ROS due to AMS. No chest pain or dyspnea No acute events overnight Vitals, medications blood work and imaging reviewed in the chart General: Delirious HEENT: Atraumatic Neck: Supple, No LAD Respiratory: Clear to auscultation bilaterally Cardiovascular: No edema, Regular rate/rhythm Gastrointestinal: Soft and benign, Non-distended Musculoskeletal: No clubbing, No contractures Integumentary: No rashes, No cyanosis Neurological: Abnormal affect Laboratory Data (last 24 hrs) 01/04/21 05:45: PT 13.8 H, INR 1.20 01/04/21 05:45: WBC 22.60 H*, Hgb 16.3, Hct 52.4 H, Plt Count 144 L 01/04/21 05:45: Sodium 143, Potassium 4.9, BUN 110 H, Creatinine 2.68 H, Glucose 30 L*, Magnesium 2.2, Total Bilirubin 0.4, AST 22, ALT 22, Alkaline Phosphatase 148 H Imagings Data: [facility] - [facility]04/[facility]21 7:07 am CLINICAL HISTORY: arf;Abd pain COMPARISON: No comparisons TECHNIQUE: CT of the abdomen and pelvis was performed. All CT scans are performed using dose optimization technique as appropriate and may include automated exposure control or mA/KV adjustment according to patient size. FINDINGS: Lower chest: Small bilateral effusions. Gynecomastia. Cardiomegaly. Small pericardial effusion. Coronary artery calcifications. Small hiatal hernia. Liver: No acute abnormality or suspicious lesions. Biliary: No biliary ductal dilatation. Stomach: No significant focal abnormality. Duodenum: No significant focal abnormality. Pancreas: No significant abnormality. Spleen: No significant abnormality. Adrenal: No suspicious lesions. Kidney/ureter: No hydronephrosis. No renal calculi. Retroperitoneum: No retroperitoneal adenopathy. Vascular: No aneurysm. Atherosclerosis. Bowel: Irregular thickening at the ascending colon. No bowel obstruction identified.. Peritoneum: No ascites or free air. Bladder: Gas within the bladder may be from recent instrumentation. Reproductive: Prostatomegaly. Bones: No acute fracture. Other: Body wall edema. IMPRESSION: 1. No hydronephrosis to explain renal failure. Note is made of moderate prostatomegaly. A Freire catheter is present within the bladder. Correlate for urinary retention. 2. Irregular thickening of the ascending colon. Recommend nonemergent colonoscopy for further evaluation. 3. Anasarca. EXAM DESCRIPTION: RAD - Chest Single View - 01/04/2021 7:44 am CLINICAL HISTORY: COUGH COMPARISON: Chest Single View dated 11/08/2020; Chest Single View dated 10/22/2020; Chest Single View dated 07/17/2020; Chest Pa And Lat (2 Views) dated 08/29/2017; Stone Protocol dated 01/04/2021 FINDINGS: Lines: None. Lungs: Similar prominence of the pulmonary interstitium. Left lung base is partially obscured due to a combination of atelectasis and poor penetration . Pleural: Small left pleural effusion. Cardiac: Cardiomegaly Bones: No acute fractures. Other: IMPRESSION: Pulmonary vascular congestion and small left pleural effusion. A small right pleural effusion is also present though not evident on this chest radiograph. Reference same-day CT of the abdomen and pelvis. EXAM DESCRIPTION: RADChest Single View01/06/2021 10:12 am CLINICAL HISTORY: Shortness of breath COMPARISON: January 04, 2021 FINDINGS: Bilateral pulmonary opacities have resolved. The heart remains enlarged. Small pleural effusions are present Conclusions/Impression: ANGEL may be due to hypovolemia CKD IV with proteinuria -No NSAIDs -Hold diuretics at this time and restart as indicated -HBV panel pending HTN with CKD/ CHF -Continue Coreg Diastolic CHF, chronic -Continue Coreg -CXR ordered and reviewed DM II with CKD complicated by hypoglycemia -Continue insulin Mild Polycythemia, improved -Hold diuretics Gout -Continue Allopurinol BPH with LUTS -Continue Flomax BID Toxic metabolic encephalopathy Uremic encephalopathy -Continue supportive care -Consider dialysis May have a poor prognosis due to worsening dementia
--- NOTE | 2021-01-07 12:53 | DS ---
Date of Discharge: 01/06/2021 Disposition: Discharged to go home. Physical Examination: HEENT: Unremarkable. Lungs: Clear to auscultation. Heart: Sounds normal. Abdomen: Soft. Bowel sounds normal. No guarding, rigidity, tenderness, or distention. Extremities: No leg edema. Discharge Medications And Instructions: 1.Continue all prior home medications as you were taking prior to this admission. 2.Take Levemir insulin subcutaneous injection as below. Check your blood sugar before breakfast and at bedtime and bring those readings to office at the time of followup visit. 3.The patient to follow up at my office on 01/11/2021 or 01/12/2021. 4.Augmentin 500 mg 2 times a day for 10 days. 5.The patient to take Levemir insulin in the morning with breakfast and at bedtime as below. For oscar gar 200 or less, do not take any insulin and if the sugar is 201 or higher, did take 5 units of insul in. Laboratory Data: Upon admission; white count 22.6, hemoglobin 16.3, platelets 144. Yesterday; white count 19.6, hemoglobin 14.4, platelets 99. Today; white count 18, hemoglobin 12.4, platelets 97. C hemistry yesterday; sodium 140, potassium 4.7, chloride 107, bicarb 23, BUN 111, creatinine 3.05, glu cose 179. On admission; sodium 143, potassium 4.9, chloride 110, bicarb 27, BUN 110, creatinine 2.68 , glucose 30. Hospital Course: This is a 75-year-old male patient, admitted to the hospital when he was found unre sponsive at home with hypoglycemia problem. Lately, the patient's condition has been deteriorating, he is not ambulating, he stays in bed, his appetite has gone down. Recently when I saw him at office , we reduced his insulin dose to 10 units 2 times a day, but today upon further questioning admi ts that she is giving him 30 units. After I talked to her about and reminded her about this recent d ose reduction, she realized that, but she forgot to make the change. In any case, after he arrived a t the office, he was treated with IV dextrose solution and he was given IV fluid D10W with close ion toring of blood sugar readings and his hypoglycemia problem resolved and subsequently we were able to discontinue his IV fluid D10W.. He has not had any recurrence of hypoglycemia. He tolerated diet v sid well, although his appetite is unpredictable and not normal. We gave him 10 units of regular ins ulin subcutaneous injection yesterday morning and all throughout the day, his fingerstick blood sugar was around 190 to 200 range. This morning, he did not receive his 10 units of regular insulin which was scheduled to be given because he was still sleeping and noontime when nurse contacted me and inf ormed me that the patient's blood sugar was 118 and once again the patient did not get any insulin to day. The patient's appetite is going to continue to be unpredictable and risk of hypoglycemia is mor e of a concern at this point and with that as outlined in the discharge instructions, so he will get 5 units of Levemir insulin in the morning if sugar is more 201 or high and same in the evening time i f sugar is 201 or higher, then he will get 5 units. Otherwise, he will not take any insulin so this way we can minimize any chances of hypoglycemia with still some control of diabetes. His overall pro gnosis is very poor. DNR order was written in the chart per my discussion with the patient's ronaldo r and the patient's does have decision. Family is leaning towards decision of no dialysis, alth ough they have not decided anything for sure at this point. Overall long-term prognosis is poor. He does have leukocytosis. The definite source of elevated WBC is not clear. Dr. Recinos evaluated his legs and he informed me that he does not have any area of concern regarding any infection in his leg. The patient does not have any decubitus and no other definite source of elevated WBC count, but his WBC count has responded well to IV Zosyn and upon discharge, we will give him oral Augmentin. Final Diagnoses: 1.Severe hypoglycemia. 2.Leukocytosis. 3.Chronic kidney disease, stage 4. 4.Pleural effusion. 5.Pericardial effusion. 6.Hypertension. 7.Mixed hyperlipidemia. 8.Type 2 diabetes mellitus with chronic kidney disease. 9.Chronic systolic congestive heart failure. 10.Coronary artery disease. 11.Gastroesophageal reflux disease. 12.Benign prostatic hypertrophy. 13.Gout. 14.Seizure disorder. 15.Vascular dementia. 16.Anemia due to chronic kidney disease. KARISHMA/MODL Voice ID: [id number] Report ID: [id number]
[2021-01-11 14:11] LABS: HBsAG Nonreactive (Nonreactive)
== END 2021-01-06 13:10 | disposition home health service (06) | DRG 637 ==
LOC: ER 05:31 → ERHOLD 08:03 → UNDODISIN 15:37 → 4TH 23:43
PROVIDERS: ADMIT Internal Medicine; ATTEND Internal Medicine
DX: E11.649 Type 2 diabetes mellitus with hypoglycemia without coma (principal); G92.9 Unspecified toxic encephalopathy; I50.22 Chronic systolic (congestive) heart failure; I13.0 Hypertensive heart and chronic kidney disease with heart failure and stage 1 through stage 4 chronic kidney disease, or unspecified chronic kidney disease; I31.3 Pericardial effusion (noninflammatory); N18.4 Chronic kidney disease, stage 4 (severe); E11.22 Type 2 diabetes mellitus with diabetic chronic kidney disease; M10.9 Gout, unspecified; D72.829 Elevated white blood cell count, unspecified; K21.9 Gastro-esophageal reflux disease without esophagitis; D63.1 Anemia in chronic kidney disease; F01.50 Vascular dementia, unspecified severity, without behavioral disturbance, psychotic disturbance, mood disturbance, and anxiety; N40.1 Benign prostatic hyperplasia with lower urinary tract symptoms; D75.1 Secondary polycythemia; I25.10 Atherosclerotic heart disease of native coronary artery without angina pectoris; E78.2 Mixed hyperlipidemia; N17.9 Acute kidney failure, unspecified; Z74.01 Bed confinement status; Z86.73 Personal history of transient ischemic attack (TIA), and cerebral infarction without residual deficits; Z79.4 Long term (current) use of insulin; Z79.01 Long term (current) use of anticoagulants; Z66 Do not resuscitate; Z79.82 Long term (current) use of aspirin; Z79.899 Other long term (current) drug therapy; Z20.822 Contact with and (suspected) exposure to COVID-19
CPT/HCPCS: 36415; 51702; 70450; 71045; 74176; 76377; 80048; 80076; 81003; 82140; 82550; 82553; 82947; 83036; 83605; 83735; 83880; 84100; 84145; 84484; 84550; 85025; 85610; 86317; 86704; 87340; 93005; 99291; 99292; J0290; J1580; J1815; J1940; J2543; J7030; J7040; J7050; J7799; U0003

== ENCOUNTER 2021-01-25 20:02 | Inpatient (IN) | payer OTHER ==
[2021-01-25] MEDS ORDERED: NA CHLORIDE 0.9% 1,000 ML ONE (21:11)
--- NOTE | 2021-01-25 21:20 | EDPHYS ---
Physician Documentation [facility] Name: Flex Morel Age: 75 yrs Sex: Male : 1945 Arrival Date: 01/25/2021 Time: 20:26 Bed 25 Private MD: ED Physician Hung Sosa HPI: 01/25 20:50 This 75 yrs old Black Male presents to ER via EMS with complaints of Syncope. pkl 21:11 The patient presents after having a single isolated seizure, that lasted 15 minute(s). pkl Character of seizure(s): Loss of consciousness: the patient experienced loss of consciousness, Motor activity: generalized, shaking all over. Seizure onset: just prior to arrival. Associated injury: The patient did not suffer any apparent associated injury. The patient has experienced similar episodes in the past, several times. said patient had 3 seizures this week. Historical: - Allergies: 20:33 No Known Allergies; lh3 - PMHx: 20:33 CHF; CVA; Diabetes - NIDDM; Gout; Hyperlipidemia; Hypertension; Seizures; lh3 - Immunization history:: Client reports receiving the 2nd dose of the Covid vaccine, Date received: 2020. - Social history:: Smoking status: unknown. ROS: 21:11 Eyes: Negative for injury, pain, redness, and discharge, ENT: Negative for injury, pkl pain, and discharge, Neck: Negative for injury, pain, and swelling, Cardiovascular: Negative for chest pain, palpitations, and edema, Respiratory: Negative for shortness of breath, cough, wheezing, and pleuritic chest pain, Abdomen/GI: Negative for abdominal pain, nausea, vomiting, diarrhea, and constipation, Back: Negative for injury and pain, : Negative for injury, bleeding, discharge, and swelling, MS/Extremity: Negative for injury and deformity, Skin: Negative for injury, rash, and discoloration. 21:11 Neuro: Positive for seizure activity. Exam: 21:11 Head/Face: Normocephalic, atraumatic. Eyes: Pupils equal round and reactive to light, pkl extra-ocular motions intact. Lids and lashes normal. Conjunctiva and sclera are non-icteric and not injected. Cornea within normal limits. Periorbital areas with no swelling, redness, or edema. ENT: Nares patent. No nasal discharge, no septal abnormalities noted. Tympanic membranes are normal and external auditory canals are clear. Oropharynx with no redness, swelling, or masses, exudates, or evidence of obstruction, uvula midline. Mucous membranes moist. Neck: Trachea midline, no thyromegaly or masses palpated, and no cervical lymphadenopathy. Supple, full range of motion without nuchal rigidity, or vertebral point tenderness. No Meningismus. Chest/axilla: Normal chest wall appearance and motion. Nontender with no deformity. No lesions are appreciated. Cardiovascular: Regular rate and rhythm with a normal S1 and S2. No gallops, murmurs, or rubs. Normal PMI, no JVD. No pulse deficits. Respiratory: Lungs have equal breath sounds bilaterally, clear to auscultation and percussion. No rales, rhonchi or wheezes noted. No increased work of breathing, no retractions or nasal flaring. Abdomen/GI: Soft, non-tender, with normal bowel sounds. No distension or tympany. No guarding or rebound. No evidence of tenderness throughout. Back: No spinal tenderness. No costovertebral tenderness. Full range of motion. Skin: Warm, dry with normal turgor. Normal color with no rashes, no lesions, and no evidence of cellulitis. MS/ Extremity: Pulses equal, no cyanosis. Neurovascular intact. Full, normal range of motion. 21:11 Neuro: Orientation: appropriate for stated age, Cranial nerves: grossly normal, Motor: is normal. Vital Signs: 20:27 BP 111 / 59; Pulse 66; Resp 18; Temp 97.8(O); Pulse Ox 98% on R/A; Weight 68.04 kg; lh3 Height 6 ft. (182.88 cm); 20:27 Body Mass Index 20.34 (68.04 kg, 182.88 cm) lh3 MDM: 20:34 Patient medically screened. pkl 21:11 Data reviewed: vital signs. ED course: Talked to Dr. Murillo, admit. Consult Dr. Metzger. pkl Talked to Dr. Metzger. To give patient patient Depakote 250 mg 2 times daily and Keppra 500 md 2 times daily. 01/25 20:59 Order name: Basic Metabolic Panel pkl 01/25 20:59 Order name: CBC with Diff pkl 01/26 20:59 Order name: LFT's pkl 01/25 20:59 Order name: Magnesium pkl 01/25 20:59 Order name: NT PRO-BNP pkl 01/25 20:59 Order name: PT-INR; Complete Time: 22:42 pkl 01/25 20:59 Order name: Troponin (emerg Dept Use Only); Complete Time: 23:57 pkl 01/25 20:59 Order name: Basic Metabolic Panel; Complete Time: 23:57 EDMS 01/25 21:00 Order name: CBC with Automated Diff; Complete Time: 00:31 EDMS 01/25 21:00 Order name: Liver (Hepatic) Function; Complete Time: 23:57 EDMS 01/25 21:00 Order name: Magnesium; Complete Time: 23:57 EDMS 01/25 21:00 Order name: NT PRO-BNP; Complete Time: 23:57 EDMS 01/25 21:13 Order name: KEPPRA (LEVETIRACETAM) EDMS 01/25 21:14 Order name: Glucose, Ancillary Testing; Complete Time: 22:42 EDMS 01/25 21:20 Order name: Lactate pkl 01/25 21:20 Order name: Procalcitonin; Complete Time: 00:13 pkl 01/25 21:21 Order name: Lactate; Complete Time: 23:57 EDMS 01/25 21:50 Order name: Valproic Acid (Depakene) Level; Complete Time: 23:57 EDMS 01/25 23:28 Order name: Manual Differential; Complete Time: 00:31 EDMS 01/26 00:13 Order name: COVID-19/FLU A+B (Document "Date of Onset" if Symptomatic) pkl 01/26 00:13 Order name: COVID-19/FLU A+B; Complete Time: 01:25 EDMS 01/26 00:13 Order name: Blood Culture Adult (2) pkl 01/26 01:55 Order name: Basic Metabolic Panel EDMS 01/26 01:55 Order name: Basic Metabolic Panel EDMS 01/26 01:55 Order name: NT PRO-BNP EDMS 01/26 01:55 Order name: CBC with Automated Diff EDMS 01/26 01:55 Order name: CBC with Automated Diff EDMS 01/26 01:55 Order name: NT PRO-BNP EDMS 01/25 20:59 Order name: XRAY Chest (1 view); Complete Time: 22:42 pkl 01/25 20:59 Order name: EKG; Complete Time: 21:00 pkl 01/25 20:59 Order name: Cardiac monitoring; Complete Time: 21:41 pkl 01/25 20:59 Order name: EKG - Nurse/Tech pkl 01/25 20:59 Order name: IV Saline Lock; Complete Time: 21:41 pkl 01/25 20:59 Order name: Labs collected and sent; Complete Time: 21:41 pkl 01/25 20:59 Order name: O2 Per Protocol; Complete Time: 21:41 pkl 01/25 20:59 Order name: O2 Sat Monitoring; Complete Time: 21:41 pkl 01/25 23:59 Order name: CT Chest Wo Con pkl 01/26 01:55 Order name: CONS Physician Consult EDMS 01/26 01:55 Order name: 60g Consistent Carbohydrate (ADA 1800/1999) EDMS 01/26 07:24 Order name: Glucose, Ancillary Testing EDMS Administered Medications: 21:39 Drug: NS 0.9% 1000 ml Route: IV; Rate: 100 ml/hr; Site: left hand; [facility] 01/26 01:29 Drug: Zithromax (azithromycin) 500 mg Route: IVPB; Infused Over: 1 hrs; Site: left hand;[facility] 02:58 Drug: Rocephin (cefTRIAXone) 1 grams Route: IV; Rate: calculated rate; Site: right hand;[facility] Point of Care Testing: Blood Glucose: 01/25 23:24 Blood Glucose: 175 mg/dL; [facility] Ranges: Critical Glucose Levels:Adult <50 mg/dl or >400 mg/dl <40 mg/dl or >180 mg/dl Disposition Summary: 01/25/21 21:19 Hospitalization Ordered Hospitalization Status: Inpatient Admission pkl Provider: Chito Murillo pkl Condition: Stable pkl Problem: new pkl Symptoms: have improved pkl Bed/Room Type: Standard pkl Location: Telemetry/MedSurg (Inpatient)(01/26/21 09:08) dw Room Assignment: 221(01/26/21 09:08) dw Diagnosis - Recurrent seizures. Hypotension pkl - Recurrent seizures. Hypotension. Pneumonia. Chronic renal disease pkl Forms: - Medication Reconciliation Form pkl - SBAR form pkl Signatures: Dispatcher [employer] EDMS Jennifer Yoon RN RN Hung Sosa MD MD pkl Yanely Comer, EDIE RN Jannet Yu RN RN lh3 Corrections: (The following items were deleted from the chart) 21:25 21:11 VALPROIC ACID (DEPAKOTE)+C.LAB.BRZ ordered. EDMS EDMS 21:49 21:11 Valproic Acid (Depakene) Level ordered. EDMS EDMS 22:45 21:19 [facility] 22:45 21:19 pk cg 01/26 09:08 01/25 22:45 [facility] ER [facility] dw 01/26 09:08 01/25 22:45 ERHOLD- dw
--- NOTE | 2021-01-25 21:20 | ER ---
Nurse's Notes [facility] Name: Flex Morel Age: 75 yrs Sex: Male : 1945 Arrival Date: 01/25/2021 Time: 20:26 Bed 25 Private MD: Diagnosis: Recurrent seizures. Hypotension;Recurrent seizures. Hypotension. Pneumonia. Chronic renal disease Presentation: 01/25 20:27 Chief complaint: EMS states: that family states that he had a syncopal episode while lh3 using the restroom and it has happened several times this week. Stated that BP was 60/48 when they arrived. No fall, just sycope. BP in route was 132/80 HR 66, 98% on RA. family stated that mentation is back to normal, prior to EMS leaving. Coronavirus screen: Vaccine status: Patient reports receiving the 2nd dose of the covid vaccine. Date 2020. Ebola Screen: Patient negative for fever greater than or equal to 101.5 degrees Fahrenheit, and additional compatible Ebola Virus Disease symptoms Patient denies exposure to infectious person. Patient denies travel to an Ebola-affected area in the 21 days before illness onset. No symptoms or risks identified at this time. Initial Sepsis Screen: Does the patient meet any 2 criteria? No. Patient's initial sepsis screen is negative. Does the patient have a suspected source of infection? No. Patient's initial sepsis screen is negative. Risk Assessment: Do you want to hurt yourself or someone else? Unable to obtain. Onset of symptoms was January 25, 2021. 20:27 Method Of Arrival: EMS lh3 20:27 Acuity: MIKAL 3 lh3 Triage Assessment: 20:33 General: Appears in no apparent distress. Behavior is calm, cooperative, appropriate lh3 for age. Pain: Denies pain. Neuro: Reports a syncopal episode. Historical: - Allergies: 20:33 No Known Allergies; lh3 - PMHx: 20:33 CHF; CVA; Diabetes - NIDDM; Gout; Hyperlipidemia; Hypertension; Seizures; lh3 - Immunization history:: Client reports receiving the 2nd dose of the Covid vaccine, Date received: 2020. - Social history:: Smoking status: unknown. Screenin:34 Abuse screen: Denies threats or abuse. Denies injuries from another. Nutritional lh3 screening: No deficits noted. Tuberculosis screening: No symptoms or risk factors identified. Fall Risk. Assessment: 20:34 Neuro: Level of Consciousness is alert, obeys commands, lethargic. Cardiovascular: 3 Rhythm is regular. Vital Signs: 20:27 BP 111 / 59; Pulse 66; Resp 18; Temp 97.8(O); Pulse Ox 98% on R/A; Weight 68.04 kg; 3 Height 6 ft. (182.88 cm); 20:27 Body Mass Index 20.34 (68.04 kg, 182.88 cm) 3 ED Course: 20:26 Patient arrived in ED. bb 20:27 Jannet Yu, RN is Primary Nurse. lh3 20:30 Triage completed. lh3 20:33 Arm band placed on left wrist. lh3 20:34 Hung Sosa MD is Attending Physician. pkl 20:34 Patient has correct armband on for positive identification. Bed in low position. Call [facility] light in reach. Side rails up X 1. 20:34 No provider procedures requiring assistance completed. lh3 21:18 Chito Murillo MD is Hospitalizing Provider. pkl 21:40 XRAY Chest (1 view) In Process Unspecified. EDMS 21:41 Basic Metabolic Panel Sent. lh3 21:41 CBC with Diff Sent. lh3 21:41 LFT's Sent. lh3 21:41 Magnesium Sent. lh3 21:41 NT PRO-BNP Sent. lh3 23:23 Lactate Sent. lh3 23:24 Patient admitted, IV remains in place. 3 01/26 00:40 CT Chest Wo Con In Process Unspecified. EDMS 01:17 COVID-19/FLU A+B (Document "Date of Onset" if Symptomatic) Sent. 3 Administered Medications: 01/25 21:39 Drug: NS 0.9% 1000 ml Route: IV; Rate: 100 ml/hr; Site: left hand; 3 01/26 01:29 Drug: Zithromax (azithromycin) 500 mg Route: IVPB; Infused Over: 1 hrs; Site: left hand;3 02:58 Drug: Rocephin (cefTRIAXone) 1 grams Route: IV; Rate: calculated rate; Site: right hand;[facility] Point of Care Testing: Blood Glucose: 01/25 23:24 Blood Glucose: 175 mg/dL; [facility] Ranges: Outcome: 21:19 Decision to Hospitalize by Provider. [place]edom 23:24 Admitted to ER Hold. Please see [facility] for further documentation. 3 23:24 Condition: good 23:24 Instructed on the need for admit. 01/26 09:44 Patient left the ED. Signatures: Dispatcher [employer] EDMS Hung Sosa MD MD pkBree Cueto RN RN bb Jessica Marshall RN RN iw Hardee, Latisha, RN RN 3 Corrections: (The following items were deleted from the chart) 01/25 21:25 21:25 VALPROIC ACID (DEPAKOTE)+C.LAB.BRZ drawn and sent. [facility] EDMS
[2021-01-25 22:03] LABS: Protime INR 1.1
--- NOTE | 2021-01-25 22:03 | RAD REPORT ---
EXAM DESCRIPTION: RAD - Chest Single View - 01/25/2021 9:40 pm CLINICAL HISTORY: seizures COMPARISON: Chest Single View dated 01/06/2021; Chest Single View dated 01/04/2021; Chest Single Vie w dated 11/08/2020; Chest Single View dated 10/22/2020 FINDINGS: Lines: None. Lungs: Airspace disease bilaterally which is new from prior. This is eccentric to the left lung. Pleural: No significant pleural effusions or pneumothorax. Cardiac: Cardiomegaly. Bones: No acute fractures. Other: IMPRESSION: New bilateral airspace disease that may represent pneumonia.
[2021-01-25 23:27] LABS: Basophils % 0.7 % (0-1.3); Hematocrit 42.3 % (39.6-49.0); Lymphocytes % 70.9 % (15.3-44.8); MPV 9.9 fL (7.6-11.3); RBC Red Blood Cell Count 4.74 M/uL (4.33-5.43)
[2021-01-25 23:43] LABS: Albumin 2.2 g/dL (3.4-5.0); Bilirubin Direct 0.2 mg/dL (0-0.2); Bilirubin Total 0.4 mg/dL (0.2-1.0); Magnesium 2.3 mg/dL (1.8-2.4); Potassium 4.8 mmol/L (3.5-5.1); Protein, Total 7.3 g/dL (6.4-8.2); Valproic Acid (Depakene) Level 92.1 ug/mL (50-100)
[2021-01-25 23:44] LABS: Troponin (Emerg Dept Use Only) 0.05 ng/mL (0.0-0.045)
[2021-01-26 00:22] LABS: Smudge Cells 32
[2021-01-26 00:24] LABS: Blood Morphology Comment NOT SEEN (NOT SEEN); Platelet Estimate DECR
[2021-01-26] MEDS ORDERED: NA CHLORIDE 0.9% 250 ML ONE (01:18)
[2021-01-26] MEDS ORDERED: AZITHROMYCIN 500 MG INJ IVPB ONE (01:18)
[2021-01-26 01:23] LABS: SARS-COV-2 RT PCR NEGATIVE (NEGATIVE)
[2021-01-26] MEDS ORDERED: ALBUTEROL 2.5 MG/3 ML NEB SOL NEB PRN ×2 (01:46→17:00)
[2021-01-26] MEDS ORDERED: IPRATROPIUM BROM 0.5MG/2.5ML NEB PRN ×2 (01:46→17:00)
[2021-01-26] MEDS ORDERED: D50W 25 GM/50 ML SYRINGE IV PRN ×2 (01:51→06:56)
[2021-01-26] MEDS ORDERED: GLUCAGON 1 MG/VIAL IM PRN ×3 (01:51→06:58)
[2021-01-26] MEDS ORDERED: NA CHLORIDE 0.9% 1,000 ML IV SCH (02:00)
[2021-01-26] MEDS ORDERED: CEFTRIAXONE 1000 MG/VIAL ONE (02:24)
[2021-01-26 03:34] VITALS: BMI 21.7
[2021-01-26] MEDS ORDERED: ASPIRIN EC 81 MG TAB PO ONE (07:27)
[2021-01-26] MEDS ORDERED: levETIRAcetam 500 MG TAB ONE (07:27)
[2021-01-26] MEDS ORDERED: DIVALPROEX DR 250 MG TAB PO ONE (07:28)
[2021-01-26] MEDS ORDERED: INSULIN -REGULAR HUMAN 50 UNIT/0.5 ML ML SQ SCH (07:30)
[2021-01-26] MEDS: ASPIRIN EC 81 MG TAB PO SCH (07:43)
[2021-01-26] MEDS: INSULIN GLARGINE 100 UNITS/ML SQ SCH ×2 (07:43→21:00)
[2021-01-26] MEDS: levETIRAcetam 500 MG TAB PO SCH ×2 (07:44→21:24)
[2021-01-26] MEDS: DIVALPROEX DR 250 MG TAB PO SCH ×2 (07:44→21:24)
[2021-01-26] MEDS: CEFTRIAXONE 1 GM/NS 50 ML 1 GM/50 ML BAG IV SCH ×2 (08:00→21:23)
[2021-01-26] MEDS: APIXABAN 2.5 MG TABLET PO SCH ×2 (08:26→21:23)
[2021-01-26] MEDS: ISOSORBIDE MONO SR 60 MG TAB PO SCH (08:26)
[2021-01-26] MEDS: allopurinoL 300 MG TAB PO SCH (08:26)
[2021-01-26] MEDS: AZITHROMYCIN IV 250 MG in NA CHLORIDE 0.9% 250 ML IVPB SCH (08:30)
[2021-01-26] MEDS ORDERED: SUCCINYLCHOLINE 20 MG/ML (10 ML) IV ONE (10:34)
[2021-01-26] MEDS ORDERED: ETOMIDATE 20 MG/10 ML VIAL IV ONE (10:34)
--- NOTE | 2021-01-26 13:50 | RAD REPORT ---
EXAM DESCRIPTION: CT - Thorax Wo Con - 01/26/2021 6:54 am CLINICAL HISTORY: The patient is 75 years old and is Male; Possible pneumonia TECHNIQUE: Axial computed tomography images of the chest without intravenous contrast. Sagittal an d coronal reformatted images were created and reviewed. This CT exam was performed using one or mor e of the following dose reduction techniques: automated exposure control, adjustment of the mA and/ or kV according to patient size, and/or use of iterative reconstruction technique. COMPARISON: No relevant prior studies available. FINDINGS: Lungs: Groundglass changes in the right medial lung base which may be due to atelectasis or airspace disease. Pleural space: Small bilateral pleural effusions with associated atelectasis. No pneumothorax. Heart: Small pericardial effusion. Coronary artery calcifications. Bones/joints: Unremarkable. No acute fracture. No dislocation. Soft tissues: Gynecomastia which appears quite prominent on the left. Diffuse subcutaneous soft tissue edema. Vasculature: Scattered atherosclerotic vascular calcifications. No thoracic aortic aneurysm. Lymph nodes: Unremarkable. No enlarged lymph nodes. Liver: Calcified granulomas in the liver. IMPRESSION: 1. Small bilateral pleural effusions with associated atelectasis. 2. Groundglass changes in the right medial lung base which may be due to atelectasis or airspace di sease. 3. Small pericardial effusion. 4. Gynecomastia which appears quite prominent on the left. Consider follow-up imaging to establis h stability. 5. Diffuse subcutaneous soft tissue edema. Electronically signed by: Cosmo Dunn MD 01/26/2021 1:28 AM CDT CLINICAL HISTORY: The patient is 75 years old and is Male; Possible pneumonia TECHNIQUE: Axial computed tomography images of the chest without intravenous contrast. Sagittal a nd coronal reformatted images were created and reviewed. This CT exam was performed using one or mo re of the following dose reduction techniques: automated exposure control, adjustment of the mA and /or kV according to patient size, and/or use of iterative reconstruction technique. COMPARISON: No relevant prior studies available. FINDINGS: Lungs: Groundglass changes in the right medial lung base which may be due to atelectasis or airsp justa disease. Pleural space: Small bilateral pleural effusions with associated atelectasis. No pneumothorax. Heart: Small pericardial effusion. Coronary artery calcifications. Bones/joints: Unremarkable. No acute fracture. No dislocation. Soft tissues: Gynecomastia which appears quite prominent on the left. Diffuse subcutaneous soft tissue edema. Vasculature: Scattered atherosclerotic vascular calcifications. No thoracic aortic aneurysm. Lymph nodes: Unremarkable. No enlarged lymph nodes. Liver: Calcified granulomas in the liver. IMPRESSION: 1. Small bilateral pleural effusions with associated atelectasis. 2. Groundglass changes in the right medial lung base which may be due to atelectasis or airspace di sease. 3. Small pericardial effusion. 4. Gynecomastia which appears quite prominent on the left. Consider follow-up imaging to [facility]. 5. Diffuse subcutaneous soft tissue edema. Electronically signed by: Cosmo Dunn MD 01/26/2021 1:28 AM CDT Due to temporary technical issues with the PACS/Fluency reporting system, reports are being signed by the in house radiologists without review as a courtesy to insure prompt reporting. The interpreting radiologist is fully responsible for the content of the report.
--- NOTE | 2021-01-26 20:40 | CON ---
Date of Consultation: 01/26/2021 Reason For Consultation: Sacral decubitus and blisters on heels and left lateral foot. History Of Present Illness: The patient is a 75-year-old gentleman, who I have seen in the past with leg wounds, who came to the emergency room following a seizure and syncope and he was admitted for f urther treatment or workup and the patient has a history of seizures and according to the this i s his third seizure, but he stayed in his syncopal episode for 15 minutes. After admission, Dr. Murillo evaluated the patient and found areas of concern regarding the sacrum, heels, and the left lateral f oot and I was consulted. He is awake and alert. He is confused he is unable to provide any signific ant review of systems. Past Medical History: Significant for diabetes, CHF, gout, hyperlipidemia, hypertension, and seizure s. Allergies: NONE. Past Surgical History: Eye surgery. Social History: The patient currently does not smoke or drink. Family History: Significant for diabetes, hypertension, and coronary artery disease. Physical Examination: Vital Signs: Stable. He is afebrile. General: He is awake and confused. Head and Neck: No masses. Chest: Clear. Heart: S1, S2. Abdomen: Soft. Extremities: Diminished dorsalis pedis and posterior tibial pulses. He is somewhat contracted to th e left side and with a left lateral foot having a blister with deep tissue injury beneath it and the both heels have blisters with no open wounds, but they are bogie and have evidence of deep tissue inj uries, sacrum has a 0.7 x 0.4 x 0.1 cm stage III decubitus ulcer. Laboratory Data: White count is 15.6 with a left shift. Platelets are low at 80,000. INR is 1.1. Chemistry reviewed. Procalcitonin is 0.21. Lactic acid is 1. BUN and creatinine are elevated at 67 and 2.21. Assessment: A 75-year-old gentleman with multiple medical problems with sacral decubitus and bilater al foot blisters with deep tissue injury. Recommendations: Clean the area with normal saline. Tanya to the sacral wound and then offloading the heels and foot with gauze and Kerlix. Encourage p.o. intake, air mattress and the patient can fo llow up in the wound healing center upon discharge. No need for any acute surgical intervention at t his time. /MODL Voice ID: [id number] Report ID: [id number]
[2021-01-26] MEDS: ATORVASTATIN 80 MG TAB PO SCH (21:24)
[2021-01-26] MEDS: QUETIAPINE 25 MG TAB PO SCH (21:24)
--- NOTE | 2021-01-27 03:11 | CON ---
Reason For Consultation: Consultation called by primary care physician, Dr. Murillo, because of repeate d seizure. History Of Present Illness: Mr. Morel is a 75-year-old patient with history of s troke, diabetes mellitus, gout, dyslipidemia, hypertension, and seizures, who comes in after a 15-min jennifer seizure. The seizure is not described further, although it is reported to be generalized, shakin g all over and a total time of 15 minutes. Following the event, he had some difficulty with recovery and has been more confused, not following simple commands. The hospital note from the emergency jessy m indicated the patient has had 3 seizures total in the week. He has been on Depakote and Keppra. B lood levels of Depakote indicated 92.1, which is a very good level. Keppra level is pending. His co mplete blood count with differential suggested an infection with white blood cell count elevated at 1 5,600 and neutrophils low at 25.1, lymphocytes elevated to 70.9. He has renal insufficiency; however , his procalcitonin is elevated to 0.21. Lactic acid was normal. Liver function studies show elevat ed alkaline phosphatase. Glucose elevated at 197. His COVID test was negative. His chest CT scan s howed small bilateral pleural effusions with atelectasis. He is now treated with Rocephin and azithr omycin for presumed infection, perhaps pneumonia. Since hospitalization, he has not had additional s eizure. He is on Keppra 500 mg twice daily and Depakote 250 mg twice daily. Past Medical History: As noted. Allergies: NO KNOWN DRUG ALLERGIES. Social History: No tobacco or IV drug use. Family History: Noncontributory. Review of Systems: Not possible. At this point, the patient is not answering questions appropriately. He is very tange ntial and may say 1 or 2 words in response to questions. Physical Examination: Vital Signs: Blood pressure 111/72, pulse 66, respiratory rate 16, temperature 97.8, oxygen saturati on 97%. Weight 160 pounds, height 6 feet, BMI 21.7. General: Mr. Morel is resting in his hospital bed. He is somewhat turned to the left side. He i s eating lunch. He does pay attention to voice when spoken to, although he keeps saying he cannot he ar to almost every interaction. He eventually did say 1 or 2 words in response where appropriate, bu t mostly was very tangential and not responding at all. Neurological: His cranial nerve examination shows focal deficits. Normally, he was disheveled. Mot or examination, he did appear to move the arms and legs limited, but symmetric. Could not fully asse ss coordination and gait. Assessment: Mr. Morel is a 75-year-old patient with multiple medical problems as outlined. He al so has stroke with seizures and has had multiple seizures. He appears to have perhaps pneumonia, whi ch may have lowered his seizure threshold, increasing his seizure frequency, which was reported to be 3 this week. Plan: 1.Continue aggressive management of his possible pneumonia. 2.Continue with the Keppra and Depakote as indicated. We will follow up Keppra level and determine if an adjustment of the dosage needs to be made. 3.Brain MRI with and without contrast may be helpful and routine electroencephalogram may be helpful . The patient will be followed tomorrow. KATHY Voice ID: [id number] Report ID: [id number]
--- NOTE | 2021-01-27 05:46 | HP ---
Date of Admission: 01/26/2021 Chief Complaint: Passing out. History Of Present Illness: This is a 75-year-old male patient who lives at home with his and other family member was brought into emergency room after episodes of passing out at home. The patient had multiple episodes this week and yesterday he was brought into the ER. When the EMS arrived at scene, his blood pressure was 60/[address] to emergency room, blood pressure recorded to be 132/80. After he was evaluated in the ER, I was contacted requesting admission to hospital. Neurology consultation from Dr. Metzger has been requested. Allergies: NO KNOWN ALLERGIES. Medications: List reviewed. Review of Systems: TOUR BUS DRIVER: As mentioned above. CONSTITUTIONAL: Weight loss. All other systems reviewed and negative. Past Medical History: Significant for seizure disorder, allergic rhinitis, type 2 diabetes mellitus, hypertension, mixed hyperlipidemia, coronary artery disease, chronic systolic congestive heart failure, gastroesophageal reflux disease, chronic kidney disease, benign prostatic hypertrophy, gout, anemia due to chronic kidney disease, hyperkalemia, vascular dementia. Past Surgical History: Eye surgery. Family History: Father had diabetes. Mother, hypertension, arthritis. Brother, coronary artery disease. Social History: Negative for smoking or alcohol use. Physical Examination: Vital Signs: Weight recorded to be 160 pounds, height 6 feet, pulse 60, respiratory rate 18, blood pressure 106/62, oxygen saturation 100% on room air. The patient's previous weight, it was 179 pounds on January 04, 2021, and 215 pounds July 13, 2020 GENERAL: Patient is lying in bed, does not answer any questions. Not in any distress. SKIN: Right heel has dark discoloration of the skin over heel. No redness and left foot mid lateral foot has a small area about 1 cm area dark black discoloration of the skin. No open wound. HEENT: Head atraumatic, normocephalic. Conjunctivae nonerythematous. Sclerae white. Mouth, no thrush or edema noted. Ears/Nose, no mass, lesion, discharge noted. Neck: Supple. No JVD, lymph nodes, bruit, thyromegaly noted. Lungs: Bilateral good equal air entry. Clear to auscultation. No rhonchi. No rales. Heart: Normal heart sounds, no murmur or gallop. Abdomen: Soft, bowel sounds normal. No guarding, rigidity, tenderness, mass, hepatosplenomegaly, distention, or bruit noted. Extremities: No leg edema. No calf tenderness. Lymphatics: No lymph node enlargement in neck, supraclavicular, infraclavicular region. Neuro: No focal neurological deficit. Chest: Unremarkable. External Genitalia: Deferred. Rectal: Deferred. Laboratory Data: White count 15.6, hemoglobin 13, platelets 80. Sodium 143, potassium 4.8, chloride 113, bicarb 23, BUN 67, creatinine 2.21, glucose 197. Liver function tests unremarkable. ProBNP 12,163. Procalcitonin 0.2. Lactic acid 1. Influenza A and B and COVID-19 test negative. Chest x-ray, new bilateral airspace disease, may represent pneumonia. Impression: 1. Pneumonia. 2. Seizure disorder. 3. Vascular dementia. 4. Chronic kidney disease, stage 2. 5. Hypertension. 6. Hyperlipidemia. 7. Type 2 diabetes mellitus with chronic kidney disease. 8. Coronary artery disease. 9. Chronic systolic congestive heart failure. 10. Benign prostatic hypertrophy. 11. Gout. 12. Anemia due to chronic kidney disease. 13. Gastroesophageal reflux disease. 14. Weight loss. 15. Thrombocytopenia. Plan: The patient will be admitted to the hospital for further evaluation and management of this problem. The patient is appropriate for inpatient and is expected to spent 2 midnights in the hospital. Home medications will be continued per order. The patient's appetite has gone down significantly in last few months and that has resulted in significant weight loss. His renal function actually looks better than last few times. We will continue home medications per order. Continue antibiotics. The patient is on Eliquis. We will continue that. We will consult general surgeon, Dr. Recinos for decubitus ulcer and I have discussed details with him. We will also consult visual education teacher for thrombocytopenia. There is no evidence of any bleeding. Continue aspirin and Eliquis per order. We will monitor blood work. I will call the patient's and discuss details with her as well. KARISHMA/MODL Voice ID: [id number] OLIVIA
[2021-01-27 06:17] LABS: Absolute Lymphocytes (CBC) 11.3 K/uL (0.7-4.9); Basophils % 0.3 % (0-1.3); Hematocrit 40.6 % (39.6-49.0); Lymphocytes % 74.4 % (15.3-44.8); MPV 9.6 fL (7.6-11.3); RBC Red Blood Cell Count 4.47 M/uL (4.33-5.43)
[2021-01-27 06:41] LABS: Potassium 4.4 mmol/L (3.5-5.1)
[2021-01-27] MEDS: INSULIN GLARGINE 100 UNITS/ML SQ SCH ×2 (07:49→19:56)
[2021-01-27] MEDS: CEFTRIAXONE 1 GM/NS 50 ML 1 GM/50 ML BAG IV SCH ×2 (08:45→20:22)
[2021-01-27] MEDS: AZITHROMYCIN IV 250 MG in NA CHLORIDE 0.9% 250 ML IVPB SCH (08:47)
[2021-01-27] MEDS: allopurinoL 300 MG TAB PO SCH (08:49)
[2021-01-27] MEDS: APIXABAN 2.5 MG TABLET PO SCH ×2 (08:49→20:22)
[2021-01-27] MEDS: ASPIRIN EC 81 MG TAB PO SCH (08:49)
[2021-01-27] MEDS: levETIRAcetam 500 MG TAB PO SCH ×2 (08:49→20:28)
[2021-01-27] MEDS: ISOSORBIDE MONO SR 60 MG TAB PO SCH (08:49)
[2021-01-27] MEDS: FUROSEMIDE 40 MG TABLET PO SCH (08:53)
[2021-01-27 08:58] LABS: Anisocytosis 1+; Blood Morphology Comment NOTED (NOT SEEN); Burr Cells 1+; Elliptocytes 1+; Platelet Estimate DECR; Poikilocytosis 1+
[2021-01-27 08:59] LABS: Smudge Cells NOTED
[2021-01-27] MEDS: METOLAZONE 2.5 MG TABLET PO SCH (11:02)
[2021-01-27] MEDS: DIVALPROEX DR 250 MG TAB PO SCH ×2 (11:02→20:22)
--- NOTE | 2021-01-27 11:19 | P.CNS ---
Date of Consult: 01/27/21 (Hematology) REASON FOR CONSULT: THROMBOCYOPENIA HPI: Patient with multiple medical co-morbidities admitted with s/s syncope, hypotension and AMS. He was noted to have thrombocytopenia at 80K. No history from chart due to his imapaired cognition. Details obtained from chart review. Lab trend assessed for thrombocytopenia. Plt 163 on 10/2020, 144 on 01/04/2021, 99 on 01/05/21, 97 on 01/06/21 80 on 01/25 and 84 on 01/27/21 No reported bleeding or excessive bruising. He seems to have decubitus ulcers and on antibiotics. On ASA and eliquis 2.5mg bid dose. No recent exposure to heparin. Review of Systems: Umable to elicit due to patient's mentation. Past Medical History: seizure disorder, type 2 diabetes mellitus, hypertension, mixed hyperlipidemia, coronary artery disease, chronic systolic congestive heart failure, gastroesophageal reflux disease, chronic kidney disease, benign prostatic hypertrophy, gout, anemia due to chronic kidney disease, vascular dementia. Past Surgical History: Eye surgery. Social History: Negative for smoking or alcohol use. Physical Examination: Vital Signs: pulse 60, respiratory rate 18, blood pressure 106/62, oxygen saturation 100% on room air. GENERAL: AAOx1, Patient is lying in bed, does not answer any questions. Not in any distress. SKIN: Right heel and left lateral foot has dark discoloration of the skin o No open wound. HEENT: AT/NC/ MMM, No thrush Neck: Supple. No JVD, lymph nodes, bruit, thyromegaly noted. Lungs: Bilateral good equal air entry. Clear to auscultation. No rhonchi. No rales. Heart: Normal heart sounds, no murmur or gallop. Abdomen: Soft, bowel sounds normal. No guarding, rigidity, tenderness, mass, hepatosplenomegaly, distention, or bruit noted. Extremities: No leg edema. No calf tenderness. Lymphatics: No palpable LN in the cervical, SC or axillary areas. Laboratory Data: White count 15.6, hemoglobin 13, platelets 80. Sodium 143, potassium 4.8, chloride 113, bicarb 23, BUN 67, creatinine 2.21, glucose 197. Liver function tests unremarkable. ProBNP 12,163. Procalcitonin 0.2. Lactic acid 1. Influenza A and B and COVID-19 test negative. Elevated lymphocytes 74%/ ALC 11K Chest x-ray, new bilateral airspace disease, may represent pneumonia. Assessment/ plan Patient with multiple ongoing medical issues admitted due to recurrent syncopes, hypotension and AMS. Noted to have thrombocytopenia 1. Thrombocytopenia Mild to moderate in Dec 2020. Downtrend to as low as 80K with uptrend today to 84K. Multifactorial etiology in the misdt of multiple medical issues, decubiti, consumption, medications, possible immune mediated secondary to monoclonal B cell lymphoproliferative disorder. Does not appear to ZOILA, DIC, microangiopathy. NO intervention needed at this time. Plt count adequate for hemostasis. C/w eliquis on prophylactic dose for now. Hold if bleeding or if plt count < 50K. Check Coag panel, Fibrinogen, flow cytometry, LDH, retic ct, peripheral smear. 2. Leucocytosis: WBC 15K/ ALC 11K/ ANC 3.2. Neutrophilia appears reactive but there seems to be some amount lynphocytosis as well. Smudge cells noted on smear. ?Possible B cell lymphoproliferative diroder like CLL. Check Flow cytometry to confirm. 3, Anemia: Mild normocytic anemia. Likely from chronic kidney disease. Hb 12.5 gm. Some evidence of iron deficiency can be addressed with iron supplementation. From the hematology point of view, c/w supportive care. No acute intervention needed at this time. We will follow .
[2021-01-27 16:12] LABS: Protime INR 1.11
[2021-01-27] MEDS ORDERED: HALOPERIDOL LACT 5 MG/ML INJ IV PRN (17:18)
--- NOTE | 2021-01-27 19:56 | PN ---
Date of Progress Note: 01/27/2021 Subjective: The patient was seen this morning for followup. He was sleeping, arousable, but did not communicate, not in distress. Objective: Vital Signs: Reviewed. HEENT: Unremarkable. Lungs: Clear to auscultation. Heart: Sounds normal. Abdomen: Soft. Bowel sounds normal. No guarding, rigidity, tenderness, or distention. Extremities: No leg edema. Laboratory Data: White count 15.2, hemoglobin 12.5, platelets 84. Sodium 145, potassium 4.4, chlori de 114, bicarb 25, BUN 69, creatinine 2.35, glucose 153. ProBNP 82361. Impression: 1.Pneumonia. 2.Thrombocytopenia. 3.Anemia due to chronic kidney disease. 4.Chronic kidney disease stage 4. 5.Hypertension. 6.Chronic systolic congestive heart failure. 7.Diabetes mellitus. Plan: We will continue current insulin instruction for diabetes management. We will go ahead and re start furosemide and metolazone per order, which will be at a lower dose. Continue current empiric a ntibiotic for pneumonia. We will continue to follow with ship's electronic warfare officer. I have called the patient's and discussed details with her. The patient's is working with Social Service to place vanda ent in the residential and they have selected [facility], so upon discharge from the hospital, he will be going to residential. I will see him tomorrow for followup. KARISHMA/MODL Voice ID: [id number] Report ID: [id number]
[2021-01-27] MEDS: ATORVASTATIN 80 MG TAB PO SCH (20:22)
[2021-01-27] MEDS: QUETIAPINE 25 MG TAB PO SCH (20:22)
[2021-01-28] MEDS: INSULIN GLARGINE 100 UNITS/ML SQ SCH ×2 (08:00→19:57)
[2021-01-28] MEDS ORDERED: NA CHLORIDE 0.9% 250 ML ONE (09:01)
[2021-01-28] MEDS: AZITHROMYCIN IV 250 MG in NA CHLORIDE 0.9% 250 ML IVPB SCH (09:19)
[2021-01-28] MEDS: CEFTRIAXONE 1 GM/NS 50 ML 1 GM/50 ML BAG IV SCH ×2 (09:20→19:50)
[2021-01-28] MEDS: METOLAZONE 2.5 MG TABLET PO SCH (09:27)
[2021-01-28] MEDS: APIXABAN 2.5 MG TABLET PO SCH ×2 (09:28→19:49)
[2021-01-28] MEDS: levETIRAcetam 500 MG TAB PO SCH ×2 (09:28→19:49)
[2021-01-28] MEDS: FUROSEMIDE 40 MG TABLET PO SCH (09:28)
[2021-01-28] MEDS: allopurinoL 300 MG TAB PO SCH (09:28)
[2021-01-28] MEDS: DIVALPROEX DR 250 MG TAB PO SCH ×2 (09:28→19:49)
[2021-01-28] MEDS: ISOSORBIDE MONO SR 60 MG TAB PO SCH (09:28)
[2021-01-28] MEDS: ASPIRIN EC 81 MG TAB PO SCH (09:28)
[2021-01-28 10:48] LABS: Absolute Lymphocytes (CBC) 11.6 K/uL (0.7-4.9); Basophils % 0.6 % (0-1.3); Hematocrit 38.3 % (39.6-49.0); Lymphocytes % 73.7 % (15.3-44.8); MPV 9.5 fL (7.6-11.3); RBC Red Blood Cell Count 4.31 M/uL (4.33-5.43)
[2021-01-28 11:00] LABS: Magnesium 2.2 mg/dL (1.8-2.4); Potassium 4.5 mmol/L (3.5-5.1)
--- NOTE | 2021-01-28 15:09 | PN ---
Date of Progress Note: 01/28/2021 Subjective: The patient was seen this morning for followup. No new complaints, problems reported by him. He was sitting semiupright in the bed, not in any distress, awake, does not answer any questio ns but not in any distress. Objective: Vital Signs: Reviewed. HEENT: Unremarkable. Lungs: Clear to auscultation. Heart: Sounds normal. Abdomen: Soft, bowel sounds normal. No guarding, rigidity, tenderness, or distention. Extremities: No leg edema. Laboratory Data: Pending. Impression: 1.Pneumonia. 2.Congestive heart failure, chronic, systolic. 3.Coronary artery disease. 4.Hypertension. 5.Diabetes mellitus. 6.Chronic kidney disease stage 4. 7.Anemia due to chronic kidney disease. 8.Thrombocytopenia. 9.Vascular dementia. Plan: Yesterday, the patient had lot of agitation problem and Haldol was ordered for p.r.n. use and this morning he was calm. Blood work results from this morning are pending. We will go ahead and co ntinue current antibiotics. Continue insulin treatment per order for diabetes management. We will c ontinue diuretic therapy and we will see him tomorrow for followup. I did communicate with the patie vadim's yesterday and I will call her today to give her updates. Family is working with Social Ser vice to take him to senior living upon discharge from the hospital, and possible discharge might happe n on Saturday. We will continue to follow with tutoring assistant for thrombocytopenia problem and persisten tly elevated WBC count, which was noted in the similar range during last hospital stay and this hospital stay as well. KARISHMA/MODL Voice ID: [id number] Report ID: [id number]
[2021-01-28] MEDS: ATORVASTATIN 80 MG TAB PO SCH (19:49)
[2021-01-28] MEDS: QUETIAPINE 25 MG TAB PO SCH (19:49)
[2021-01-28] MEDS: GLUCERNA SHAKE 237 ML CAN PO SCH (20:00)
[2021-01-29] MEDS: INSULIN GLARGINE 100 UNITS/ML SQ SCH ×2 (07:36→21:00)
[2021-01-29] MEDS: CEFTRIAXONE 1 GM/NS 50 ML 1 GM/50 ML BAG IV SCH ×2 (08:01→21:04)
[2021-01-29] MEDS: ISOSORBIDE MONO SR 60 MG TAB PO SCH (10:23)
[2021-01-29] MEDS: FUROSEMIDE 40 MG TABLET PO SCH (10:23)
[2021-01-29] MEDS: AZITHROMYCIN IV 250 MG in NA CHLORIDE 0.9% 250 ML IVPB SCH (10:23)
[2021-01-29] MEDS: METOLAZONE 2.5 MG TABLET PO SCH (10:24)
[2021-01-29] MEDS: allopurinoL 300 MG TAB PO SCH (10:24)
[2021-01-29] MEDS: levETIRAcetam 500 MG TAB PO SCH ×2 (10:24→21:03)
[2021-01-29] MEDS: DIVALPROEX DR 250 MG TAB PO SCH (10:24)
[2021-01-29] MEDS: GLUCERNA SHAKE 237 ML CAN PO SCH ×2 (10:25→21:00)
[2021-01-29] MEDS: APIXABAN 2.5 MG TABLET PO SCH ×2 (10:25→21:03)
[2021-01-29] MEDS: ASPIRIN EC 81 MG TAB PO SCH (10:25)
--- NOTE | 2021-01-29 11:46 | PN ---
Date of Progress Note: 01/29/2021 Subjective: The patient was seen this morning for followup. No new complaints or problems reported by patient or nursing staff. The patient was lying in bed, not any distress. Objective: Vital Signs: Reviewed. HEENT: Unremarkable. Lungs: Clear to auscultation. Heart: Sounds normal. Abdomen: Soft, bowel sounds normal. No guarding, rigidity, tenderness, distention. Extremities: No leg edema. Skin examination: Right foot heel area has large stage II decubitus area with black colored skin. N o open wound. Left foot mid lateral aspect has a small 1 cm area of dark colored skin unchanged. No open wound. Impression: 1.Pneumonia. 2.Chronic systolic congestive heart failure. 3.Hypertension. 4.Chronic kidney disease stage 4. 5.Diabetes mellitus. 6.Vascular dementia. 7.Decubitus ulcer, bilateral foot, stage II. Plan: We will go ahead and continue current medications. Continue current antibiotic, diuretic ther apy, antihypertensive medication and insulin per order. We will continue to follow with Dr. Jorje liu management of decubitus on both feet. We will repeat blood work tomorrow morning. Follow up with enterprise systems engineer for thrombocytopenia and leukocytosis. KARISHMA/MODL Voice ID: [id number] Report ID: [id number]
[2021-01-29] MEDS: ATORVASTATIN 80 MG TAB PO SCH (21:04)
[2021-01-29] MEDS: QUETIAPINE 25 MG TAB PO SCH (21:05)
[2021-01-29] MEDS: DIVALPROEX NA 125 MG CAP PO SCH (21:23)
[2021-01-30 04:35] LABS: Absolute Lymphocytes (CBC) 14.2 K/uL (0.7-4.9); Basophils % 0.6 % (0-1.3); MPV 8.9 fL (7.6-11.3); RBC Red Blood Cell Count 4.35 M/uL (4.33-5.43)
[2021-01-30 04:41] LABS: Lymphocytes % 74.5 % (15.3-44.8)
[2021-01-30 04:51] LABS: Magnesium 2.3 mg/dL (1.8-2.4); Potassium 4.4 mmol/L (3.5-5.1)
[2021-01-30] MEDS: INSULIN GLARGINE 100 UNITS/ML SQ SCH ×2 (08:00→20:39)
[2021-01-30] MEDS ORDERED: VANCOMYCIN 1.75 GM in NA CHLORIDE 0.9% 500 ML IVPB ONE (08:00)
[2021-01-30] MEDS: FUROSEMIDE 40 MG TABLET PO SCH (11:04)
[2021-01-30] MEDS: ASPIRIN EC 81 MG TAB PO SCH (11:05)
[2021-01-30] MEDS: ISOSORBIDE MONO SR 60 MG TAB PO SCH (11:05)
[2021-01-30] MEDS: DIVALPROEX NA 125 MG CAP PO SCH ×2 (11:05→20:36)
[2021-01-30] MEDS: APIXABAN 2.5 MG TABLET PO SCH ×2 (11:05→20:37)
[2021-01-30] MEDS: METOLAZONE 2.5 MG TABLET PO SCH (11:05)
[2021-01-30] MEDS: levETIRAcetam 500 MG TAB PO SCH ×2 (11:05→20:37)
[2021-01-30] MEDS: CEFTRIAXONE 1 GM/NS 50 ML 1 GM/50 ML BAG IV SCH ×2 (11:06→20:38)
[2021-01-30] MEDS: allopurinoL 300 MG TAB PO SCH (11:17)
[2021-01-30] MEDS: GLUCERNA SHAKE 237 ML CAN PO SCH ×2 (11:17→20:37)
[2021-01-30] MEDS: ATORVASTATIN 80 MG TAB PO SCH (20:37)
[2021-01-30] MEDS: QUETIAPINE 25 MG TAB PO SCH (20:38)
[2021-01-31 04:10] LABS: Absolute Lymphocytes (CBC) 14.3 K/uL (0.7-4.9); Basophils % 0.6 % (0-1.3); Hematocrit 36.2 % (39.6-49.0); MPV 8.8 fL (7.6-11.3); RBC Red Blood Cell Count 4.05 M/uL (4.33-5.43)
[2021-01-31 04:33] LABS: Potassium 4.4 mmol/L (3.5-5.1)
[2021-01-31 04:59] LABS: Anisocytosis 1+; Blood Morphology Comment NOTED (NOT SEEN); Platelet Estimate DECR; Smudge Cells 49
[2021-01-31 05:00] LABS: Burr Cells 2+
[2021-01-31] MEDS: ASPIRIN EC 81 MG TAB PO SCH (09:24)
[2021-01-31] MEDS: ISOSORBIDE MONO SR 60 MG TAB PO SCH (09:24)
[2021-01-31] MEDS: METOLAZONE 2.5 MG TABLET PO SCH (09:24)
[2021-01-31] MEDS: levETIRAcetam 500 MG TAB PO SCH ×2 (09:25→21:30)
[2021-01-31] MEDS: CEFTRIAXONE 1 GM/NS 50 ML 1 GM/50 ML BAG IV SCH ×2 (09:25→21:33)
[2021-01-31] MEDS: APIXABAN 2.5 MG TABLET PO SCH ×2 (09:25→21:30)
[2021-01-31] MEDS: DIVALPROEX NA 125 MG CAP PO SCH ×2 (09:25→21:30)
[2021-01-31] MEDS: FUROSEMIDE 40 MG TABLET PO SCH (09:25)
[2021-01-31] MEDS: GLUCERNA SHAKE 237 ML CAN PO SCH ×2 (09:26→21:00)
[2021-01-31] MEDS: INSULIN GLARGINE 100 UNITS/ML SQ SCH ×2 (09:26→21:00)
[2021-01-31] MEDS: allopurinoL 300 MG TAB PO SCH (09:29)
--- NOTE | 2021-01-31 09:47 | RAD REPORT ---
EXAM DESCRIPTION: RAD - Chest Single View - 01/31/2021 9:23 am CLINICAL HISTORY: picc placement COMPARISON: Chest Single View dated 01/25/2021; Chest Single View dated 01/06/2021; Chest Single View dated 01/04/2021; Chest Single View dated 11/08/2020 FINDINGS: Portable chest was obtained following placement of a right upper extremity PICC line. The catheter tip projects over the SVC..
--- NOTE | 2021-01-31 10:03 | PN ---
Date of Progress Note: 01/30/2021 Subjective: Patient was seen this morning for followup. No new complaints or problems reported by t he patient. When I walked in his room, he was lying in bed, not in any distress. Does not answer an y specific questions except he responds to his name. Objective: Vital Signs: Reviewed. HEENT: Unremarkable. Lungs: Clear to auscultation. Heart: Heart sounds normal. Abdomen: Soft, bowel sounds normal. No guarding, rigidity, tenderness, distention. Extremities: No leg edema. Laboratory Data: White count 19.1, hemoglobin 12.1, platelets 90. Sodium 147, potassium 4.4, chlori de 118, bicarb 23, BUN 70, creatinine 2.09, glucose 171. Blood culture is growing Staphylococcus coh chani and it is only sensitive to Bactrim and vancomycin. Assessment: 1.Pneumonia. 2.Sepsis, organism staphylococcus. 3.Chronic kidney disease, stage 4. 4.Anemia due to chronic kidney disease. 5.Thrombocytopenia. 6.Decubitus ulcer, bilateral. 7.Vascular dementia. Plan: We will go ahead and start the patient on vancomycin, discontinue azithromycin. Consult Pharm acy for vancomycin dose management and we will continue to follow with Dr. Recinos. Also, continue to follow up with freelance writer. I will see him tomorrow for followup. KARISHMA/MODL Voice ID: [id number] Report ID: [id number]
--- NOTE | 2021-01-31 16:42 | PN ---
Date of Progress Note: 01/31/2021 Reason For Admission: Bilateral heel wounds in the left foot. Subjective: The patient is awake, confused. Objective: Vital Signs: Stable, afebrile. Extremities: Examination of both heels revealed an intact blister on the left foot and left heel. O n the right, the blister has opened up on 1 edge and needs debridement. No surrounding erythema, war mth, and edema. Procedure Note: Under clean conditions, iris scissors utilized to excise the blister that was presen t and was partial-thickness in nature. The excised area was approximately 4 x 6 cm. The patient isacc erated procedure in stable condition. Assessment: Bilateral heel wounds secondary to pressure and left foot wound secondary to pressure. Recommendations: Nutritional optimization, vitamins as ordered, offloading, protection of the wounds with foam and gauze as ordered. [facility]. /MODL Voice ID: [id number] Report ID: [id number]
[2021-01-31] MEDS: VANCOMYCIN 1.25 GM in NA CHLORIDE 0.9% 250 ML IVPB SCH (20:00)
[2021-01-31] MEDS: ATORVASTATIN 80 MG TAB PO SCH (21:33)
[2021-01-31] MEDS: QUETIAPINE 25 MG TAB PO SCH (21:34)
--- NOTE | 2021-02-01 00:27 | PN ---
Date of Progress Note: 01/31/2021 Subjective: Patient was seen this morning for followup, lying in bed, not in any distress, responds to verbal command. Objective: Vital Signs: Reviewed. HEENT: Unremarkable. Lungs: Clear to auscultation. Heart: Sounds normal. Abdomen: Soft. Bowel sounds normal. No guarding, rigidity, tenderness, or distention. Extremities: No leg edema. Laboratory Data: White count 19.8, hemoglobin 11.3, platelets 100. Sodium 147, potassium 4.4, chlor nabil 118, bicarb 24, BUN 73, creatinine 2.23, glucose 230. Impression: 1.Pneumonia. 2.Coronary artery disease. 3.Chronic systolic congestive heart failure. 4.Hypertension. 5.Type 2 diabetes mellitus. 6.Anemia due to chronic kidney disease. 7.Thrombocytopenia. Plan: We will continue current antibiotic. Continue to follow up with tanning wheel filler and we will cont inue to follow with Dr. Recinos and I did talk to him, requesting him to look at the patient's heels as I was concerned about worsening of his decubitus area. I will see him tomorrow for followup. I did try to talk to the patient's , called her this morning and she did not answer, so we will try to contact her again tomorrow. KARISHMA/MODL Voice ID: [id number] Report ID: [id number]
[2021-02-01] MEDS: INSULIN GLARGINE 100 UNITS/ML SQ SCH ×2 (08:00→21:32)
--- NOTE | 2021-02-01 09:37 | P.PN ---
Date of Service: 02/01/21 (Hematology) Labs reviewed. Plt improved to 100K Flow cytometry consistent with CLL. Once discharged, patient will need to follow up with Hematology as outpatient. I would c/w observation for now. Given his mental status and poor cognition, I do not think he is a candidate for treatment should the need arise. This can be monitored as outpatient.
[2021-02-01] MEDS: levETIRAcetam 500 MG TAB PO SCH ×2 (10:07→20:17)
[2021-02-01] MEDS: allopurinoL 300 MG TAB PO SCH (10:07)
[2021-02-01] MEDS: METOLAZONE 2.5 MG TABLET PO SCH (10:07)
[2021-02-01] MEDS: FUROSEMIDE 40 MG TABLET PO SCH (10:08)
[2021-02-01] MEDS: DIVALPROEX NA 125 MG CAP PO SCH ×2 (10:08→20:18)
[2021-02-01] MEDS: ASPIRIN EC 81 MG TAB PO SCH (10:08)
[2021-02-01] MEDS: APIXABAN 2.5 MG TABLET PO SCH ×2 (10:08→20:17)
[2021-02-01] MEDS: ISOSORBIDE MONO SR 60 MG TAB PO SCH (10:08)
[2021-02-01] MEDS: GLUCERNA SHAKE 237 ML CAN PO SCH ×2 (10:08→20:17)
[2021-02-01] MEDS: CEFTRIAXONE 1 GM/NS 50 ML 1 GM/50 ML BAG IV SCH ×2 (10:12→20:15)
[2021-02-01] MEDS: ATORVASTATIN 80 MG TAB PO SCH (20:17)
[2021-02-01] MEDS: QUETIAPINE 25 MG TAB PO SCH (20:18)
[2021-02-02 05:48] LABS: Magnesium 2.2 mg/dL (1.8-2.4); Potassium 4.3 mmol/L (3.5-5.1)
[2021-02-02 05:50] LABS: Absolute Lymphocytes (CBC) 12.8 K/uL (0.7-4.9); Basophils % 0.6 % (0-1.3); Hematocrit 34.1 % (39.6-49.0); MPV 8.5 fL (7.6-11.3); RBC Red Blood Cell Count 3.86 M/uL (4.33-5.43)
[2021-02-02] MEDS: INSULIN GLARGINE 100 UNITS/ML SQ SCH ×2 (08:41→21:55)
[2021-02-02] MEDS: GLUCERNA SHAKE 237 ML CAN PO SCH ×2 (08:41→20:26)
[2021-02-02] MEDS: FUROSEMIDE 40 MG TABLET PO SCH (09:00)
--- NOTE | 2021-02-02 09:44 | RAD REPORT ---
EXAM DESCRIPTION: RAD - Chest Single View - 02/02/2021 5:51 am CLINICAL HISTORY: pneumonia COMPARISON: Chest Single View dated 01/31/2021; Chest Single View dated 01/25/2021; Chest Single View dated 01/06/2021; Chest Single View dated 01/04/2021; Thorax Wo Con dated 01/26/2021 FINDINGS: Lines: PICC tip overlies the SVC in satisfactory position. Lungs: Decreased lung volumes and likely basilar atelectasis. Pleural: Blunted left costophrenic angle. Cardiac: Cardiomegaly. Bones: No acute fractures. Other: IMPRESSION: Decreased lung volumes but otherwise similar appearing basilar opacities that may reflec t a combination of atelectasis, pneumonia, and effusions .
[2021-02-02] MEDS: VANCOMYCIN 1.25 GM in NA CHLORIDE 0.9% 250 ML IVPB SCH (09:57)
[2021-02-02] MEDS: DIVALPROEX NA 125 MG CAP PO SCH ×2 (09:57→20:25)
[2021-02-02] MEDS: ASPIRIN EC 81 MG TAB PO SCH (09:57)
[2021-02-02] MEDS: levETIRAcetam 500 MG TAB PO SCH ×2 (09:58→20:26)
[2021-02-02] MEDS: ISOSORBIDE MONO SR 60 MG TAB PO SCH (09:58)
[2021-02-02] MEDS: allopurinoL 300 MG TAB PO SCH (09:58)
[2021-02-02] MEDS: APIXABAN 2.5 MG TABLET PO SCH ×2 (09:58→20:26)
[2021-02-02] MEDS: CEFTRIAXONE 1 GM/NS 50 ML 1 GM/50 ML BAG IV SCH ×2 (10:00→20:26)
[2021-02-02] MEDS: METOLAZONE 2.5 MG TABLET PO SCH (10:01)
--- NOTE | 2021-02-02 11:41 | PN ---
Date of Progress Note: 02/01/2021 Subjective: The patient was seen this morning for followup. No new complaints or problems reported by him. Lying in bed, not in distress. The patient responds to verbal command, but does not answer much questions. This is his baseline now. Objective: Vital Signs: Reviewed. HEENT: Unremarkable. Lungs: Clear to auscultation. Heart: Sounds normal. Abdomen: Soft. Bowel sounds normal. No guarding, rigidity, tenderness, distention. Extremities: No leg edema. Laboratory Data: Vancomycin trough level 16.6 yesterday. Impression: 1.Sepsis, organism staphylococcus. 2.Chronic kidney disease, stage 4. 3.Chronic systolic congestive heart failure. 4.Seizure disorder. 5.Vascular dementia. 6.Diabetes mellitus. 7.Hypertension. 8.Decubitus ulcer. Plan: We will go ahead and continue current antibiotics. Continue to follow with Dr. Recinos for decu bitus care management. We will continue current diabetes management and current treatment for conges tive heart failure as well as hypertension. The patient has CLL and followup from urgent care physician is ap preciated. Considering the patient's overall health condition, it appears that he is not going to be able to be a candidate for treatment for CLL even if it is something that is going to be required do wn the line, but at this point, no further intervention has been recommended. I did try to call the patient's a couple of times and she did not answer, so we will try it again tomorrow. We will repeat blood work tomorrow morning. PICC line is in place. KARISHMA/MODL Voice ID: [id number] Report ID: [id number]
[2021-02-02] MEDS: ATORVASTATIN 80 MG TAB PO SCH (20:26)
[2021-02-02] MEDS: QUETIAPINE 25 MG TAB PO SCH (20:27)
--- NOTE | 2021-02-03 01:48 | PN ---
Date of Progress Note: 02/02/2021 Subjective: The patient was seen this morning for followup. He was lying in bed, not in distress. He responds to verbal stimuli, but does not answer any questions. Not in any distress. Objective: Vital Signs: Reviewed. HEENT: Unremarkable. Lungs: Clear to auscultation. Heart: Sounds normal. Abdomen: Soft. Bowel sounds normal. No guarding, rigidity, tenderness, or distention. Extremities: No leg edema. Skin: The patient has stage II decubitus ulcer over sacrococcygeal region and stage II decubitus over right heel. Left lateral mid foot area has 1 cm dark color skin. No open wound. Impression: 1. Sepsis, organism staphylococcus. 2. Chronic systolic congestive heart failure. 3. Chronic kidney disease, stage 4. 4. Hypertension. 5. Diabetes mellitus. 6. Stage II decubitus ulcer, right heel, sacrococcygeal region. 7. Vascular dementia. Plan: We will go ahead and continue current antibiotic for sepsis and other antibiotic for pneumonia. We will have Social Service make arrangements for IV antibiotic, which is vancomycin to be given at the [facility]. Possible discharge to go to [facility] tomorrow. Social Service to help finish the arrangements for [facility] placement. Continue decubitus care per Dr. Recinos. I will see him tomorrow. KARISHMA/MODL Voice ID: [id number] Report ID: [id number] MTDD
[2021-02-03] MEDS: GLUCERNA SHAKE 237 ML CAN PO SCH ×2 (09:00→21:00)
[2021-02-03] MEDS: CEFTRIAXONE 1 GM/NS 50 ML 1 GM/50 ML BAG IV SCH ×2 (09:52→21:27)
[2021-02-03] MEDS: DIVALPROEX NA 125 MG CAP PO SCH ×2 (09:53→21:26)
[2021-02-03] MEDS: METOLAZONE 2.5 MG TABLET PO SCH (09:54)
[2021-02-03] MEDS: levETIRAcetam 500 MG TAB PO SCH ×2 (09:54→21:27)
[2021-02-03] MEDS: APIXABAN 2.5 MG TABLET PO SCH ×2 (09:54→21:26)
[2021-02-03] MEDS: FUROSEMIDE 40 MG TABLET PO SCH (09:54)
[2021-02-03] MEDS: ASPIRIN EC 81 MG TAB PO SCH (09:54)
[2021-02-03] MEDS: allopurinoL 300 MG TAB PO SCH (09:54)
[2021-02-03] MEDS: ISOSORBIDE MONO SR 60 MG TAB PO SCH (09:54)
[2021-02-03] MEDS: INSULIN GLARGINE 100 UNITS/ML SQ SCH ×2 (10:05→21:00)
[2021-02-03] MEDS: VANCOMYCIN 1.25 GM in NA CHLORIDE 0.9% 250 ML IVPB SCH (20:00)
[2021-02-03] MEDS: ATORVASTATIN 80 MG TAB PO SCH (21:27)
[2021-02-03] MEDS: QUETIAPINE 25 MG TAB PO SCH (21:29)
[2021-02-03] MEDS: ACETAMINOPHEN 500 MG TAB PO PRN (21:41)
[2021-02-04] MEDS: INSULIN GLARGINE 100 UNITS/ML SQ SCH (08:58)
[2021-02-04] MEDS: ISOSORBIDE MONO SR 60 MG TAB PO SCH (08:59)
[2021-02-04] MEDS: levETIRAcetam 500 MG TAB PO SCH ×2 (08:59→21:52)
[2021-02-04] MEDS: FUROSEMIDE 40 MG TABLET PO SCH (08:59)
[2021-02-04] MEDS: APIXABAN 2.5 MG TABLET PO SCH ×2 (08:59→21:52)
[2021-02-04] MEDS: CEFTRIAXONE 1 GM/NS 50 ML 1 GM/50 ML BAG IV SCH ×2 (08:59→21:52)
[2021-02-04] MEDS: allopurinoL 300 MG TAB PO SCH (08:59)
[2021-02-04] MEDS: DIVALPROEX NA 125 MG CAP PO SCH ×2 (08:59→21:52)
[2021-02-04] MEDS: ASPIRIN EC 81 MG TAB PO SCH (08:59)
[2021-02-04] MEDS: GLUCERNA SHAKE 237 ML CAN PO SCH ×2 (09:00→21:00)
[2021-02-04] MEDS: METOLAZONE 2.5 MG TABLET PO SCH (09:26)
[2021-02-04] MEDS: ACETAMINOPHEN 500 MG TAB PO PRN (13:09)
[2021-02-04] MEDS: INSULIN GLARGINE 100 UNIT/ML SQ SCH (21:00)
[2021-02-04] MEDS: QUETIAPINE 25 MG TAB PO SCH (21:52)
[2021-02-04] MEDS: ATORVASTATIN 80 MG TAB PO SCH (21:52)
[2021-02-05] MEDS: INSULIN GLARGINE 100 UNIT/ML SQ SCH ×2 (08:00→20:12)
[2021-02-05] MEDS: METOLAZONE 2.5 MG TABLET PO SCH (09:00)
[2021-02-05] MEDS: ISOSORBIDE MONO SR 60 MG TAB PO SCH (09:30)
[2021-02-05] MEDS: allopurinoL 300 MG TAB PO SCH (09:30)
[2021-02-05] MEDS: APIXABAN 2.5 MG TABLET PO SCH ×2 (09:30→21:28)
[2021-02-05] MEDS: levETIRAcetam 500 MG TAB PO SCH ×2 (09:30→21:28)
[2021-02-05] MEDS: FUROSEMIDE 40 MG TABLET PO SCH (09:30)
[2021-02-05] MEDS: DIVALPROEX NA 125 MG CAP PO SCH ×2 (09:30→21:28)
[2021-02-05] MEDS: ASPIRIN EC 81 MG TAB PO SCH (09:30)
[2021-02-05] MEDS: CEFTRIAXONE 1 GM/NS 50 ML 1 GM/50 ML BAG IV SCH ×2 (09:32→21:27)
[2021-02-05] MEDS: GLUCERNA SHAKE 237 ML CAN PO SCH ×2 (09:32→21:00)
[2021-02-05 09:59] LABS: Absolute Lymphocytes (CBC) 14.8 K/uL (0.7-4.9); Basophils % 0.5 % (0-1.3); Hematocrit 35.1 % (39.6-49.0); MPV 8.1 fL (7.6-11.3); RBC Red Blood Cell Count 3.98 M/uL (4.33-5.43)
[2021-02-05 10:02] LABS: Potassium 4.3 mmol/L (3.5-5.1)
--- NOTE | 2021-02-05 10:45 | PN ---
Date of Progress Note: 02/04/2021 Subjective: The patient was seen for followup. No new complaints or problems reported by nursing staff. The patient lying in bed, does not answer any questions, but responds by verbal command by looking at me, but does not answer any questions. Objective: Vital Signs: Reviewed. HEENT: Unremarkable. Lungs: Clear to auscultation. Heart: Sounds normal. Abdomen: Soft. Bowel sounds normal. No guarding, rigidity, tenderness, or distention. Extremities: No leg edema. Laboratory Data: Yesterday creatinine was 1.98. Fingerstick blood sugar readings reviewed. Impression: 1. Decubitus ulcer, sacrococcygeal region, bilateral foot. 2. Chronic kidney disease, stage 4. 3. Vascular dementia. 4. Hypertension. 5. Coronary artery disease. 6. Chronic systolic congestive heart failure. 7. Seizure disorder. Plan: We will continue current medications. Continue current antiseizure medication. Continue diuretic medication. Current diabetes management. For sepsis, we will continue current antibiotics as well. I will see him tomorrow for followup. KARISHMA/MODL Voice ID: [id number] Report ID: [id number] OLIVIA
--- NOTE | 2021-02-05 11:10 | PN ---
Date of Progress Note: 02/05/2021 Subjective: The patient was seen this morning for followup. No new complaints or problems reported by nursing staff. Night nurse notified me this morning that the patient was not eating well and was pocketing his food as well as medication, so they had trouble getting him medications. This morning, day nurse was able to give him his medication by putting it in food and he was tolerating diet. The patient is on supervised assisted feeding. Objective: Vital Signs: Reviewed. HEENT: Unremarkable. Lungs: Clear to auscultation. Heart: Sounds normal. Abdomen: Soft. Bowel sounds normal. No guarding, rigidity, tenderness, distention. Extremities: No leg edema. Laboratory Data: Labs pending. Impression: 1.Sepsis, organism Staphylococcus. 2.Vascular dementia. 3.Chronic systolic congestive heart failure. 4.Coronary artery disease. 5.Chronic kidney disease, stage 4. 6.Anemia due to chronic kidney disease. 7.Chronic lymphocytic leukemia. Plan: We will go ahead and continue current medication. Continue current antibiotic, diuretic thera py. I will try to communicate with the patient's regarding the patient's poor appetite and this is unfortunately expected to get worse over a period of time that his appetite will continue to get worse and he may have trouble swallow or he may not swallow medications or food, so this is something that I will discuss with her regarding what her thoughts are in terms of feeding tube placement. My suggestion would be as I did mention once during last hospital admission is possibility of hospice c are at appropriate time and I believe that it is appropriate for me to bring up discussion about cons ideration of hospice care if family is willing to start that and it is very appropriate for us to put this patient on hospice care. Decline in his overall health is to be expected as time goes on and a s we have seen in last few months. I did talk to day before yesterday regarding advance directi ves and as per my discussion with her, she informed me that given the patient's overall health and co ndition in case of cardiopulmonary arrest, she would not want any CPR, defibrillation or any life-sup port intubation, etc. and only comfort care should be provided in those kind of situation, so DNR ord er was written in the chart. She was going to come to hospital day before yesterday to visit him and I did request her to go ahead and get out of hospital DNR form ready and today nurse has informed me that unfortunately the patient's did not show up at the hospital, so we are waiting on out of h ospital form to be completed, but in the hospital, I have placed order for DNR per my discussion with his . KARISHAM/MODL Voice ID: [id number] Report ID: [id number]
[2021-02-05 11:41] LABS: Anisocytosis 1+; Blood Morphology Comment NOTED (NOT SEEN); Elliptocytes 1+; Platelet Estimate ADEQ; Poikilocytosis SLIGHT
--- NOTE | 2021-02-05 18:55 | PN ---
Date of Progress Note: 02/05/2021 Addendum: After I saw the patient, I did call the patient's and discussed all the details with her. She was made aware of the diagnosis of CLL and combination operator has recommended no treatment at thi s point and even if the patient may require treatment in the future hypothetically he is not a candid ate for any treatment because of his overall poor health. Today's lab results reviewed. I did discu ss with the patient's that I am concerned about an overall decline that has happened in last few months, is expected to continue to happen over next few months. The patient has lost a significant amount of weight in last few months. His oral intake is not adequate and the patient's informed me that sometime when she visited the patient, she noted that his food, [facility]. This morning when I saw the patient, nurse was assisting him with feeding and medications and I have placed order for nursing staff to provide one-to-one supervi heriberto and assistance with feeding at all meals. What I am concerned about is patient's weight loss th at has happened in last 6 months. He has lost 50-60 pounds of weight and unfortunately this may cont inue. Eventually at some point, he may start to have trouble with difficulty swallowing and all thos e things may require feeding tube placement. I did communicate with regarding this. She is not sure what to do as it appears that overwhelming for her. She is not able to make any decisions on t his as well as we also recommended that my recommendation is for him to consider hospice care and brent zuñiga is involved with hospice care all those details were discussed with her and once again, she is not able to make any decisions, so we will give her some time to make all these decisions. She requested me to call her niece who is a nurse in [place] at [facility] and per the patient's 's re quest, I did contact her and her name is Kelsey, phone #[phone] and all updates were given to thiago r. The patient's tells me that the patient has some toothache and I did inform her that we do n ot have any dentist who can visit the patient in the hospital and we have only 1 oral surgeon in town and after I talked to the patient's , I did check into this oral surgeon and he does not come to hospital and in fact he is out of town also right now. So, the patient will have to handle any dental care on outpatient basis after discharge from the hospital . KARISHMA/ZULAY Voice ID: [id number] Report ID: [id number]
[2021-02-05] MEDS: VANCOMYCIN 1.25 GM in NA CHLORIDE 0.9% 250 ML IVPB SCH (21:27)
[2021-02-05] MEDS: ATORVASTATIN 80 MG TAB PO SCH (21:28)
[2021-02-05] MEDS: QUETIAPINE 25 MG TAB PO SCH (21:28)
[2021-02-06] MEDS: INSULIN GLARGINE 100 UNIT/ML SQ SCH ×2 (08:00→20:39)
[2021-02-06] MEDS: GLUCERNA SHAKE 237 ML CAN PO SCH ×2 (09:00→20:38)
[2021-02-06] MEDS: CEFTRIAXONE 1 GM/NS 50 ML 1 GM/50 ML BAG IV SCH ×2 (09:42→20:40)
[2021-02-06] MEDS: ASPIRIN EC 81 MG TAB PO SCH (09:46)
[2021-02-06] MEDS: METOLAZONE 2.5 MG TABLET PO SCH (09:47)
[2021-02-06] MEDS: allopurinoL 300 MG TAB PO SCH (09:47)
[2021-02-06] MEDS: DIVALPROEX NA 125 MG CAP PO SCH ×2 (09:47→20:37)
[2021-02-06] MEDS: FUROSEMIDE 40 MG TABLET PO SCH (09:47)
[2021-02-06] MEDS: APIXABAN 2.5 MG TABLET PO SCH ×2 (09:48→20:38)
[2021-02-06] MEDS: levETIRAcetam 500 MG TAB PO SCH ×2 (09:48→20:38)
[2021-02-06] MEDS: ISOSORBIDE MONO SR 60 MG TAB PO SCH (09:48)
[2021-02-06] MEDS: ATORVASTATIN 80 MG TAB PO SCH (20:39)
[2021-02-06] MEDS: QUETIAPINE 25 MG TAB PO SCH (20:39)
--- NOTE | 2021-02-07 01:56 | PN ---
Date of Progress Note: 02/06/2021 Subjective: The patient was seen this morning for followup. No new complaints or problems reported by patient. Lying in bed, not in distress. Objective: Vital Signs: Reviewed. HEENT: Examination unremarkable. Lungs: Clear to auscultation. Heart: Sounds normal. Abdomen: Soft, bowel sounds normal. No guarding, rigidity, tenderness, or distention. Extremities: No leg edema. Skin: The patient's sacrococcygeal area has stage II decubitus. Has soft macerated skin over the la rge area of sacrococcygeal region with multiple areas of skin breakdown. This appears worse than bef ore. Right heel appears loss of dermal and epidermal skin as it was removed by general surgeon and i t looks like it is healing well. No evidence of any infection there. Laboratory Data: There were no new labs today. Impression: 1.Decubitus ulcer, sacrococcygeal region, stage II. 2.Sepsis. 3.Chronic systolic congestive heart failure. 4.Coronary artery disease. 5.Diabetes mellitus. 6.Hypertension. 7.Vascular dementia. Plan: We will continue current antibiotics. Continue nutritional supplement with Glucerna. We will continue to assist the patient with feeding. Continue current antibiotic and other current medical management. The patient is on air mattress. Change in position every 2 hours as nurse has informed me. I did ask nurse to call Dr. Recinos this morning to request him to evaluate his sacrococcygeal dec ubitus area, and I also personally have called Dr. Recinos today to request this evaluation. I did kiya l the patient's this evening and all discussed details including my concerns about worsening of sacrococcygeal decubitus. The patient's does not want to consider any feeding tube at this poin t since the patient is eating well with assistance, but she will consider that in the future if lala claire. Today, I was informed that the patient was denied to go to [facility]. Considering his decubitus problem, it might be beneficial for him to go to long-term acute care facility, and I did discuss this option with the patient's , and she is agreeable, and we will ask Social Service to start this process tomorrow to see if we can get approval from insurance company on that. I will see him tomorrow for followup. KARISHMA/MODL Voice ID: [id number] Report ID: [id number]
[2021-02-07 05:44] LABS: Absolute Lymphocytes (CBC) 13.6 K/uL (0.7-4.9); Basophils % 0.5 % (0-1.3); Hematocrit 32.8 % (39.6-49.0); Lymphocytes % 63.8 % (15.3-44.8); MPV 8.5 fL (7.6-11.3); RBC Red Blood Cell Count 3.72 M/uL (4.33-5.43)
[2021-02-07 05:57] LABS: Magnesium 2.1 mg/dL (1.8-2.4); Potassium 4.4 mmol/L (3.5-5.1)
[2021-02-07] MEDS: INSULIN GLARGINE 100 UNIT/ML SQ SCH ×2 (09:00→20:32)
[2021-02-07] MEDS: GLUCERNA SHAKE 237 ML CAN PO SCH ×2 (09:00→20:31)
[2021-02-07] MEDS: FUROSEMIDE 40 MG TABLET PO SCH (09:45)
[2021-02-07] MEDS: CEFTRIAXONE 1 GM/NS 50 ML 1 GM/50 ML BAG IV SCH ×2 (09:45→20:27)
[2021-02-07] MEDS: APIXABAN 2.5 MG TABLET PO SCH ×2 (09:45→20:31)
[2021-02-07] MEDS: ISOSORBIDE MONO SR 60 MG TAB PO SCH (09:45)
[2021-02-07] MEDS: allopurinoL 300 MG TAB PO SCH (09:45)
[2021-02-07] MEDS: METOLAZONE 2.5 MG TABLET PO SCH (09:45)
[2021-02-07] MEDS: DIVALPROEX NA 125 MG CAP PO SCH ×2 (09:45→20:30)
[2021-02-07] MEDS: levETIRAcetam 500 MG TAB PO SCH ×2 (09:45→20:31)
[2021-02-07] MEDS: ASPIRIN EC 81 MG TAB PO SCH (09:45)
--- NOTE | 2021-02-07 19:47 | PN ---
Date of Progress Note: 02/07/2021 Subjective: The patient is awake, confused. His vitals are stable. He is afebrile. Laboratory Data: Reviewed. His white count is 21.3, it has been elevated since the 8th. H and H ar e 10.4 and 32.8. Platelets are 152. Examination of his right heel reveals good granulation tissue. No surrounding erythema, warmth or edema. On the sacrum there is a large area where it appears that the patient may have an eschar but it is hard to tell, mostly evidence of deep tissue injury, unstag eable at this time. The skin is sloughing off in several different places approximately 1 cm in diam eter. The patient's nutritional intake is marginal and the family does not want feeding tube at this time. Assessment: Sacral decubitus and lower extremity decubitus. Recommendations: Silvadene on the right heel, collagenase and foam on the sacrum. Nutritional optim ization. If the patient does not want feeding tube and he is not getting enough calories, probabilit y of this wound worsening is high and may need surgical intervention at some point, although other co nsiderations would be hospice if depending upon the patient and family's wishes as to how aggressive they want to be with further medical interventions. Nutritional optimization, which is being done an d air mattress has been ordered. Prognosis on this patient is poor. Discharge planning should be in itiated possibly to an LTAC or residential. /MODL Voice ID: [id number] Report ID: [id number]
[2021-02-07] MEDS: ATORVASTATIN 80 MG TAB PO SCH (20:31)
[2021-02-07] MEDS: QUETIAPINE 25 MG TAB PO SCH (20:31)
[2021-02-07] MEDS: VANCOMYCIN 1.25 GM in NA CHLORIDE 0.9% 250 ML IVPB SCH (22:14)
--- NOTE | 2021-02-08 01:39 | PN ---
Date of Progress Note: 02/07/2021 Subjective: Patient was seen this morning for followup. He was lying in bed, sleeping, arousable upon verbal commands, but does not answer any questions. Not in any distress. Objective: Vital Signs: Reviewed. HEENT: Unremarkable. Lungs: Clear to auscultation. Cardiac: Heart sounds normal. Abdomen: Soft. Bowel sounds normal. No guarding, rigidity, tenderness, or distention. Extremities: No leg edema. Laboratory Data: White count 21.3, hemoglobin 10.4, platelets 152. Sodium 140, potassium 4.4, chloride 105, bicarb 27, BUN 68, creatinine 1.87, glucose 356. Impression: 1. Chronic lymphocytic leukemia. 2. Decubitus ulcer. 3. Anemia due to chronic kidney disease. 4. Chronic kidney disease stage 4. 5. Chronic systolic congestive heart failure. 6. Coronary artery disease. 7. Hypertension. 8. Diabetes mellitus, uncontrolled. Plan: We will go ahead and continue current medication, which is current antibiotics. Insulin dose was increased and we will continue to monitor fingerstick blood sugar and insulin if it becomes necessary. Continue to assist patient with feeding. Continue Glucerna and I did communicate with Dr. Recinos who evaluated his decubitus ulcer and we will continue to follow up with him for management of decubitus ulcer. Patient is on air mattress and nursing staff to continue to change position every 2 hours. Social service to assist with consultation with the long-term acute care facility to see if the patient's insurance company will approve that or not. KARISHMA/MODL Voice ID: [id number] Report ID: [id number] OLIVIA
[2021-02-08] MEDS ORDERED: D50W 25 GM/50 ML SYRINGE IV PRN (07:12)
[2021-02-08] MEDS ORDERED: GLUCAGON 1 MG/VIAL IM PRN (07:12)
[2021-02-08] MEDS ORDERED: INSULIN GLARGINE 100 UNITS/ML SQ SCH ×2 (08:00→21:00)
[2021-02-08] MEDS: INSULIN -REGULAR HUMAN 50 UNIT/0.5 ML ML SQ SCH ×4 (08:15→21:00)
[2021-02-08] MEDS: INSULIN GLARGINE 100 UNIT/ML SQ SCH (08:15)
[2021-02-08] MEDS: GLUCERNA SHAKE 237 ML CAN PO SCH ×3 (09:00→21:00)
[2021-02-08] MEDS: COLLAGENASE 30 GM OINTMENT TOP SCH ×2 (09:00→09:45)
[2021-02-08] MEDS: CEFTRIAXONE 1 GM/NS 50 ML 1 GM/50 ML BAG IV SCH ×2 (09:45→22:55)
[2021-02-08] MEDS: SILVER SULFADIAZINE 1% 50 GM TOP SCH ×2 (09:46→10:05)
[2021-02-08] MEDS: ASPIRIN EC 81 MG TAB PO SCH (09:52)
[2021-02-08] MEDS: METOLAZONE 2.5 MG TABLET PO SCH (09:52)
[2021-02-08] MEDS: allopurinoL 300 MG TAB PO SCH (09:52)
[2021-02-08] MEDS: ZINC SULFATE 220 MG CAP PO SCH (09:52)
[2021-02-08] MEDS: FUROSEMIDE 40 MG TABLET PO SCH (09:52)
[2021-02-08] MEDS: ASCORBIC ACID 500 MG TABLET PO SCH (09:52)
[2021-02-08] MEDS: APIXABAN 2.5 MG TABLET PO SCH ×2 (09:52→21:29)
[2021-02-08] MEDS: ISOSORBIDE MONO SR 60 MG TAB PO SCH (09:52)
[2021-02-08] MEDS: DIVALPROEX NA 125 MG CAP PO SCH ×2 (09:53→21:29)
[2021-02-08] MEDS: levETIRAcetam 500 MG TAB PO SCH ×2 (09:53→21:31)
[2021-02-08] MEDS: ACETAMINOPHEN 500 MG TAB PO PRN (10:05)
[2021-02-08] MEDS ORDERED: INSULIN GLARGINE 100 UNIT/ML SQ SCH (21:00)
[2021-02-08] MEDS: JUVEN PACKET PO SCH (21:00)
[2021-02-08] MEDS: ATORVASTATIN 80 MG TAB PO SCH (21:30)
[2021-02-08] MEDS: QUETIAPINE 25 MG TAB PO SCH (21:31)
[2021-02-09 05:36] LABS: Absolute Lymphocytes (CBC) 15.4 K/uL (0.7-4.9); Basophils % 0.8 % (0-1.3); Hematocrit 30.5 % (39.6-49.0); Lymphocytes % 66.2 % (15.3-44.8); RBC Red Blood Cell Count 3.43 M/uL (4.33-5.43)
[2021-02-09 05:45] LABS: Potassium 4.4 mmol/L (3.5-5.1)
[2021-02-09] MEDS: INSULIN -REGULAR HUMAN 50 UNIT/0.5 ML ML SQ SCH ×4 (07:30→20:34)
[2021-02-09] MEDS: INSULIN GLARGINE 100 UNIT/ML SQ SCH (08:00)
[2021-02-09] MEDS: GLUCERNA SHAKE 237 ML CAN PO SCH ×3 (09:00→20:33)
[2021-02-09] MEDS: JUVEN PACKET PO SCH ×2 (09:00→20:33)
--- NOTE | 2021-02-09 09:28 | RAD REPORT ---
EXAM DESCRIPTION: RAD - Chest Single View - 02/09/2021 9:09 am CLINICAL HISTORY: pneumonia Chest pain. COMPARISON: Chest Single View dated 02/02/2021; Chest Single View dated 01/31/2021; Chest Single View dated 01/25/2021; Chest Single View dated 01/06/2021; Thorax Wo Con dated 01/26/2021 FINDINGS: Portable technique limits examination quality. Mild bilateral pulmonary opacities are seen, unchanged. Left pleural effusion is also likely present, unchanged. The heart is moderately enlarged. Right PICC line is unchanged in position. IMPRESSION: Stable chest is noted since 02/02/2021.
[2021-02-09] MEDS: METOLAZONE 2.5 MG TABLET PO SCH (09:30)
[2021-02-09] MEDS: allopurinoL 300 MG TAB PO SCH (09:30)
[2021-02-09] MEDS: levETIRAcetam 500 MG TAB PO SCH ×2 (09:30→20:32)
[2021-02-09] MEDS: FUROSEMIDE 40 MG TABLET PO SCH (09:30)
[2021-02-09] MEDS: COLLAGENASE 30 GM OINTMENT TOP SCH (09:30)
[2021-02-09] MEDS: ZINC SULFATE 220 MG CAP PO SCH (09:30)
[2021-02-09] MEDS: APIXABAN 2.5 MG TABLET PO SCH ×2 (09:30→20:32)
[2021-02-09] MEDS: ISOSORBIDE MONO SR 60 MG TAB PO SCH (09:30)
[2021-02-09] MEDS: DIVALPROEX NA 125 MG CAP PO SCH ×2 (09:30→20:32)
[2021-02-09] MEDS: ASPIRIN EC 81 MG TAB PO SCH (09:30)
[2021-02-09] MEDS: SILVER SULFADIAZINE 1% 50 GM TOP SCH (09:30)
[2021-02-09] MEDS: ASCORBIC ACID 500 MG TABLET PO SCH (09:30)
[2021-02-09 09:32] LABS: Anisocytosis 1+; Blood Morphology Comment NOTED (NOT SEEN); Elliptocytes 1+; Platelet Estimate ADEQ; Poikilocytosis 1+
[2021-02-09] MEDS: PIPER TAZO 2.25 GM in NA CHLORIDE 0.9% 50 ML IV SCH ×2 (10:00→17:00)
--- NOTE | 2021-02-09 10:46 | PN ---
Date of Progress Note: 02/08/2021 Subjective: The patient was seen this morning for followup. He was lying in bed, not in distress, s leeping, arousable upon verbal commands, but does not answer any questions, but tries to smile when I talked to him. Objective: Vital signs: Reviewed. The patient not in any distress. HEENT: Unremarkable. Lungs: Clear to auscultation. Heart: Sounds normal. Abdomen: Soft. Bowel sounds normal. No guarding, rigidity, tenderness, distention. Extremities: No leg edema. Laboratory Data: No new labs. Fingerstick blood sugar readings reviewed. Last glucose level was 41 0. Impression: 1.Decubitus ulcer. 2.Sepsis, organism staphylococcus. 3.Coronary artery disease. 4.Chronic systolic congestive heart failure. 5.Hypertension. 6.Diabetes mellitus. 7.Generalized weakness. 8.Debility. 9.Chronic kidney disease, stage 4. 10.Anemia due to chronic kidney disease. Plan: We will go ahead and continue current antibiotic. Continue to follow with Dr. Jorje coto fo decubitus care. Continue current diabetes management. Insulin dosing was changed today. We will continue to monitor fingerstick blood sugar readings. We will repeat blood work tomorrow. KARISHMA/MODL Voice ID: [id number] Report ID: [id number]
[2021-02-09] MEDS ORDERED: PIPERACIL/TAZO 2.25 GM VIAL IV ONE (16:30)
[2021-02-09] MEDS: QUETIAPINE 25 MG TAB PO SCH (20:32)
[2021-02-09] MEDS: ATORVASTATIN 80 MG TAB PO SCH (20:32)
[2021-02-10] MEDS: PIPER TAZO 2.25 GM in NA CHLORIDE 0.9% 50 ML IV SCH ×3 (00:12→17:27)
[2021-02-10] MEDS ORDERED: VANCOMYCIN/NS 1 gm 1 GM/250 ML BAG IVPB SCH (06:00)
[2021-02-10 07:18] LABS: Absolute Lymphocytes (CBC) 13.5 K/uL (0.7-4.9); Basophils % 0.8 % (0-1.3); Hematocrit 31.1 % (39.6-49.0); MPV 7.6 fL (7.6-11.3); RBC Red Blood Cell Count 3.51 M/uL (4.33-5.43)
[2021-02-10] MEDS: INSULIN -REGULAR HUMAN 50 UNIT/0.5 ML ML SQ SCH ×4 (07:30→20:48)
[2021-02-10 07:31] LABS: Magnesium 2.2 mg/dL (1.8-2.4); Potassium 4.5 mmol/L (3.5-5.1)
[2021-02-10] MEDS: INSULIN GLARGINE 100 UNIT/ML SQ SCH (08:00)
[2021-02-10 08:26] LABS: Anisocytosis 1+; Blood Morphology Comment NOTED (NOT SEEN); Ovalocytes 1+; Platelet Estimate ADEQ
[2021-02-10] MEDS: FUROSEMIDE 40 MG TABLET PO SCH ×2 (09:00→11:02)
[2021-02-10] MEDS: ISOSORBIDE MONO SR 60 MG TAB PO SCH ×2 (09:00→11:02)
[2021-02-10] MEDS: APIXABAN 2.5 MG TABLET PO SCH ×2 (09:00→11:02)
[2021-02-10] MEDS: levETIRAcetam 500 MG TAB PO SCH ×3 (09:00→20:46)
[2021-02-10] MEDS: allopurinoL 300 MG TAB PO SCH ×2 (09:00→11:03)
[2021-02-10] MEDS: ASCORBIC ACID 500 MG TABLET PO SCH ×2 (09:00→11:01)
[2021-02-10] MEDS: DIVALPROEX NA 125 MG CAP PO SCH ×3 (09:00→20:46)
[2021-02-10] MEDS: METOLAZONE 2.5 MG TABLET PO SCH ×2 (09:00→11:00)
[2021-02-10] MEDS: ASPIRIN EC 81 MG TAB PO SCH ×2 (09:00→11:02)
[2021-02-10] MEDS: ZINC SULFATE 220 MG CAP PO SCH ×2 (09:00→11:03)
--- NOTE | 2021-02-10 09:12 | PN ---
Date of Progress Note: 02/09/2021 Subjective: The patient was seen this morning for followup. He was lying in bed, not in distress. No new complaints or problems reported by nursing staff. Objective: Vital Signs: Reviewed. HEENT: Unremarkable. Lungs: Clear to auscultation. Heart: Sounds normal. Abdomen: Soft. Bowel sounds normal. No guarding, rigidity, tenderness, or distention. Extremities: No leg edema. Skin: Right heel, stage II decubitus is healing very well. The patient's sacrococcygeal area, stage II decubitus area noted. Does not show any worsening compared to last time. No discharge. No blee ding. Laboratory Data: White count 23.3, hemoglobin 9.6, platelet count 190. Sodium 143, potassium 4.4, c hloride 110, bicarb 28, BUN 70, creatinine 1.90, glucose 65. Impression: 1.Sepsis, organism staphylococcus. 2.Chronic lymphocytic leukemia. 3.Anemia, unspecified. 4.Hypoglycemia. 5.Diabetes mellitus. 6.Chronic kidney disease, stage 4. 7.Coronary artery disease. 8.Hypertension. 9.Decubitus ulcer. 10.Generalized weakness. 11.Debility. Plan: We will go ahead and continue vancomycin. I will go ahead and stop ceftriaxone and change it to Zosyn. Continue decubitus management per Dr. Recinos. Nursing staff to continue to change position every 2 hours and we will continue nutritional supplement. This morning, patient's blood sugar was low. He was asymptomatic and nurse was advised to give 1 can of Glucerna. His nighttime Lantus insu garcía dose will be discontinued. We will continue morning Lantus and sliding scale per order. This mo rning, I did call [employer]'s medical administrator to try to appeal for long-term acute care faci lity placement benefit and after discussing all the details, [employer], medical administrator lou ed LTAC placement, but she approved a half-way facility placement. All this information was c ommunicated with social service and requested her to assist the patient and family with skilled nursi ng facility placement. KARISHMA/MODL Voice ID: [id number] Report ID: [id number]
[2021-02-10] MEDS: GLUCERNA SHAKE 237 ML CAN PO SCH ×3 (10:58→20:46)
[2021-02-10] MEDS: JUVEN PACKET PO SCH ×2 (10:59→20:46)
[2021-02-10] MEDS: SILVER SULFADIAZINE 1% 50 GM TOP SCH (11:03)
[2021-02-10] MEDS: COLLAGENASE 30 GM OINTMENT TOP SCH (11:04)
--- NOTE | 2021-02-10 13:25 | PN ---
Date of Progress Note: 02/10/2021 Subjective: The patient was seen this morning for followup. No new complaints or problems reported by him. He does not communicate or answer any questions, but lying in bed, sleeping, easily arousabl e upon verbal commands. Objective: Vital Signs: Reviewed. HEENT: Examination unremarkable. Lungs: Clear to auscultation. Cardiac: Heart sounds normal. Abdomen: Soft. Bowel sounds normal. No guarding, rigidity, tenderness, or distention. Extremities: No leg edema. Impression: 1.Decubitus ulcer, sacrococcygeal region and foot. 2.Chronic kidney disease, stage 4. 3.Coronary artery disease. 4.Chronic systolic heart failure. 5.Anemia due to chronic kidney disease. 6.Hypertension. 7.Diabetes mellitus. 8.Sepsis, organism Staphylococcus. 9.Chronic lymphocytic leukemia. Plan: We will go ahead and continue to follow up with Dr. Recinos for wound care management. Continue current antibiotics. Continue current antihypertensive and diabetes management, and social service is working with family members regarding pen[facility]entiary placement. KARISHMA/MODL Voice ID: [id number] Report ID: [id number]
[2021-02-10] MEDS: ATORVASTATIN 80 MG TAB PO SCH (20:46)
[2021-02-11] MEDS: PIPER TAZO 2.25 GM in NA CHLORIDE 0.9% 50 ML IV SCH ×3 (00:29→17:33)
[2021-02-11] MEDS: VANCOMYCIN/NS 1 gm 1 GM/250 ML BAG IVPB SCH (06:00)
[2021-02-11] MEDS: INSULIN -REGULAR HUMAN 50 UNIT/0.5 ML ML SQ SCH ×4 (07:30→20:39)
[2021-02-11] MEDS: INSULIN GLARGINE 100 UNIT/ML SQ SCH (08:00)
[2021-02-11] MEDS: levETIRAcetam 500 MG TAB PO SCH ×2 (09:10→20:34)
[2021-02-11] MEDS: ASPIRIN EC 81 MG TAB PO SCH (09:10)
[2021-02-11] MEDS: ISOSORBIDE MONO SR 60 MG TAB PO SCH (09:10)
[2021-02-11] MEDS: FUROSEMIDE 40 MG TABLET PO SCH (09:10)
[2021-02-11] MEDS: METOLAZONE 2.5 MG TABLET PO SCH (09:11)
[2021-02-11] MEDS: ZINC SULFATE 220 MG CAP PO SCH (09:11)
[2021-02-11] MEDS: DIVALPROEX NA 125 MG CAP PO SCH ×2 (09:11→20:33)
[2021-02-11] MEDS: allopurinoL 300 MG TAB PO SCH (09:11)
[2021-02-11] MEDS: ASCORBIC ACID 500 MG TABLET PO SCH (09:11)
[2021-02-11] MEDS: GLUCERNA SHAKE 237 ML CAN PO SCH ×3 (09:14→20:34)
[2021-02-11] MEDS: JUVEN PACKET PO SCH ×2 (09:15→20:34)
[2021-02-11] MEDS: COLLAGENASE 30 GM OINTMENT TOP SCH (09:15)
[2021-02-11] MEDS: SILVER SULFADIAZINE 1% 50 GM TOP SCH (09:15)
--- NOTE | 2021-02-11 12:08 | PN ---
Date of Progress Note: 02/11/2021 Subjective: The patient was seen this morning for followup. No new complaints or problems reported by nursing staff. The patient is eating well as nurse reported this morning. Objective: Vital Signs: Reviewed. HEENT: Unremarkable. Lungs: Clear to auscultation. HEART: Sounds normal. Abdomen: Soft. Bowel sounds normal. No guarding, rigidity, tenderness, or distention. Extremities: No leg edema. Foot examination; right heel has stage II decubitus that seems to be healing well. There is no eschar formation. Half of the area has shown significant improvement, other half still has some oozing of blood upon removal of dressing, but has pink healthy granulation tissue at the base. Left foot heel area is normal. Left mid lateral foot has a small area of dark skin that has remained unchanged from admission. His sacrococcygeal region has acute large area of decubitus with loss of epidermal skin in multiple locations. There is no induration, no bleeding, discharge. Impression: 1. Sepsis. 2. Pneumonia. 3. Chronic lymphocytic leukemia. 4. Decubitus ulcer. 5. Hypertension. 6. Coronary artery disease. 7. Chronic systolic heart failure. 8. Chronic kidney disease, stage 4. 9. Anemia due to chronic kidney disease. 10. Vascular dementia. Plan: We will go ahead and continue current antibiotic which is Zosyn and vancomycin. Follow up on blood work tomorrow. We will continue to follow with Dr. Recinos for wound care management. Continue current diet. Yesterday, I did talk to the patient's regarding the patient's inadequate oral intake and once again, we had discussion regarding feeding tube. Yesterday, she was agreeable to go ahead and proceed with the feeding tube placement. We do not have any GI on-call for rest of this month, but I was able to contact our telephone assembler and requested him to see if he is available to place feeding tube and he will try to schedule this procedure either for Saturday or Saturday and I have discontinued his Eliquis. So, last dose of Eliquis was yesterday morning. After that, the patient has not received any Eliquis as it was discontinued yesterday afternoon. I will see the patient tomorrow for followup. The patient's is working with Social Service regarding alf facility placement. KARISHMA/MODL Voice ID: [id number] Report ID: [id number] OLIVIA
[2021-02-11] MEDS ORDERED: PIPERACIL/TAZO 2.25 GM VIAL IV ONE (16:36)
[2021-02-11] MEDS: ATORVASTATIN 80 MG TAB PO SCH (20:32)
[2021-02-12] MEDS: PIPER TAZO 2.25 GM in NA CHLORIDE 0.9% 50 ML IV SCH ×3 (01:06→16:41)
[2021-02-12 05:30] LABS: Absolute Lymphocytes (CBC) 13.2 K/uL (0.7-4.9); Basophils % 0.9 % (0-1.3); Hematocrit 29.9 % (39.6-49.0); Lymphocytes % 63.9 % (15.3-44.8); RBC Red Blood Cell Count 3.31 M/uL (4.33-5.43)
[2021-02-12 05:37] LABS: Potassium 4.3 mmol/L (3.5-5.1)
[2021-02-12] MEDS: INSULIN GLARGINE 100 UNIT/ML SQ SCH (08:00)
[2021-02-12] MEDS: GLUCERNA SHAKE 237 ML CAN PO SCH ×3 (09:00→20:10)
[2021-02-12] MEDS: JUVEN PACKET PO SCH ×2 (09:00→20:10)
[2021-02-12] MEDS: INSULIN -REGULAR HUMAN 50 UNIT/0.5 ML ML SQ SCH ×4 (09:22→20:11)
[2021-02-12] MEDS: DIVALPROEX NA 125 MG CAP PO SCH ×2 (09:23→20:09)
[2021-02-12] MEDS: ASPIRIN EC 81 MG TAB PO SCH (09:23)
[2021-02-12] MEDS: FUROSEMIDE 40 MG TABLET PO SCH (09:24)
[2021-02-12] MEDS: COLLAGENASE 30 GM OINTMENT TOP SCH (09:24)
[2021-02-12] MEDS: levETIRAcetam 500 MG TAB PO SCH ×2 (09:24→20:10)
[2021-02-12] MEDS: ISOSORBIDE MONO SR 60 MG TAB PO SCH (09:24)
[2021-02-12] MEDS: ZINC SULFATE 220 MG CAP PO SCH (09:25)
[2021-02-12] MEDS: SILVER SULFADIAZINE 1% 50 GM TOP SCH (09:25)
[2021-02-12] MEDS: ASCORBIC ACID 500 MG TABLET PO SCH (09:25)
[2021-02-12] MEDS: METOLAZONE 2.5 MG TABLET PO SCH (09:25)
[2021-02-12] MEDS: allopurinoL 300 MG TAB PO SCH (09:26)
[2021-02-12] MEDS: ACETAMINOPHEN 500 MG TAB PO PRN (13:35)
--- NOTE | 2021-02-12 14:21 | PN ---
Date of Progress Note: 02/12/2021 Subjective: The patient was seen this morning for followup. He was lying in bed, not in any distres s, does not answer any questions. Objective: Vital Signs: Reviewed. HEENT: Unremarkable. Lungs: Clear to auscultation. Heart: Sounds normal. Abdomen: Soft. Bowel sounds normal. No guarding, rigidity, tenderness, or distention. Extremities: No leg edema. Skin: Decubitus ulcer from right heel and sacrococcygeal area examined, remains unchanged. AIRPLANE PATROLLER exam: The patient has contracture of all the 4 extremities and this has been unchanged since the time of admission. Laboratory Data: White count 20.6, hemoglobin 9.4, platelets 189, sodium 141, potassium 4.3, chlorid e 107, bicarb 28, BUN 72, creatinine 1.97, glucose 238, procalcitonin 0.3. Impression: 1.Sepsis, organism Staphylococcus. 2.Pneumonia. 3.Chronic lymphocytic leukemia. 4.Decubitus ulcer. 5.Hypertension. 6.Chronic systolic congestive heart failure. 7.Coronary artery disease. 8.Diabetes mellitus. 9.Vascular dementia. Plan: We will go ahead and continue current antibiotic. Continue decubitus management per Dr. Recinos . We will go ahead and continue current diabetes management, antihypertensive medication and I will see him tomorrow for followup. KARISHMA/MODL Voice ID: [id number] Report ID: [id number]
[2021-02-12] MEDS: ATORVASTATIN 80 MG TAB PO SCH (20:10)
[2021-02-13] MEDS: PIPER TAZO 2.25 GM in NA CHLORIDE 0.9% 50 ML IV SCH ×3 (00:08→16:33)
[2021-02-13] MEDS ORDERED: PIPERACIL/TAZO 2.25 GM VIAL IV ONE (00:09)
[2021-02-13] MEDS: VANCOMYCIN/NS 1 gm 1 GM/250 ML BAG IVPB SCH (06:27)
[2021-02-13] MEDS: JUVEN PACKET PO SCH ×2 (09:00→20:18)
[2021-02-13] MEDS ORDERED: BISACODYL 10 MG RECTAL SUPP PR ONE (09:00)
[2021-02-13] MEDS: GLUCERNA SHAKE 237 ML CAN PO SCH ×3 (09:00→20:18)
[2021-02-13] MEDS: METOLAZONE 2.5 MG TABLET PO SCH (09:32)
[2021-02-13] MEDS: ASCORBIC ACID 500 MG TABLET PO SCH (09:32)
[2021-02-13] MEDS: INSULIN -REGULAR HUMAN 50 UNIT/0.5 ML ML SQ SCH ×4 (09:32→20:19)
[2021-02-13] MEDS: ZINC SULFATE 220 MG CAP PO SCH (09:33)
[2021-02-13] MEDS: allopurinoL 300 MG TAB PO SCH (09:33)
[2021-02-13] MEDS: levETIRAcetam 500 MG TAB PO SCH ×2 (09:33→20:18)
[2021-02-13] MEDS: ISOSORBIDE MONO SR 60 MG TAB PO SCH (09:33)
[2021-02-13] MEDS: ASPIRIN EC 81 MG TAB PO SCH (09:33)
[2021-02-13] MEDS: DIVALPROEX NA 125 MG CAP PO SCH ×2 (09:33→20:18)
[2021-02-13] MEDS: FUROSEMIDE 40 MG TABLET PO SCH (09:33)
[2021-02-13] MEDS: COLLAGENASE 30 GM OINTMENT TOP SCH (09:34)
[2021-02-13] MEDS: SILVER SULFADIAZINE 1% 50 GM TOP SCH (09:34)
[2021-02-13] MEDS: INSULIN GLARGINE 100 UNIT/ML SQ SCH (09:43)
[2021-02-13] MEDS ORDERED: GLYCOPYRROLATE 0.2 MG/ML SYR ONE (12:16)
[2021-02-13] MEDS ORDERED: EPHEDRINE SULF 50 MG/ML VIAL ONE (12:16)
[2021-02-13] MEDS ORDERED: propofoL 200 MG/20 ML VIAL IV ONE ×2 (12:16→12:18)
[2021-02-13] MEDS ORDERED: LIDOCAINE 1% MPF 2 ML AMPULE ONE (12:16)
[2021-02-13] MEDS: ATORVASTATIN 80 MG TAB PO SCH (20:18)
[2021-02-14] MEDS: PIPER TAZO 2.25 GM in NA CHLORIDE 0.9% 50 ML IV SCH ×3 (00:48→16:17)
[2021-02-14 05:24] LABS: Absolute Lymphocytes (CBC) 13.8 K/uL (0.7-4.9); Basophils % 0.4 % (0-1.3); Hematocrit 32.8 % (39.6-49.0); Lymphocytes % 67.5 % (15.3-44.8); MPV 8.3 fL (7.6-11.3); RBC Red Blood Cell Count 3.67 M/uL (4.33-5.43)
[2021-02-14 05:28] LABS: Albumin 1.6 g/dL (3.4-5.0); Bilirubin Total 0.4 mg/dL (0.2-1.0); Magnesium 2.4 mg/dL (1.8-2.4); Potassium 4.2 mmol/L (3.5-5.1)
[2021-02-14] MEDS ORDERED: EPINEPHRINE/PF 1 MG/ML AMP ONE (06:56)
[2021-02-14] MEDS ORDERED: NA CHLORIDE 0.9% 1,000 ML ONE (06:57)
[2021-02-14] MEDS ORDERED: D50W 50 ML IV ONE (07:09)
[2021-02-14] MEDS: D50W 25 GM/50 ML SYRINGE IV PRN (07:14)
[2021-02-14] MEDS: INSULIN -REGULAR HUMAN 50 UNIT/0.5 ML ML SQ SCH ×4 (07:30→19:39)
[2021-02-14] MEDS ORDERED: CEFAZOLIN/NS 1gm 0 GM/0 ML BAG ONE (07:55)
[2021-02-14] MEDS ORDERED: LIDOCAINE 1% MPF 5 ML VIAL ONE (07:58)
[2021-02-14] MEDS: INSULIN GLARGINE 100 UNIT/ML SQ SCH (08:00)
[2021-02-14] MEDS: D5 0.9 NS 1,000 ML IV SCH ×2 (08:05→10:23)
[2021-02-14 08:48] LABS: Anisocytosis 1+; Blood Morphology Comment NOTED (NOT SEEN); Elliptocytes 1+; Platelet Estimate ADEQ; Poikilocytosis 1+
[2021-02-14] MEDS: GLUCERNA SHAKE 237 ML CAN PO SCH ×3 (09:00→19:39)
[2021-02-14] MEDS: JUVEN PACKET PO SCH ×2 (09:00→19:39)
--- NOTE | 2021-02-14 09:52 | PN ---
Date of Progress Note: 02/13/2021 Subjective: The patient was seen this morning for followup. He was lying in bed, not in any distres s. Nurse reported that he ate about 50% of his meal yesterday and did not have any trouble with ches t pain, shortness of breath. No nausea, vomiting. Objective: Vital Signs: Reviewed. HEENT: Unremarkable. Lungs: Clear to auscultation. Heart: Sounds normal. Abdomen: Soft. Bowel sounds normal. No guarding, rigidity, tenderness, or distention. Extremities: No leg edema. Laboratory Data: Creatinine 1.93. Fingerstick blood sugar readings reviewed. Vancomycin trough lev el 17.2. Impression: 1.Decubitus ulcer. 2.Pneumonia. 3.Sepsis. 4.Malnutrition. 5.Hypertension. 6.Diabetes mellitus. 7.Coronary artery disease. 8.Chronic systolic heart failure. Plan: We will go ahead and continue current medications, continue current antibiotics. Renal functi on is stable. Continue to follow up with Dr. Recinos for decubitus care management. I did talk to the patient's on Saturday and recommended feeding tube placement considering the patient's malnutriti on and poor oral intake and in presence of this decubitus ulcer unfortunately, we are concerned that it may not heal without improvement in his nutritional status, so all these details were discussed wi th her and it was recommended for feeding tube placement and she agreed to go ahead and proceed with arrangements for feeding tube and after we made arrangements for feeding tube placement with Dr. Ken ulrich when he was trying to go ahead and get that procedure done today, the patient's denied it a nd wanted to talk to me. I did try to call her yesterday. Unfortunately, she had not answered her p radha, so today I did communicate with her to see if she had any questions. After we had discussed an d she had given her okay to proceed with the feeding tube, she informed me that she did not know that it was going to be done today and she wanted to be at the hospital, so his feeding tube now is clarence eduled for tomorrow and has given her permission to proceed with that feeding tube placement. I will see him tomorrow for followup. KARISHMA/MODL Voice ID: [id number] Report ID: [id number]
[2021-02-14] MEDS: ISOSORBIDE MONO SR 60 MG TAB PO SCH (10:24)
[2021-02-14] MEDS: METOLAZONE 2.5 MG TABLET PO SCH (10:24)
[2021-02-14] MEDS: DIVALPROEX NA 125 MG CAP PO SCH ×2 (10:24→19:46)
[2021-02-14] MEDS: ASPIRIN EC 81 MG TAB PO SCH (10:24)
[2021-02-14] MEDS: ZINC SULFATE 220 MG CAP PO SCH (10:24)
[2021-02-14] MEDS: ASCORBIC ACID 500 MG TABLET PO SCH (10:24)
[2021-02-14] MEDS: FUROSEMIDE 40 MG TABLET PO SCH (10:25)
[2021-02-14] MEDS: allopurinoL 300 MG TAB PO SCH (10:25)
[2021-02-14] MEDS: SILVER SULFADIAZINE 1% 50 GM TOP SCH (10:26)
[2021-02-14] MEDS: COLLAGENASE 30 GM OINTMENT TOP SCH (10:26)
[2021-02-14] MEDS: levETIRAcetam 500 MG TAB PO SCH ×2 (10:32→19:46)
--- NOTE | 2021-02-14 11:19 | OP ---
Surgeon: Alex Burgess MD Procedure Performed: Esophagogastroduodenoscopy with PEG placement. Indication For Procedure: Failure to thrive. Plan For Anesthesia: Monitored anesthesia care. Complexity: Moderate due to the nature of procedure. Technique: After obtaining informed consent from the patient's spouse, Ms. Arely Morel and explain ing risks and complications, which include, but are not limited to bleeding, perforation, infection, anesthesia complications, the patient was placed in the supine position and sedation was given. Then , the scope was advanced into the mouth and carefully guided up till the second portion of the duoden um. After the completion of examination and all necessary maneuvers, scope and equipment were withdr awn and procedure terminated in a safe manner. Findings: Esophagus: A small hiatal hernia seen in the distal esophagus. Stomach: Mild patchy erythema seen in the gastric antrum and body. Biopsies taken. Duodenum: Etcd-wz-upjwnjbb patchy erythema seen in the duodenum. Duodenum bulb, second portion appe ared normal. Subsequently, scope was withdrawn to the stomach and in the body, good site of PEG plac ement was identified with one-to-one pressure and transillumination. Subsequently, under aseptic pre cautions after injecting local anesthesia, a 20-[employer] [employer] PEG tube was placed with a p ull guidewire technique. The external bumper was at around 3 cm. Post placement and position were c onfirmed with repeat endoscopy. Abdominal binder was placed. Biopsies were also taken from the antr um and body. Complications: None. Tolerance To Anesthesia: Excellent. Postoperative Diagnoses: Hiatal hernia, gastritis, status post PEG placement. Plan: Continue current management. Keep n.p.o. for 24 hours. Nutrition consultation. Then start f eeding at 20 cc/hour and advance as tolerated. Follow up pathology report. Oral PPI through PEG can be started along with feeding. Meds are okay to be given p.o. if he is on any at this time. Keep h ead of bed elevated to 45 degrees to prevent aspiration. US/MODL Voice ID: [id number] Report ID: [id number]
[2021-02-14] MEDS: ATORVASTATIN 80 MG TAB PO SCH (19:46)
--- NOTE | 2021-02-14 21:19 | PN ---
Date of Progress Note: 02/14/2021 Subjective: The patient is awake, a little bit more alert, and he did have a PEG placed by Dr. Alexander deng. His vitals are stable. He is afebrile. His sacral decubitus does have some sloughing of the s kin that has not significantly changed in size, however, as depth of the decubitus is difficult to sa y there is a deep tissue injury and it is hard to know how deep the extent of the decubitus is, but t here is no surrounding erythema, warmth, or edema. On the right heel, there is good granulation tiss ue and no surrounding erythema, warmth, and edema and it is smaller than it was before, it is approxi mately 3 x 3 cm. Assessment: Sacral decubitus and right heel wound. Recommendations: Nutritional optimization with a PEG tube. Vitamins as ordered. Offloading air mat tress, Silvadene dressing to the right heel and central dressing for the sacrum. We will follow him up in [place] if he does go there, if not, the patient can follow up in the wound healing center up n discharge. We will follow him while in the hospital. /MODL Voice ID: [id number] Report ID: [id number]
[2021-02-15] MEDS: PIPER TAZO 2.25 GM in NA CHLORIDE 0.9% 50 ML IV SCH ×3 (00:16→17:30)
[2021-02-15] MEDS: VANCOMYCIN/NS 1 gm 1 GM/250 ML BAG IVPB SCH (06:50)
[2021-02-15] MEDS: INSULIN -REGULAR HUMAN 50 UNIT/0.5 ML ML SQ SCH ×4 (07:30→19:55)
[2021-02-15] MEDS: INSULIN GLARGINE 100 UNIT/ML SQ SCH (08:00)
[2021-02-15] MEDS: JUVEN PACKET PO SCH (09:00)
[2021-02-15] MEDS: METOLAZONE 2.5 MG TABLET PO SCH (09:57)
[2021-02-15] MEDS: DIVALPROEX NA 125 MG CAP PO SCH ×2 (09:58→19:54)
[2021-02-15] MEDS: FUROSEMIDE 40 MG TABLET PO SCH (09:58)
[2021-02-15] MEDS: allopurinoL 300 MG TAB PO SCH (09:58)
[2021-02-15] MEDS: ASPIRIN EC 81 MG TAB PO SCH (09:58)
[2021-02-15] MEDS: ASCORBIC ACID 500 MG TABLET PO SCH (09:58)
[2021-02-15] MEDS: levETIRAcetam 500 MG TAB PO SCH ×2 (09:59→19:55)
[2021-02-15] MEDS: ZINC SULFATE 220 MG CAP PO SCH (09:59)
[2021-02-15] MEDS: ISOSORBIDE MONO SR 60 MG TAB PO SCH (09:59)
[2021-02-15] MEDS: COLLAGENASE 30 GM OINTMENT TOP SCH (09:59)
[2021-02-15] MEDS: SILVER SULFADIAZINE 1% 50 GM TOP SCH (10:00)
[2021-02-15] MEDS: D5 0.9 NS 1,000 ML IV SCH (10:16)
[2021-02-15] MEDS: Pantoprazole (granules) 40 MG/BLIST PACKET FT SCH (10:17)
--- NOTE | 2021-02-15 10:23 | PN ---
Date of Progress Note: 02/14/2021 Subjective: The patient was seen this morning for followup. He was sleeping, not in distress, arous able. Objective: Vital Signs: Reviewed. HEENT: Unremarkable. Lungs: Clear to auscultation. Heart: Sounds normal. Abdomen: Soft. Bowel sounds normal. No guarding, rigidity, tenderness, or distention. Extremities: No leg edema. Laboratory Data: White count 20.4, hemoglobin 10.2, platelets 208. Sodium 144, potassium 4.2, chlor nabil 109, bicarb 29, BUN 76, creatinine 1.73, glucose 87. Serum albumin level 1.6. Impression: 1.Severe malnutrition. 2.Chronic kidney disease, stage 4. 3.Anemia, chronic, unspecified. 4.Chronic lymphocytic leukemia. 5.Hypertension. 6.Decubitus ulcer. 7.Diabetes mellitus. Plan: After I saw the patient, IV fluid was ordered since the patient was going to be n.p.o. for PEG tube placement and the patient did have a successful PEG tube placement by Dr. Burgess. He has bert en some biopsies to rule out H pylori as he did see some changes of gastritis. We will go ahead and continue current antibiotics and Dr. Recinos did evaluate his decubitus ulcers and reported that he has not seen any significant change from previous exam and he will continue to manage his decubitus care. KARISHMA/MODL Voice ID: [id number] Report ID: [id number]
[2021-02-15] MEDS: GLUCERNA 1.5 CAL 1,000 ML BOT RTH SCH (10:38)
[2021-02-15] MEDS: ATORVASTATIN 80 MG TAB PO SCH (19:54)
[2021-02-15] MEDS: JUVEN PACKET FT SCH (20:04)
[2021-02-16] MEDS: PIPER TAZO 2.25 GM in NA CHLORIDE 0.9% 50 ML IV SCH ×3 (01:43→17:15)
[2021-02-16] MEDS: INSULIN -REGULAR HUMAN 50 UNIT/0.5 ML ML SQ SCH ×4 (07:30→19:47)
--- NOTE | 2021-02-16 08:42 | RAD REPORT ---
EXAM DESCRIPTION: Rico Single View02/16/2021 8:20 am CLINICAL HISTORY: Fever COMPARISON: February 09 FINDINGS: Mild bilateral pulmonary opacities with small pleural effusions. Mild cardiomegaly IMPRESSION: Mild bilateral pulmonary opacities may indicate pulmonary edema, pneumonia or pneumonit is
[2021-02-16] MEDS: ACETAMINOPHEN 500 MG TAB PO PRN ×2 (09:00→19:46)
[2021-02-16] MEDS: INSULIN GLARGINE 100 UNIT/ML SQ SCH (09:00)
[2021-02-16] MEDS: DIVALPROEX NA 125 MG CAP PO SCH ×2 (09:00→19:47)
[2021-02-16] MEDS: ASPIRIN EC 81 MG TAB PO SCH (09:00)
[2021-02-16] MEDS: FUROSEMIDE 40 MG TABLET PO SCH (09:00)
[2021-02-16] MEDS: levETIRAcetam 500 MG TAB PO SCH ×2 (09:00→19:51)
[2021-02-16] MEDS: Pantoprazole (granules) 40 MG/BLIST PACKET FT SCH (09:00)
[2021-02-16] MEDS: ISOSORBIDE MONO SR 60 MG TAB PO SCH (09:00)
[2021-02-16] MEDS: ZINC SULFATE 220 MG CAP PO SCH (09:00)
[2021-02-16] MEDS: JUVEN PACKET FT SCH ×2 (09:00→19:44)
[2021-02-16] MEDS: allopurinoL 300 MG TAB PO SCH (09:00)
[2021-02-16] MEDS: SILVER SULFADIAZINE 1% 50 GM TOP SCH (09:00)
[2021-02-16] MEDS: METOLAZONE 2.5 MG TABLET PO SCH (09:00)
[2021-02-16] MEDS: COLLAGENASE 30 GM OINTMENT TOP SCH (09:00)
[2021-02-16] MEDS: ASCORBIC ACID 500 MG TABLET PO SCH (09:00)
[2021-02-16 09:07] LABS: Absolute Lymphocytes (CBC) 13.9 K/uL (0.7-4.9); Basophils % 0.7 % (0-1.3); Hematocrit 33.6 % (39.6-49.0); Lymphocytes % 62.4 % (15.3-44.8); MPV 8.1 fL (7.6-11.3); RBC Red Blood Cell Count 3.71 M/uL (4.33-5.43)
[2021-02-16 09:25] LABS: Albumin 1.6 g/dL (3.4-5.0); Bilirubin Total 0.4 mg/dL (0.2-1.0); Magnesium 2.4 mg/dL (1.8-2.4); Potassium 4.6 mmol/L (3.5-5.1); Protein, Total 7.2 g/dL (6.4-8.2)
[2021-02-16] MEDS: D5 0.9 NS 1,000 ML IV SCH (10:15)
[2021-02-16 11:04] LABS: Anisocytosis 1+; Blood Morphology Comment NOTED (NOT SEEN); Platelet Estimate ADEQ
[2021-02-16 11:05] LABS: Poikilocytosis SLIGHT
--- NOTE | 2021-02-16 11:30 | PN ---
Date of Progress Note: 02/15/2021 Subjective: The patient was seen this afternoon for followup. He was lying in bed, not in distress. He did talk to me by speaking a couple of words today that is better compared to before. Objective: Vital Signs: Reviewed. HEENT: Unremarkable. Lungs: Clear to auscultation. Heart: Sounds normal. Abdomen: Soft. Bowel sounds normal. No guarding, rigidity, tenderness, distention. Extremity: No leg edema. Impression: 1. Decubitus ulcers. 2. Hypertension. 3. Chronic kidney disease stage 4. 4. Diabetes mellitus. 5. Coronary artery disease. 6. Generalized weakness. 7. Debility. Plan: We will go ahead and continue decubitus care per Dr. Recinos. We will continue current empiric antibiotic which is Zosyn. Start the patient on PEG tube feeding per order and we will repeat blood work tomorrow. We will check PEG tube residual and as he tolerates. We will increase the PEG tube feeding rate as per order. KARISHMA/MODL Voice ID: [id number] Report ID: [id number] MTDD
[2021-02-16] MEDS: ATORVASTATIN 80 MG TAB PO SCH (19:51)
[2021-02-17] MEDS: PIPER TAZO 2.25 GM in NA CHLORIDE 0.9% 50 ML IV SCH ×3 (00:12→17:00)
[2021-02-17 05:10] LABS: Absolute Lymphocytes (CBC) 13.1 K/uL (0.7-4.9); Basophils % 0.7 % (0-1.3); Hematocrit 30.1 % (39.6-49.0); Lymphocytes % 65.9 % (15.3-44.8); MPV 8.1 fL (7.6-11.3); RBC Red Blood Cell Count 3.32 M/uL (4.33-5.43)
[2021-02-17 05:19] LABS: Potassium 4.9 mmol/L (3.5-5.1)
[2021-02-17] MEDS: INSULIN -REGULAR HUMAN 50 UNIT/0.5 ML ML SQ SCH (07:30)
[2021-02-17] MEDS: INSULIN GLARGINE 100 UNIT/ML SQ SCH (08:00)
[2021-02-17] MEDS: Pantoprazole (granules) 40 MG/BLIST PACKET FT SCH (09:00)
[2021-02-17] MEDS: JUVEN PACKET FT SCH ×2 (09:00→20:06)
[2021-02-17] MEDS: levETIRAcetam 500 MG TAB PO SCH ×2 (09:47→20:06)
[2021-02-17] MEDS: COLLAGENASE 30 GM OINTMENT TOP SCH (09:47)
[2021-02-17] MEDS: ASCORBIC ACID 500 MG TABLET PO SCH (09:47)
[2021-02-17] MEDS: SILVER SULFADIAZINE 1% 50 GM TOP SCH (09:47)
[2021-02-17] MEDS: DIVALPROEX NA 125 MG CAP PO SCH ×2 (09:47→20:06)
[2021-02-17] MEDS: ZINC SULFATE 220 MG CAP PO SCH (09:47)
[2021-02-17] MEDS: allopurinoL 300 MG TAB PO SCH (09:47)
[2021-02-17] MEDS: FUROSEMIDE 40 MG TABLET PO SCH (09:47)
[2021-02-17] MEDS: ASPIRIN EC 81 MG TAB PO SCH (09:47)
[2021-02-17] MEDS: ISOSORBIDE MONO SR 60 MG TAB PO SCH (09:47)
--- NOTE | 2021-02-17 10:33 | PN ---
Date of Progress Note: 02/16/2021 Subjective: The patient was seen this morning for followup. He was lying in bed, not in any distres s. No new complaints or problems reported by him or nursing staff. Objective: Vital Signs: Reviewed. HEENT: Unremarkable. Lungs: Clear to auscultation. Heart: Sounds normal. Abdomen: Soft. Bowel sounds normal. No guarding, rigidity, tenderness, or distention. Extremities: No leg edema. Skin: Right heel decubitus area is improving very well. His sacrococcygeal decubitus area has not i mproved in fact it has shown worsening compared to before. There is no induration. Discharge has lo t of superficial epidermal skin in multiple areas over large sacrococcygeal decubitus area. Laboratory Data: White count 22.2 today, hemoglobin 10.2, platelets 186, sodium 146, potassium 4.6, chloride 113, bicarb 24, BUN 77, creatinine 2.11, glucose 253. Liver function tests unremarkable. A lbumin 1.6. Chest x-ray shows bilateral pulmonary opacities. Impression: 1.Fever. 2.Chronic lymphocytic leukemia. 3.Leukocytosis. 4.Decubitus ulcer. 5.Chronic systolic heart failure. 6.Coronary artery disease. 7.Hypertension. 8.Diabetes mellitus. 9.Chronic kidney disease stage 4. Plan: The patient had low-grade fever this morning and blood work was done. Chest x-ray was done, r esults reviewed. Urinalysis and urine culture and blood culture was ordered. We will continue Zosyn that he is currently on. Chest x-ray shows bilateral pulmonary opacities, which I believe is likely due to underlying chronic systolic congestive heart failure. We will continue back to feeding. He is tolerating that very well. Continue free water with the PEG tube per order. Nursing staff to maria elena brown to provide decubitus care per instruction from Dr. Recinos and we will repeat blood work tomorrow . I will see him tomorrow for followup. KARISHMA/MODL Voice ID: [id number] Report ID: [id number]
--- NOTE | 2021-02-17 10:51 | PN ---
Date of Progress Note: 02/17/2021 Subjective: The patient was seen this morning for followup. No new complaints, problems reported by nursing staff. The patient was lying in bed, sleeping, arousable, but did not communicate with me t his morning. Objective: Vital signs: Reviewed. HEENT: Unremarkable. Lungs: Clear to auscultation. Heart: Sounds normal. Abdomen: Soft. Bowel sounds normal. No guarding, rigidity, tenderness, or distention. Extremities: No leg edema. Laboratory Data: Sodium 146, potassium 4.9, chloride 113, bicarb 27, BUN 85, creatinine 1.98, glucos e 170. Procalcitonin 0.4. White count 19.9, hemoglobin 9.5, platelets 178. Impression: 1.Chronic systolic congestive heart failure. 2.Coronary artery disease. 3.Hypertension. 4.Diabetes mellitus. 5.Failure to thrive. 6.Severe malnutrition. 7.Decubitus ulcers. 8.Fever. Plan: We will continue current antibiotic, which is Zosyn. The patient still had low-grade fever th is morning 99.2. Urinalysis and urine culture were ordered yesterday but nursing staff has not colle cted and I brought it to charge nurse' attention and she will make sure that urine specimen gets gonzalo ected today. The patient's chest x-ray shows bilateral pulmonary opacity, which I believe is likely due to his chronic systolic congestive heart failure. His last echocardiogram from June had shown e jection fraction about 29%. His most of the leukocytosis that we see is very likely due to his under lying CLL problem. Continue current decubitus care per Dr. Recinos. The patient is tolerating PEG tub e feeding very well. He is at 50 cc/hour. Nursing staff to continue to assist the patient with feed ing per order and then should continue to try to eat by mouth as much as he can to maintain his abili ty to swallow as long as possible. Fingerstick blood sugar readings reviewed and we will go ahead an d increase dose of Lantus insulin from 20 units daily to 30 units daily. KARISHMA/MODL Voice ID: [id number] Report ID: [id number]
[2021-02-17] MEDS ORDERED: INSULIN GLARGINE 100 UNIT/ML SQ SCH (11:00)
[2021-02-17 13:40] LABS: Urine Appearance CLOUDY (Clear); Urine Bilirubin NEGATIVE (Negative); Urine Blood 1+ (Negative); Urine Color YELLOW (Yellow); Urine Glucose NEGATIVE (Negative); Urine Specific Gravity 1.015 (1.005-1.030)
[2021-02-17 13:41] LABS: Urine Protein 1+ (Negative); Urine Urobilinogen 0.2 mg/dL (0.2-1.0); Urine pH 5.5 (5.0-7.0)
[2021-02-17 13:50] LABS: Urine Amorphous Sediment 1+ /HPF (NONE SEEN); Urine Bacteria NONE SEEN /HPF (NONE SEEN); Urine RBC <5 /HPF (NONE SEEN)
[2021-02-17] MEDS: ATORVASTATIN 80 MG TAB PO SCH (20:06)
[2021-02-18] MEDS: PIPER TAZO 2.25 GM in NA CHLORIDE 0.9% 50 ML IV SCH ×3 (00:31→16:20)
[2021-02-18] MEDS: ACETAMINOPHEN 500 MG TAB PO PRN (00:47)
[2021-02-18] MEDS ORDERED: INSULIN GLARGINE 100 UNIT/ML SQ SCH ×4 (08:00→09:00)
[2021-02-18] MEDS: JUVEN PACKET FT SCH ×2 (09:00→21:00)
[2021-02-18] MEDS: Pantoprazole (granules) 40 MG/BLIST PACKET FT SCH (09:00)
[2021-02-18] MEDS: DIVALPROEX NA 125 MG CAP PO SCH ×2 (10:39→22:52)
[2021-02-18] MEDS: ISOSORBIDE MONO SR 60 MG TAB PO SCH (10:39)
[2021-02-18] MEDS: ASPIRIN EC 81 MG TAB PO SCH (10:39)
[2021-02-18] MEDS: levETIRAcetam 500 MG TAB PO SCH ×2 (10:39→21:00)
[2021-02-18] MEDS: FUROSEMIDE 40 MG TABLET PO SCH (10:39)
[2021-02-18] MEDS: ASCORBIC ACID 500 MG TABLET PO SCH (10:40)
[2021-02-18] MEDS: SILVER SULFADIAZINE 1% 50 GM TOP SCH (10:40)
[2021-02-18] MEDS: COLLAGENASE 30 GM OINTMENT TOP SCH (10:40)
[2021-02-18] MEDS: allopurinoL 300 MG TAB PO SCH (10:41)
[2021-02-18] MEDS: ZINC SULFATE 220 MG CAP PO SCH (10:41)
--- NOTE | 2021-02-18 20:03 | PN ---
Date of Progress Note: 02/18/2021 Subjective: The patient was seen this morning for followup. He was lying in bed, not in distress. Does not communicate or answer any questions. Objective: Vital Signs: Reviewed. HEENT: Unremarkable. Lungs: Clear to auscultation. Heart: Sounds normal. Abdomen: Soft, bowel sounds normal. No guarding, rigidity, tenderness, distention. Extremities: No leg edemas. Skin: Large decubitus ulcer from sacrococcygeal region appears worse compared to how it was few days ago. Right heel decubitus appears to be healing well. Laboratory Data: There are no new labs today. Impression: 1.Decubitus ulcer. 2.Chronic systolic congestive heart failure. 3.Hypertension. 4.Diabetes mellitus. 5.Coronary artery disease. Plan: The patient's urinalysis from yesterday came back negative. Blood culture is pending. Urine culture pending. We will continue current empiric antibiotics. [place] [address] [place] [address] and this is mostly I would say it is due to underlying CLL problem. We will continue decubitus management per Dr. Recinos. Continue current antihypertensive medication an d diabetes medication. At this point, he is on Levemir insulin and we will increase the dose from 30 -35 units. Fingerstick blood sugar readings reviewed. He is tolerating PEG tube feeding very well. I did call patient's and discussed all the details with her. She tells me that there is only 1 paperwork that she needs to do on Saturday and after that the patient will be able to go to [facility] and our plan is to discharge him to go to [place] as soon as all the arrangements gets c ompleted. The patient's was made aware of our concerns about worsening of sacrococcygeal decubi tus. Nursing staff was advised to continue to try to feed the patient as per instruction. I will se e him tomorrow for followup. KARISHMA/MODL Voice ID: [id number] Report ID: [id number]
[2021-02-18] MEDS: levETIRAcetam 500 MG/5 ML OSYR PO SCH (22:51)
[2021-02-18] MEDS: ATORVASTATIN 80 MG TAB PO SCH (22:52)
[2021-02-19] MEDS: PIPER TAZO 2.25 GM in NA CHLORIDE 0.9% 50 ML IV SCH ×3 (00:31→16:55)
[2021-02-19] MEDS: GLUCERNA 1.5 CAL 1,000 ML BOT RTH SCH (06:00)
[2021-02-19 06:04] LABS: Absolute Lymphocytes (CBC) 12.5 K/uL (0.7-4.9); Basophils % 0.8 % (0-1.3); Hematocrit 32.6 % (39.6-49.0); Lymphocytes % 68.3 % (15.3-44.8); MPV 8.1 fL (7.6-11.3); RBC Red Blood Cell Count 3.59 M/uL (4.33-5.43)
[2021-02-19 06:17] LABS: Potassium 5.1 mmol/L (3.5-5.1)
[2021-02-19] MEDS: JUVEN PACKET FT SCH ×2 (09:00→21:46)
[2021-02-19] MEDS: CLOTRIMAZ/BETAMETH CREAM 15GM TOP SCH (09:00)
[2021-02-19] MEDS ORDERED: levETIRAcetam 500 MG/5 ML OSYR PO SCH (09:00)
[2021-02-19] MEDS: APIXABAN 2.5 MG TABLET PO SCH ×2 (10:25→21:44)
[2021-02-19] MEDS: DIVALPROEX NA 125 MG CAP PO SCH ×2 (10:25→21:44)
[2021-02-19] MEDS: ISOSORBIDE MONO SR 60 MG TAB PO SCH (10:25)
[2021-02-19] MEDS: ASPIRIN EC 81 MG TAB PO SCH (10:25)
[2021-02-19] MEDS: FUROSEMIDE 40 MG TABLET PO SCH (10:26)
[2021-02-19] MEDS: levETIRAcetam 500 MG/5 ML OSYR PO SCH ×2 (10:26→21:45)
[2021-02-19] MEDS: Pantoprazole (granules) 40 MG/BLIST PACKET FT SCH (10:27)
[2021-02-19] MEDS: COLLAGENASE 30 GM OINTMENT TOP SCH (10:27)
[2021-02-19] MEDS: INSULIN GLARGINE 100 UNIT/ML SQ SCH (10:29)
[2021-02-19] MEDS: SILVER SULFADIAZINE 1% 50 GM TOP SCH (10:29)
[2021-02-19] MEDS: allopurinoL 300 MG TAB PO SCH (10:30)
[2021-02-19] MEDS: ZINC SULFATE 220 MG CAP PO SCH (10:30)
[2021-02-19] MEDS: ASCORBIC ACID 500 MG TABLET PO SCH (10:30)
--- NOTE | 2021-02-19 11:01 | PN ---
Date of Progress Note: 02/19/2021 Subjective: The patient was seen this morning for followup. He was lying in bed, sleeping, arousable upon verbal commands, but does not answer any questions. Not in respiratory distress. Objective: Heart: Sounds normal. Abdomen: Soft. Bowel sounds normal. No guarding, rigidity, tenderness, or distention. Extremities: No leg edema. Laboratory Data: White count 18.3, hemoglobin 10.1. The patient's chemistry results reviewed. BUN is 95, creatinine 1.95. Impression: 1. Volume depletion. 2. Decubitus ulcer. 3. Chronic systolic congestive heart failure. 4. Hypertension. 5. Diabetes. 6. Chronic kidney disease, stage 4. 7. Anemia due to chronic kidney disease. Plan: We will go ahead and reduce dose of furosemide from 80 mg daily down to 40 mg daily. We will repeat blood work tomorrow morning. We will also repeat echo with Doppler tomorrow. Last echocardiogram was done in June of this year, results reviewed, showing ejection fraction around 29% at that time. We will increase the amount of water that he gets through the PEG tube. Instead of 100 cc every 4 hours, we will increase it to 200 cc every 4 hours. We will restart his Eliquis 2.5 mg 2 times a day, which was discontinued prior to PEG tube placement. I will repeat blood work tomorrow morning and see him tomorrow for followup. KARISHMA/MODViviana Voice ID: [id number] Report ID: [id number] MTDD
[2021-02-19] MEDS ORDERED: INSULIN -REGULAR HUMAN 50 UNIT/0.5 ML ML SQ ONE (17:27)
[2021-02-19] MEDS: ATORVASTATIN 80 MG TAB PO SCH (21:44)
[2021-02-19] MEDS ORDERED: INSULIN GLARGINE 100 UNIT/ML SQ ONE (22:22)
[2021-02-20] MEDS: PIPER TAZO 2.25 GM in NA CHLORIDE 0.9% 50 ML IV SCH ×3 (00:33→17:57)
[2021-02-20 04:43] LABS: Albumin 1.5 g/dL (3.4-5.0); Potassium 5.3 mmol/L (3.5-5.1); Prealbumin 10.6 mg/dL (20-40)
[2021-02-20] MEDS ORDERED: SOD POLYSTYREN SUL 15 GM/60 ML UCUP FT ONE (06:25)
[2021-02-20] MEDS: JUVEN PACKET FT SCH ×2 (09:00→20:28)
[2021-02-20] MEDS: INSULIN GLARGINE 100 UNIT/ML SQ SCH (09:00)
[2021-02-20] MEDS: CLOTRIMAZ/BETAMETH CREAM 15GM TOP SCH (09:00)
[2021-02-20] MEDS: COLLAGENASE 30 GM OINTMENT TOP SCH (09:00)
[2021-02-20] MEDS: Pantoprazole (granules) 40 MG/BLIST PACKET FT SCH (09:00)
[2021-02-20] MEDS: levETIRAcetam 500 MG/5 ML OSYR PO SCH ×2 (10:38→20:28)
[2021-02-20] MEDS: ASCORBIC ACID 500 MG TABLET PO SCH (10:39)
[2021-02-20] MEDS: DIVALPROEX NA 125 MG CAP PO SCH ×2 (10:40→20:28)
[2021-02-20] MEDS: ZINC SULFATE 220 MG CAP PO SCH (10:40)
[2021-02-20] MEDS: allopurinoL 300 MG TAB PO SCH (10:40)
[2021-02-20] MEDS: ASPIRIN EC 81 MG TAB PO SCH (10:40)
[2021-02-20] MEDS: ISOSORBIDE MONO SR 60 MG TAB PO SCH (10:40)
[2021-02-20] MEDS: SILVER SULFADIAZINE 1% 50 GM TOP SCH (10:44)
--- NOTE | 2021-02-20 16:05 | PN ---
Date of Progress Note: 02/20/2021 Subjective: The patient is awake, confused. Objective: Vital Stable: Afebrile. Extremities: Examination of the right heel toe reveals to be cleaned. No evidence of infection. Pi nk, slightly smaller than before. Good granulation tissue. Genitalia: On the scrotum, the patient has a pressure ulcer stage 2-3 with redness present, no fibri n seen and is approximately 3 x 4 cm, but is irregular and the sacral wound has denuded skin. It is a stage II to III on the outside, but the true stage cannot be determined as by there was some deep t issue injury as well, but there is no surrounding erythema, warmth or edema. It has probably increas ed in size slightly. Assessment: A 75-year-old male with multiple medical problems with sacral decubitus, scrotal decubit us, and right heel wound. Recommendation: Silvadene to the scrotum and right heel, collagenase to the sacrum. Nutritional opt imization and vitamin as ordered, offloading, air mattress, and I have advised the nursing staff to samantha hernandez with a dietitian to make sure he is on optimal protein intake to help heal his wounds and discha rge planning. /MODL Voice ID: [id number] Report ID: [id number]
--- NOTE | 2021-02-20 19:02 | PN ---
Date of Progress Note: 02/20/2021 Subjective: The patient was seen this morning for followup. No new complaints or problems reported by the patient. Lying in bed. He does not communicate, but he did open his eyes, looked at me, but did not answer any questions. Not in distress. Objective: Vital Signs: Reviewed. HEENT: Unremarkable. Lungs: Clear to auscultation. Heart: Sounds normal. Abdomen: Soft. Bowel sounds normal. No guarding, rigidity, tenderness, or distention. Presence of PEG tube over anterior abdominal wall with some oozing of blood from the PEG tube site. No active bleeding. Extremities: No leg edema. Laboratory Data: Sodium 140, potassium 5.3, chloride 105, bicarb 30, BUN 100, creatinine 1.90, glucose 211, albumin 1.5, prealbumin 10.6. Impression: 1. Decubitus ulcer. 2. Failure to thrive. 3. Acute kidney injury. 4. Chronic kidney disease, stage 4. 5. Volume depletion. 6. Hyperkalemia. 7. Malnutrition, severe. 8. Chronic systolic congestive heart failure. 9. Hypertension. 10. Diabetes mellitus. Plan: We will continue current insulin. Continue current PEG tube feeding. Continue to follow with Dr. Recinos for decubitus management and we will continue current empiric antibiotic. We will follow up with business economist for this bleeding from PEG tube site. This morning, I have ordered his Eliquis to be on hold and this afternoon when nurse contacted me, I also asked her to hold aspirin. We will repeat blood work tomorrow morning. I have increased dose of his water that he gets through the PEG tube to 300 cc every 4 hours and 100 cc before and after each use. We will get echo with Doppler today. Hold his furosemide today and we will repeat blood work tomorrow morning. KARISHMA/MODL Voice ID: [id number] Report ID: [id number] OLIVIA
[2021-02-20] MEDS: ATORVASTATIN 80 MG TAB PO SCH (20:27)
[2021-02-21] MEDS: PIPER TAZO 2.25 GM in NA CHLORIDE 0.9% 50 ML IV SCH ×3 (00:48→17:10)
[2021-02-21 05:20] LABS: Absolute Lymphocytes (CBC) 11.5 K/uL (0.7-4.9); Basophils % 0.9 % (0-1.3); Hematocrit 23.9 % (39.6-49.0); Lymphocytes % 69.1 % (15.3-44.8); MPV 8.4 fL (7.6-11.3); RBC Red Blood Cell Count 2.64 M/uL (4.33-5.43)
[2021-02-21 05:46] LABS: Potassium 4.1 mmol/L (3.5-5.1)
[2021-02-21 08:09] LABS: Anisocytosis 2+; Blood Morphology Comment NOTED (NOT SEEN); Hypochromasia 1+; Platelet Estimate ADEQ
--- NOTE | 2021-02-21 08:17 | ECHO ---
HEIGHT: 6 ft 0 in WEIGHT: 160 lb 0 oz DATE OF STUDY: 02/20/[address]: Chito Murillo MD 2-DIMENSIONAL: YES M.MODE: YES DOPPLER: YES COLOR FLOW: YES TDS: NO PORTABLE: NO DEFINITY: NO BUBBLE STUDY: NO DIAGNOSIS: CONGESITVE HEART FAILURE CARDIAC HISTORY: CATHERIZATION: SURGERY: PROSTHETIC VALVE: PACEMAKER: MEASUREMENTS (cm) DIASTOLIC (NORMALS) SYSTOLIC (NORMALS) IVSd 1.2 (0.6-1.2) LA Diam 4.2 (1.9-4.0) LVEF 20% LVIDd 5.2 (3.5-5.7) LVIDs 4.7 (2.0-3.5) %FS 9% LVPWd 1.4 (0.6-1.2) Ao Diam 3.4 (2.0-3.7) 2 DIMENSIONAL ASSESSMENT: RIGHT ATRIUM: NORMAL LEFT ATRIUM: DILATED RIGHT VENTRICLE: NORMAL LEFT VENTRICLE: NORMAL SIZE TRICUSPID VALVE: NORMAL MITRAL VALVE: NORMAL PULMONIC VALVE: NORMAL AORTIC VALVE: NORMAL PERICARDIAL EFFUSION: NONE AORTIC ROOT: NORMAL LEFT VENTRICULAR WALL MOTION: SEVERE GLOBAL HYPOKINESIS. DOPPLER/COLOR FLOW: MILD TRICUSPID REGURGITATION. COMMENTS: SEVERE GLOBAL HYPOKINESIS. LEFT VENTRICULAR EJECTION FRACTION 20%. NO EFFUSION. TECHNOLOGIST: Daniel BILLS
[2021-02-21] MEDS: levETIRAcetam 500 MG/5 ML OSYR PO SCH ×2 (08:44→20:58)
[2021-02-21] MEDS: DIVALPROEX NA 125 MG CAP PO SCH ×2 (08:45→20:59)
[2021-02-21] MEDS: allopurinoL 300 MG TAB PO SCH (08:45)
[2021-02-21] MEDS: ISOSORBIDE MONO SR 60 MG TAB PO SCH (08:45)
[2021-02-21] MEDS: ASCORBIC ACID 500 MG TABLET PO SCH (08:45)
[2021-02-21] MEDS: JUVEN PACKET FT SCH ×2 (08:46→20:59)
[2021-02-21] MEDS: ZINC SULFATE 220 MG CAP PO SCH (08:46)
[2021-02-21] MEDS: FUROSEMIDE 40 MG TABLET PO SCH (08:46)
[2021-02-21] MEDS: INSULIN GLARGINE 100 UNIT/ML SQ SCH (08:46)
[2021-02-21] MEDS: COLLAGENASE 30 GM OINTMENT TOP SCH (08:47)
[2021-02-21] MEDS: SILVER SULFADIAZINE 1% 50 GM TOP SCH (08:48)
[2021-02-21] MEDS: CLOTRIMAZ/BETAMETH CREAM 15GM TOP SCH (08:48)
[2021-02-21] MEDS ORDERED: NA CHLORIDE 0.9% 50 ML ONE (08:52)
[2021-02-21] MEDS: Pantoprazole (granules) 40 MG/BLIST PACKET FT SCH (08:54)
[2021-02-21] MEDS: GLUCERNA 1.5 CAL 1,000 ML BOT RTH SCH (12:18)
[2021-02-21] MEDS ORDERED: NA CHLORIDE 0.9% 250 ML ONE ×2 (17:34→17:39)
[2021-02-21] MEDS: ATORVASTATIN 80 MG TAB PO SCH (20:58)
[2021-02-22] MEDS: PIPER TAZO 2.25 GM in NA CHLORIDE 0.9% 50 ML IV SCH ×3 (00:04→16:17)
[2021-02-22 05:23] LABS: Absolute Lymphocytes (CBC) 12.3 K/uL (0.7-4.9); Basophils % 0.8 % (0-1.3); Hematocrit 31.9 % (39.6-49.0); MPV 8.3 fL (7.6-11.3); RBC Red Blood Cell Count 3.61 M/uL (4.33-5.43)
[2021-02-22 05:29] LABS: Potassium 4.5 mmol/L (3.5-5.1)
--- NOTE | 2021-02-22 05:53 | PN ---
Date of Progress Note: 02/21/2021 Subjective: The patient was seen this morning for followup, he was sleeping, arousable upon verbal c ommands. Does not answer any questions, not in any distress. Objective: Vital Signs: Reviewed. HEENT: Unremarkable. Lungs: Clear to auscultation. Heart: Heart sounds normal. Abdomen: Soft, bowel sounds normal. No guarding, rigidity, tenderness, or distention. Presence of PEG tube and overlying dressing over the PEG tube is dry. There is no active bleeding. Extremities: No leg edema. Laboratory Data: White count 16.7, hemoglobin 7.6 and hemoglobin was 10.1 on 02/19/2021. Today, jac telet count 163. Sodium 143, potassium 4.1, chloride 107, bicarb 31, BUN 94, creatinine 1.81, glucos e 158. Impression: 1.Acute blood loss anemia. 2.Anemia due to chronic kidney disease. 3.Chronic systolic heart failure. 4.Hypertension. 5.Diabetes mellitus. 6.Decubitus ulcer. Plan: We will continue to follow with Dr. Recinos for decubitus management. Continue current PEG tube feeding. He is tolerating PEG tube feeding very well. Yesterday, he had some bleeding from the PEG tube insertion site. Today, I did not see any active bleeding. His aspirin and Eliquis were discon tinued yesterday. Last dose of aspirin was yesterday and last dose of Eliquis was day before yesterd ay. We will go ahead and continue to monitor for any further bleeding, but meanwhile we will hold th is Eliquis and aspirin. The patient will get 2 units of packed red cell blood transfusion per order. We will continue current PEG tube feeding and water through PEG tube. BUN has improved compared to yesterday. I will see him tomorrow for followup, will get post transfusion hemo globin. KARISHMA/MODL Voice ID: [id number] Report ID: [id number]
[2021-02-22] MEDS: DIVALPROEX NA 125 MG CAP PO SCH ×2 (08:21→20:12)
[2021-02-22] MEDS: ASCORBIC ACID 500 MG TABLET PO SCH (08:21)
[2021-02-22] MEDS: ISOSORBIDE MONO SR 60 MG TAB PO SCH (08:21)
[2021-02-22] MEDS: ZINC SULFATE 220 MG CAP PO SCH (08:21)
[2021-02-22] MEDS: allopurinoL 300 MG TAB PO SCH (08:21)
[2021-02-22] MEDS: JUVEN PACKET FT SCH ×2 (08:22→20:09)
[2021-02-22] MEDS: FUROSEMIDE 40 MG TABLET PO SCH (08:22)
[2021-02-22] MEDS: levETIRAcetam 500 MG/5 ML OSYR PO SCH ×2 (08:22→20:12)
[2021-02-22] MEDS: Pantoprazole (granules) 40 MG/BLIST PACKET FT SCH (08:23)
[2021-02-22] MEDS: SILVER SULFADIAZINE 1% 50 GM TOP SCH (08:23)
[2021-02-22] MEDS: CLOTRIMAZ/BETAMETH CREAM 15GM TOP SCH (08:24)
[2021-02-22] MEDS: COLLAGENASE 30 GM OINTMENT TOP SCH (09:00)
[2021-02-22] MEDS: INSULIN GLARGINE 100 UNIT/ML SQ SCH (10:13)
[2021-02-22] MEDS: ATORVASTATIN 80 MG TAB PO SCH (20:12)
[2021-02-22] MEDS: D50W 25 GM/50 ML SYRINGE IV PRN (21:07)
[2021-02-23] MEDS: PIPER TAZO 2.25 GM in NA CHLORIDE 0.9% 50 ML IV SCH ×3 (00:26→16:40)
[2021-02-23] MEDS: D50W 25 GM/50 ML SYRINGE IV PRN (06:03)
--- NOTE | 2021-02-23 06:20 | PN ---
Date of Progress Note: 02/22/2021 Subjective: The patient was seen this morning for followup. No new complaints or problems reported by him. He was lying in bed, but sleeping, arousable upon verbal commands. Objective: Vital Signs: Reviewed. HEENT: Unremarkable. Lungs: Clear to auscultation. Heart: Sounds normal. Abdomen: Soft. Bowel sounds normal. No guarding, rigidity, tenderness, distention. Extremities: No leg edema. Laboratory Data: This morning; white count 18.7, hemoglobin is 10.3, platelets 157. Sodium 141, pot assium 4.5, chloride 105, bicarb 31, BUN 96, creatinine 1.83, glucose 130. Impression: 1.Anemia due to acute blood loss. 2.Anemia due to chronic kidney disease. 3.Chronic kidney disease, stage 4. 4.Hypertension. 5.Coronary artery disease. 6.Chronic systolic congestive heart failure. 7.Diabetes mellitus. 8.Decubitus ulcers. Plan: We will continue to follow with Dr. Recinos for decubitus management. Echocardiogram had shown ejection fraction 20%. Unfortunately, the patient has what we described now has end-stage congestive heart failure. We will continue current diuretic therapy, monitor electrolytes, and renal function as we have done. Continue current empiric antibiotic therapy, which probably we will consider to dis continue in the next day or so. The patient received 2 units of PRBC blood transfusion. There is no evidence of any active bleeding from PEG tube site today when I examined him. We will see him tomorrow for followup. KARISHMA/MODL Voice ID: [id number] Report ID: [id number]
[2021-02-23] MEDS: SILVER SULFADIAZINE 1% 50 GM TOP SCH (09:00)
[2021-02-23] MEDS: COLLAGENASE 30 GM OINTMENT TOP SCH (09:00)
[2021-02-23] MEDS: CLOTRIMAZ/BETAMETH CREAM 15GM TOP SCH (09:00)
[2021-02-23] MEDS ORDERED: INSULIN GLARGINE 100 UNIT/ML SQ SCH (09:00)
[2021-02-23] MEDS: Pantoprazole (granules) 40 MG/BLIST PACKET FT SCH (09:00)
[2021-02-23] MEDS: JUVEN PACKET FT SCH ×2 (09:23→21:52)
[2021-02-23] MEDS: FUROSEMIDE 40 MG TABLET PO SCH (09:25)
[2021-02-23] MEDS: ASCORBIC ACID 500 MG TABLET PO SCH (09:25)
[2021-02-23] MEDS: allopurinoL 300 MG TAB PO SCH (09:25)
[2021-02-23] MEDS: ISOSORBIDE MONO SR 60 MG TAB PO SCH (09:25)
[2021-02-23] MEDS: ZINC SULFATE 220 MG CAP PO SCH (09:25)
[2021-02-23] MEDS: DIVALPROEX NA 125 MG CAP PO SCH ×2 (09:26→21:51)
[2021-02-23] MEDS: levETIRAcetam 500 MG/5 ML OSYR PO SCH ×2 (09:26→21:50)
[2021-02-23] MEDS: ACETAMINOPHEN 500 MG TAB PO PRN (09:53)
[2021-02-23] MEDS: ATORVASTATIN 80 MG TAB PO SCH (21:51)
--- NOTE | 2021-02-23 22:12 | PN ---
Date of Progress Note: 02/23/2021 Subjective: The patient was seen this morning for followup, lying in bed, not in any distress. Does not communicate or answer any questions. Objective: Vital Signs: Reviewed. HEENT: Examination unremarkable. Lungs: Clear to auscultation. Heart: Sounds normal. Abdomen: Soft. Bowel sounds normal. No guarding, rigidity, tenderness, or distention. Extremities : No leg edema. Skin: Right heel decubitus ulcer is showing very good signs of healing. Sacrococcygeal large stage II decubitus, remains unchanged from last time. Laboratory Data: There is no new blood work today. Impression: 1.Diabetes mellitus. 2.Chronic systolic congestive heart failure, ejection fraction 20%. 3.Hypertension. 4.Coronary artery disease. 5.Decubitus ulcers. 6.Vascular dementia. Plan: The patient's blood sugar yesterday was low. Change his Lantus insulin. He was getting 40 un its subcutaneous injection daily and as of this morning I have discontinued that and we will check hi s blood sugar at 8 a.m. and 6 p.m. and give Lantus insulins subcutaneously as below for sugar 150 or less 0 units, for sugar 151 to 200 4 units, for sugar 201 to 250 6 units, for sugar 251 to 300 8 unit s, and for sugar 301 or higher 10 units subcutaneous injection. I did talk to patient's this ev ening earlier during the course of the day. Charge nurse contacted and informed me that the patient is not able to go to [facility] until next month, and because of this, patient's now has decided to go ahead and get him admitted to hospice care and Social Service was consulted with at, and Social Service was able to make arrangements for patient to go with [facility] hospice agency. I d id call the patient's this evening, communicated with her and informed her that I agree with her decision to put him on hospice care because of the patient's chronic health conditions, and with benson tovar, it is expected that his condition is going to continue to deteriorate. The patient will be going to [facility] tomorrow on hospice with a [facility] hospice agency for respite care for few days, and this will allow family to make arrangements at home and then he will return home with hospice ca re as per my understanding and talking to the patient's . Overall, prognosis is very poor. KARISHMA/MODL Voice ID: [id number] Report ID: [id number]
[2021-02-24] MEDS: PIPER TAZO 2.25 GM in NA CHLORIDE 0.9% 50 ML IV SCH ×2 (01:15→08:14)
[2021-02-24] MEDS: ASCORBIC ACID 500 MG TABLET PO SCH (08:14)
[2021-02-24] MEDS: FUROSEMIDE 40 MG TABLET PO SCH (08:15)
[2021-02-24] MEDS: DIVALPROEX NA 125 MG CAP PO SCH ×2 (08:15→21:26)
[2021-02-24] MEDS: ISOSORBIDE MONO SR 60 MG TAB PO SCH (08:15)
[2021-02-24] MEDS: ZINC SULFATE 220 MG CAP PO SCH (08:15)
[2021-02-24] MEDS: allopurinoL 300 MG TAB PO SCH (08:15)
[2021-02-24] MEDS: CLOTRIMAZ/BETAMETH CREAM 15GM TOP SCH (08:16)
[2021-02-24] MEDS: JUVEN PACKET FT SCH ×2 (08:16→21:26)
[2021-02-24] MEDS: levETIRAcetam 500 MG/5 ML OSYR PO SCH ×2 (08:16→21:25)
[2021-02-24] MEDS: SILVER SULFADIAZINE 1% 50 GM TOP SCH (08:17)
[2021-02-24] MEDS: Pantoprazole (granules) 40 MG/BLIST PACKET FT SCH (08:17)
[2021-02-24] MEDS: COLLAGENASE 30 GM OINTMENT TOP SCH (08:17)
[2021-02-24] MEDS ORDERED: KETOROLAC 30 MG/ML INJ ONE (09:11)
[2021-02-24] MEDS ORDERED: dexAMETHasone 10 MG/ML VIAL ONE (09:11)
[2021-02-24] MEDS ORDERED: ONDANSETRON 4 MG/2 ML VIAL ONE (09:11)
[2021-02-24] MEDS ORDERED: EPHEDRINE SULF 50 MG/ML VIAL ONE (10:21)
[2021-02-24] MEDS ORDERED: ROCURONIUM 50 MG/5 ML VIAL IV ONE ×2 (11:22→14:21)
--- NOTE | 2021-02-24 13:18 | DS ---
Date of Discharge: 02/24/2021 KARISHMA/MODL Voice ID: [id number] Report ID: [id number] MTDDeb
[2021-02-24] MEDS ORDERED: FENTANYL CITR 100 MCG/2 ML ONE (14:28)
[2021-02-24] MEDS ORDERED: GLYCOPYRROLATE 0.2 MG/ML SYR ONE (14:40)
[2021-02-24] MEDS ORDERED: NEOSTIGMINE 1 MG/ML -5 ML ONE (14:48)
[2021-02-24] MEDS: INSULIN GLARGINE 100 UNIT/ML SQ SCH (18:45)
--- NOTE | 2021-02-24 19:36 | PN ---
Date of Progress Note: 02/24/2021 Subjective: The patient was seen this morning for a followup and originally plan was for patient to get discharged from the hospital to go to [facility] with hospice on a respite care for fe w days as family requested some time to make arrangements at home and then they will bring him home w ith continuation of hospice care with [facility]. After discharge orders were returned, I w as notified this afternoon that [facility] is not going to be able to take him on a respit e care with hospice, so option that was suggested was inpatient hospice and then go home with hospice , but family does not want inpatient hospice and they requested for us to keep him in the hospital un til tomorrow and that we will give them time to make all the necessary arrangements at home for him t o come home tomorrow with hospice care. Social Service is assisting family with all this. Objective: Vital Signs: Reviewed. HEENT: Examination unremarkable. Lungs: Clear to auscultation. Heart: Sounds normal. Abdomen: Soft. Bowel sounds normal. No guarding, rigidity, tenderness, or distention. Extremities : No leg edema. Laboratory Data: There were no new labs today. Fingerstick blood sugar readings reviewed. His gluc ose this morning, fingerstick blood glucose was 152. Impression: 1.Vascular dementia. 2.Decubitus ulcers. 3.Chronic systolic congestive heart failure. 4.Coronary artery disease. 5.Hypertension. 6.Diabetes mellitus. Plan: We will continue current medications. Continue current decubitus care and we will also contin ue the current PEG tube feeding, which he is tolerating very well, Glucerna at 55 cc/hour. Continue current water through PEG tube and diabetes management. I will see him tomorrow morning and then we will discharge him tomorrow to go home with hospice care. KARISHMA/MODL Voice ID: [id number] Report ID: [id number]
[2021-02-24] MEDS: ATORVASTATIN 80 MG TAB PO SCH (21:25)
[2021-02-25] MEDS ORDERED: INSULIN GLARGINE 100 UNIT/ML SQ SCH (08:00)
[2021-02-25] MEDS: INSULIN GLARGINE 100 UNIT/ML SQ SCH (08:32)
[2021-02-25] MEDS: DIVALPROEX NA 125 MG CAP PO SCH (08:33)
[2021-02-25] MEDS: Pantoprazole (granules) 40 MG/BLIST PACKET FT SCH (08:34)
[2021-02-25] MEDS: FUROSEMIDE 40 MG TABLET PO SCH (08:35)
[2021-02-25] MEDS: ISOSORBIDE MONO SR 60 MG TAB PO SCH (08:35)
[2021-02-25] MEDS: allopurinoL 300 MG TAB PO SCH (08:36)
[2021-02-25] MEDS: ZINC SULFATE 220 MG CAP PO SCH (08:36)
[2021-02-25] MEDS: ASCORBIC ACID 500 MG TABLET PO SCH (08:36)
[2021-02-25] MEDS: COLLAGENASE 30 GM OINTMENT TOP SCH (08:37)
[2021-02-25] MEDS: CLOTRIMAZ/BETAMETH CREAM 15GM TOP SCH (08:37)
[2021-02-25] MEDS: SILVER SULFADIAZINE 1% 50 GM TOP SCH (08:37)
[2021-02-25] MEDS: JUVEN PACKET FT SCH (08:39)
[2021-02-25] MEDS: levETIRAcetam 500 MG/5 ML OSYR PO SCH (08:39)
[2021-02-25 08:50] VITALS: O2SAT 100
--- NOTE | 2021-02-25 11:21 | DS ---
Date of Discharge: 02/25/2021 Disposition: The patient will be discharged to go home, and he will be admitted to [facility].. Physical Examination: GENERAL: Today, the patient was lying in bed, not in distress. Does not communicate or answer any questions, but was looking at me, not in any respiratory distress. HEENT: Unremarkable. LUNGS: Clear to auscultation. Not in respiratory distress. No rhonchi. No rales. HEART: Sounds normal. ABDOMEN: Soft. Bowel sounds normal. No guarding, rigidity, tenderness, or distention. EXTREMITIES: No leg edema. Laboratory Data: Last white count on 02/22/2021 was 18.7, hemoglobin was 10.3, and platelet count 157. Last chemistry on 02/22/2021; sodium 141, potassium 4.5, chloride 105, bicarb 31, BUN 96, creatinine 1.83, glucose 133. Last serum albumin 1.5 on 02/20/2021. His initial creatinine was 2.21 on 01/25/2021 when he was admitted to the hospital. His highest creatinine level was 2.35 on 01/27/2021. Lowest creatinine level 1.73 on 02/14/2021. His initial white count was 15.6 on 01/25/2021. Highest white count was 23.30 on 02/09/2021. Initial hemoglobin was 13. Lowest hemoglobin was 7.6 on 02/21/2021 and after that he received 2 units of PRBC blood transfusions and last hemoglobin was 10.3 on 02/22/2021. Peripheral smear showed evidence of CLL, that is chronic lymphocytic leukemia and echocardiogram showed ejection fraction of 20%. Discharge Medications/instructions: 1. Vitamin C 1000 mg p.o. daily. 2. Collagenase apply topically as per instruction. 3. Lotrisone cream apply topically as per instruction. 4. Depakote Sprinkle 250 mg 2 times a day. 5. Furosemide 40 mg p.o. daily. 6. Jacob 1 pack per feeding tube 2 times a day. 7. Pantoprazole 40 mg per feeding tube daily. 8. Silvadene cream topically per instruction. 9. Zinc sulfate 220 mg p.o. daily. 10. Allopurinol 300 mg p.o. daily. 11. Isosorbide mononitrate 60 mg p.o. daily. 12. Silvadene cream topically per instruction. 13. Discontinue Eliquis, atorvastatin, carvedilol, hydralazine, lorazepam. Discharge Instructions: 1. The patient to be admitted to hospice care after discharge and hospice medical services manager to take over his care. 2. Decubitus care as per Dr. Recinos for decubitus ulcers over right heel and sacrococcygeal area. 3. Air mattress. 4. Change position every 2 hours. 5. Offload heels all the time. 6. Keep head, chest, and abdomen area elevated at 45 degrees all the time. 7. PEG tube feeding, using Glucerna at 55 cc/hour. 8. Give 300 cc water per PEG tube every 4 hours and flush PEG tube with 50 to 100 cc water before and after each use. 9. Mechanical soft diet and nursing staff to assist the patient with feeding with one-to-one supervision. 10. Depakote Sprinkle 250 mg by mouth 2 times a day. 11. Levetiracetam, that is Keppra oral solution 500 mg by mouth 2 times a day. 12. Check fingerstick blood sugar at 8 a.m. and 6 p.m. and give Lantus insulin subcutaneously as below: For sugar 150 or less, 0 unit; for sugar 151 to 200, 4 units; for sugar 201 to 250, 6 units; for sugar 251 to 300, 8 units; and for sugar 301 or higher, 10 units. 13. See discharge medication list for details. Hospital Course: This is a 75-year-old male patient, who was living at home, was brought into the emergency room on 01/25/2021 with complaints of passing out. Please see dictated H and P for more information. After the patient was evaluated in the ER, he was admitted to the hospital. Initial chest x-ray raised the possibility of bilateral pneumonia. He was started on empiric antibiotics. We did change antibiotics during this hospitalization and the last 2 sets of antibiotic that he was on was Zosyn and vancomycin and he stayed on it for over 2 weeks. His blood cultures have grown Staphylococcus. He received appropriate antibiotic for appropriate duration of time and vancomycin was discontinued a few days ago. Pharmacy consult was requested to manage vancomycin therapy. His chest x-ray continued to show the same persistent abnormality, which I suspect is more of a congestive heart failure problem than pneumonia problem. WBC count continues to remain elevated and most likely this is due to his underlying CLL problem. Hematology consultation was obtained for CLL and the patient is not a candidate for any kind of treatment yet because of his multiple other serious comorbidities. The patient also was noted to have decubitus ulcers since the time of admission and Dr. Recinos was consulted from General Surgery who managed these decubitus ulcers with decubitus care. The patient was kept on air mattress and positions were changed every 2 hours per instructions. His nutrition was poor, has severe malnutrition problem with very low serum albumin level and without improvement in nutrition, his decubitus ulcer will not have a chance to improve and his oral intake was poor. So with all that, we did discuss with family regarding feeding tube and initially wanted to wait for a while, but subsequently she did agree to have a feeding tube, which was placed by Dr. Burgess and after the procedure, he started tolerating feeding very well. The patient was getting Eliquis, which is one of his home medications 2.5 mg 2 times a day and his Eliquis was kept on hold for few days after feeding tube placement. We did restart Eliquis, but then the patient had bleeding from PEG tube insertion site and he dropped hemoglobin low enough that he required 2 units of PRBC blood transfusion and at that time, we did discontinue his Eliquis and at this point, risk of giving anticoagulation therapy will be more than the benefit, so we have not restarted Eliquis anymore after this bleeding episode. His bleeding has subsided once we stopped his Eliquis. He was also on aspirin 81 mg, which was discontinued for the same reason. The patient has significant contracture of all the 4 extremities, that has been unchanged since the time of admission and he is really not a candidate for any kind of physical therapy or rehab. I did communicate with the patient's on multiple occasions throughout this hospital stay, including last discussion was yesterday. wanted the patient to go to residential and unfortunately because of some paperwork problems, he will not be able to go to [facility] for almost a month and yesterday, decided to go ahead and take him home with the hospice care. He did have a discussion about hospice care some time ago, and I mentioned it to that with decline in his condition, the hospice care will become necessary at some point in the future, and she yesterday decided to go ahead and initiate the hospice care and I agree with her and patient regarding going on hospice. He will be sent home for arrangements to be completed at home so she can bring him home with hospice. Meanwhile, he will go to [facility] on hospice for few days. Overall, prognosis is poor. I did talk to the patient's regarding advance directive and as per her decision DNR order was written in the chart. I also requested her to fill out of hospital DNR paperwork, but up until today she has not filled out that paperwork, need to be completed by hospice agency now. Yesterday, our plan was for the patient to go to [facility] with hospice on a respite care and during the course of day yesterday, I was notified that [facility] was not able to accept him and subsequently option of inpatient hospice was suggested to family and family declined that and they wanted him home with hospice care. So, the patient's hospice agency, [facility] has worked with family to make arrangements for him to go home today with hospice care to be provided at home. The patient is medically stable for discharge. Final Diagnoses: 1. Pneumonia. 2. Seizure disorder. 3. Chronic systolic congestive heart failure. 4. Malnutrition, severe. 5. Sepsis, organism Staphylococcus. 6. Decubitus ulcers, stage II, sacrococcygeal region and right heel. 7. Vascular dementia. 8. Anemia due to acute blood loss. 9. Anemia due to chronic kidney disease. 10. Chronic kidney disease, stage 4. 11. Hypertension. 12. Hyperlipidemia. 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 14. Coronary artery disease. 15. Failure to thrive. 16. Benign prostatic hypertrophy. 17. Gout. 18. Gastroesophageal reflux disease. 19. Weight loss. 20. Thrombocytopenia. KARISHMA/MODL Voice ID: [id number] Report ID: [id number] MTDD
[2021-02-25 12:31] VITALS: BP 130/72; TEMP 97.7
--- NOTE | 2021-02-26 21:26 | PN ---
Date of Progress Note: 02/03/2021 Subjective: The patient was seen for followup this morning, lying in bed, not in distress. No new c omplaints or problems reported. Objective: Vital Signs: Reviewed. HEENT: Examination unremarkable. Lungs: Clear to auscultation. No rhonchi. No rales. Not using any accessory muscles of respiratio n. Heart: Sounds normal. Abdomen: Soft. Bowel sounds normal. No guarding, rigidity, tenderness, distention. Extremities: No leg edema. Laboratory Data: Serum creatinine 1.98 today. Fingerstick blood sugar readings reviewed. Impression: 1.Vascular dementia. 2.Chronic kidney disease, stage IVB. 3.Hypertension. 4.Coronary artery disease. 5.Chronic systolic congestive heart failure. 6.Seizure disorder. 7.Decubitus ulcer, sacrococcygeal region and bilateral feet. Plan: We will go ahead and continue current medications. Continue current antibiotics. Continue de cubitus care. Change position every 2 hours. Continue current diuretic therapy and diabetes managem ent. I will see him tomorrow for followup. KARISHMA/MODL Voice ID: [id number] Report ID: [id number]
== END 2021-02-25 16:11 | disposition hospice, home (50) | DRG 193 ==
LOC: ER 20:02 → ERHOLD 01-26 01:56 → 2ND 01-26 10:03
PROVIDERS: ADMIT Internal Medicine; ATTEND Internal Medicine
PROC: 02HV33Z Insertion of Infusion Device into Superior Vena Cava, Percutaneous Approach (ICD-10-PCS; 2021-01-31)
PROC: 0DH63UZ Insertion of Feeding Device into Stomach, Percutaneous Approach (ICD-10-PCS; principal; 2021-02-14 07:30)
PROC: 0DB78ZX Excision of Stomach, Pylorus, Via Natural or Artificial Opening Endoscopic, Diagnostic (ICD-10-PCS; 2021-02-14 07:30)
PROC: 30233N1 Transfusion of Nonautologous Red Blood Cells into Peripheral Vein, Percutaneous Approach (ICD-10-PCS; 2021-02-21)
DX: J18.9 Pneumonia, unspecified organism (principal); A41.2 Sepsis due to unspecified staphylococcus; L89.153 Pressure ulcer of sacral region, stage 3; E43 Unspecified severe protein-calorie malnutrition; I50.22 Chronic systolic (congestive) heart failure; I13.0 Hypertensive heart and chronic kidney disease with heart failure and stage 1 through stage 4 chronic kidney disease, or unspecified chronic kidney disease; N18.4 Chronic kidney disease, stage 4 (severe); C91.10 Chronic lymphocytic leukemia of B-cell type not having achieved remission; N17.9 Acute kidney failure, unspecified; D62 Acute posthemorrhagic anemia; G40.909 Epilepsy, unspecified, not intractable, without status epilepticus; E11.22 Type 2 diabetes mellitus with diabetic chronic kidney disease; L89.612 Pressure ulcer of right heel, stage 2; L89.622 Pressure ulcer of left heel, stage 2; F01.50 Vascular dementia, unspecified severity, without behavioral disturbance, psychotic disturbance, mood disturbance, and anxiety; I95.9 Hypotension, unspecified; M10.9 Gout, unspecified; D63.1 Anemia in chronic kidney disease; E78.5 Hyperlipidemia, unspecified; D69.6 Thrombocytopenia, unspecified; N40.0 Benign prostatic hyperplasia without lower urinary tract symptoms; L89.896 Pressure-induced deep tissue damage of other site; K21.9 Gastro-esophageal reflux disease without esophagitis; I25.10 Atherosclerotic heart disease of native coronary artery without angina pectoris; R63.4 Abnormal weight loss; Z68.21 Body mass index [BMI] 21.0-21.9, adult; Z86.73 Personal history of transient ischemic attack (TIA), and cerebral infarction without residual deficits; Z20.822 Contact with and (suspected) exposure to COVID-19; Z66 Do not resuscitate; E11.649 Type 2 diabetes mellitus with hypoglycemia without coma; K29.70 Gastritis, unspecified, without bleeding; K44.9 Diaphragmatic hernia without obstruction or gangrene; R62.7 Adult failure to thrive; E86.9 Volume depletion, unspecified; L89.899 Pressure ulcer of other site, unspecified stage
CPT/HCPCS: 0240U; 36415; 36430; 36569; 71045; 71250; 80048; 80053; 80076; 80164; 80177; 80202; 81001; 82040; 82565; 82947; 83605; 83615; 83735; 83880; 84134; 84145; 84484; 85025; 85384; 85610; 85730; 86850; 86900; 86901; 87040; 87077; 87086; 87088; 87186; 87205; 88305; 88312; 93005; 93306; 94760; 95851; 97110; 97112; 97140; 97161; 97164; 97165; 99251; 99285; J0171; J0330; J0456; J0690; J0696; J1100; J1630; J1815; J2405; J2543; J2704; J2710; J3010; J3370; J3590; J7030; J7040; J7042; J7050; P9016